=== PATIENT | female | born 1950 | race Caucasian/White ===

== ENCOUNTER 2021-12-17 12:51 | Emergency (ER) | payer MEDICARE, SELFPAY ==
[2021-12-17 12:54] VITALS: BP 147/75; PULSE 67; RESP 28; TEMP 36.2; O2SAT 100; BMI 20.7
[2021-12-17 13:23] VITALS: O2SAT 100
--- NOTE | 2021-12-17 13:23 | CRLHL7_ITS ---
For Patients: As a result of the Century Cures Act, medical imaging exams and procedure reports are released immediately into your electronic medical record. You may view this report before your referring provider. If you have questions, please contact your health care provider. INDICATION: Right upper quadrant abdomen pain and bloating. TECHNIQUE: CT abdomen and pelvis acquired with 69 cc Isovue 370 IV contrast. COMPARISON: 04/24/2012. FINDINGS: Lower chest: Unremarkable. Liver: Stable benign-appearing cystic lesions. Otherwise unremarkable liver. Gallbladder and bile ducts: Unremarkable. No stones or inflammation. No biliary dilatation. Pancreas: Unremarkable. No mass or inflammation. Spleen: Unremarkable. Normal in size. No masses. Adrenal glands: Unremarkable. No nodules. Kidneys: Unremarkable. No suspicious masses, stones, or hydronephrosis. GI tract: Mild fluid retention scattered throughout the small bowel. GI tract otherwise within normal limits in caliber in appearance normal appendix. Vasculature: Abdominal aorta is normal in caliber. Mesenteric arteries are patent. Lymph nodes: No lymphadenopathy. Peritoneum/Abdominal Wall: Unremarkable. No sign of mass or infiltration. No free air or significant free fluid. Pelvis: Unremarkable. Bones: Unremarkable for age. IMPRESSION: Mild nonspecific fluid retention in the small bowel is a finding that can be seen with a general enteritis. No signs of constipation. Exam is otherwise unremarkable. Please note that all CT scans at this facility use dose modulation, iterative reconstruction, and/or weight-based dosing when appropriate to reduce radiation dose to as low as reasonably achievable. Dictated by Mian Arredondo MD @ 12/17/2021 3:34:11 PM (Electronically Signed)
[2021-12-17] MEDS: ONDANSETRON 2 MG/ML inj 4 MG IVP (13:34)
[2021-12-17] MEDS: HYDROmorphone 0.5 mg/0.5 ml inj IVP ×2 (13:34→14:31)
[2021-12-17 13:37] LABS: HCO3 VBG 26 mmol/L (21-28); Lactate* 2.8 mmol/L (0.5-1.9); PCO2 VBG 34 mmHG (40-50); PO2 VBG 29.5 mmHG (25-47); pH VBG 7.496 (7.32-7.43)
[2021-12-17 13:42] LABS: Basophils Absolute Auto 0.02 K/uL (0.00-0.30); Basophils Percent Auto 0.3 % (0.0-3.0); Eosinophils Absolute Auto 0.11 K/uL (0.00-0.50); Eosinophils Percent Auto 1.4 % (0.0-7.0); Hematocrit 46.6 % (33.0-51.0); Hemoglobin* 16.1 gm/dL (12.0-16.0); Immature Granulocytes Abs Auto 0.01 K/uL (0.00-0.30); Lymphocytes Absolute Auto 1.55 K/uL (0.90-2.90); Lymphocytes Percent Auto 20.1 % (20-44); Mean Corpuscular HGB Conc 35 gm/dL (32-36); Mean Corpuscular Hemoglobin 30 pg (26-34); Mean Corpuscular Volume 86 fL (80-100); Monocytes Percent Auto 6.5 % (0.0-11.0); Neutrophils Absolute Auto 5.52 K/uL (1.7-7.0); Neutrophils Percent Auto 71.6 % (42.0-72.0); Platelet Count* 325 K/uL (140-440); RDW Coefficient of Variation % 13.4 % (11.5-15.5); White Blood Count* 7.71 K/uL (4.50-11.00)
[2021-12-17 13:49] LABS: Slide Review Reflex No
--- NOTE | 2021-12-17 13:50 | ED.GENADULT ---
HPI - General Adult General Date Seen: 12/17/21 Chief complaint: Abdominal Pain Stated complaint: Colon pain can't go to the bathroom Time Seen by Provider: 12/17/21 12:54 Source: patient History of Present Illness HPI narrative: Patient is a 71-year-old woman who presents with sudden onset of severe abdominal pain about an hour prior to arrival. She notes that for the past couple of days she has not had a bowel movement, so she thought she might be constipated. She says that she tried to go the bathroom, she had a small amount of stool out but nothing significant. Since then she has not been passing gas, although this has just been for the past hour. She has been nauseated but no vomiting. Pain is diffuse, crampy, and radiates to the low back. She notes for the past couple of weeks she has had a vague mild mid right-sided abdominal pain which has been constant. This has not affected her daily life or appetite. She has no prior abdominal surgeries. She denies any known fever. She has not had any urinary symptoms. She has not had any black or bloody stools. She has history of back pain and some musculoskeletal problems, but denies any significant other medical history. She does not smoke, no significant alcohol intake. Here today with her . Related Data Home Medications Medication Instructions Recorded Confirmed albuterol sulfate 90 mcg/actuation 1 puff inhalation 12/17/21 aerosol inhaler alendronate 70 mg tablet 70 mg PO 12/17/21 atorvastatin 40 mg tablet 40 mg 12/17/21 clonazepam 0.5 mg tablet 0.5 mg 12/17/21 cyclobenzaprine 5 mg tablet 5 mg 12/17/21 duloxetine 20 mg capsule,delayed 20 mg PO 12/17/21 release fluticasone furoate 200 1 inh inhalation 12/17/21 mcg-vilanterol 25 mcg/dose inhalation powder (Breo Ellipta) gabapentin 300 mg capsule 300 mg 12/17/21 Allergies Allergy/AdvReac Type Severity Reaction Status Date / Time amoxicillin [From Augmentin] Allergy Mild Rash Verified 12/17/21 14:44 citalopram [From Celexa] Allergy Mild Vomiting Verified 12/17/21 14:44 clavulanic acid Allergy Mild Rash Verified 12/17/21 14:44 [From Augmentin] ketorolac [From Toradol] Allergy Mild feet Verified 12/17/21 14:44 swelling levofloxacin [From Levaquin] Allergy Mild tendons Verified 12/17/21 14:44 tizanidine Allergy Mild Dizziness Verified 12/17/21 14:44 malaxican Allergy Mild stomach Uncoded 12/17/21 14:44 ache Review of Systems Status of ROS: Reports: 10 or more systems reviewed and unremarkable except as noted in History and below [facility] Social History Smoking Status: Never smoker Non-prescribed substance use: denies use Exam Narrative: Exam Narrative: Vital signs as noted above. In general, an alert woman, tachypneic, complaining of severe pain. Head: Normocephalic, atraumatic. Eyes: Pupils are equal reactive. Extraocular movements are full. Conjunctivae are normal, no scleral icterus. ENT: Mucous membranes are moist. Throat is normal. Neck: Supple without lymphadenopathy. Heart: Regular rate and rhythm. No murmur or rub. Lungs: Clear bilaterally. No increased work of breathing, crackles or wheezes. Abdomen: Abdomen is protuberant and soft, diffuse tenderness without any focality, no rebound guarding or rigidity. Extremities: Well perfused. No edema. No calf tenderness. Difficult to palpate dorsalis pedis pulses bilaterally. Radial pulses intact. Neurologic: Patient is alert and oriented to person and place. Speech is fluent. Face is symmetric. Moves all extremities equally. Affect: Anxious. Skin: Warm and dry. Well perfused. Const: Vital Signs, click to edit/add: Vital Signs - 24 hr 12/17/21 12:54 12/17/21 13:23 Temperature 97.2 F L Pulse Rate [Right Pulse Oximeter] 67 Respiratory Rate 28 H Blood Pressure [Ri ght Upper Arm] 147/75 H Pulse Oximetry 100 100 Oxygen Delivery Me thod Room Air Documenting provider has reviewed patient's vital signs: yes Course Course Hospital Course: Following initial evaluation, patient had 0.5 mg of Dilaudid, L saline and 4 mg of Zofran. I looked with the bedside ultrasound, she appeared to have normal caliber aorta and I did not see obvious gallstones, although images were significantly hampered by overlying bowel gas. Labs were ordered as well as an abdominal CT scan. As labs began to return, they were notable for a normal white blood cell count of 7.71 and hemoglobin of 16, no left shift. Her lactate was elevated at 2.8. Venous gas showed a pH of 7.49 and pCO2 34, consistent with her tachypnea. Bicarb was 26. Sick metabolic panel showed a normal creatinine, and she went over for her CT scan. Remainder of her metabolic panel was unremarkable aside from a sodium of 132. CRP was normal. I reviewed her CT scan, I did not see any evidence of bowel obstruction, inflammatory changes suggesting diverticulitis, aorta appeared normal, gallbladder looked normal to me as well. No kidney stones. Final radiology report is read as follows: IMPRESSION: Mild nonspecific fluid retention in the small bowel is a finding that can be seen with a general enteritis. No signs of constipation. Exam is otherwise unremarkable. I did specifically review with the radiologist her mesenteric arteries, which he commented were patent. He did say that this study was adequate to evaluate the mesenteric arteries for any signs of mesenteric ischemia. He says he is confident that her symptoms are not due to mesenteric ischemia. By the time her CT had been red, patient's pain was significantly improved, although not completely gone. Her abdominal exam remains fairly benign. Explanation for her pain is unclear at this time. I considered volvulus, but given that she was still having severe pain at the time of her CT scan, it seems a little less likely. Her pain at no time was localized, LFTs are unremarkable, gallbladder is normal in CT scan, and she did not have a sonographic [employer] on my exam. I do not think this represents gallbladder disease and I do not think further evaluation with a HIDA scan is indicated at this time. She was not able to provide a urine sample, she had gone to the bathroom and not provided woman says she no longer needs to go. She did not have any urinary symptoms when she did go earlier, kidneys are normal on CT scan, and we are going to forego a UA. My suspicion of pyelonephritis is essentially zero. For now, I think it is reasonable to let her go home. I recommended keeping her diet bland today, advance as able. If she has recurrence of this severe pain, I do think she should be seen again, as based on her CT findings I would not anticipate that the severe pain should recur. Likewise, fever, bloody stools, or other worsening symptoms should prompt re-evaluation. Vital Signs Vital signs: Initial Vital Signs Temperature 97.2 F L 12/17/21 12:54 Temperature Source Temporal Artery Scan 12/17/21 12:54 Pulse Rate 67 12/17/21 12:54 Respiratory Rate 28 H 12/17/21 12:54 Blood Pressure 147/75 H 12/17/21 12:54 Blood Pressure Mean 99 12/17/21 12:54 Blood Pressure Position Sitting 12/17/21 12:54 Pulse Oximetry 100 12/17/21 12:54 Oxygen Delivery Method 12/17/21 12:54 Vital Signs Temperature 97.2 F L 12/17/21 12:54 Pulse Rate 67 12/17/21 12:54 Respiratory Rate 28 H 12/17/21 12:54 Blood Pressure 147/75 H 12/17/21 12:54 Pulse Oximetry 100 12/17/21 12:54 Oxygen Delivery Method 12/17/21 12:54 Temperature 97.2 F L 12/17/21 12:54 Pulse Rate 67 12/17/21 12:54 Respiratory Rate 28 H 12/17/21 12:54 Blood Pressure 147/75 H 12/17/21 12:54 Pulse Oximetry 100 12/17/21 13:23 Oxygen Delivery Method 12/17/21 12:54 Medical Decision Making Lab Data Labs: Lab Results 12/17/21 12/17/21 12/17/21 Range/Units 13:15 13:15 13:15 WBC 7.71 (4.50-11.00) K/uL RBC 5.40 H (4.00-5.20) m/uL Hgb 16.1 H (12.0-16.0) gm/dL Hct 46.6 (33.0-51.0) % MCV 86 (80-100) fL MCH 30 (26-34) pg MCHC 35 (32-36) gm/dL RDW Coeff of Farhan 13.4 (11.5-15.5) % Plt Count 325 (140-440) K/uL Neut % (Auto) 71.6 (42.0-72.0) % Lymph % (Auto) 20.1 (20-44) % [place] % (Auto) 6.5 (0.0-11.0) % Eos % (Auto) 1.4 (0.0-7.0) % Baso % (Auto) 0.3 (0.0-3.0) % Neut # (Auto) 5.52 (1.7-7.0) K/uL Lymph # (Auto) 1.55 (0.90-2.90) K/uL [place] # (Auto) 0.50 (0.00-0.90) K/UL Eos # (Auto) 0.11 (0.00-0.50) K/uL Baso # (Auto) 0.02 (0.00-0.30) K/uL Abs Immat Gran (auto) 0.01 (0.00-0.30) K/uL VBG pH 7.496 H (7.32-7.43) VBG pCO2 34 L (40-50) mmHG VBG pO2 29.5 (25-47) mmHG VBG HCO3 26 (21-28) mmol/L Sodium 132 L (135-149) mmol/L Potassium 4.2 (3.6-5.1) mmol/L Chloride 99 (96-114) mmol/L Carbon Dioxide 22 (20-32) mmol/L BUN 17 (7-30) mg/dL Creatinine 0.7 (0.5-1.5) mg/dL Estimated Creat Clear 53.23 Estimated GFR 94 ml/min Glucose 134 H (60-115) mg/dL Lactate 2.8 H (0.5-1.9) mmol/L Calcium 9.7 (8.4-10.6) mg/dL Total Bilirubin 0.6 (0.1-1.5) mg/dL Direct Bilirubin 0.1 (0.0-0.5) mg/dL AST 51 H (12-35) U/L ALT 50 H (4-35) U/L Alkaline Phosphatase 91 (40-150) U/L C-Reactive Protein < 0.5 L (0.5-1.0) mg/dL Total Protein 7.6 (6.0-8.3) g/dL Albumin 4.7 (3.3-5.0) g/dL Lipase 89 (23-300) U/L 12/17/21 12/17/21 Range/Units 13:15 13:15 WBC (4.50-11.00) K/uL RBC (4.00-5.20) m/uL Hgb (12.0-16.0) gm/dL Hct (33.0-51.0) % MCV (80-100) fL MCH (26-34) pg MCHC (32-36) gm/dL RDW Coeff of Farhan (11.5-15.5) % Plt Count (140-440) K/uL Neut % (Auto) (42.0-72.0) % Lymph % (Auto) (20-44) % [place] % (Auto) (0.0-11.0) % Eos % (Auto) (0.0-7.0) % Baso % (Auto) (0.0-3.0) % Neut # (Auto) (1.7-7.0) K/uL Lymph # (Auto) (0.90-2.90) K/uL [place] # (Auto) (0.00-0.90) K/UL Eos # (Auto) (0.00-0.50) K/uL Baso # (Auto) (0.00-0.30) K/uL Abs Immat Gran (auto) (0.00-0.30) K/uL VBG pH Cancelled (7.32-7.43) VBG pCO2 Cancelled (40-50) mmHG VBG pO2 Cancelled (25-47) mmHG VBG HCO3 Cancelled (21-28) mmol/L Sodium (135-149) mmol/L Potassium (3.6-5.1) mmol/L Chloride (96-114) mmol/L Carbon Dioxide (20-32) mmol/L BUN (7-30) mg/dL Creatinine (0.5-1.5) mg/dL Estimated Creat Clear Estimated GFR ml/min Glucose (60-115) mg/dL Lactate (0.5-1.9) mmol/L Calcium (8.4-10.6) mg/dL Total Bilirubin Cancelled (0.1-1.5) mg/dL Direct Bilirubin Cancelled (0.0-0.5) mg/dL AST Cancelled (12-35) U/L ALT Cancelled (4-35) U/L Alkaline Phosphatase Cancelled (40-150) U/L C-Reactive Protein (0.5-1.0) mg/dL Total Protein Cancelled (6.0-8.3) g/dL Albumin Cancelled (3.3-5.0) g/dL Lipase (23-300) U/L Discharge Plan Discharge Clinical Impression: Abdominal pain Patient Disposition: Home, Self-Care Condition: Improved Instructions: Abdominal Pain (ED) Additional Instructions: [place] diet today, advance as able. Return for recurrent severe pain, fever, bloody stools, or other worsening. If you have any recurrent episodes of this type of pain, you should be re-evaluated in the ER. Prescriptions: No Action albuterol sulfate 90 mcg/actuation HFA aerosol inhaler 1 puff INHALATION Label Comments: INHALE 2 PUFFS BY MOUTH EVERY 4 TO 6 HOURS NEEDED alendronate 70 mg tablet 70 mg PO Label Comments: TAKE 1 TABLET BY MOUTH ONCE WEEKLY atorvastatin 40 mg tablet 40 mg Label Comments: TAKE 1 TABLET BY MOUTH DAILY clonazepam 0.5 mg tablet 0.5 mg Label Comments: TAKE ONE-HALF TO ONE TABLET BY MOUTH AT BEDTIME cyclobenzaprine 5 mg tablet 5 mg Label Comments: TAKE 1 TABLET BY MOUTH AT BEDTIME duloxetine 20 mg capsule,delayed release(DR/EC) 20 mg PO Label Comments: TAKE 1 CAPSULE BY MOUTH EVERY DAY fluticasone furoate-vilanterol [Breo Ellipta] 200-25 mcg/dose blister with device 1 inh INHALATION Label Comments: INHALE 1 PUFF BY MOUTH EVERY DAY AT THE SAME TIME EACH DAY gabapentin 300 mg capsule 300 mg Label Comments: TAKE 1 TO 2 CAPSULES BY MOUTH DAILY Stand Alone Forms: MyHealth Info Instructions
[2021-12-17 13:55] LABS: Albumin* 4.7 g/dL (3.3-5.0); Chloride* 99 mmol/L (96-114); Sodium* 132 mmol/L (135-149)
[2021-12-17 13:56] LABS: Potassium* 4.2 mmol/L (3.6-5.1)
[2021-12-17 13:57] LABS: Creatinine* 0.7 mg/dL (0.5-1.5); Est. Creatinine Clearance* 53.23; Estimated Glomerular Filt Rate 94 ml/min
[2021-12-17 13:58] LABS: Alkaline Phosphatase* 91 U/L (40-150); Aspartate Amino Transferase* 51 U/L (12-35); Bilirubin Direct* 0.1 mg/dL (0.0-0.5); Bilirubin Total* 0.6 mg/dL (0.1-1.5); Carbon Dioxide* 22 mmol/L (20-32); Total Protein* 7.6 g/dL (6.0-8.3)
[2021-12-17 13:59] LABS: Alanine Aminotransferase* 50 U/L (4-35); Blood Urea Nitrogen* 17 mg/dL (7-30); Calcium* 9.7 mg/dL (8.4-10.6); Glucose* 134 mg/dL (60-115); Lipase* 89 U/L (23-300)
--- OUTSIDE RECORDS SUMMARY | 2021-12-17 13:59 | XMS_ITS | Clinical Summary ---
:1950 Author Organization [facility] Address [address] [place] [address] Care Team Providers Name Role Phone Clair Simms APRN C.N.P., D.N.P. Primary Care Provider Source Comments Patient records contain information from all sites at [facility]. For routine questions regarding patient records, call [phone] during business hours, M-F 8:00 AM - 5:00 PM Central Time. Record requests for emergency care only can be directed to [phone] at any time.[facility] Allergies Active Allergy Reactions Severity Noted Date Comments Amoxicillin-Pot Clavulanate Rash High 11/25/2019 Celecoxib GI intolerance 08/15/2021 Ketorolac Edema 11/21/2020 Levofloxacin Other (see comments) 05/12/2015 Tendons hurt Meloxicam GI intolerance 08/15/2021 Tizanidine Other (see comments) High 11/21/2020 Dizzine ss Medications Medication Sig Dispensed Refills Start Date End Date Status albuterol Inhale 2.5 mg 0 09/21/2015 Activ e (for_ACCUNEB) 2.5 mg every 6 (six) /3 mL nebulizer hours. As needed solution cetirizine 10 mg Take by mouth 0 05/13/2015 Active capsule daily. clonazePAM Take 0.5 mg by 0 05/13/2015 Act marie (for_KlonoPIN) 0.5 mg mouth daily. tablet fluticasone-vilanterol Inhale daily. 0 06/20/2016 Active (for_BREO ELLIPTA DISKUS) 200-25 mcg/act inhaler gabapentin Take by mouth 0 05/13/2015 Acti ve (for_NEURONTIN) 300 mg daily. capsule montelukast Take 1 tablet by 0 05/13/2015 Active (for_SINGULAIR) 10 mg mouth every tablet evening. acetaminophen Take 1,500 mg by 0 09/06/2020 Active (TYLENOL) 500 mg mouth 2 (two) tablet times a day. traMADoL (ULTRAM) 50 Take 0.5-1 tablets 30 tablet 0 11/21/2020 Active mg tabletIndications: (25-50 mg total) Prolonged Acute by mouth every 6 Pain/Traumatic Injury (six) hours as needed for moderate pain or score 4-6 of 10 Indications: Prolonged Acute Pain/Traumatic Injury. Additional Information Patient taking differently: 25 mg oral Daily PRN, moderate pain or score 4-6 of 10, 08/15/21 states she is only using about 2X/week, Indications: Prolonged Acute Pain/Traumatic Injury, Reported on 08/15/2021 metroNIDAZOLE Apply 1 0 07/25/2021 Activ e (METROCREAM) 0.75 % application cream topically at bedtime. cyclobenzaprine Take 1 tablet (5 90 tablet 3 12/05/2021 Active (FLEXERIL) 5 mg mg total) by tabletIndications: mouth at Temporomandibular Joint bedtime. Disorder polyethylene Drink 1st 4000 mL 0 12/05/2021 Active glycol-electrolytes portion of prep (GoLYTELY) at 6 PM the 236-22.74-6.74 -5.86 evening before. gram solution 2nd portion must be started 3 hours before and finished 2 hours prior to report time DULoxetine (CYMBALTA) Take 1 capsule 90 capsule 3 12/05/2021 [address] capsule (20 mg total) mouth daily. atorvastatin (LIPITOR) Take 1 tablet 90 tablet 3 12/05/2021 Active 40 mg tablet (40 mg total) by mouth daily. cyclobenzaprine Take 1 tablet (5 90 tablet 3 11/24/202012/05 Discontinued (FLEXERIL) 5 mg mg total) ( Reorder) tabletIndications: mouth at Temporomandibular Joint bedtime. Disorder Active Problems Problem Noted Date Screening Colon Cancer Average Risk 12/05/2021 Overview: Added automatically from request for floridalma sheth [id number] Hyperlipidemia 12/26/2016 Overview: Hyperlipidemia NOS\.br\onset unknown copy center specialist ied from medical record Hemangioma Liver 06/17/2015 Overview: Noted in clinic notes from previous clin ic Restless Leg Syndrome 05/12/2015 Overview: onset unknown copied from [facility] record signed managed by [facility] [place] Varicose Vein Lower Extremity 05/12/2015 Overview: copied from [facility] medical record scanne d Osteoarthritis 08/23/2011 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 Hyperlipidemi a; Asthma (HCC); Irregular Heart beat; Temporomandibul ar Joint Disorder; Screening Colon Cancer Average Risk; Screening [facility] Diabetes Mellitus 12/05/2021 Orders Only Family Medicine Clair Simms MGEOVANNIN, C.N.P., D.N.P. 12/04/2021 Orders Only Family Medicine Clair Simms M PLUMBING ENGINEER, C.N.P., D.N.P. 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 09/19/2021 Orders Only Orthopedic Marge Ferrer Pain Sacroili ac Surgery Y, P.A.-CIshmael, (Primary Dx) M.S. 09/18/2021 Clinical Orthopedic Marge Ferrer Communication Surgery Y, P.A.-C., M.S. from Last 3 Months Immunizations Name Administration Dates Next Due DT, Pediatric 09/03/2002 HZV (ZOSTAVAX) 09/17/2011 Influenza (IM) Preservative Free 02/11/2014, 02/28/2012, Influenza, Injectable, Quadrivalent 12/02/2017 Influenza, Quadrivalent, Adjuvanted, 11/13/2019 Preservative Free Influenza, Unspecified 11/29/2016 PCV13 12/20/2017 PPSV23 12/24/2018 RZV (SHINGRIX) 10/22/2017, 07/22/2017 Td (Adult), adsorbed 07/05/2008 Td Preservative Free (TENIVAC, DECAVAC) 01/12/2019 Tdap 07/05/2008 influenza high dose (65 years or older) 12/24/2018, 11/13/19 18 (PF) influenza vaccine quad (FLUZONE/FLUARIX) 11/28/2016, 016, 11/11/2012 (6 months and older)(PF) Family History Medical History Relation Name Comments Diabetes mellitus type II Father Heart disease Father Depression Mother Drug abuse Mother Lung cancer Mother Osteoporosis Mother Relation Name Status Comments Father Mother Social History Tobacco Use Types Packs/Day Years Used Date Smoking Tobacco: Never Smokeless Tobacco: Never Alcohol Use Standard Drinks/Week Comments Yes 7 (1 standard drink = 0.6 oz pure alcoho l) Alcohol Habits Answer Date Recorded How often do you have a drink containing 4 or more times a w [place] 08/10/2021 alcohol? How many drinks containing alcohol do you have 1 or 2 08/10/2021 on a typical day when you are drinking? How often do you have six or more drinks on one Never 08/10/2021 occasion? Social Isolation Answer Date Recorded In a typical week, how many times do you More than three dewayne es a week 08/10/2021 talk on the phone with family, friends, or neighbors? How often do you get together with friends Once a week 08/10/2021 or relatives? How often do you attend restorationist or More than 4 times per year 08/10/2021 advent services? Do you belong to any clubs or Yes 08/10/2021 organizations such as restorationist groups, unions, fraternal or athletic groups, or school groups? How often do you attend meetings of the More than 4 times pe r year 08/10/2021 clubs or organizations you belong to? Are you now , , , 08/10/2021 , never or living with a partner? Physical Activity Answer Date Recorded On average, how many days per week do you engage in moderate to 0 days 08/10/2021 strenuous exercise (like walking fast, running, jogging, dancing, swimming, biking, or other activities that cause a light or heavy sweat)? On average, how many minutes do you engage in exercise at th is 0 min 08/10/2021 level? Stress Answer Date Recorded Do you feel stress - tense, restless, nervous, or Only a lit tle 08/10/2021 anxious, or unable to sleep at night because your mind is troubled all the time - these days? Financial Resource Strain Answer Date Recorded How hard is it for you to pay for the very basics like Not h arnaldo at all 08/10/2021 food, housing, medical care, and heating? Intimate Partner Violence Answer Date Recorded Within the last year, have you been afraid of your partner o r No 08/10/2021 ex-partner? Within the last year, have you been humiliated or emotionall y No 08/10/2021 abused in other ways by your partner or ex-partner? Within the last year, have you been kicked, hit, slapped, or No 08/10/2021 otherwise physically hurt by your partner or ex-partner? Within the last year, have you been raped or forced to have any No 08/10/2021 kind of sexual activity by your partner or ex-partner? Food Insecurity Answer Date Recorded Within the past 12 months, you worried that your food would Never true 08/10/2021 run out before you got money to buy more. Within the past 12 months, the food you bought just didn't N ever true 08/10/2021 last and you didn't have money to get more. Transportation Needs Answer Date Recorded In the past 12 months, has lack of transportation kept you f rom No 08/10/2021 medical appointments or from getting medications? In the past 12 months, has lack of transportation kept you f rom No 08/10/2021 meetings, work, or getting things needed for daily living? Housing Stability Answer Date Recorded In the last 12 months, was there a time when you were not ab le No 08/10/2021 to pay the mortgage or rent on time? In the last 12 months, how many places have you lived? 2 08/10/2021 In the last 12 months, was there a time when you did not hav e a No 08/10/[address] sleep or slept in a jail (including now)? Education Answer Date Recorded What is the highest level of school you have completed or 12 th grade 08/10/2021 the highest degree you have received? Sex Assigned at Date Recorded Female 11/19/2020 2:34 PM CDT Last Filed Vital Signs Vital Sign Reading Time Taken Comments Blood Pressure 141/76 12/12/2021 9:49 AM CDT Pulse 66 12/12/2021 9:49 AM CDT Temperature 36.6 ??C (97.9 ??F) 12/12/2021 9:23 AM CDT Respiratory Rate 18 08/15/2021 2:55 PM CDT Oxygen Saturation 95% 12/12/2021 9:49 AM CDT Inhaled Oxygen Concentration - - Weight 65 kg (143 lb 4.8 oz) 08/15/2021 11:39 AM CDT Height 175.7 cm (5' 9.17) 08/15/2021 11:39 AM CDT Body Mass Index 21.06 08/15/2021 11:39 AM CDT Plan of Treatment Upcoming Encounters Date Type Specialty Care Team Description 01/23/2022 Appointment Radiology Clair Simms APRN, C.N.P., D.N.P. [id number] [phone] (Wo rk) Scheduled Procedures Name Priority Associated Diagnoses Date/Time COLONOSCOPY Screening Colon Cancer Average R isk Health Maintenance Due Date Last Done Comments CT Colonography 1950 Cologuard 1950 FIT 1950 Hepatitis C Screening 1950 Hepatitis A Vaccines (1 of 2 - 1951 Risk 2-dose series) Hepatitis B Vaccines (1 of 3 - 2012 Risk 3-dose series) Mammogram 02/12/2019 02/12/2018 COVID-19 Vaccine (4 - Booster for 03/28/2021 01/31/2021, , Pfizer series) 05/06/2020 Influenza Vaccine (#1) 2021 03/06/2021, 11/13/2019, 12/24/2018, Additional history exists Visit: Annual, age 65+ 12/05/2022 12/05/2021 Fasting Glucose for Diabetes 12/05/2024 12/05/2021, 021, Screening 01/12/2019, Additional history exists Lipid (Cholesterol) Screening 12/05/2026 12/05/2021, 2018, 12/26/2016, Additional history exists Colonoscopy 01/10/2027 01/10/2017 Colorectal Cancer Screening 01/10/2027 DTaP,Tdap,and Td Vaccines (4 - 01/12/2029 01/12/2019, 07/05, Tdap) 07/05/2008, Additional history exists Zoster Vaccines Completed 10/22/2017, 07/22/2017, 09/17/2011 Pneumococcal vaccine (65+ years) Completed 03/06/2021, , 12/20/2017 Depression Screening (Annual Completed 12/05/2021 PHQ-2) Fall Risk Screen (Annual) Completed 12/12/2021 Procedures Procedure Name Priority Date/Time Associated Diagnosis Comme nts FL SACROILIAC RAD - Routine 12/12/2021 9:46 Pain Sacroiliac Results for JOINT INJECTION (most inpatients AM CDT this pro cedure RIGHT and all are in the outpatients) results section. GLUCOSE, FASTING, Routine 12/05/2021 11:53 Screening Result s for S/P AM CDT Examination Diabetes this pr ocedure Mellitus are in the results section. BASIC METABOLIC Routine 12/05/2021 11:52 Hyperlipidemia Results for PANEL, S/P AM CDT Screening this procedure Examination Diabetes are in the Mellitus results section. LIPID PANEL, S Routine 12/05/2021 11:52 Hyperlipidemia Results for AM CDT this procedure are in the results section. from Last 3 Months Results FL Sacroiliac Joint Injection Right (12/12/2021 9:46 AM CDT) Specimen (Source) Anatomical Collection Method Collection Time Re ceived Time Location / / Volume Laterality 12/12/2021 9:48 AM CDT Impressions [id number] - 12/12/2021 9:54 AM CDT Fluoroscopically-guided sacroiliac joint injection. NR Narrative [id number] - 12/12/2021 9:54 AM CDT EXAM: FL SACROILIAC JOINT INJECTION RIGHT PROCEDURE: ??Fluoroscopically-guided Rig ht Sacroiliac Joint Injection Pain Score: Pre-procedural pain was rated: ??5/10 ?? Post-procedural pain was rated: ??0/10 ? ? Medications: Steroid: ??4.5 mg betamethasone Local anesthetic: ??11.25 mg 0.5% ropiva cinthya INDICATION: ??The patient reports the cu rrent pain syndrome to be of >1 year duration and presents today for a maintenance injection. TECHNIQUE: Patient has a history of chronic right s acroiliac joint pain with good response to a prior injection on 08/15/2021. A repeat right sacroiliac joint injection was requested and performed. Using usual sterile technique, fluorosco pic guidance, and local anesthesia, a 3.5 inch 25-gauge spinal needle was advanced to the customer care team coach ior inferior aspect of the sacroiliac joint. With final needle tip position, a small amount of i odinated contrast confirmed intra-articular flow. Transient vascular uptake was not observed with fi nal needle position. ??3 cc of 3:1 mixture of anesthetic:steroid was administered at t he joint. The needle was withdrawn, restyletted, and removed. The patient experienced no comp lication. PREPROCEDURE: Patient seen and evaluated . Allergies, pertinent medications, and history reviewed. Discussed risks (including, but not limi fernando to, bleeding and infection); benefits; and alternatives for procedure and obtained informed cons ent. The side and site of the procedure were marked, when applicable, at the time of consent. The patient understood the information and questions answered. Immediately prior to starting the proced ure in the presence of the assisting personnel, a procedural pause was conducted to verify correct pa tient identity and verification of procedure to be performed and as applicable, correct side and site , correct patient position, availability of implants, special equipment, or special requiremen ts, and all image and specimen identification data. The roles and responsibilities of care team members, residents, and fellows were discussed. Marge Ferrer P.A.-C., M.S. IMG FLUOROSCOPY PROCEDUR ES Performing Organization Address City/State/ZIP Code Phon e Number [id number] NA (ABNORMAL) Glucose, Fasting (12/05/2021 11:53 AM CDT) P athologist Signature Glucose, P 105 (H) 70 - 100 12/05/2021 [facility] mg/dL 12:23 PM CDT Last Intake 17 hr 12/05/2021 [facility] 11:55 AM CDT Specimen Anatomical Collection Method Collection Time Receive d Time (Source) Location / / Volume Laterality Blood (Blood, 12/05/2021 11:53 12/05/2021 Venous) AM CDT 11:55 AM CDT Clair Simms APRN, C.N.P., D.N.P. LAB BLOOD NON ADD -ON Performing Organization Address City/State/ZIP Code Phon e Number [address] [address] [place] [address] [address] (ABNORMAL) Lipid Panel (12/05/2021 11:52 AM CDT) P athologist Signature Triglycerides 122 mg/dL 12/05/2021 [facility] 12:27 PM CDT Comment: ----REFERENCE VALUE---- Normal: <150 mg/dL Borderline High: 150-199 mg/dL High: 200-499 mg/dL Very High: > or =500 mg/dL Cholesterol, Total 261 (H) mg/dL 12/05/2021 12:27 PM C DT [facility] Comment: ----REFERENCE VALUE---- Desirable: < 200 mg/dL Borderline High: 200 - 239 mg/dL High: > or = 240 mg/dL Cholesterol, LDL, Calculated 172 (H) mg/dL 12/05/2021 12:27 PM CDT CN[facility] Comment: ----REFERENCE VALUE---- Desirable: <100 mg/dL Above Desirable: 100-129 mg/dL Borderline High: 130-159 mg/dL High: 160-189 mg/dL Very High: >=190 mg/dL ----ADDITIONAL INFORMATION---- LDL cholesterol calculated using the Goldstein/NIH equation. Cholesterol, HDL 67 >=50 mg/dL 12/05/2021 12:27 PM CD T [facility] Cholesterol, Non-HDL, Calculated 194 (H) mg/dL 022 12:27 PM CDT CN[facility] Comment: ----REFERENCE VALUE---- Desirable: <130 mg/dL Above Desirable: 130-159 mg/dL Borderline High: 160-189 mg/dL High: 190-219 mg/dL Very High: > or =220 mg/dL Fasting (8 HR or more) yes 12/05/2021 11:55 AM CDT CN[facility] Specimen Anatomical Collection Method Collection Time Receive d Time (Source) Location / / Volume Laterality Blood (Blood, 12/05/2021 11:52 12/05/2021 Venous) AM CDT 11:55 AM CDT Clair Simms APRN, C.N.P., D.N.P. LAB BLOOD ADD-ON Performing Organization Address City/State/ZIP Code Phon e Number [facility]- [address] [place] [address] [place] [address] [place] [address] [address] Basic Metabolic Panel (12/05/2021 11:52 AM CDT) P athologist Signature Potassium, P 4.1 3.6 - 5.2 12/05/2021 [facility] mmol/L 12:27 PM CDT Sodium, P 135 135 - 145 12/05/2021 [facility] mmol/L 12:27 PM CDT Chloride, P 101 98 - 107 12/05/2021 [facility] mmol/L 12:27 PM CDT Bicarbonate, P 27 22 - 29 12/05/2021 [facility] mmol/L 12:27 PM CDT Anion Gap, P 7 7 - 15 12/05/2021 [facility] 12:27 PM CDT BUN (Blood Urea 9 6 - 21 12/05/2021 [facility] Nitrogen), P mg/dL 12:27 PM CDT Creatinine 0.76 0.59 - 12/05/2021 [facility] 1.04 mg/dL 12:27 PM CDT Estimated GFR 85 >=60 12/05/2021 [facility] (eGFR) mL/min/BSA 12:27 PM CDT Comment: Estimated GFR calculated using the 2020 CKD_EPI creatinine equation. Calcium, Total, P 9.2 8.8 - 10.2 mg/dL 12/05/2021 12:2 7 PM CDT [facility] Glucose, P CANCELED mg/dL 12/05/2021 11:55 AM CDT CN[facility] Comment: Duplicate test request. Result canceled by the ancillary. Specimen Anatomical Collection Method Collection Time Receive d Time (Source) Location / / Volume Laterality Blood (Blood, 12/05/2021 11:52 12/05/2021 Venous) AM CDT 11:55 AM CDT Clair Simms APRN, C.N.P., D.N.P. LAB BLOOD ADD-ON Performing Organization Address City/State/ZIP Code Phon e Number [address] [address] [place] [address] [address] from Last 3 Months Insurance Payer Benefit Plan / Subscriber ID Effective Dates Phone Addre ss Type Group [employer]UE [employer] [id number] 2018-Kamran [phone] [address] [address] PPO BLUE [facility]IC[facility] t [address] [place] [address] Advance Directives For more information, please contact: [phone] Documents on File Type Date Recorded Patient Formulation Scientist Explanati on Advance Directives 11/21/2020 2:26 PM Liban Garcia urable POA for Jerome Mcdermott [employer] C are Latest Code Status on File Code Status Date Activated Date Inactivated Comments Full Code 01/10/2017 9:27 AM 01/10/2017 12:52 PM Question Answer Comments Full Code: Discussed Code Status History Code Status Date Activated Date Inactivated Comments Full Code 01/10/2017 8:48 AM 01/10/2017 9:27 AM Question Answer Comments Full Code: Discussed Healthcare Agents on File Name Relationship Healthcare Agent Communication Relationship Liban Quintana Spouse Health Care Agent [phone] ( Home) Kinjalaustin Troncoso Daughter [employer] [facility] [phone] Care Agent (Home) Filipe Quintana Son [employer] [facility] [facility] Care Agent Care Teams Senior Partner Relationship Specialty Start Date End Date Clair Simms, ALLEN, C.N.P., D.N.P. PCP - General 06/03/[address] [place] [phone] Juanito Damon DDS Dentist 12/05/[address] [facility] [place], [place] [facility] Leather Currier 12/05/21
--- OUTSIDE RECORDS SUMMARY | 2021-12-17 13:59 | XMS_ITS | Encounter Summary ---
:1950 Author [facility] Address [address] [place] [address] Care Team Providers Name Role Phone Unassigned, Provider Primary Care Provider Unavailable Reason for Visit Procedure/Equipment (Routine) - Incomplete Specialty Diagnoses / Procedures Referred By Contact Refer red To Contact Diagnoses Sprain of left ankle, unspecified ligament, initial encounter Gage Shrestha PA-C Procedures XR Foot 3+ Views/Ankle 2 Views Series Lt [address] [facility] [place], [place] [address] Referral ID Status Reason Start Date Expiration Date Visits V isits Requested Authorized [id number] Incomplete 12/18/2017 03/19/2019 1 1 Encounter Details Date Type Department Care Team Description 12/18/2017 Imaging [facility] Gage Shrestha PA-C Left ankle pain, [address] [facility] [address] [facility] unspecified chronicity [place], [place] [address] [place] [address] [phone] (Wo rk) Social History Tobacco Use Types Packs/Day Years Used Date Smoking Tobacco: Never Smokeless Tobacco: Never Alcohol Use Standard Drinks/Week Comments Yes 0 (1 standard drink = 0.6 oz pure alcoho l) Sex Assigned at Date Recorded Not on file documented as of this encounter Plan of Treatment Not on filedocumented as of this encounter Procedures Procedure Name Priority Date/Time Associated Diagnosis Comme nts XR FOOT 3+ Routine 12/18/2017 9:46 AM Left ankle pain, Resul ts for this VIEWS/ANKLE 2 VIEWS CDT unspecified procedur e are in SERIES LT chronicity the results section. documented in this encounter Results XR Foot 3+ Views/Ankle 2 Views Series Lt (12/18/2017 9:46 AM CDT) Anatomical Region Laterality Modality Lower Extremity, Foot, Ankle Digital Rad iography Specimen (Source) Anatomical Collection Method Collection Time Re ceived Time Location / / Volume Laterality 12/18/2017 9:31 AM CDT Narrative 12/18/2017 10:13 AM CDT COMPARISON: ??None. FINDINGS: No acute fracture or subluxati on. Minimal hyperdensity distal to the medial malleolus is favored to represent dystrophic calcification. Ankle mortise is intact. Mild spurring first MTP joint. Mild spurring Achilles insertion and kasey ntar fascial origin. Procedure Note Anam Calle MD - 12/18/2017 COMPARISON: None. FINDINGS: No acute fracture or subluxati on. Minimal hyperdensity distal to the medial malleolus is favored to represent dystrophic calcification. Ankle mortise is intact. Mild spurring first MTP joint. Mild spurring Achilles insertion and plantar fascial o rigin. Gage LEYVA GD documented in this encounter Visit Diagnoses Diagnosis Left ankle pain, unspecified chronicity documented in this encounter Care Teams Radius Corner Machine Operator Relationship Specialty Start Date End Date Unassigned, Provider PCP - General 05/31/[address] [place] [id number] documented as of this encounter
--- OUTSIDE RECORDS SUMMARY | 2021-12-17 13:59 | XMS_ITS | Encounter Summary ---
:1950 Author Organization [facility] Address [address] [place] [address] Care Team Providers Name Role Phone Unassigned, Provider Primary Care Provider Unavailable Reason for Visit Procedure/Equipment (Routine) - Incomplete Specialty Diagnoses / Procedures Referred By Contact Refer red To Contact Diagnoses Left ankle pain, unspecified chronicity Gage Shrestha, LINDY Procedures US Injection Lt Tendon or Ligament [address] [place] [address] Referral ID Status Reason Start Date Expiration Date Visits V isits Requested Authorized [id number] Incomplete 05/07/2018 08/06/2019 1 1 Encounter Details Date Type Department Care Team Description 05/09/2018 Ancillary [facility] Gage Shrestha, Left ankle pain, Procedure [address] [facility] [address] [place] [address] [phone] Social History Tobacco Use Types Packs/Day Years Used Date Smoking Tobacco: Never Smokeless Tobacco: Never Alcohol Use Standard Drinks/Week Comments Yes 0 (1 standard drink = 0.6 oz pure alcoho l) Sex Assigned at Date Recorded Not on file documented as of this encounter Plan of Treatment Not on filedocumented as of this encounter Procedures Procedure Name Priority Date/Time Associated Diagnosis Comme nts US INJECTION LT Routine 05/09/2018 11:34 AM Left ankle pain, R esults for this TENDON OR LIGAMENT FILM HISTORIAN unspecified procedure are in chronicity the results section. documented in this encounter Results US Injection Lt Tendon or Ligament (05/09/2018 11:34 AM FILM HISTORIAN) Anatomical Region Laterality Modality Ultrasound Specimen (Source) Anatomical Collection Method Collection Time Re ceived Time Location / / Volume Laterality 05/09/2018 10:42 AM FILM HISTORIAN Narrative 05/09/2018 11:35 AM FILM HISTORIAN PROCEDURE: Preprocedural scanning demons trates ??left peroneal tendon sheath. ??The risks, benefits, and alternatives were d iscussed and the patient granted informed written and verbal consent. ??A final pa use was performed to verify site of injection and patient identification. ??1% lidocai ne was utilized for local anesthesia. ??Using sterile technique and ultrasound guidanc e a 25 -gauge needle was advanced into the left peroneal tendon sheath. ??Approxima tely 2 mL 1% lidocaine administered into left peroneal peroneal tendon sheath. ??Next, 1 mL Kenalog (40 mg/mL ) administered into the tendon sheath without complication. ??Patient reported recent procedure pain of 6 out of 10 and post procedure pain of ??6 out of 10. Procedure Note Donald Bettencourt MD - 05/09/2018For matting of this note might be different from the original. PROCEDURE: Preprocedural scanning demons trates left peroneal tendon sheath. The risks, benefits, and alternatives were discussed and the patient granted informed written and verbal consent. A final pause was performed to verify site of injection an d patient identification. 1% lidocaine was utilized for local anesthesia. Using sterile technique and ultrasound guidance a 25 -gauge needle was advanced into the left peroneal tendon sheath. Approximately 2 mL 1% lid ocaine administered into left peroneal peroneal tendon sheath. Next, 1 mL Kenalog (40 mg/mL ) administered into the tendon sheath without complication. Patient reported recent procedure pain of 6 out of 10 and post procedure pain of 6 out of 10. Gage LEYVA US documented in this encounter Visit Diagnoses Diagnosis Left ankle pain, unspecified chronicity documented in this encounter Administered Medications Inactive Administered Medications - up to 3 most recent administrations Medication Order MAR Action Action Date Dose Rate Site triamcinolone acetonide Given 05/09/2018 11:45 AM FILM HISTORIAN 40 mg (KENALOG-40) 40 MG/ML injection 40 mg 40 mg, Intracapsular, ONCE, On Sat05/09/18 at 1145, For 1 dose documented in this encounter Care Teams Grip Wrapper Relationship Specialty Start Date End Date Unassigned, Provider PCP - General 05/31/00 [address] [place] [address] documented as of this encounter
--- OUTSIDE RECORDS SUMMARY | 2021-12-17 13:59 | XMS_ITS | Encounter Summary ---
:1950 [facility] Address [address] [place] [address] Care Team Providers Name Role Phone Unassigned, Provider Primary Care Provider Unavailable Reason for Referral Procedure/Equipment (Routine) - Incomplete Specialty Diagnoses / Procedures Referred By Contact Refer red To Contact Diagnoses Left ankle pain, unspecified chronicity Gage Shrestha PA-C Procedures US Injection Lt Tendon or Ligament [address] [address] [place] [address] Referral ID Status Reason Start Date Expiration Date Visits V isits Requested Authorized [id number] Incomplete 05/07/2018 08/06/2019 1 1 TRICAL AND INSTRUMENTATION MANAGER Encounter Details Date Type Department Care Team Description 05/07/2018 Notes/Orders [facility] Gage Shrestha, Left ank le pain, CENTER LINDY unspecified [address] [facility] chronicity (Primary [place], [place] [address] [facility] [place]) [phone] (Wo rk) Social History Tobacco Use Types Packs/Day Years Used Date Smoking Tobacco: Never Smokeless Tobacco: Never Alcohol Use Standard Drinks/Week Comments Yes 0 (1 standard drink = 0.6 oz pure alcoho l) Sex Assigned at Date Recorded Not on file documented as of this encounter Plan of Treatment Not on filedocumented as of this encounter Results US Injection Lt Tendon or Ligament (05/09/2018 11:34 AM ELECTRICAL AND INSTRUMENTATION MANAGER) Anatomical Region Laterality Modality Ultrasound Specimen (Source) Anatomical Collection Method Collection Time Re ceived Time Location / / Volume Laterality 05/09/2018 10:42 AM ELECTRICAL AND INSTRUMENTATION MANAGER Narrative 05/09/2018 11:35 AM ELECTRICAL AND INSTRUMENTATION MANAGER PROCEDURE: Preprocedural scanning demons trates ??left peroneal [...] Diagnoses Diagnosis Left ankle pain, unspecified chronicity - Primary Left ankle pain, unspecified chronicity documented in this encounter Care Teams Retirement Manager Relationship Specialty Start Date End Date Unassigned, Provider PCP - General 05/31/[address] [place] [id number] documented as of this encounter
--- OUTSIDE RECORDS SUMMARY | 2021-12-17 13:59 | XMS_ITS | Encounter Summary ---
:1950 Author [facility] Address [address] [place] [address] Care Team Providers Name Role Phone Unassigned, Provider Primary Care Provider Unavailable Reason for Referral Procedure/Equipment (Routine) - Closed Specialty Diagnoses / Procedures Referred By Contact Refer red To Contact Diagnoses Sprain of left ankle, unspecified ligament, subsequent encounter Gage Shrestha PA-C Procedures MR Ankle Lt WO IV Cont [address] [facility] [place], [place] [address] Referral ID Status Reason Start Date Expiration Date Visits Requ ested Visits Authorized [id number] Closed 05/05/2018 08/04/2019 1 1 OMER CONTACT SALES ASSOCIATE Reason for Visit Reason Comments ANKLE PAIN Encounter Details Date Type Department Care Team Description 05/05/2018 Office Visit [facility] Gage Shrestha, Sprain o f left ankle, CENTER PAJonnie unspecified ligament, [address] [place] [address] subsequent encounter [place], [place] [address] [place], [place] (Primary Dx) [phone] (Wo rk) Social History Tobacco Use Types Packs/Day Years Used Date Smoking Tobacco: Never Smokeless Tobacco: Never Alcohol Use Standard Drinks/Week Comments Yes 0 (1 standard drink = 0.6 oz pure alcoho l) Sex Assigned at Date Recorded Not on file documented as of this encounter Progress Notes Gage Shrestha PA-C - 05/05/2018 1:20 PM CST Fei Quintana [id number] 1950 [facility] Follow-Up 05/05/2018 Chief Complaint: Left Ankle Pain History of Present Illness: Fei Quintana is a 67 y.o. female who presents for follow-up regarding left ankle pain that began on 12/09/2017 after she rolled her ankle in an eversion type mechanism. She was last evaluated on 01/13/2018, at which time she reported her left ankle pain had improved, but was still present. She voiced that she may not be progressing the way she should be. She had been wearing her brace and attending physical therapy. She was advised to continue wearing her brace full- time until after val and to follow up at that time. Today, she reports that she initially felt as if she was improving around our last visit, though her left ankle pain has been worsening gradually. She states that her leftankle pain is almost as severe as it was when she first presented to [facility] on 01/13/2018. She localizes her pain over the lateral left ankle, inferior to the lateral malleolus. She has continued wearingher brace and has recently been using KT tape for symptom management. She voices no further concernsat this time. Please refer to my note dated 12/18/2017 for past medical history. Review of Systems: Positive for left ankle pain, glasses, ringing, hearing loss, menopause, arthritis, back pain, headaches, and easy bleeding. No history of other heart, lung, liver, GI, or renal diseases, cancers, or diabetes mellitus. Physical Exam: General: The patient is in no acute distress. Neuro: Answers questions appropriately. Alert and oriented x 3. Skin: Cool to touch. No erythema, ecchymosis, or lesions. Left Ankle/Foot: Tenderness over the peroneals, and posterior tib tendon, though they are intact. Noedema. 2+ pedal pulses and neurovascularly intact. Full active range of motion. Drawer testing negative. Full range of motion of the ankle, subtalar, and transverse tarsal joints. Full range of motion of MTPs non- tender. Ligaments are non-tender. All tendons are intact with 5/5 strength. Calves non-tender. This is compared bilaterally. Assessment: Diagnosis and Associated Orders ICD-10-CM 1. Sprain of left ankle, unspecified ligament, subsequent encounter S93.402D Plan: Given her lack of improvement after bracing, therapy, and time, we elected to complete an MRI of theleft ankle to evaluate the peroneal tendons and posterior tib tendons. Follow up after MRI for results. Further management based on MRI results. The patient voices understanding and agreement of this plan. Pending the results of her MRI, we did discuss the possibility of cortisone injection and continued therapy. I explained the risks and benefits of cortisone injection. All questions were answered. Scribe Disclosure: ISuresh, am serving as a scribe to document services personally performed by Gage Shrestha PA-C at this visit, based upon the provider's statements to me. All documentation has been reviewed by the aforementioned provider prior to being entered into the official medical record. Portions of this medical record were completed by a scribe. UPON MY REVIEW AND AUTHENTICATION BY ELECTRONIC SIGNATURE, this confirms (a) I performed the applicable clinical services, and (b) the recordis accurate. Gage Shrestha PA-C OMER CONTACT SALES ASSOCIATE documented in this encounter Plan of Treatment Not on filedocumented as of this encounter Results MR Ankle Lt WO IV Cont (05/06/2018 11:00 AM CUSTOMER CONTACT SALES ASSOCIATE) Anatomical Region Laterality Modality Lower Extremity, Ankle, Foot, Leg, Skeletal, Foot & Left Magnetic Resonance Ankle Specimen (Source) Anatomical Collection Method Collection Time Re ceived Time Location / / Volume Laterality 05/06/2018 10:59 AM CUSTOMER CONTACT SALES ASSOCIATE Impressions 05/06/2018 11:31 AM CUSTOMER CONTACT SALES ASSOCIATE IMPRESSION: ?? 1. Subcentimeter subacute/chronic-appear ing shallow impaction fracture deformity involving the superolateral aspect of the calcaneus posteriorly. 2. 2.1 x 2.4 x 0.5 cm focus of fluid wit hin the bursa of Gruberi, which can be seen with mild bursitis. 3. Intact tibialis posterior and peronea l tendons, as clinically queried. 4. Mild edema infiltrates the deltoid li gamentous complex, suspicious for sequelae of sprain injury. No high-grade or full-thickness deltoid ligamentous complex tearing identified. 5. Sequelae of mild chronic plantar fasc iitis. Narrative 05/06/2018 11:31 AM CUSTOMER CONTACT SALES ASSOCIATE TECHNIQUE: ?? Routine MRI of the left ankle was performed without contrast. COMPARISON: ??None. FINDINGS: TENDONS: The tibialis anterior and exten sor tendons are intact. A 2.1 x 2.4 x 0.5 cm focus of fluid is identified within the bursa of Gruberi, which can be seen with mild bursitis. The tibialis posterio r and flexor tendons are intact. Physiol ogic joint fluid decompresses distally from the posterior tibiotalar joint recess distally into the flexor hallucis longus tendon sheath. Trace physiologic fluid within the common peroneal tendon sheath . The peroneus brevis and peroneus longus tendons are intact. The superior peroneal retinaculum is intact. No peroneal tendon subluxation. LIGAMENTS: ??The syndesmotic ligaments a re intact. The anterior talofibular ligament, calcaneofibular ligament, and posterior talofibular ligament are intact. The deltoid ligamentous complex is mildly e dematous, with fibers remaining in jay jay nuity. The spring ligament and Lisfranc's ligament (proper) are intact. JOINTS: Trace physiologic fluid within t he tibiotalar and subtalar joints. No osteochondral lesions over the talar dome or tibial plafond. The cartilage over the subtalar, talonavicular, and calcaneocub oid joints remains well preserved. No hi ndfoot coalition. Visualized midfoot cartilage is intact. ACHILLES TENDON/PLANTAR FASCIA: ??The Ac hilles tendon and plantar fascia are Intact. The plantar fascia is intact. Nonedematous osseous spurring is identified at the plantar aspect of the calcaneus, and can be seen in patients with mild chron ic plantar fasciitis. MARROW AND SOFT TISSUES: ??0.5 x 0.6 cm shallow osseous impaction fracture identified over the superolateral aspect of the calcaneus posteriorly (series 4, image 21; series 3, images 21-22), with minima l surrounding edema, suggesting subacute chronicity. Elsewhere, no fractures are identified. No soft tissue mass lesion. Nonspecific edema infiltrates the plantar soft tissues of the midfoot. The tarsal tunnel contents demonstrate normal sign al intensity and morphology. The sinus tarsi and its contents are unremarkable. Suggestion of mild pes cavus. Procedure Note Jaard Covington MD - 05/06/2018Format ting of this note might be different from the original. TECHNIQUE: Routine MRI of the left ankle was performed without contrast. COMPARISON: None. FINDINGS: TENDONS: The tibialis anterior and exten sor tendons are intact. A 2.1 x 2.4 x 0.5 cm focus of fluid is identified within the bursa of Gruberi, which can be seen with mild bursitis. The tibialis posterior and flexor tendons are intact. Physiologic joint fl uid decompresses distally from the posterior tibiotalar joint recess distally into the flexor hallucis longus tendon sheath. Trace physiologic fluid within the common peroneal tendon sheath. The peroneus brevis and peroneus longus tendons are intact. The superior peroneal retinaculum is intact. No peroneal tendon subluxation. LIGAMENTS: The syndesmotic ligaments are intact. The anterior talofibular ligament, calcaneofibular ligament, and posterior talofibular ligament are intact. The deltoid ligamentous complex is mildly edematous, with fibers remaining in continuity. The spring liga ment and Lisfranc's ligament (proper) are intact. JOINTS: Trace physiologic fluid within t he tibiotalar and subtalar joints. No osteochondral lesions over the talar dome or tibial plafond. The cartilage over the subtalar, talonavicular, and calcaneocuboid joints remains well preserved. No hindfoot coal ition. Visualized midfoot cartilage is intact. ACHILLES TENDON/PLANTAR FASCIA: The Achi lles tendon and plantar fascia are Intact. The plantar fascia is intact. Nonedematous osseous spurring is identified at the plantar aspect of the calcaneus, and can be seen in patients with mild chronic plantar fasci itis. MARROW AND SOFT TISSUES: 0.5 x 0.6 cm sh allow osseous impaction fracture identified over the superolateral aspect of the calcaneus posteriorly (series 4, image 21; series 3, images 21-22), with minimal surrounding edema, suggesting subacute chronicity. E lsewhere, no fractures are identified. No soft tissue mass lesion. Nonspecific edema infiltrates the plantar soft tissues of the midfoot. The tarsal tunnel contents demonstrate normal signal intensity and morphology. The sinus tarsi and its contents are unremarkable. Suggestion of mild pes cavus. IMPRESSION IMPRESSION: 1. Subcentimeter subacute/chronic-appear ing shallow impaction fracture deformity involving the superolateral aspect of the calcaneus posteriorly. 2. 2.1 x 2.4 x 0.5 cm focus of fluid wit hin the bursa of Gruberi, which can be seen with mild bursitis. 3. Intact tibialis posterior and peronea l tendons, as clinically queried. 4. Mild edema infiltrates the deltoid li gamentous complex, suspicious for sequelae of sprain injury. No high-grade or full-thickness deltoid ligamentous complex tearing identified. 5. Sequelae of mild chronic plantar fasc iitis. Gage Shrestha PA-C RAD MRI documented in this encounter Visit Diagnoses Diagnosis Sprain of left ankle, unspecified ligame nt, subsequent encounter - Primary Sprain of left ankle, unspecified ligame nt, subsequent encounter documented in this encounter Care Teams Accounts Receivable Administrator Relationship Specialty Start Date End Date Unassigned, Provider PCP - General 05/31/[address] [place] [id number] documented as of this encounter
--- OUTSIDE RECORDS SUMMARY | 2021-12-17 13:59 | XMS_ITS | Encounter Summary ---
:1950 Author Organization [employer] [facility] Address [address] [place] [address] Care Team Providers Name Role Phone Unassigned, Provider Primary Care Provider Unavailable Reason for Referral Therapies (Routine) - Closed Specialty Diagnoses / Procedures Referred By Contact Refer red To Contact Diagnoses Trochanteric bursitis of left hip Sprain of left ankle, unspecified ligament, initial encounter Gage Shrestha PA-C [address] [address] Referral ID Status Reason Start Date Expiration Date Visits Requ ested Visits Authorized [id number] Closed 12/19/2017 02/16/2018 1 1 Scheduling Instructions Your provider has recommended an appoint ment with [facility]. You may call [phone] to schedule your appoi ntment. If you do not schedule an appointment within the next 1 to 3 business days, we will call you to help arrange your appointment. We suggest you call your [facility] insurance company about your coverage and benefits for this appointment. (Routine) - Closed Specialty Diagnoses / Procedures Referred By Contact Refer red To Contact Diagnoses Trochanteric bursitis of left hip Gage Shrestha PA-C Procedures Triamcinolone Acet Inj Nos: (per 10 mg) [address] [address] 1 Referral ID Status Reason Start Date Expiration Date Visits Requ ested Visits Authorized [id number] Closed 12/19/2017 03/20/2019 1 1 Procedure/Equipment (Routine) - Incomplete Specialty Diagnoses / Procedures Referred By Contact Refer red To Contact Diagnoses Sprain of left ankle, unspecified ligament, initial encounter Gage Shrestha PA-C Procedures XR Foot 3+ Views/Ankle 2 Views Series Lt [address] [facility] [address] [address] 1 Referral ID Status Reason Start Date Expiration Date Visits V isits Requested Authorized [id number] Incomplete 12/18/2017 03/19/2019 1 1 Procedure/Equipment (Routine) - Incomplete Specialty Diagnoses / Procedures Referred By Contact Refer red To Contact Diagnoses Trochanteric bursitis of left hip Gage Shrestha PA-C Procedures XR Pelvis W Lt Lateral Hip [address] [facility] [address] [address] 1 Referral ID Status Reason Start Date Expiration Date Visits V isits Requested Authorized [id number] Incomplete 12/18/2017 03/19/2019 1 1 Reason for Visit Reason Comments HIP PAIN Encounter Details Date Type Department Care Team Description 12/18/2017 Office Visit [facility] Gage Shrestha, Trochant sheldon bursitis of left hip (Primary Dx); [place] Sprain of left ankle, unspecified ligame nt, initial encounter [address] [facility] [address] [address] [address] [phone] (Wo rk) Social History Tobacco Use Types Packs/Day Years Used Date Smoking Tobacco: Never Smokeless Tobacco: Never Alcohol Use Standard Drinks/Week Comments Yes 0 (1 standard drink = 0.6 oz pure alcoho l) Sex Assigned at Date Recorded Not on file documented as of this encounter Last Filed Vital Signs Vital Sign Reading Time Taken Comments Blood Pressure - - Pulse - - Temperature - - Respiratory Rate - - Oxygen Saturation - - Inhaled Oxygen Concentration - - Weight 63.5 kg (140 lb) 12/18/2017 2:39 PM CDT Height 162.6 cm (5' 4) 12/18/2017 2:39 PM CDT Body Mass Index 24.03 12/18/2017 2:39 PM CDT documented in this encounter Patient Instructions Patient InstructionsGlo Roth MA - 12/18/2017 9:00 AM CDT Gage Shrestha PA-C Sports Medicine and General Orthopedics Ultrasound Specialist: Martha Gates Please contact [facility] for all administrative questions at [phone] Please call Nurse Triage at [phone] for all medical questions Fax number: [phone] Medication Requests: Prescriptions are not filled on Weekends or on Weekdays after 3:00PM For all medication refills: Request a refill using MyChart or contact your Pharmacy If you develop new or worsening symptoms call [facility] at [phone] You had a left greater trochanteric bursa cortisone injection. follow-up in in 7 to 10 days If you do not improve. ?? 1. Pt 2. Follow up in one month 3. Use ankle brace for the next month may remove for sleep and showers documented in this encounter Progress Notes Gage Shrestha PA-C - 12/18/2017 9:00 AM CDT [facility] Consultation 12/18/2017 Chief Complaint: Left hip pain History of Present Illness: Fei Quintana is a 67 y.o. female who presents for evaluation of left hip pain. The patient reports that she has been having pain since 11/18/2017 with no acute injury or trauma, but notes that it began after stepping sideways into a bathtub to clean it. She localizes her pain to the anterior aspect of her groin and lateral hip. Her pain gets worse with sitting, standing, going upstairs, and abduction of the hip, while it gets better with heat therapy and sitting in a recliner. She has used conservative management as treatment. She denies numbness and tingling. She has noticed some feelings of weakness. She has had previous SI joint injections and notes that this pain feels different. She also voices concern for her left ankle. The patient reports that her pain began on 12/09/2017 after she rolled her ankle in a eversion type mechanism. Since, she has been having on and off pain. Shelocalizes her pain to the dorsum of her midfoot. Her pain gets worse with weightbearing, while it gets better with rest. She has used conservative management as treatment. She denies numbness and tingling. She denies any mechanical issues with the foot. Allergies: Levoquin Current Medications: The patient has a current medication list which includes the following prescription(s): clonazepam, cyclobenzaprine, formoterol, gabapentin, levalbuterol, and mometasone furoate. Past Medical History: Asthma RLS Past Surgical History: Per intake sheet the patient has no pertinent surgical history Family History: Family history of cancer, diabetes, and arthritis. 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 The General Medical History Form dated 12/18/2017 was updated and reviewed with the patient; this islocated in [employer] in [employer]. Review of Systems: Positive for left hip pain, left ankle pain, glasses, ringing, hearing loss, menopause, arthritis, back pain, headaches, and easy bleeding. No history of other heart, lung, liver, GI, or renal diseases, cancers, or diabetes mellitus. Physical Exam: General: The patient is in no acute distress. Neuro: Answers questions appropriately. Alert and oriented x 3. Left Hip: Pain with active range of motion of the hip. Tenderness over the greater trochanter. Skin is cool to touch without erythema, ecchymosis, or lesions. Full range of motion of hip and ankle. Ligaments are stable. Calves are supple and non-tender. 2+ pedal pulses are noted bilaterally. All tendons are intact with 5/5 strength. This is compared bilaterally. Left Ankle/Foot: Tenderness over the lateral ankle and lateral ligament. No effusion. 2+ pedal pulses and neurovascularly intact. Full active range of motion. Drawer testing negative. Full range of motion of the ankle, subtalar, and transverse tarsal joints. Full range of motion of MTPs non-tender. All tendons are intact with 5/5 strength. Calves non-tender. This is compared bilaterally. Imaging: Radiographs of the pelvis with left lateral hip - 2 views (12/18/17): No evidence of obvious acute bony abnormalities. Radiographs of the left foot and ankle - 5+ views (12/18/17): No evidence of obvious acute bony abnormalities. I ordered and independently reviewed and interpreted the imaging studies above; the results were discussed with the patient. Assessment: Diagnosis and Associated Orders ICD-10-CM 1. Trochanteric bursitis of left hip M70.62 XR Pelvis W Lt Lateral Hip 2. Sprain of left ankle, unspecified ligament, initial encounter S93.402A XR Foot 3+ Views/Ankle 2 Views Series Lt Plan: I discussed with the patient, in detail, the different treatment options available to them includingconservative management (rest, ice, oral pain medication, and activity modification) and the risks and benefits of cortisone injection. At this time, the patient elects to with a left greater trochanteric bursa cortisone injection; she will follow-up in in 7 to 10 days if she does not improve. All questions were answered. In regards to her left ankle I recommended use of a lace up ankle brace. The patient verbalized understanding and elected to proceed. I instructed the patient to follow up as needed. Procedure: Left Trochanteric Bursa Injection Risks, alternatives, and potential benefits were discussed, and the patient consents to proceed. Using aseptic technique and betadine prep, the patient underwent a left trochanteric bursa injectionat the point of maximum tenderness with a combination of 6cc 1% plain Lidocaine and 40mg triamcinolone using a 22-gauge needle. The patient noted immediate relief and no complications were noted. Scribe Disclosure: Dustin Balderas, am serving as a scribe to document services personally performed by Gage Shrestha PA-C at this visit, based upon the provider's statements to me. All documentation has been reviewedby the aforementioned provider prior to being entered into the official medical record. Portions of this medical record were completed by a scribe. UPON MY REVIEW AND AUTHENTICATION BY ELECTRONIC SIGNATURE, this confirms (a) I performed the applicable clinical services, and (b) the recordis accurate. Gage Shrestha PA-C documented in this encounter Plan of Treatment Scheduled Referrals Name Type Priority Associated Diagnoses Order S [facility] Physical Therapy Referral Routine Trochanteric bursitis of left Ordered: 12/19/2017 hip Sprain of left ankle, unspecified ligament, initia l encounter documented as of this encounter Results XR Foot 3+ Views/Ankle [...] insertion and plantar fascial o rigin. Gage Shrestha PA-C RAD GD XR Pelvis W Lt Lateral Hip (12/18/2017 9:46 AM CDT) Anatomical Region Laterality Modality Pelvis, Hip Digital Radiography Specimen (Source) Anatomical Collection Method Collection Time Re ceived Time Location / / Volume Laterality 12/18/2017 9:31 AM CDT Narrative 12/18/2017 10:09 AM CDT COMPARISON: ??None. FINDINGS: ??Bony structures appear intac t. ??Joint spaces appear within normal limits. ??There is no dislocation or significant degenerative change in the hips or SI joints. Procedure Note Anam Calle MD - 12/18/2017 COMPARISON: None. FINDINGS: Bony structures appear intact. Joint spaces appear within normal limits. There is no dislocation or significant degenerative change in the hips or SI joints. Gage LEYVA GD documented in this encounter Visit Diagnoses Diagnosis Trochanteric bursitis of left hip - Prim sonu Enthesopathy of hip region Sprain of left ankle, unspecified ligame nt, initial encounter Hip pain, left Pain in joint, pelvic region and thigh Left ankle pain, unspecified chronicity documented in this encounter Care Teams Supervisor Printing And Stamping Relationship Specialty Start Date End Date Unassigned, Provider PCP - General 05/31/[address] [place] [id number] documented as of this encounter
--- OUTSIDE RECORDS SUMMARY | 2021-12-17 13:59 | XMS_ITS | Encounter Summary ---
:1950 Author Organization [facility] Address [address] [place] [address] Care Team Providers Name Role Phone Unassigned, Provider Primary Care Provider Unavailable Reason for Visit Procedure/Equipment (Routine) - Incomplete Specialty Diagnoses / Procedures Referred By Contact Refer red To Contact Diagnoses Trochanteric bursitis of left hip Gage Shrestha PA-C Procedures XR Pelvis W Lt Lateral Hip [address] [facility] [address] [address] Referral ID Status Reason Start Date Expiration Date Visits V isits Requested Authorized [id number] Incomplete 12/18/2017 03/19/2019 1 1 Encounter Details Date Type Department Care Team Description 12/18/2017 Imaging [facility] Gage Shrestha PA-C Hip pain, left [address] [facility] [address] [facility] [address] [address] 1 [place] [address] [phone] (Wo rk) Social History Tobacco Use Types [...] Priority Date/Time Associated Diagnosis Comme nts XR PELVIS W LT Routine 12/18/2017 9:46 AM Hip pain, left Resul ts for this LATERAL HIP CDT procedure are i n the results section. documented in this encounter Results XR Pelvis W Lt Lateral Hip (12/18/2017 [...] in the hips or SI joints. Gage PUGH documented in this encounter Visit Diagnoses Diagnosis Hip pain, left Pain in joint, pelvic region and thigh documented in this encounter Care Teams Fitness Sales Consultant Relationship Specialty Start Date End Date Unassigned, Provider PCP - General 05/31/[address] [place] [id number] documented as of this encounter
--- OUTSIDE RECORDS SUMMARY | 2021-12-17 13:59 | XMS_ITS | Encounter Summary ---
:1950 Author Organization [facility] Address [address] [place] [address] Care Team Providers Name Role Phone Clair Simms APRN, C.N.P., D.N.P. Primary Care Provider Reason for Referral Outpatient (Routine) - Authorized Specialty Diagnoses / Procedures Referred By Contact Refer red To Contact Jenifer Aviles M. D. [facility] [address] [phone] Referral ID Status Reason Start Date Expiration Date Visits V isits Requested Authorized [id number] Authorized 12/05/2021 12/04/2024 1 1 Reason for Visit Reason Comments Medicare Annual Wellness Visit Subsequent Outpatient (Routine) - Closed Specialty Diagnoses / Procedures Referred By Contact Refer red To Contact Clair Simms APRN, C.N.P., [facility] D.N.P. [address] [place] [phone] Referral ID Status Reason Start Date Expiration Date Visits Requ ested Visits Authorized [id number] Closed 12/04/2021 12/03/2024 1 1 Encounter Details Date Type Department Care Team Description 12/05/2021 Office Visit Department of Family Baldemar Simms APRN, C.N.P., D.N.P. [address] [place] [phone] Annual Medicare Examination Return (Prim sonu Dx); Medicine, [place] Lorena Sandoval RKevin [address] [place] [phone] Hyperlipidemia [facility], in [address] [phone] Social History Tobacco Use Types Packs/Day Years Used Date Smoking Tobacco: Never Smokeless Tobacco: Never Alcohol Use Standard Drinks/Week Comments Yes 7 (1 standard drink = 0.6 oz pure alcoho l) Alcohol Habits Answer Date Recorded How often do you have a drink containing 4 or more times a w [place] 08/10/2021 alcohol? How many drinks containing alcohol [...] or relatives? How often do you attend buddhism or More than 4 times per year 08/10/2021 jew services? Do you belong to any clubs or Yes 08/10/2021 organizations such as buddhism groups, unions, fraternal or athletic groups, or [...] place to sleep or slept in a half-way (including now)? Education Answer Date Recorded What is the highest level of school you have completed or 12 th grade 08/10/2021 the highest degree you have received? Sex Assigned at Date Recorded Female 11/19/2020 2:34 PM CDT documented as of this encounter Progress Notes Lorena Sandoval R.N. - 12/05/2021 10:45 AM CDT HEALTH ASSESSMENT Reason For Visit Patient presents with Medicare Annual Wellness Visit Subsequent VITALS: Blood Pressure: 147/88 (12/05/2021 11:14 AM) Pulse Rate: 76 (12/05/2021 10:31 AM) PHQ-2 PHQ-2 Score: 3 PHQ-9 PHQ-9 Total Score (max 27): 5 FUNCTIONAL/HOME ENVIRONMENT History of falls: Have you fallen within the last year or do you fear you might fall?: No (:09 PM) Do you use an assisted device to walk? (Walker, cane, wheelchair, crutch): No (08/15/2021 2:09 PM) Today, do you feel any of the following? Weak, dizzy, shaky, or unsteady?: No (08/15/2021 2:09 PM) Have you taken any medication within the last 6 hours which may make you feel drowsy? Such as sleep,pain, or anxiety medication: No (08/15/2021 2:09 PM) The following portions of the patients history were reviewed and updated as appropriate: allergies, medications, family history, medical history, problem list, social history, surgical history and careteams/suppliers. Home Environment: Fei's home has the following: functional smoke alarms, grab bars in bathroom and handrails on stairs/steps. Home Environment Note: Pt lives with spouse in one story house but does have stairs to basement (sewing room and TV room). Has handrails on both sides. States they will need to move if unable to maneuver stairs and longer. Contemplating getting an electric elevator platform for at cabin to get down to the [place]. 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 Handicap application filled out for renewal. Unable to walk long distances d/t osteoporosis (broken back-summer). Advanced Directive Status: Advance directive completed - On file After Visit Summary (AVS) reviewed and provided to patient via printed copy or portal Provider NOT notified. Lorena Sandoval R.N. documented in this encounter Plan of Treatment Upcoming Encounters Date Type Specialty Care Team Description 01/23/2022 Appointment Radiology Clair Simms APRN, C.N.PIshmael, D.N.P. [address] [phone] (Wo rk) Scheduled Procedures Name Priority Associated Diagnoses Date/Time COLONOSCOPY Screening Colon Cancer Average R isk Scheduled Referrals Name Type Priority Associated Diagnoses Order S chedule Primary Care nurse Outpatient Referral Routine Ex pected: visit (clinic) - 12/06/2022 [facility] Region; (Approxim ate), Medicare Annual Expires: Wellness 03/07/2023 documented as of this encounter Visit Diagnoses Diagnosis Annual Medicare Examination Return - Marlene elham Hyperlipidemia documented in this encounter Additional Health Concerns Assessment Noted Time PHQ-9 Depression Total Score: 5 12/05/2021 10:18 AM CD T documented as of this encounter Care Teams Nurse Unit Manager Relationship Specialty Start Date End Date Clair Simms APRN, C.N.P., D.N.P. PCP - General 06/03/[address] [phone] Juanito Damon DDS Dentist 12/05/21 [facility] [place] [place] [facility] [employer] 12/05/21 documented as of this encounter
--- OUTSIDE RECORDS SUMMARY | 2021-12-17 13:59 | XMS_ITS | Clinical Summary ---
:1950 Author Organization [email or web address] Address [address], [place] [address] Care Team Providers Name Role Phone Unassigned, Provider Primary Care Provider Unavailable Source Comments You are receiving this document as you are listed as the primary care provider,follow-up provider, or the patient has been referred to you for consultation.This is in compliance with the Medicare and Medicaid EHR Incentive Program,which states Providers who transition their patient to another setting of careor provider of care or refers their patient to another provider of care shouldprovide summarycare record for each transition of care or referral. [email or web address] Allergies Active Allergy Reactions Severity Noted Date Comments Levofloxacin 05/12/2015 Other reaction( s): Other (see comments) Medications Medication Sig Dispensed Refills Start Date End Date Status formoterol fumarate Inhale 12 mcg by 0 Active (FORADIL AEROLIZER) 12 mouth two times a MCG capsule for day. inhalerIndications: Chest heaviness Levalbuterol Tartrate Inhale 1-2 Puffs 0 Active (XOPENEX HFA) 45 by mouth every 4 MCG/ACT hours as needed. inhalerIndications: Chest heaviness clonAZEPAM (AKA Take 0.5 mg by 0 Active KLONOPIN) 0.5 MG mouth. tabletIndications: Chest heaviness gabapentin (NEURONTIN) Take 300 mg by 0 Active 300 MG mouth. capsuleIndications: Chest heaviness cyclobenzaprine (AKA Take 10 mg by 0 Active FLEXERIL) 10 MG mouth. 1/2 tab at tabletIndications: HS Chest heaviness mometasone furoate Inhale 2 Puffs by 0 Active (ASMANEX 120 METERED mouth daily. DOSES) 220 MCG/INH inhalerIndications: Chest heaviness BREO ELLIPTA 200-25 0 12/07/2017 Active MCG/INH inhaler montelukast (SINGULAIR) 0 11/27/2017 Active 10 MG tablet zoster vaccine See Admin 0 10/22/2017 Acti ve recombinant adjuvanted Instructions. (SHINGRIX) 50 MCG/0.5ML injection ALBUterol sulfate HFA INHALE 2 PUFFS BY 0 06/10/2017 Active (PROAIR HFA) 108 ([address] Base) MCG/ACT inhaler EVERY 4 - 6 HOURS NEEDED predniSONE (DELTASONE) daily as needed. 0 06/10/2017 Active 10 MG tablet Active Problems Patient Care Coordination Note Formatting of this note might be differe nt from the original. Interactive with Asthma Disease Manageme nt Program opt # 5 No known active problems Social History Tobacco Use Types Packs/Day Years Used Date Smoking Tobacco: Never Smokeless Tobacco: Never Alcohol Use Standard Drinks/Week Comments Yes 0 (1 standard drink = 0.6 oz pure alcoho l) Sex Assigned at Date Recorded Not on file Last Filed Vital Signs Vital Sign Reading Time Taken Comments Blood Pressure 124/78 06/08/2010 4:35 PM CDT Pulse 96 06/08/2010 4:35 PM CDT Temperature 36.9 ??C (98.5 ??F) 06/08/2010 4:35 PM CDT Respiratory Rate 18 06/08/2010 4:35 PM CDT Oxygen Saturation 99% 06/08/2010 4:35 PM CDT Inhaled Oxygen Concentration - - Weight 63.5 kg (140 lb) 12/18/2017 2:39 PM CDT Height 162.6 cm (5' 4) 12/18/2017 2:39 PM CDT Body Mass Index 24.03 12/18/2017 2:39 PM CDT Plan of Treatment Health Maintenance Due Date Last Done Comments Colon Cancer Screening Plan 1950 Due Hep C Screening (Preventive 1950 Services) Medicare Annual Wellness 1950 Visit Mammogram 1950 COVID-19 Vaccine (#1) 03/04/1951 Cholesterol 1997 Dexa 2017 Influenza (#1) 2021 11/13/2019, 12/24/2018, 11/12/2017, Additional history exists DTaP/Tdap/Td (4 - Tdap) 01/12/2029 01/12/2019, 07/05/2008, 07/05/2008, Additional history exists Zoster/Shingles Completed 10/22/2017, 07/22/2017, 09/17/2011 Pneumococcal 65+ Yrs Completed 12/24/2018, 12/20/2017 HepA Aged Out No longer eligib le based on patient 's age to complete this topic HepB Aged Out No longer eligib le based on patient 's age to complete this topic Hib Aged Out No longer eligib le based on patient 's age to complete this topic IPV (Polio) Aged Out No longer eligib le based on patient 's age to complete this topic MCV4 Aged Out No longer eligib le based on patient 's age to complete this topic Insurance Payer Benefit Plan / Subscriber ID Effective Dates Phone Addre ss Type Group BCBS BCBS MEDICARE [id number] 2018-Present [phone] Medicare ADVANTAGE Fei Quintana Personal/Family Self 1950 [place] (Home) [facility] [phone] [place], [place] (Work) [phone] Liban Quintana Personal/Family Spouse 1950 [address] (Home) [place] [phone] [place], [place] (Work) [phone] Fei Quintana Personal/Family Self 1950 [place] (Home) [facility] [phone] [place], [place] (Work) [phone] Care Teams International Freight Forwarder Relationship Specialty Start Date End Date Unassigned, Provider PCP - General 05/31/[address] [place] [id number]
--- OUTSIDE RECORDS SUMMARY | 2021-12-17 13:59 | XMS_ITS | Encounter Summary ---
:1950 Author [facility] Address [address] [address] Care Team Providers Name Role Phone Unassigned, Provider Primary Care Provider Unavailable Encounter Details Date Type Department Care Team Description 03/04/1989 PN Conversion Only SCIENCE ANALYST [address] [place] [address] Social History Tobacco Use Types Packs/Day Years Used Date Smoking Tobacco: Never Assessed Sex Assigned at Date Recorded Not on file documented as of this encounter Plan of Treatment Not on filedocumented as of this encounter Visit Diagnoses Not on filedocumented in this encounter Care Teams Destaticizer Feeder Relationship Specialty Start Date End Date Unassigned, Provider PCP - General 05/31/[address] [place] [address] documented as of this encounter
--- OUTSIDE RECORDS SUMMARY | 2021-12-17 13:59 | XMS_ITS | Encounter Summary ---
:1950 Author Organization [facility] Address [address] [address] Care Team Providers Name Role Phone Unassigned, Provider Primary Care Provider Unavailable Reason for Visit Reason Comments HIP PAIN ANKLE PAIN Encounter Details Date Type Department Care Team Description 01/13/2018 Office Visit TRIGage Andino, Sprain o f left ankle, unspecified ligament, initial encounter (Primary Dx); [facility] Trochanteric bursitis of left hip [address] [place] [address] [place], [place] [phone] (Wo rk) Social History Tobacco Use Types Packs/Day Years Used Date Smoking Tobacco: Never Smokeless Tobacco: Never Alcohol Use Standard Drinks/Week Comments Yes 0 (1 standard drink = 0.6 oz pure alcoho l) Sex Assigned at Date Recorded Not on file documented as of this encounter Patient Instructions Patient InstructionsGlo Roth MA - 01/13/2018 9:30 AM CST Gage Shrestha PA-C Sports Medicine and General Orthopedics Furniture Repair Technician: Martha Gates Please contact Mary Lou for all administrative questions at [phone] Please call Nurse Triage at [phone] for all medical questions Fax number: [phone] Medication Requests: Prescriptions are not filled on Weekends or on Weekdays after 3:00PM For all medication refills: Request a refill using MyChart or contact your Pharmacy If you develop new or worsening symptoms call [facility] at [phone] 1. Wear your aso all the time. Only take off for sleep and showers 2. Continue your ankle exercises. 3. Follow up with Gage the week of Luanne If your still having pain 4l. Mar/Apr wear ur aso for activity ISITION ANALYST documented in this encounter Progress Notes Gage Shrestha PA-C - 01/13/2018 9:30 AM CST [facility] Follow-Up 01/13/2018 Chief Complaint: Left hip Pain History of Present Illness: Fei Quintana is a 67 y.o. female who presents for follow-up regarding left hip pain and left foot pain. The patient was last seen on 12/18/17 for left hip pain that began without injury or trauma. Her pain was localized to the anterior groin and lateral hip. Patient was diagnosed with trochanteric bursitis of the left hip and given a trochanteric bursa injection and was to follow up as needed. Today the patient states that her hip pain has nearly resolved. She had good relief during the anesthetic phase of the injection and then good relief from her pain since. She notes that her foot is alsoimproved but she is still having pain. She is under the impression that she is not progressing the same way she should. She has been wearing her brace and going to physical therapy. Please refer to my note dated 12/18/17 for past medical history. Review of Systems: No history of other heart, lung, liver, GI, or renal diseases, cancers, diabetes mellitus, or arthritis. Physical Exam: General: The patient is in no acute distress. Neuro: Answers questions appropriately. Alert and oriented x 3. Skin: Cool to touch. No erythema, ecchymosis, or lesions. Left Ankle/Foot: 2+ pedal pulses and neurovascularly intact. Full active range of motion. Drawer testing negative. Full range of motion of the ankle, subtalar, and transverse tarsal joints. Full range of motion of MTPs non-tender. Ligaments are non-tender. All tendons are intact with 5/5 strength. Calves non-tender. This is compared bilaterally. Tenderness over ATFL Left Hip: Skin is cool to touch without erythema, ecchymosis, or lesions. Full range of motion of hip and ankle. Ligaments are stable. Calves are supple and non-tender. 2+ pedal pulses are noted bilaterally. All tendons are intact with 5/5 strength. This is compared bilaterally. Assessment: Diagnosis and Associated Orders ICD-10-CM 1. Sprain of left ankle, unspecified ligament, initial encounter S93.402A 2. Trochanteric bursitis of left hip M70.62 Plan: I discussed with the patient, in detail, the different treatment options available to them includingconservative management (rest, ice, oral pain medication, and activity modification), physical therapy. The patient was advised on continuing wearing her brace multimedia project manager until luanne, after that sheshould wear for uneven ground. She should continue with performing her exercises. At this time, the patient elects to proceed with the above; she will follow-up after . All questions were answered. Scribe Disclosure: Ambrose Balderas, am serving as a scribe to [...] (b) the recordis accurate. Gage Shrestha PA-C ISITION ANALYST documented in this encounter Plan of Treatment Not on filedocumented as of this encounter Visit Diagnoses Diagnosis Sprain of left ankle, unspecified ligame nt, initial encounter - Primary Trochanteric bursitis of left hip Enthesopathy of hip region documented in this encounter Care Teams Radio Producer Relationship Specialty Start Date End Date Unassigned, Provider PCP - General 05/31/[address] [place] [id number] documented as of this encounter
--- OUTSIDE RECORDS SUMMARY | 2021-12-17 13:59 | XMS_ITS | Encounter Summary ---
:1950 [address] [facility] Address [address] [place] [address] Care Team Providers Name Role Phone Unassigned, Provider Primary Care Provider Unavailable Encounter Details Date Type Department Care Team Description 06/08/2010 Imaging [place] [facility] Chest heaviness [address] [place] [address] Social History Tobacco Use Types Packs/Day Years Used Date Smoking Tobacco: Never Smokeless Tobacco: Never Alcohol Use Standard Drinks/Week Comments Not Asked 0 (1 standard drink = 0.6 oz pure alcoho l) Sex Assigned at Date Recorded Not on file documented as of this encounter Progress Notes Jessenia Newton RN - 06/08/2010 8:48 PM CDT Quick Note: Results noted. Urgent care provider aware of rad read. Jessenia Newton RN 06/08/2010, 8:48 PM documented in this encounter Plan of Treatment Not on filedocumented as of this encounter Procedures Procedure Name Priority Date/Time Associated Diagnosis Comme nts XR CHEST 2 VIEWS STAT 06/08/2010 5:21 PM Chest heaviness Re sults for this CDT procedure are i n the results section. documented in this encounter Results XR CHEST 2 VIEW ROUTINE (06/08/2010 5:21 PM CDT) Anatomical Region Laterality Modality Chest, Lung Computed Radiography Specimen (Source) Anatomical Collection Method Collection Time Re ceived Time Location / / Volume Laterality 06/08/2010 5:21 PM CDT Narrative 06/08/2010 5:37 PM CDT XR CHEST PA/AP AND LAT 2VWS 06/08/2010, 05:21 PM INDICATION: Cough. COMPARISON: None. FINDINGS: Heart is normal in size. Mild hyperinflation. Minimal biapical pleural thickening. Calcified granuloma left upper lobe. No infiltrates. No pleural fluid. Minimal dextroscoliosis. Procedure Note Bita, Brendan - 06/08/2010 XR CHEST PA/AP AND LAT 2VWS 06/08/2010, 05:21 PM INDICATION: Cough. COMPARISON: None. FINDINGS: Heart is normal in size. Mild hyperinflation. Minimal biapical pleural thickening. Calcified granuloma left upper lobe. No infiltrates. No pleural fluid. Minimal dextroscoliosis. Beka John MD RAD GD documented in this encounter Visit Diagnoses Diagnosis Chest heaviness Other chest pain documented in this encounter Care Teams Senior Production Planner Relationship Specialty Start Date End Date Unassigned, Provider PCP - General 05/31/[address] [place] [id number] documented as of this encounter
--- OUTSIDE RECORDS SUMMARY | 2021-12-17 13:59 | XMS_ITS | Encounter Summary ---
:1950 Author Organization [employer] Address [address] [place] [address] Care Team Providers Name Role Phone Unassigned, Provider Primary Care Provider Unavailable Reason for Visit Reason Comments CHEST SYMPTOMS feels heavy and occ. ena hernandez aichidi since May 21 approx.---Has Asthma and has seen a pulmonary DrIshmael . on 05-23. COUGH dry DIZZINESS x 2 weeks Encounter Details Date Type Department Care Team Description 06/08/2010 Office Visit [facility] Chest heaviness (Primary [address] Dx) [place] [address] Social History Tobacco Use Types Packs/Day Years [...] CDT Inhaled Oxygen Concentration - - Weight - - Height - - Body Mass Index - - documented in this encounter Progress Notes Beka John MD - 06/08/2010 5:43 PM CDT SUBJECTIVE: Fei Quintana is a 59 yr old female has a long history of asthma. She states that she has felt tightness in her chest for the last 2-1/2 weeks. She has been seen by her pulmonary medicine specialist and given a short course of steroids along with increased use of albuterol. She denies fever or chills. She denies productive cough. She presents to urgent care primarily concerned that she may have an underlying pneumonia. OBJECTIVE: BP 124/78 Pulse 96 Temp(Src) 98.5 ??F (36.9 ??C) (Oral) Resp 18 SpO2 99% PF 350 L/min Examination today demonstrates oropharynx is clear. Neck is supple without adenopathy. Lungs are clear to auscultation without wheezing or rhonchi. Heart regular rate and rhythm. Chest x-ray shows a granuloma in the left upper lung which the patient states has been there for several years. No signs ofinfection. White count within normal limits. Electrocardiogram shows no acute changes. ASSESSMENT: Asthma PLAN: The patient was reassured of no sign of infection. She will followup with primary physician in pulmonary medicine specialist in her own system. Beka John MD This note was created by computerized voice recognition software and may contain unintended word substitutions. documented in this encounter Nursing Notes 06/08/2010 4:30 PM CDT >> Karlie Blankenship LPN Esme Jun 08, 2010 4:44 PM Karlie Blankenship LPN 06/08/2010, 4:42 PM documented in this encounter Plan of Treatment Not on filedocumented as of this encounter Procedures Procedure Name Priority Date/Time Associated Diagnosis Comme nts ECG 12-LEAD ROUTINE Routine 06/08/2010 5:06 PM Chest heaviness Results for this CDT procedure are i n the results section. COMPLETE BLOOD Waiting 06/08/2010 4:54 PM Chest heaviness Resu lts for this COUNT-W/DIFF CDT procedure are i n the results [...] No pleural fluid. Minimal dextroscoliosis. Procedure Note Brendan Sunshine - 06/08/2010 XR CHEST PA/AP AND LAT 2VWS 06/08/2010, 05:21 PM INDICATION: Cough. COMPARISON: None. FINDINGS: Heart is normal in size. Mild hyperinflation. Minimal biapical pleural thickening. Calcified granuloma left upper lobe. No infiltrates. No pleural fluid. Minimal dextroscoliosis. Beka John MD RAD GD ECG 12-LEAD ROUTINE (06/08/2010 5:06 PM CDT) P athologist Signature Ventricular Rate 84 BPM MUSE Atrial Rate 84 BPM MUSE P-R Interval 166 ms MUSE QRS Duration 92 ms MUSE QT 384 ms MUSE QTc 453 ms MUSE P [place] 76 degrees MUSE R [place] -4 degrees MUSE T [place] 72 degrees MUSE Specimen (Source) Anatomical Collection Method Collection Time Re ceived Time Location / / Volume Laterality 06/08/2010 5:06 PM CDT Narrative MUSE - 06/14/2010 2:07 PM CDT Sinus rhythm Possible Left atrial enlargement Incomplete right bundle branch block Borderline ECG No previous ECGs available Procedure Note Beka John MD - 06/14/2010Formatti ng of this note might be different from the original. Sinus rhythm Possible Left atrial enlargement Incomplete right bundle branch block Borderline ECG No previous ECGs available Beka John MD EKG Performing Organization Address City/State/ZIP Code Phon e Number MUSE RHP MUSE HEMOGRAM/PLTS/DIFF (06/08/2010 4:54 PM CDT) Analysis Performed At Patho logist Time Signature WBC 7.0 4.0 - 11.0 [facility] k/ul RBC 4.63 4.0 - 5.2 [facility] M/ul Hemoglobin 14.5 12.0 - [facility] 16.0 g/dl HCT 42.2 36.0 - [facility] 46.0 % MCV 91.1 80 - 100 [facility] ny MCH 31.3 26 - 34 pg [facility] MCHC 34.4 32 - 36 [facility] g/dl RDW 12.4 11.5 - [facility] 14.5 % Platelets 297 150 - 450 [facility] k/ul PMN/Band 72 43 - 72 % [facility] Lymph 20 17 - 43 % [facility] Mathews 6 4 - 12 % [facility] Eos 2 0 - 8 % [facility] Baso 1 0 - 1 % [facility] Neutrophil 5.0 1.8 - 7.7 [facility] Absolute k/ul Lymph Absolute 1.4 1.0 - 4.8 [facility] k/ul Mathews Absolute 0.4 0.1 - 0.7 [facility] k/ul Eos Absolute 0.1 0.0 - 0.5 [facility] k/ul Baso Absolute 0.1 0.0 - 0.2 [facility] k/ul Specimen Anatomical Collection Method Collection Time Receive d Time (Source) Location / / Volume Laterality 06/08/2010 4:54 PM 1 5:04 CDT PM CDT Beka John MD LAB_1 Performing Organization Address City/State/[facility] Code Phon e Number [facility] [phone] [facility] [address] [phone] documented in this encounter Visit Diagnoses Diagnosis Chest heaviness - Primary Other chest pain Chest heaviness Other chest pain documented in this encounter Care Teams Hand Or Machine Paster Relationship Specialty Start Date End Date Unassigned, Provider PCP - General 05/31/00 [address] [place] [address] documented as of this encounter
--- OUTSIDE RECORDS SUMMARY | 2021-12-17 13:59 | XMS_ITS | Encounter Summary ---
:1950 Author Organization [facility] Address [address] [place] [address] Care Team Providers Name Role Phone Clair Simms APRN C.N.P., D.N.P. Primary Care Provider Encounter Details Date Type Department Care Team Description 12/05/2021 Orders Only Department of Family Clair Simms AP RN, Medicine, [place] C.N.P., D .N.P. [facility], [address] [place] [address] [phone] Social History Tobacco Use Types Packs/Day Years Used Date Smoking Tobacco: Never Smokeless Tobacco: Never Alcohol Use Standard Drinks/Week Comments Yes 7 (1 standard drink = 0.6 oz pure alcoho l) Alcohol Habits Answer Date Recorded How often do you have a drink containing 4 or more times a w kaibab 08/10/2021 alcohol? How many drinks containing alcohol [...] or relatives? How often do you attend restoration or More than 4 times per year 08/10/2021 muslim services? Do you belong to any clubs or Yes 08/10/2021 organizations such as restoration groups, unions, fraternal or athletic groups, or [...] place to sleep or slept in a halfway (including now)? Education Answer Date Recorded What is the highest level of school you have completed or 12 th grade 08/10/2021 the highest degree you have received? Sex Assigned at Date Recorded Female 11/19/2020 2:34 PM CDT documented as of this encounter Plan of Treatment Upcoming Encounters Date Type Specialty Care Team Description 01/23/2022 Appointment Radiology Clair Simms APRN, C.N.P., D.N.P. [address] [place] [phone] (Wo rk) Scheduled Procedures Name Priority Associated Diagnoses Date/Time COLONOSCOPY Screening Colon Cancer Average R isk documented as of this encounter Visit Diagnoses Not on filedocumented in this encounter Additional Health Concerns Assessment Noted Time PHQ-9 Depression Total Score: 5 12/05/2021 10:18 AM CD T documented as of this encounter Care Teams Roentgenology Teacher Relationship Specialty Start Date End Date Clair Simms APRN, C.N.P., D.N.P. PCP - General 06/03/[address] [place] [phone] Juanito Damon DDS Dentist 12/05/21 [facility] [place], [place] [facility] Senior Training Specialist 12/05/21 documented as of this encounter
--- OUTSIDE RECORDS SUMMARY | 2021-12-17 13:59 | XMS_ITS | Encounter Summary ---
:1950 Author Organization [facility] Address [address] [place] [address] Care Team Providers Name Role Phone Unassigned, Provider Primary Care Provider Unavailable Reason for Visit Reason Comments UPDATE Encounter Details Date Type Department Care Team Description 05/20/2018 Telephone [facility] Gage Wallace PA-C UPDATE [address] [facility] [place] [address] [place], [place] [address] (Wo rk) Social History Tobacco Use Types Packs/Day Years Used Date Smoking Tobacco: Never Smokeless Tobacco: Never Alcohol Use Standard Drinks/Week Comments Yes 0 (1 standard drink = 0.6 oz pure alcoho l) Sex Assigned at Date Recorded Not on file documented as of this encounter Nursing Notes Genoveva Stauffer RN - 05/20/2018 2:12 PM CDT Pt of Gage Silvaultz last seen 05/05 for Assessment: ?? 1. Sprain of left ankle, unspecified ligament, subsequent encounter Pt had a left Tendon injection 05/09 and reports that she had a small amount of relief for only a few days and now feels that she is not experiencing any relief. She states that Gage told her her ankle injury may just take more time. She is not interested in following up in the clinic at this time and would like to continue to monitor at this time. Advised to call back with any further concerns or questions. documented in this encounter Plan of Treatment Not on filedocumented as of this encounter Visit Diagnoses Not on filedocumented in this encounter Care Teams Vibratory Pile Driver Relationship Specialty Start Date End Date Unassigned, Provider PCP - General 05/31/00 [address] [place] [address] documented as of this encounter
--- OUTSIDE RECORDS SUMMARY | 2021-12-17 13:59 | XMS_ITS | Encounter Summary ---
:1950 Author Organization [facility] Address [address] [place] [address] Care Team Providers Name Role Phone Clair Simms APRN C.N.PIshmael, D.N.P. Primary Care Provider Reason for Referral Outpatient (Routine) - Closed Specialty Diagnoses / Procedures Referred By Contact Refer red To Contact Diagnoses Pain Sacroiliac Marge Ferrer P.A.-C., [facility] Procedures [place] Sacroiliac Joint Injection Right M.S. [address] [place] [address] Referral ID Status Reason Start Date Expiration Date Visits Requ ested Visits Authorized [id number] Closed 09/19/2021 09/19/2022 1 1 Reason for Visit Outpatient (Routine) - Closed Specialty Diagnoses / Procedures Referred By Contact Refer red To Contact Diagnoses Pain Sacroiliac Marge Ferrer P.A.-C., [facility] Procedures [place] Sacroiliac Joint Injection Right M.S. [address] [place] [address] Referral ID Status Reason Start Date Expiration Date Visits Requ ested Visits Authorized [id number] Closed 09/19/2021 09/19/2022 1 1 Encounter Details Date Type Department Care Team Description 12/12/2021 Hospital Encounter Department of Nabil, Shelley Carroll P.A.-C., [facility] [address] [place] [phone] Pain Sacroiliac Radiology, Leno Lin M.D., [facility] [address] [place] [phone] [facility], in [place], [place] [address] [place] [address] Social History Tobacco Use Types Packs/Day Years Used Date Smoking Tobacco: Never Smokeless Tobacco: Never Alcohol Use Standard Drinks/Week Comments Yes 7 (1 standard drink = 0.6 oz pure alcoho l) Alcohol Habits Answer Date Recorded How often do you have a drink containing 4 or more times a w seminole 08/10/2021 alcohol? How many drinks containing alcohol [...] or relatives? How often do you attend gnosticism or More than 4 times per year 08/10/2021 sikhism services? Do you belong to any clubs or Yes 08/10/2021 organizations such as gnosticism groups, unions, fraternal or athletic groups, or [...] PM CDT documented as of this encounter Last Filed Vital Signs Vital Sign Reading Time Taken Comments Blood Pressure 141/76 12/12/2021 9:49 AM CDT Pulse 66 12/12/2021 9:49 AM CDT Temperature 36.6 ??C (97.9 ??F) 12/12/2021 9:23 AM CDT Respiratory Rate - - Oxygen Saturation 95% 12/12/2021 9:49 AM CDT Inhaled Oxygen Concentration - - Weight - - Height - - Body Mass Index - - documented in this encounter Medications at Time of Discharge Medication Sig Dispensed Refills Start Date End Date fluticasone-vilanterol Inhale daily. 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 albuterol (for_ACCUNEB) Inhale 2.5 mg every 0 2.5 mg /3 mL nebulizer 6 (six) hours. As solution needed atorvastatin (LIPITOR) 40 Take 1 tablet (40 90 tablet 3 06/2021 mg tablet mg total) by mouth daily. cetirizine 10 mg capsule Take by mouth 0 05/13/19 16 daily. clonazePAM (for_KlonoPIN) Take 0.5 mg by 0 2015 0.5 mg tablet mouth daily. cyclobenzaprine Take 1 tablet (5 mg 90 tablet 3 12/05/2021 (FLEXERIL) 5 mg total) by mouth at tabletIndications: bedtime. Temporomandibular Joint Disorder DULoxetine (CYMBALTA) 20 Take 1 capsule (20 90 capsule 3 06/202112/05/[address] capsule mg total) by mouth daily. gabapentin Take by mouth 0 05/13/2015 (for_NEURONTIN) 300 mg daily. capsule metroNIDAZOLE Apply 1 application 0 07/25/2021 (METROCREAM) 0.75 % cream topically at bedtime. montelukast Take 1 tablet by 0 05/13/2015 (for_SINGULAIR) 10 mg mouth every tablet evening. polyethylene Drink 1st portion 4000 mL 0 12/05/2021 glycol-electrolytes of prep at 6 PM the (GoLYTELY) 236-22.74-6.74 evening before. 2nd -5.86 gram solution portion must be started 3 hours before and finished 2 hours prior to report time traMADoL (ULTRAM) 50 mg Take 0.5-1 tablets 30 tablet 0 11/03 tabletIndications: (25-50 mg total) by Prolonged Acute mouth every 6 (six) Pain/Traumatic Injury hours as needed for moderate pain or score 4-6 of 10 Indications: Prolonged Acute Pain/Traumatic Injury. documented as of this encounter Plan of Treatment Upcoming Encounters Date Type Specialty Care Team Description 01/23/2022 Appointment Radiology Clair Simms APRN, C.N.P., D.N.P. [address] [phone] (Wo rk) Scheduled Procedures Name Priority Associated Diagnoses Date/Time COLONOSCOPY Screening Colon Cancer Average R isk documented as of this encounter Procedures Procedure Name Priority Date/Time Associated Comments Diagnosis FL SACROILIAC RAD - Routine 12/12/2021 9:46 Pain Sacroiliac Results for this JOINT INJECTION (most inpatients AM CDT procedur e are in RIGHT and all the results outpatients) section. documented in this encounter Results [place] Sacroiliac Joint Injection Right (12/12/2021 9:46 AM CDT) Specimen (Source) Anatomical Collection Method Collection Time Re ceived Time Location / / Volume Laterality 12/12/2021 9:48 AM CDT Impressions [id number] - 12/12/2021 9:54 AM CDT Fluoroscopically-guided sacroiliac joint injection. NR Narrative [id number] - 12/12/2021 9:54 AM CDT EXAM: FL [...] 25-gauge spinal needle was advanced to the reversal print inspector ior inferior aspect of the sacroiliac joint. [...] Organization Address City/State/ZIP Code Phon e Number [id number] NA documented in this encounter Visit Diagnoses Diagnosis Pain Sacroiliac documented in this encounter Administered Medications Inactive Administered Medications - up to 3 most recent administrations Medication Order MAR Action Action Date Dose Rate Site betamethasone acetate & sodium Given 12/12/2021 9:45 AM CDT 3 mg Back phosphate injection (CELESTONE SOLUSPAN) Code/trauma/sedation medication, Starting on Sat12/12/21 at 0945 iohexoL 300 mg iodine/mL solution Given 12/12/2021 9:45 AM 0.5 m L Back (OMNIPAQUE) CDT Code/trauma/sedation medication, Starting on Sat12/12/21 at 0945 lidocaine 10 mg/mL (1 %) injection Given 12/12/2021 9:43 AM CDT 2 mL Back (XYLOCAINE) Code/trauma/sedation medication, Starting on Sat12/12/21 at 0943 ropivacaine (PF) 5 mg/mL (0.5 %) injection Given 12/12/2021 9:45 AM CDT 1.5 mL Back (NAROPIN) Code/trauma/sedation medication, Starting on Sat12/12/21 at 0945 documented in this encounter Additional Health Concerns Assessment Noted Time PHQ-9 Depression Total Score: 5 12/05/2021 10:18 AM CD T documented as of this encounter Care Teams Network Design Architect Relationship Specialty Start Date End Date Clair Simms APRN, C.N.P., D.N.P. PCP - General 06/03/[id number] [phone] Juanito Damon DDS Dentist 12/05/21 [facility] [place], [place] [facility] Darkroom Technician 12/05/21 documented as of this encounter
--- OUTSIDE RECORDS SUMMARY | 2021-12-17 13:59 | XMS_ITS | Encounter Summary ---
:1950 Author Organization [facility] Address [address] [place] [address] Care Team Providers Name Role Phone Unassigned, Provider Primary Care Provider Unavailable Reason for Visit Reason Comments QUESTIONS, GENERAL Encounter Details Date Type Department Care Team Description 05/02/2018 Telephone [facility] Gage Wallace PA-C QUESTIONS, GENERAL [address] [place] [address] [place] [address] [phone] (Wo rk) Social History Tobacco Use Types Packs/Day Years Used Date Smoking Tobacco: Never Smokeless Tobacco: Never Alcohol Use Standard Drinks/Week Comments Yes 0 (1 standard drink = 0.6 oz pure alcoho l) Sex Assigned at Date Recorded Not on file documented as of this encounter Nursing Notes Amy Haney RN - 05/02/2018 10:09 AM CST Received call from pt's physical therapist at [facility] He is concerned because pt does not seem to be getting better and he wonders if she has developed tendonitis Last OV with Gage Shrestha 01/13/18 for ankle sprain, pt was to follow up after Luanne but hasn't been back in Advised PT that pt should come in for an appointment, he said he would call pt and ask her to schedule appointment with Gage Pt has appointment on 05/05/18 [employer] documented in this encounter Plan of Treatment Not on filedocumented as of this encounter Visit Diagnoses Not on filedocumented in this encounter Care Teams Plaster Model And Mold Maker Relationship Specialty Start Date End Date Unassigned, Provider PCP - General 05/31/00 [address] [place] [address] documented as of this encounter
--- OUTSIDE RECORDS SUMMARY | 2021-12-17 13:59 | XMS_ITS | Encounter Summary ---
:1950 Author Organization [facility] Address [address] [place] [address] Care Team Providers Name Role Phone Cliar Simms APRN C.N.P., D.N.P. Primary Care Provider Reason for Referral Outpatient (Routine) - Authorized Specialty Diagnoses / Procedures Referred By Contact Refer red To Contact Diagnoses Fatigue Irregular Heartbeat Clair Simms APRN, [facility] Region Procedures ECG Heart rhythm monitor (Holter) C.N.P., D.N.P. [address] [address] Referral ID Status Reason Start Date Expiration Date Visits V isits Requested Authorized [id number] Authorized 12/05/2021 12/05/2022 1 1 Reason for Visit Reason Comments Annual Exam Patient has a list of questi ons. Appointment Request (Routine) - Closed Specialty Diagnoses / Procedures Referred By Contact Refer red To Contact Family Medicine Referral ID Status Reason Start Date Expiration Date Visits Requ ested Visits Authorized [id number] Closed 11/13/2021 11/13/2022 1 1 Encounter Details Date Type Department Care Team Description 12/05/2021 Office Visit [facility], Clair Abdias Maintenance Examination Adult (Primary Dx); Medicine, Niki Chapman APRN, Osteopenia; [facility], in C.N.P., D.N.P. Hyperlipidemia; Niki Stern, [address] [address] Asthma (HCC ); [address] Irregular Heartbeat; [address] [address] [address] Niki Stern, Temporomandibular Joint Diso rder; NIKI STERN, [facility] [phone] Screening Colon Cancer Average Risk; [id number] Screening Examination Diabet es Mellitus Social History Tobacco Use Types Packs/Day Years Used Date Smoking Tobacco: Never Smokeless Tobacco: Never Alcohol Use Standard Drinks/Week Comments Yes 7 (1 standard drink = 0.6 oz pure alcoho l) Alcohol Habits Answer Date Recorded How often do you have a drink containing 4 or more times a w [place] 08/10/2021 alcohol? How many drinks containing alcohol [...] or relatives? How often do you attend worship or More than 4 times per year 08/10/2021 restoration services? Do you belong to any clubs or Yes 08/10/2021 organizations such as worship groups, unions, fraternal or athletic groups, or [...] place to sleep or slept in a [place] [facility] [place] (including now)? Education Answer Date Recorded What is the highest level of school you have completed or 12 th grade 08/10/2021 the highest degree you have received? Sex Assigned at Date Recorded Female 11/19/2020 2:34 PM CDT documented as of this encounter Last Filed Vital Signs Vital Sign Reading Time Taken Comments Blood Pressure 147/88 12/05/2021 11:14 AM CDT Pulse 76 12/05/2021 10:31 AM CDT Temperature - - Respiratory Rate - - Oxygen Saturation - - Inhaled Oxygen Concentration - - Weight - - Height - - Body Mass Index - - documented in this encounter H&P Notes Clair Simms, ALLEN, C.N.P., D.N.P. - 12/05/2021 10:30 AM CDT SUBJECTIVE CHIEF COMPLAINT/REASON FOR VISIT Fei is a 71 y.o. female who presents to the clinic today for her well exam. HISTORY OF PRESENT ILLNESS Fei presents for annual exam. She has the following concerns to address at today's visit: 1. Chest heaviness and irregular heart rate since COVID She reports that ever since she had COVID-19 infection, which she reports she was very ill for over a week. She has had chest heaviness and intermittent episodes of feeling like her heart is fluttering. She does not have any diaphoresis or chest pain. She reports that the episodes last for less than afew minutes and occur approximately 5 times per week. She is concerned that she may be developing episodes of atrial fibrillation. 2. Osteopenia She was seen by an pathology assistant who switched her from Fosamax to Reclast infusion. She plans to get the next infusion in the next few weeks. She is wondering when her Reclast infusion should be heldprior to dental work, and when repeat DEXA should be completed. OBJECTIVE PHYSICAL EXAMINATION Vital Signs: BP 147/88 Pulse 76 There is no height or weight on file to calculate BMI. General: This patient is alert and in no acute distress. Neck: Supple without lymphadenopathy. Respiratory: Effort is easy, lung sounds are clear to auscultation. Cardiovascular: S1 and S2 are present, normal rate and rhythm. ASSESSMENT / PLAN #1 Health Maintenance Examination Adult Annual wellness exam today. Discussed routine health maintenance for age. Lipid screen: ASCVD risk elevated; statin prescribed Diabetes screen: ASCVD risk elevated; statin prescribed ASCVD score today: Colonoscopy (every 5 year schedule): Ordered; cleared for colonoscopy based on today's visit. Mammogram: Ordered Immunizations: Declines Covid-19 and flu at this time. Follow-up 1 year for annual exam or return to clinic sooner if any problems develop. #2 Osteopenia She will be beginning Reclast infusions as she has not tolerated Fosamax orally. These are being prescribed and administered by an outside pathology assistant. Advised discussing repeat DEXA screening timing with them. #3 Hyperlipidemia ASCVD risk is elevated, will consider starting a statin. #4 Asthma (HCC) Well controlled at this time. No current concerns. She uses albuterol as needed. #5 Irregular Heartbeat Will obtain Holter monitor for further evaluation of possible episodes of AFib as a cause to her symptoms. #6 Temporomandibular Joint Disorder Uses Flexeril as needed. #7 Screening Colon Cancer Average Risk colonoscopy ordered. #8 Screening Examination Diabetes Mellitus Lifestyle, diet, and exercise reviewed. Recommend modest calorie reduction, counting calories, increasing activity and consideration of use of apps to help with monitoring. Plan was discussed with patient and is in agreement with plan. All questions were answered, side effects of any/all new medications were discussed. Patient left in no acute distress. Ready to learn. No apparent learning barriers were identified. Learning preferences include listening. Explained diagnosis and treatment plan. Patient/Child/Caregiver expressed understanding of the content. Total time: 40 minutes Clair Simms APRN, C.N.P., D.N.P. documented in this encounter Plan of Treatment Upcoming Encounters Date Type Specialty Care Team Description 01/23/2022 Appointment Radiology Clair Simsm APRN, C.N.P., D.N.P. [address] [phone] (Wo rk) Scheduled Orders Name Type Priority Associated Diagnoses Order S chedule ECG Heart rhythm Cardiac Services Routine Irregular Heartbeat Expected: monitor (Holter) 12/05/2021 (Approximate), Expires: 2023 Scheduled Procedures Name Priority Associated Diagnoses Date/Time COLONOSCOPY Screening Colon Cancer Average R isk documented as of this encounter Procedures Procedure Name Priority Date/Time Associated Diagnosis Comme nts GLUCOSE, FASTING, Routine 12/05/2021 11:53 Screening Examinati on Results for this S/P AM CDT Diabetes Mellitus procedure are in the results section. LIPID PANEL, S Routine 12/05/2021 11:52 Hyperlipidemia Results for this AM CDT procedure are i n the results section. BASIC METABOLIC Routine 12/05/2021 11:52 Hyperlipidemia Results for this PANEL, S/P AM CDT Screening Examination proced ure are in Diabetes Mellitus the result s section. documented in this encounter Results (ABNORMAL) Glucose, Fasting (12/05/2021 11:53 AM CDT) athologist Signature Glucose, P 105 (H) 70 - 100 12/05/2021 [facility]FL mg/dL 12:23 PM CDT Last Intake 17 hr 12/05/2021 [facility] 11:55 AM CDT Specimen Anatomical Collection Method Collection Time Receive d Time (Source) Location / / Volume Laterality Blood (Blood, 12/05/2021 11:53 12/05/2021 Venous) AM CDT 11:55 AM CDT Clair Simms APRN, C.N.P., D.N.P. LAB BLOOD NON ADD -ON Performing Organization Address City/State/[facility] Code Phon e Number [address] [address] [place] [address] [address] Basic Metabolic Panel (12/05/2021 11:52 AM CDT) athologist Signature Potassium, P 4.1 3.6 - [...] AM CDT 11:55 AM CDT Clair Simms APRN C.N.P., D.N.P. LAB BLOOD ADD-ON Performing Organization Address City/State/ZIP Code Phon e Number [address] [address] [place] [address] [address] (ABNORMAL) Lipid Panel (12/05/2021 11:52 AM [...] Organization Address City/State/ZIP Code Phon e Number [facility]- [address] [place] [address] [place] [address] System [address] documented in this encounter Visit Diagnoses Diagnosis Health Maintenance Examination Adult - P rimary Osteopenia Hyperlipidemia Asthma (HCC) Irregular Heartbeat Temporomandibular Joint Disorder Screening Colon Cancer Average Risk Screening Examination Diabetes Mellitus documented in this encounter Additional Health Concerns Assessment Noted Time PHQ-9 Depression Total Score: 5 12/05/2021 10:18 AM CD T documented as of this encounter Care Teams Roll Grinder Relationship Specialty Start Date End Date Clair Simms APRN, C.N.P., D.N.P. PCP - General 06/03/[address] [place] [phone] Juanito Damon DDS Dentist 12/05/21 [facility] [place], [place] [facility] Fiberglass Insulation Installer 12/05/21 documented as of this encounter
--- OUTSIDE RECORDS SUMMARY | 2021-12-17 13:59 | XMS_ITS | Encounter Summary ---
:1950 Author Organization [facility] Address [address] [place] [address] Care Team Providers Name Role Phone Clair Simms APRN C.N.P., D.N.P. Primary Care Provider Reason for Referral Outpatient (Routine) - Closed Specialty Diagnoses / Procedures Referred By Contact Refer red To Contact Clair Simms APRN, C.N.P., [facility] D.N.P. [address] [place] [phone] Referral ID Status Reason Start Date Expiration Date Visits Requ ested Visits Authorized [id number] Closed 12/04/2021 12/03/2024 1 1 Scheduling Instructions AWV- tack on if willing. GIVE Tablet Encounter Details Date Type Department Care Team Description 12/04/2021 Orders Only [facility] Clair Simms AP RN, Medicine, [place] C.N.P., D .N.P. [facility], [address] [address] [place] [address] [phone] Social History Tobacco Use Types Packs/Day Years Used Date Smoking Tobacco: Never Smokeless Tobacco: Never Alcohol Use Standard Drinks/Week Comments Yes 7 (1 standard drink = 0.6 oz pure alcoho l) Alcohol Habits Answer Date Recorded How often do you have a drink containing 4 or more times a w [place] 08/10/2021 alcohol? How many drinks containing alcohol [...] or relatives? How often do you attend orthodoxy or More than 4 times per year 08/10/2021 caodaism services? Do you belong to any clubs or Yes 08/10/2021 organizations such as orthodoxy groups, unions, fraternal or athletic groups, or [...] place to sleep or slept in a intermediate (including now)? Education Answer Date Recorded What is the highest level of school you have completed or 12 th grade 08/10/2021 the highest degree you have received? Sex Assigned at Date Recorded Female 11/19/2020 2:34 PM CDT documented as of this encounter Plan of Treatment Upcoming Encounters Date Type Specialty Care Team Description 01/23/2022 Appointment Radiology Clair Simms APRN, C.N.P., D.N.P. [address] [phone] (Wo rk) Scheduled Procedures Name Priority Associated Diagnoses Date/Time COLONOSCOPY Screening Colon Cancer Average R isk Scheduled Referrals Name Type Priority Associated Diagnoses Order S dean Primary Care nurse Outpatient Referral Routine Ex pected: visit (clinic) - 12/05/[address] [facility] Region; (Approxim ate), Medicare Annual Expires: Wellness 03/06/2023 documented as of this encounter Visit Diagnoses Not on filedocumented in this encounter Care Teams Anthropology And Archeology Instructor Relationship Specialty Start Date End Date Clair Simms APRN, C.N.P., D.N.P. PCP - General 06/03/[address] [place] [phone] documented as of this encounter
--- OUTSIDE RECORDS SUMMARY | 2021-12-17 13:59 | XMS_ITS | Encounter Summary ---
:1950 Author Organization [facility] Address [address] [place] [address] Care Team Providers Name Role Phone Unassigned, Provider Primary Care Provider Unavailable Reason for Visit Procedure/Equipment (Routine) - Closed Specialty Diagnoses / Procedures Referred By Contact Refer red To Contact Diagnoses Sprain of left ankle, unspecified ligament, subsequent encounter Gage Shrestha PA-C Procedures MR Ankle Lt WO IV Cont [address] [facility] [place], [place] [address] Referral ID Status Reason Start Date Expiration Date Visits Requ ested Visits Authorized [id number] Closed 05/05/2018 08/04/2019 1 1 Encounter Details Date Type Department Care Team Description 05/06/2018 Ancillary [facility] MRI Gage Shrestha, Sprain of left Procedure [address] [facility] [address] ankle, unspecified Drive [address] [facility] [facility] [address] [place], [place], [place] [address] encounter [phone] Social History Tobacco Use Types Packs/Day Years Used Date Smoking Tobacco: Never Smokeless Tobacco: Never Alcohol Use Standard Drinks/Week Comments Yes 0 (1 standard drink = 0.6 oz pure alcoho l) Sex Assigned at Date Recorded Not on file documented as of this encounter Progress Notes Gage Shrestha PA-C - 05/06/2018 11:15 AM CST Study was reviewed with patient and I recommended conservative management. Patient will follow up inone month. I recommended a cortisone inj of the posterior tib. SION SUPPORT ANALYST documented in this encounter Plan of Treatment Not on filedocumented as of this encounter Procedures Procedure Name Priority Date/Time Associated Diagnosis Comme nts MR ANKLE LT WO IV Routine 05/06/2018 11:00 AM Sprain of left R esults for this CONT DECISION SUPPORT ANALYST ankle, unspecified procedure are in ligament, subsequent the res ults encounter section. documented in this encounter Results MR Ankle Lt WO IV Cont (05/06/2018 11:00 AM DECISION SUPPORT ANALYST) Anatomical Region Laterality Modality Lower Extremity, Ankle, Foot, Leg, Skeletal, Foot & Left Magnetic Resonance Ankle Specimen (Source) Anatomical Collection Method Collection Time Re ceived Time Location / / Volume Laterality 05/06/2018 10:59 AM DECISION SUPPORT ANALYST Impressions 05/06/2018 11:31 AM DECISION SUPPORT ANALYST IMPRESSION: ?? 1. Subcentimeter subacute/chronic-appear ing shallow [...] plantar fasc iitis. Narrative 05/06/2018 11:31 AM DECISION SUPPORT ANALYST TECHNIQUE: ?? Routine MRI of the left [...] Suggestion of mild pes cavus. Procedure Note Jarad Covington MD - 05/06/2018Format ting of this [...] encounter documented in this encounter Care Teams Liquor Store Manager Relationship Specialty Start Date End Date Unassigned, Provider PCP - General 05/31/00 [address] [place] [address] documented as of this encounter
--- OUTSIDE RECORDS SUMMARY | 2021-12-17 14:00 | XMS_ITS | Encounter Summary ---
:1950 Author Organization [facility] Address [address] [place] [address] Care Team Providers Name Role Phone Clair Simms APRN, C.N.P., D.N.P. Primary Care Provider Encounter Details Date Type Department Care Team Description 11/08/2020 Orders Only [facility], Screening Mammogram ALLEN, C.N.P., Breast Cancer D.N.P. [address] [place] [phone] Social History Tobacco Use Types Packs/Day Years Used Date Smoking Tobacco: Never Smokeless Tobacco: Never Alcohol Use Standard Drinks/Week Comments Yes 7 (1 standard drink = 0.6 oz pure alcoho l) Alcohol Habits Answer Date Recorded How often do you have a drink containing 4 or more times a w [place] 08/10/2021 alcohol? How many drinks containing alcohol [...] or relatives? How often do you attend zoroastrianism or More than 4 times per year 08/10/2021 yazidi services? Do you belong to any clubs or Yes 08/10/2021 organizations such as zoroastrianism groups, unions, fraternal or athletic groups, or [...] place to sleep or slept in a penitentiary (including now)? Sex Assigned at Date Recorded Female 11/19/2020 2:34 PM CDT documented as of this encounter Plan of Treatment Upcoming Encounters Date Type Specialty Care Team Description 01/23/2022 Appointment Radiology Clair Simms APRN, C.N.P., D.N.P. [address] [place] [phone] (Wo rk) Scheduled Procedures Name Priority Associated Diagnoses Date/Time COLONOSCOPY Screening Colon Cancer Average R isk documented as of this encounter Visit Diagnoses Diagnosis Screening Mammogram Breast Cancer documented in this encounter Care Teams Taxation Agent Relationship Specialty Start Date End Date Clair Simms APRN, C.N.P., D.N.P. PCP - General 06/03/[address] [place] [phone] documented as of this encounter
--- OUTSIDE RECORDS SUMMARY | 2021-12-17 14:00 | XMS_ITS | Encounter Summary ---
:1950 Author Organization [facility] Address [address] [place] [address] Care Team Providers Name Role Phone Clair Simms APRN, C.N.P., D.N.P. Primary Care Provider Encounter Details Date Type Department Care Team Description 11/22/2020 Orders Only [facility] Clair Sandoval, ALLEN, [address] C.N.P., D.N.P. RAJINDER BERNARDO [phone] [address] [address] [phone] [place] [phone] (Wo rk) Social History Tobacco Use Types Packs/Day Years Used Date Smoking Tobacco: Never Smokeless Tobacco: Never Alcohol Use Standard Drinks/Week Comments Yes 7 (1 standard drink = 0.6 oz pure alcoho l) Alcohol Habits Answer Date Recorded How often do you have a drink containing 4 or more times a w [place] 08/10/2021 alcohol? How many drinks containing alcohol [...] or relatives? How often do you attend rastafari or More than 4 times per year 08/10/2021 jew services? Do you belong to any clubs or Yes 08/10/2021 organizations such as rastafari groups, unions, fraternal or athletic groups, or [...] What is the highest level of school Associate degree: clau headley, 11/19/2020 you have completed or the highest technical, or vocational p piero degree you have received? Sex Assigned at Date Recorded Female 11/19/2020 2:34 PM CDT documented as of this encounter Plan of Treatment Upcoming Encounters Date Type Specialty Care Team Description 01/23/2022 Appointment Radiology Clair Simms APRN, C.N.P., D.N.P. [address] [place] [phone] (Wo rk) Scheduled Procedures Name Priority Associated Diagnoses Date/Time COLONOSCOPY Screening Colon Cancer Average R isk documented as of this encounter Visit Diagnoses Not on filedocumented in this encounter Care Teams Handy Man Relationship Specialty Start Date End Date Clair Simms APRN, C.N.P., D.N.P. PCP - General 06/03/[address] [place] [phone] documented as of this encounter
--- OUTSIDE RECORDS SUMMARY | 2021-12-17 14:00 | XMS_ITS | Encounter Summary ---
:1950 Author Organization [facility] Address [address] [place] [address] Care Team Providers Name Role Phone Clair Simms APRN, C.N.P., D.N.P. Primary Care Provider Encounter Details Date Type Department Care Team Description 02/07/2021 Orders Only [facility] Clair Simms APRN, Hyperlipidemia C.N.P., D.N.P. [address] [place] [phone] (Wo rk) Social History Tobacco Use Types Packs/Day Years Used Date Smoking Tobacco: Never Smokeless Tobacco: Never Alcohol Use Standard Drinks/Week Comments Yes 7 (1 standard drink = 0.6 oz pure alcoho l) Alcohol Habits Answer Date Recorded How often do you have a drink containing 4 or more times a w [place] 08/10/2021 alcohol? How many drinks containing alcohol [...] or relatives? How often do you attend evangelical or More than 4 times per year 08/10/2021 zoroastrian services? Do you belong to any clubs or Yes 08/10/2021 organizations such as evangelical groups, unions, fraternal or athletic groups, or [...] place to sleep or slept in a long term (including now)? Education Answer Date Recorded What is the highest level of school Associate degree: clau headley, 11/19/2020 you have completed or the highest technical, or vocational mary harry degree you have received? Sex Assigned at Date Recorded Female 11/19/2020 2:34 PM CDT documented as of this encounter Plan of Treatment Upcoming Encounters Date Type Specialty Care Team Description 01/23/2022 Appointment Radiology Clair Simms APRN, C.N.P., D.N.P. [address] [place] [phone] (Wo rk) Scheduled Procedures Name Priority Associated Diagnoses Date/Time COLONOSCOPY Screening Colon Cancer Average R isk documented as of this encounter Visit Diagnoses Diagnosis Hyperlipidemia documented in this encounter Care Teams Slasher Runner Relationship Specialty Start Date End Date Clair Simms APRN, C.N.P., D.N.P. PCP - General 06/03/[id number] [place] [phone] documented as of this encounter
--- OUTSIDE RECORDS SUMMARY | 2021-12-17 14:00 | XMS_ITS | Encounter Summary ---
:1950 Author Organization [facility] Address [address] [place] [address] Care Team Providers Name Role Phone Clair Simms APRN C.N.P., D.N.P. Primary Care Provider Encounter Details Date Type Department Care Team Description 11/24/2020 Hospital Encounter Department of Laboratory Clair Simms, Medicine in [place] ALLEN, C.N.PIshmael[place], [place] D.N.P. [address] [place], [place] [id number] [place], [place] [phone] (Wo rk) Social History Tobacco Use Types Packs/Day Years Used Date Smoking Tobacco: Never Smokeless Tobacco: Never Alcohol Use Standard Drinks/Week Comments Yes 7 (1 standard drink = 0.6 oz pure alcoho l) Alcohol Habits Answer Date Recorded How often do you have a drink containing 4 or more times a w [place] 08/10/2021 alcohol? How many drinks containing alcohol [...] or relatives? How often do you attend uatsdin or More than 4 times per year 08/10/2021 taoism services? Do you belong to any clubs or Yes 08/10/2021 organizations such as uatsdin groups, unions, fraternal or athletic groups, or [...] PM CDT documented as of this encounter Medications at Time of Discharge Medication Sig Dispensed Refills Start Date End Date acetaminophen (TYLENOL) Take 1,500 mg by 0 2020 500 mg tablet mouth 2 (two) times a day. albuterol (for_ACCUNEB) Inhale 2.5 mg every 0 2.5 mg /3 mL nebulizer 6 (six) hours. As solution needed cetirizine 10 mg capsule Take by mouth 0 05/13/19 16 daily. clonazePAM (for_KlonoPIN) Take 0.5 mg by 0 2015 0.5 mg tablet mouth daily. fluticasone-vilanterol Inhale daily. 0 06/20/2016 (for_BREO ELLIPTA DISKUS) 200-25 mcg/act inhaler gabapentin (for_NEURONTIN) Take by mouth 0 2015 300 mg capsule daily. montelukast Take 1 tablet by 0 05/13/2015 (for_SINGULAIR) 10 mg mouth every tablet evening. traMADoL (ULTRAM) 50 mg Take 0.5-1 tablets 30 tablet 0 11/03 tabletIndications: (25-50 mg total) by Prolonged Acute mouth every 6 (six) Pain/Traumatic Injury hours as needed for moderate pain or score 4-6 of 10 Indications: Prolonged Acute Pain/Traumatic Injury. cyclobenzaprine (FLEXERIL) Take 1 tablet (5 mg 90 tablet 3 11/24/2020 12/05/2021 5 mg tabletIndications: total) by mouth at Temporomandibular Joint bedtime. Disorder cyclobenzaprine Take by mouth 0 05/13/20152021 (for_FLEXERIL) 10 mg daily. tablet naproxen sodium Take 220 mg by 0 09/06/202008/15 (ALEVE/ANAPROX) 220 mg mouth. tablet predniSONE (DELTASONE) 10 daily as needed. 0 04/11/201708/15/2021 mg tablet PROAIR HFA 90 INHALE 2 PUFFS BY 11 06/10/201708/02 mcg/actuation inhaler INHALATION ROUTE EVERY 4 - 6 HOURS NEEDED traMADoL (ULTRAM) 50 mg TAKE 1 TABLET (50 0 10/1908/15/2021 tablet MG) BY MOUTH 3 TIMES DAILY IF NEEDED FOR PAIN. documented as of this encounter Plan of Treatment Upcoming Encounters Date Type Specialty Care Team Description 01/23/2022 Appointment Radiology Clair Simms APRN, C.N.P., D.N.P. [address] [place] [phone] (Wo rk) Scheduled Procedures Name Priority Associated Diagnoses Date/Time COLONOSCOPY Screening Colon Cancer Average R isk documented as of this encounter Visit Diagnoses Not on filedocumented in this encounter Care Teams Pig Sticker Relationship Specialty Start Date End Date Clair Simms APRN, C.N.P., D.N.P. PCP - General 06/03/[address] [place] [phone] documented as of this encounter
--- OUTSIDE RECORDS SUMMARY | 2021-12-17 14:00 | XMS_ITS | Encounter Summary ---
:1950 Author Organization [facility] Address [address] [place] [address] Care Team Providers Name Role Phone Clair Simms APRN, C.N.P., D.N.P. Primary Care Provider Encounter Details Date Type Department Care Team Description 11/10/2020 Orders Only [facility]ms, Screening Mammogram ALLEN, C.N.P., Breast Cancer D.N.P. [phone] [place] [phone] Social History Tobacco Use Types Packs/Day Years Used Date Smoking Tobacco: Never Smokeless Tobacco: Never Alcohol Use Standard Drinks/Week Comments Yes 7 (1 standard drink = 0.6 oz pure alcoho l) Alcohol Habits Answer Date Recorded How often do you have a drink containing 4 or more times a w [place] 08/10/2021 alcohol? How many drinks containing alcohol [...] or relatives? How often do you attend yazidism or More than 4 times per year 08/10/2021 denominational services? Do you belong to any clubs or Yes 08/10/2021 organizations such as yazidism groups, unions, fraternal or athletic groups, or [...] place to sleep or slept in a [facility] (including now)? Sex Assigned at Date Recorded Female 11/19/2020 2:34 PM CDT documented as of this encounter Plan of Treatment Upcoming Encounters Date Type Specialty Care Team Description 01/23/2022 Appointment Radiology Clair Simms APRN, C.N.P., D.N.P. [address] [place] [phone] (Wo rk) Scheduled Procedures Name Priority Associated Diagnoses Date/Time COLONOSCOPY Screening Colon Cancer Average R isk documented as of this encounter Visit Diagnoses Diagnosis Screening Mammogram Breast Cancer documented in this encounter Care Teams Homeland Security Program Specialist Relationship Specialty Start Date End Date Clair Simms APRN, C.N.P., D.N.P. PCP - General 06/03/[address] [place] [phone] documented as of this encounter
--- OUTSIDE RECORDS SUMMARY | 2021-12-17 14:00 | XMS_ITS | Encounter Summary ---
:1950 Author Organization [facility] Address [address] [place] [address] Care Team Providers Name Role Phone Clair Simms APRN, C.N.P., D.N.P. Primary Care Provider Reason for Visit Reason Comments Back Pain l4 fx 08/26/2020 had surgery 10/11 surgeon would like follow up on blood work and possibel dexascan Temporomandibular Joint Pain having issues for insuran ce to cover medication Appointment Request (Routine) - Closed Specialty Diagnoses / Procedures Referred By Contact Refer red To Contact Family Medicine Referral ID Status Reason Start Date Expiration Date Visits Requ ested Visits Authorized [id number] Closed 10/25/2020 10/25/2021 1 1 Encounter Details Date Type Department Care Team Description 11/21/2020 Office Visit Department of Clair Clemens Fract ure Lumbar Fourth Other Sequela (Primary Dx); Medicine, Wilberto Chapman APRN, Osteopenia; [facility], in C.N.P., D.N.P. Deficiency Estrogen Post Menopausal; [place] [address] Temporomand ibular Joint Disorder [address] [facility] [phone] Social History Tobacco Use Types Packs/Day Years Used Date Smoking Tobacco: Never Smokeless Tobacco: Never Alcohol Use Standard Drinks/Week Comments Yes 7 (1 standard drink = 0.6 oz pure alcoho l) Alcohol Habits Answer Date Recorded How often do you have a drink containing 4 or more times a w [place] 08/10/2021 alcohol? How many drinks containing alcohol [...] or relatives? How often do you attend protestant or More than 4 times per year 08/10/2021 lutheran services? Do you belong to any clubs or Yes 08/10/2021 organizations such as protestant groups, unions, fraternal or athletic groups, or [...] place to sleep or slept in a prison (including now)? Education Answer Date Recorded What is the highest level of school Associate degree: [employer], 11/19/2020 you have completed or the highest technical, or vocational p patriciaram degree you have received? Sex Assigned at Date Recorded Female 11/19/2020 2:34 PM CDT documented as of this encounter Last Filed Vital Signs Vital Sign Reading Time Taken Comments Blood Pressure 138/80 11/21/2020 10:59 AM CDT Pulse 86 11/21/2020 10:59 AM CDT Temperature 36.7 ??C (98.1 ??F) 11/21/2020 10:59 AM CDT Respiratory Rate - - Oxygen Saturation 98% 11/21/2020 10:59 AM CDT Inhaled Oxygen Concentration - - Weight 64.6 kg (142 lb 6.7 oz) 11/21/2020 10:59 AM CDT Height 173.5 cm (5' 8.31) 11/21/2020 10:59 AM CDT Body Mass Index 21.46 11/21/2020 10:59 AM CDT documented in this encounter Progress Notes Clair Simms APRN, C.N.P., D.N.P. - 11/21/2020 11:00 AM CDT SUBJECTIVE CHIEF COMPLAINT/REASON FOR VISIT Fei Quintana is a 70 y.o. female who presents for evaluation of Back Pain (l4 fx 08/26/2020had surgery 10/11 surgeon would like follow up on blood work and possibel dexascan) and Temporomandibular Joint Pain (having issues for insurance to cover medication). HISTORY OF PRESENT ILLNESS Fei Quintana presents for evaluation and follow up of L4 spinal fracture that required surgery at an outside clinic on 10/11. She reports that she was raking weeds [place] of the [place] when she hadsudden onset of a back pain and leg weakness. She did physical therapy for 6 weeks prior to imaging in which it was identified that she had a spinal fracture. Since surgery she has continued to struggle with pain in her back. She feels that this pain is hindering her ability to participate fully in physical therapy and that she is only able to do about 50% effort due to the pain. She has been off tramadol for a few weeks, but wonders if she should get back on it so that she can better participate inPT. She otherwise has been using tylenol and ibuprofen. She also reports that the surgeon recommended she have blood work and a repeat DEXA scan for furtherevaluation of possible low bone density. OBJECTIVE PHYSICAL EXAMINATION Vital Signs: BP 138/80 (BP Location: Right arm, Patient Position: Sitting, Cuff Size: Regular) Pulse 86 Temp 36.7 ??C Ht 173.5 cm Wt 64.6 kg SpO2 98% BMI 21.46 kg/m?? Body mass index is 21.46 kg/m??. General: No acute distress. Psych: Affect is appropriate. ASSESSMENT / PLAN 1. Fracture Lumbar Fourth Other Sequela 2. Osteopenia 3. Deficiency Estrogen Post Menopausal Will obtain labs for further evaluation of possible low bone density. Dexa scan was completed in 2019, therefore do not recommend repeating that at this time. Recommend using tramadol prior to physicaltherapy so that she is able to better participate. Discussed setting up a CSA if she is requiring tramadol past the next month. - Albumin; Future - Calcium, 24 HR, Urine; Future - Creatinine, 24 Hour, Urine; Future - 25-Hydroxyvitamin D2 and D3; Future - Parathyroid Hormone (PTH); Future - Calcium, Total; Future - Phosphorus Inorganic; Future - Creatinine with Estimated GFR; Future - Creatinine with Estimated GFR - Phosphorus Inorganic - Calcium, Total - Parathyroid Hormone (PTH) - 25-Hydroxyvitamin D2 and D3 - Albumin - Creatinine, 24 Hour, Urine - Calcium, 24 HR, Urine - traMADoL (ULTRAM) 50 mg tablet; Take 0.5-1 tablets (25-50 mg total) by mouth every 6 (six) hours as needed for moderate pain or score 4-6 of 10 Indications: Prolonged Acute Pain/Traumatic Injury. Dispense: 30 tablet; Refill: 0 4. Temporomandibular Joint Disorder She has been using Flexeril for treatment of muscle spasms associated with TMJ which was caused by ajaw fracture 20 years ago. This medication has been very effective at treating her pain. This had previously been prescribed by her sleep specialist, however this last time it was not covered by insurance. A refill was sent in along with a prior authorization. She was advised however that this medication may be affordable with a good rx coupon if insurance does not cover it. - cyclobenzaprine (FLEXERIL) 5 mg tablet; Take 1 tablet (5 mg total) by mouth at bedtime. Dispense: 30 tablet; Refill: 11 Patient was instructed to follow up in primary care if symptoms are worsening or there is no improvement over the next several days. Plan was discussed with patient and is in agreement with plan. All questions were answered, side effects of any/all new medications were discussed. Patient left in no acute distress. Ready to learn. No apparent learning barriers were identified. Learning preferences include listening. Explained diagnosis and treatment plan. Patient/Child/Caregiver expressed understanding of the content. Clair Simms APRN, C.N.P., D.N.P. Total time: 32 minutes documented in this encounter Plan of Treatment Upcoming Encounters Date Type Specialty Care Team Description 01/23/2022 Appointment Radiology Clair Simms APRN, C.N.P., D.N.P. [address] [phone] (Wo rk) Scheduled Procedures Name Priority Associated Diagnoses Date/Time COLONOSCOPY Screening Colon Cancer Average R isk documented as of this encounter Procedures Procedure Name Priority Date/Time Associated Comments Diagnosis CALCIUM, 24 HR, U Routine 11/24/2020 10:21 Fracture Lumbar Res ults for this AM CDT Fourth Other procedure are i n Sequela the results Osteopenia section. Deficiency Estrogen Post Menopausal CREATININE, U Routine 11/24/2020 10:21 Fracture Lumbar Results for this AM CDT Fourth Other procedure are i n Sequela the results Osteopenia section. Deficiency Estrogen Post Menopausal 25-HYDROXYVITAMIN D2 Routine 11/21/2020 12:03 Fracture Lumbar Results for this AND D3, S PM CDT Fourth Other procedure are i n Sequela the results Osteopenia section. Deficiency Estrogen Post Menopausal PHOSPHORUS Routine 11/21/2020 12:03 Fracture Lumbar Results for this (INORGANIC), S PM CDT Fourth Other procedure are in Sequela the results Osteopenia section. Deficiency Estrogen Post Menopausal PARATHYROID HORMONE Routine 11/21/2020 12:03 Fracture Lumbar R esults for this (PTH), S PM CDT Fourth Other procedure are i n Sequela the results Osteopenia section. Deficiency Estrogen Post Menopausal CREATININE WITH EGFR, Routine 11/21/2020 12:03 Fracture Lumbar Results for this S/P PM CDT Fourth Other procedure are i n Sequela the results Osteopenia section. Deficiency Estrogen Post Menopausal CALCIUM, TOT, S/P Routine 11/21/2020 12:03 Fracture Lumbar Res ults for this PM CDT Fourth Other procedure are i n Sequela the results Osteopenia section. Deficiency Estrogen Post Menopausal ALBUMIN, S/P Routine 11/21/2020 12:03 Fracture Lumbar Results for this PM CDT Fourth Other procedure are i n Sequela the results Osteopenia section. Deficiency Estrogen Post Menopausal documented in this encounter Results Creatinine, 24 Hour, Urine (11/24/2020 10:21 AM CDT) athologist Signature Creatinine, 24 [phone] [phone] 1783 11/24/2020 [facility] HR, U mg/24 h 10:40 AM CDT Collection 24 h 11/24/2020 [facility] Duration 10:22 AM CDT Urine Volume 2100 mL 11/24/2020 [facility] 10:22 AM CDT Creatinine Conc 40 mg/dL 11/24/2020 [facility] 10:40 AM CDT Specimen Anatomical Collection Method Collection Time Receive d Time (Source) Location / / Volume Laterality Urine (Urine, 24 11/24/2020 10:21 021 Hours) AM CDT 10:21 AM CDT Clair Simms APRN, Matthew.N.P., D.N.P. LAB URINE ORDERAB LES Performing Organization Address City/State/ZIP Code Phon e Number [address] [place] [address] [place] [address] [address] Calcium, 24 HR, Urine (11/24/2020 10:21 AM CDT) athologist Signature Calcium, 24 HR, 189 <200 mg/24 11/25/2020 DTL U h 10:29 AM CDT Collection 24 h 11/24/2020 DTL Duration 10:22 AM CDT Urine Volume 2100 mL 11/24/2020 DT 10:22 AM CDT Specimen Anatomical Collection Method Collection Time Receive d Time (Source) Location / / Volume Laterality Urine (Urine, 24 11/24/2020 10:21 021 8:02 Hours) AM CDT AM CDT Clair Simms APRN, C.N.P., D.N.P. LAB URINE ORDERAB LES Performing Organization Address City/State/ZIP Code Phon e Number [facility] - [address] [place], [place] [address] [facility] [place] [address] Laboratories-[facility] [address] Creatinine with Estimated GFR (11/21/2020 12:03 PM CDT) athologist Signature Creatinine 0.74 0.59 - 11/21/2020 [facility] 1.04 mg/dL 12:28 PM CDT eGFR-Black/Afric >90 >=60 11/21/2020 [facility] an Barb[place] mL/min/BSA 12:28 PM CDT Comment: ----ADDITIONAL INFORMATION---- Estimated GFR calculated using the 2009 CKD_EPI creatinine equation. eGFR Non-Black/ 84 >=60 mL/min/BSA 11/21/2020 12:28 PM CDT [facility] Comment: ----ADDITIONAL INFORMATION---- Estimated GFR calculated using the 2009 CKD_EPI creatinine equation. Specimen Anatomical Collection Method Collection Time Receive d Time (Source) Location / / Volume Laterality Blood (Blood, 11/21/2020 12:03 11/21/2020 Venous) PM CDT 12:08 PM CDT Matthew Perkins APRN.N.P., D.N.P. LAB BLOOD ADD-ON Performing Organization Address City/[facility] Phon e Number [address] [address] [place] [address] System [place] [address] [address] Phosphorus Inorganic (11/21/2020 12:03 PM CDT) athologist Signature Phosphorus 3.3 2.5 - 4.5 11/21/2020 [facility] (Inorganic), P mg/dL 12:28 PM CDT Specimen Anatomical Collection Method Collection Time Receive d Time (Source) Location / / Volume Laterality Blood (Blood, 11/21/2020 12:03 11/21/2020 Venous) PM CDT 12:08 PM CDT Matthew Perkins APRN.N.P., D.N.P. LAB BLOOD ADD-ON Performing Organization Address City/[facility] Phon e Number [address] [address] [place] [address] System in [place] [address] [address] Calcium, Total (11/21/2020 12:03 PM CDT) athologist Signature Calcium, Total, 9.4 8.8 - 10.2 11/21/2020 [facility] P mg/dL 12:28 PM CDT Specimen Anatomical Collection Method Collection Time Receive d Time (Source) Location / / Volume Laterality Blood (Blood, 11/21/2020 12:03 11/21/2020 Venous) PM CDT 12:08 PM CDT Matthew Perkins APRN.N.P., D.N.P. LAB BLOOD ADD-ON Performing Organization Address City/[facility] Code Phon e Number [facility]- [address] [place] [address] [place] [address] [address] (ABNORMAL) Parathyroid Hormone (PTH) (11/21/2020 12:03 PM CDT) athologist Signature Parathyroid 66 (H) 15 - 65 11/21/2020 [facility] Hormone (PTH), S pg/mL 8:25 PM CDT Comment: Biotin has been identified by the tanna do as a potential interfering substance. ??Higher concentr ations of biotin may be found in multivitamins, hair/nail supple ments, and workout supplements. ??If the result does not [facility] clinical observations, repeat testing after patient refrains fr om the use of supplements for at least 12 hours. Specimen Anatomical Collection Method Collection Time Receive d Time (Source) Location / / Volume Laterality Blood (Blood, 11/21/2020 12:03 11/21/2020 7:43 Venous) PM CDT PM CDT Clair Simms APRN, Matthew.N.P., D.N.P. LAB BLOOD ADD-ON Performing Organization Address City/State/ZIP Code Phon e Number [facility]- [address] [place], [place] [address] [facility] [place] [address] System in [place] [address] 25-Hydroxyvitamin D2 and D3 (11/21/2020 12:03 PM CDT) athologist Signature 25-Hydroxy D2 <4.0 ng/mL 11/23/2020 [facility] 4:34 PM CDT 25-Hydroxy D3 48 ng/mL 11/23/2020 [facility] 4:34 PM CDT 25-Hydroxy D 48 ng/mL 11/23/2020 [facility] Total 4:34 PM CDT Comment: ----REFERENCE VALUE---- 25-HYDROXY D TOTAL (D2+D3) Optimum level s in the healthy population are 20-50, patients with bone disease may benefit from higher levels within this r cassi. ----ADDITIONAL INFORMATION---- This test was developed and its performa nce characteristics determined by [facility] in a manner consistent with CLIA requirements. This test has not been cleared or approved by the [place] and Drug Administration. Specimen Anatomical Collection Method Collection Time Receive d Time (Source) Location / / Volume Laterality Blood (Blood, 11/21/2020 12:03 11/22/2020 8:12 Venous) PM CDT AM CDT Clair Simms APRN, Matthew.N.P., D.N.P. LAB BLOOD ADD-ON Performing Organization Address City/State/ZIP Code Phon e Number [facility] [address] [place], [place] [address] [place], [place] [address]t. [place] [address] Laboratory Medicine and Pathology [address] [place] Albumin (11/21/2020 12:03 PM CDT) athologist Signature Albumin, P 3.9 3.5 - 5.0 11/21/2020 [facility] g/dL 12:28 PM CDT Specimen Anatomical Collection Method Collection Time Receive d Time (Source) Location / / Volume Laterality Blood (Blood, 11/21/2020 12:03 11/21/2020 Venous) PM CDT 12:08 PM CDT Clair Simms APRN, Matthew.N.P., D.N.P. LAB BLOOD ADD-ON Performing Organization Address City/[facility]/ZIP Code Phon e Number [place] [address] [place] [address] [place] [address] [address] documented in this encounter Visit Diagnoses Diagnosis Fracture Lumbar Fourth Other Sequela - P rimary Osteopenia Deficiency Estrogen Post Menopausal Temporomandibular Joint Disorder documented in this encounter Care Teams Child Development Assistant Relationship Specialty Start Date End Date Clair Simms APRN, C.N.P., D.N.P. PCP - General 06/03/[address] [place] [address] [place] [phone] documented as of this encounter
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
--- OUTSIDE RECORDS SUMMARY | 2021-12-17 14:00 | XMS_ITS | Encounter Summary ---
:1950 Author Organization [facility] Address [address] [place] [address] Care Team Providers Name Role Phone Clair Simms APRN C.N.P., D.N.P. Primary Care Provider Reason for Referral Outpatient (Routine) - Closed Specialty Diagnoses / Procedures Referred By Contact Refer red To Contact Diagnoses Pain Right Upper Quadrant Maurisio Clemens M.D., Ph.D. [facility] Procedures US Abdomen Complete [address] [place] [phone] Referral ID Status Reason Start Date Expiration Date Visits Requ ested Visits Authorized [id number] Closed 05/24/2020 05/24/2021 1 1 Reason for Visit Reason Comments Abdominal Pain Pt is experiencing pain in w hat she thinks is the gallbladder. Went to bed at 1 am and woke up at 4 :30 am with intense abdominal pain. Has tried taking apple cider vesna egar which has helped relieve pain. Encounter Details Date Type Department Care Team Description 05/24/2020 Office Visit Department of Maurisio Granados, Pain Right Upper Medicine, Wilberto Stern M.D., Ph. D. Quadrant (Primary Dx) Clinic, in [address] [phone] Social History Tobacco Use Types Packs/Day Years Used Date Smoking Tobacco: Never Smokeless Tobacco: Never Alcohol Use Standard Drinks/Week Comments Yes 7 (1 standard drink = 0.6 oz pure alcoho l) Alcohol Habits Answer Date Recorded How often do you have a drink containing 4 or more times a w [place] 08/10/2021 alcohol? How many drinks containing alcohol [...] or relatives? How often do you attend mormon or More than 4 times per year 08/10/2021 jain services? Do you belong to any clubs or Yes 08/10/2021 organizations such as mormon groups, unions, fraternal or athletic groups, or [...] minutes do you engage in exercise at is 0 min 08/10/2021 level? Stress Answer [...] place to sleep or slept in a ch[facility] (including now)? Sex Assigned at Date Recorded Female 11/19/2020 2:34 PM CDT documented as of this encounter Last Filed Vital Signs Vital Sign Reading Time Taken Comments Blood Pressure 132/82 05/24/2020 9:17 AM CDT Pulse 84 05/24/2020 9:17 AM CDT Temperature 36.2 ??C (97.2 ??F) 05/24/2020 9:17 AM CDT Respiratory Rate 16 05/24/2020 9:17 AM CDT Oxygen Saturation 95% 05/24/2020 9:17 AM CDT Inhaled Oxygen Concentration - - Weight 63.6 kg (140 lb 3.4 oz) 05/24/2020 9:17 AM CDT Height - - Body Mass Index 20.71 07/07/2019 11:42 AM CDT documented in this encounter Progress Notes Maurisio Clemens M.D., Ph.D. - 05/24/2020 9:30 AM CDT SUBJECTIVE CHIEF COMPLAINT / REASON FOR VISIT Fei Quitnana is a 69 y.o. female who presents for evaluation of Abdominal Pain (Pt is experiencing pain in what she thinks is the gallbladder. Went to bed at 1 am and woke up at 4:30 am with intense abdominal pain. Has tried taking apple cider vinegar which has helped relieve pain. ). HISTORY OF PRESENT ILLNESS Patient complains of aching and boring pain located in in the RUQ for 3 weeks. There is no report ofacholic stools, blood in stool, constipation, dark urine, dysuria, fever, heartburn, hematemesis, hematuria and melena. Patient's oral intake has been normal. Patient's urine output has been adequate. Palliative factors include nothing while the pain is worsened with nothing and fatty foods. Associated symptoms include nausea. Patient denies recent ingestion of possible contaminated food, toxic plants, inappropriate medications/poisons. The following portions of the patient's history were reviewed and updated as appropriate: allergies,current medications, family history, medical history, social history, surgical history and problem list. REVIEW OF SYSTEMS All other systems reviewed and are negative. OBJECTIVE PHYSICAL EXAMINATION Vitals signs and nursing note reviewed. Constitutional General: She is not in acute distress. Appearance: Normal appearance. She is well-developed. HENT Head: Normocephalic and atraumatic. Right Ear: Tympanic membrane, ear canal and external ear normal. Left Ear: Tympanic membrane, ear canal and external ear normal. Nose: Nose normal. Mouth/Throat: Mouth: Mucous membranes are moist. Pharynx: Oropharynx is clear. Eyes Conjunctiva/sclera: Conjunctivae normal. Neck Musculoskeletal: Normal range of motion and neck supple. Thyroid: No thyromegaly. Cardiovascular Rate and Rhythm: Normal rate and regular rhythm. Heart sounds: Normal heart sounds. No murmur. Pulmonary Effort: Pulmonary effort is normal. Breath sounds: Normal breath sounds. No wheezing. Abdominal General: Abdomen is flat. Bowel sounds are normal. Palpations: There is no mass. Tenderness: There is abdominal tenderness. There is no guarding or rebound. Comments: Tender diffusely, but more at the right upper quadrant. Lymphadenopathy Cervical: No cervical adenopathy. Skin General: Skin is warm and dry. Findings: No rash. Neurological Mental Status: She is alert and oriented to person, place, and time. Psychiatric Mood and Affect: Mood normal. I personally reviewed all diagnostic tests relevant to this presentation. ASSESSMENT / PLAN #1 Pain Right Upper Quadrant Labs and AXR reviewed. If US liver normal, start Miralax prn. Will call if abnormal and refer to Surgery. Time=35 min documented in this encounter Plan of Treatment Upcoming Encounters Date Type Specialty Care Team Description 01/23/2022 Appointment Radiology Clair Simms , ALLEN, C.N.P., D.N.P. [id number] [place] [phone] (Wo rk) Scheduled Procedures Name Priority Associated Diagnoses Date/Time COLONOSCOPY Screening Colon Cancer Average R isk documented as of this encounter Procedures Procedure Name Priority Date/Time Associated Comments Diagnosis URINALYSIS WITH Routine 05/24/2020 10:12 Pain Right Upper Resu lts for this MICROSCOPIC IF AM CDT Quadrant procedure are in INDICATED, U the results section. HC URINALYSIS AUTO WO Routine 05/24/2020 10:12 Re sults for this MICRO AM CDT procedure are i n the results section. CBC WITH DIFFERENTIAL, Routine 05/24/2020 10:12 Pain Right Upp er Results for this B AM CDT Quadrant procedure are i n the results section. LIPASE, S/P Routine 05/24/2020 10:12 Pain Right Upper Results for this AM CDT Quadrant procedure are i n the results section. GAMMA-GLUTAMYLTRANSFER Routine 05/24/2020 10:12 Pain Right Upp er Results for this ASE (GGT), S/P AM CDT Quadrant procedure are in the results section. AMYLASE, TOT, S Routine 05/24/2020 10:12 Pain Right Upper Resu lts for this AM CDT Quadrant procedure are i n the results section. COMPREHENSIVE Routine 05/24/2020 10:12 Pain Right Upper Result s for this METABOLIC PANEL, S/P AM CDT Quadrant procedu re are in the results section. documented in this encounter Results US Abdomen Complete (05/24/2020 12:42 PM CDT) Anatomical Region Laterality Modality Abdomen, Ultrasound RST LOS, Ultrasound ARZ LOS, Ultrasound FLA N/A Ultrasound LOS Specimen (Source) Anatomical Collection Method Collection Time Re ceived Time Location / / Volume Laterality 05/24/2020 12:43 PM CDT Impressions 05/24/2020 12:49 PM CDT 1. Nothing specific to explain right upper quadrant abdominal pain. Gallbladder and biliary system within normal limits by ultrasound. 2. Echogenic structures in the liver may represent benign hemangiomas; no specific follow-up required in the absen ce of known malignancy or hepatic dysfunction. Narrative 05/24/2020 12:49 PM CDT EXAM: US ABDOMEN COMPLETE COMPARISON: No prior for comparison. FINDINGS: Liver: Round echogenic structure in the left liver measuring 1.6 cm. Small possible echogenic structure in the righ t liver measuring 0.7 cm. Gallbladder: Normal. Intrahepatic ducts: Not dilated. Common duct: Not dilated. Pancreas: Partially obscured by bowel ga s. Right kidney: ?? Length:10.3 cm. Normal echogenicity. No hydronephrosis. Left kidney: ?? Length:11.3 cm. Normal echogenicity. No hydronephrosis. Spleen: Normal. ??Spleen length:7.7 cm Aorta: Normal caliber. IVC: Normal where seen. Ascites: ??None. Procedure Note Kaveh Hodges M.D. - 05/24/2020Formatt ing of this note might be different from the original. EXAM: US ABDOMEN COMPLETE COMPARISON: No prior for comparison. FINDINGS: Liver: Round echogenic structure in the left liver measuring 1.6 cm. Small possible echogenic structure in the righ t liver measuring 0.7 cm. Gallbladder: Normal. Intrahepatic ducts: Not dilated. Common duct: Not dilated. Pancreas: Partially obscured by bowel ga s. Right kidney: Length:10.3 cm. Normal echogenicity. No hydronephrosis. Left kidney: Length:11.3 cm. Normal echogenicity. No hydronephrosis. Spleen: Normal. Spleen length:7.7 cm Aorta: Normal caliber. IVC: Normal where seen. Ascites: None. IMPRESSION: 1. Nothing specific to explain right upp er quadrant abdominal pain. Gallbladder and biliary system within normal limits by ultrasound. 2. Echogenic structures in the liver may represent benign hemangiomas; no specific follow-up required in the absen ce of known malignancy or hepatic dysfunction. Maurisio Clemens M.D., Ph.D. IMG US PROCEDURES (ABNORMAL) Microscopic Manual (05/24/2020 10:12 AM CDT) P athologist Signature White Blood Occ-3 /hpf 05/24/2020 CNFL Cells 10:41 AM CDT Comment: ----REFERENCE VALUE---- Males: 0-3 Females: 0-10 Unknown: 0-10 Red Blood Cells None Seen 0 - 2 /hpf 05/24/2020 10:41 AM CDT CNFL Mucus Present /hpf 05/24/2020 10:41 AM CDT CNFL Squamous Cells Occ-3 /hpf 05/24/2020 10:41 AM CDT C NFL Bacteria Present (A) None Seen 05/24/2020 10:41 AM CDT CNFL Specimen Anatomical Collection Method Collection Time Receive d Time (Source) Location / / Volume Laterality Urine 05/24/2020 10:12 05/24/2020 AM CDT 10:24 AM CDT Maurisio Clemens M.D., Ph.D. LAB URINE ORDERABLES Performing Organization Address City/State/ZIP Code Phon e Number [address] [phone] [place] [address] System [address] (ABNORMAL) Urinalysis with Microscopic if Indicated (05/24/2020 10:12 AM CDT) Analysis Performed At Patho logist Time Signature Source Midstream 05/24/2020 CN[facility] 10:29 AM CDT Clarity Slightly Clear 05/24/2020 [facility] Cloudy (A) 10:29 AM CDT Color Yellow 05/24/2020 CN[facility] 10:29 AM CDT Comment: ----REFERENCE VALUE---- Colorless Yellow [place] Blood Negative Negative 05/24/2020 10:29 AM CDT CNFL Nitrite Negative Negative 05/24/2020 10:29 AM CDT CNFL Leukocyte Esterase Negative Negative 05/24/2020 10:29 AM C DT CNFL Protein Negative mg/dL 05/24/2020 10:29 AM CDT CNFL Comment: ----REFERENCE VALUE---- Negative Trace Glucose Negative Negative mg/dL 05/24/2020 10:29 AM CDT C NFL Ketones, QI(U) Negative Negative mg/dL 05/24/2020 10:29 AM CDT CNFL Bilirubin Negative Negative 05/24/2020 10:29 AM CDT CNFL pH 7.0 5.0 - 8.0 05/24/2020 10:29 AM CDT CNFL Specific [place] 1.020 1.001 - 1.035 05/24/2020 10:29 AM CDT CNFL Urobilinogen 0.2 0.2 - 1.0 mg/dL 05/24/2020 10:29 AM C DT CNFL Specimen Anatomical Collection Method Collection Time Receive d Time (Source) Location / / Volume Laterality Urine (Urine, 05/24/2020 10:12 05/24/2020 Voided) AM CDT 10:24 AM CDT Maurisio Clemens M.D., Ph.D. LAB URINE ORDERABLES Performing Organization Address City/State/ZIP Code Phon e Number [facility]- [address] [place] [phone] [place] [address] System [address] GGT (Gamma-Glutamyltransferase) (05/24/2020 10:12 AM CDT) [facility] Method Time Signature Gamma 24 5 - 36 05/24/2020 ECL[facility] Glutamyltransferase U/L 3:05 PM CDT (GGT), S Specimen Anatomical Collection Method Collection Time Receive d Time (Source) Location / / Volume Laterality Blood (Blood, 05/24/2020 10:12 05/24/2020 2:37 Venous) AM CDT PM CDT Maurisio Clemens M.D., Ph.D. LAB BLOOD ADD-ON Performing Organization Address City/[facility] Phon e Number [facility]- [address] [place] [phone] [facility] [place] [address] System [address] Lipase (05/24/2020 10:12 AM CDT) athologist Signature Lipase, P 30 13 - 60 U/L 05/24/2020 CNFL 10:42 AM CDT Specimen Anatomical Collection Method Collection Time Receive d Time (Source) Location / / Volume Laterality Blood (Blood, 05/24/2020 10:12 05/24/2020 Venous) AM CDT 10:16 AM CDT Maurisio Clemens M.D., Ph.D. LAB BLOOD ADD-ON Performing Organization Address City/[facility] Phon e Number [facility]- [address] [place] [phone] [place] [address] [place] [address] System [address] (ABNORMAL) Comprehensive Metabolic Panel (05/24/2020 10:12 AM CDT) athologist Signature Potassium, P 3.9 3.6 - 5.2 05/24/2020 CNFL mmol/L 10:42 AM CDT Sodium, P 139 135 - 145 05/24/2020 CN[facility] mmol/L 10:42 AM CDT Chloride, P 102 98 - 107 05/24/2020 CN[facility] mmol/L 10:42 AM CDT Bicarbonate, P 30 (H) 22 - 29 05/24/2020 CN[facility] mmol/L 10:42 AM CDT Anion Gap, P 7 7 - 15 05/24/2020 CN[facility] 10:42 AM CDT BUN (Blood Urea 12 6 - 21 05/24/2020 CNFL Nitrogen), P mg/dL 10:42 AM CDT Creatinine 0.76 0.59 - 05/24/2020 CN[facility] 1.04 mg/dL 10:42 AM CDT eGFR-Black/Afri >90 >=60 05/24/2020 CN[facility] can Latvian mL/min/BSA 10:42 AM CDT Comment: ----ADDITIONAL INFORMATION---- Estimated GFR calculated using the 2009 CKD_EPI creatinine equation. eGFR Non-Black/ 81 >=60 mL/min/BSA 05/24/2020 10:42 AM CDT CNFL Comment: ----ADDITIONAL INFORMATION---- Estimated GFR calculated using the 2009 CKD_EPI creatinine equation. Calcium, Total, P 10.3 (H) 8.8 - 10.2 mg/dL 05/24/2020 10:4 2 AM CNFL CDT Glucose, P 100 70 - 140 mg/dL 05/24/2020 10:42 AM CNFL CDT Protein, Total, P 6.7 6.3 - 7.9 g/dL 05/24/2020 10:42 AM CNFL CDT Albumin, P 4.0 3.5 - 5.0 g/dL 05/24/2020 10:42 AM CNFL CDT Aspartate Aminotransferase 30 8 - 43 U/L 05/24/2020 1 0:42 AM CNFL (AST), P CDT Alkaline Phosphatase, P 72 35 - 104 U/L 05/24/2020 10 :42 AM CNFL CDT Alanine Aminotransferase 85 (H) 7 - 45 U/L 05/24/2020 10: 42 AM CNFL (ALT), P CDT Bilirubin, Total, P 0.3 <=1.2 mg/dL 05/24/2020 10:42 A M CNFL CDT Specimen Anatomical Collection Method Collection Time Receive d Time (Source) Location / / Volume Laterality Blood (Blood, 05/24/2020 10:12 05/24/2020 Venous) AM CDT 10:16 AM CDT Maurisio Clemens M.D., Ph.D. LAB BLOOD ADD-ON Performing Organization Address City/State/ZIP Code Phon e Number [facility]- [address] [place] [phone] [place] [address] System [address] CBC with Differential, Blood (05/24/2020 10:12 AM CDT) P athologist Signature Hemoglobin 14.5 11.6 - 05/24/2020 CNFL 15.0 g/dL 10:33 AM CDT Hematocrit 42.1 35.5 - 05/24/2020 CNFL 44.9 % 10:33 AM CDT Erythrocytes 4.71 3.92 - 05/24/2020 CNFL 5.13 10:33 AM CDT x10(12)/L MCV 89.4 78.2 - 05/24/2020 CNFL 97.9 fL 10:33 AM CDT RBC Distrib Width 12.8 12.2 - 05/24/2020 CN[facility] 16.1 % 10:33 AM CDT Platelet Count 275 157 - 371 05/24/2020 CNFL x10(9)/L 10:33 AM CDT Leukocytes 7.3 3.4 - 9.6 05/24/2020 CN[facility] x10(9)/L 10:33 AM CDT Neutrophils 5.71 1.56 - 05/24/2020 CNFL 6.45 10:33 AM CDT x10(9)/L Lymphocytes 0.97 0.95 - 05/24/2020 CNFL 3.07 10:33 AM CDT x10(9)/L Monocytes 0.48 0.26 - 05/24/2020 CNFL 0.81 10:33 AM CDT x10(9)/L Eosinophils 0.12 0.03 - 05/24/2020 CNFL 0.48 10:33 AM CDT x10(9)/L Basophils 0.01 0.01 - 05/24/2020 CNFL 0.08 10:33 AM CDT x10(9)/L Specimen Anatomical Collection Method Collection Time Receive d Time (Source) Location / / Volume Laterality Blood (Blood, 05/24/2020 10:12 05/24/2020 Venous) AM CDT 10:16 AM CDT Maurisio Clemens M.D., Ph.D. LAB BLOOD ADD-ON Performing Organization Address City/State/ZIP Code Phon e Number [facility]- [address] [place] [phone] [place] [address] [address] Amylase, Total (05/24/2020 10:12 AM CDT) P athologist Signature Amylase, Total, 55 28 - 100 05/24/2020 [facility] P U/L 10:42 AM CDT Specimen Anatomical Collection Method Collection Time Receive d Time (Source) Location / / Volume Laterality Blood (Blood, 05/24/2020 10:12 05/24/2020 Venous) AM CDT 10:16 AM CDT Maurisio Clemens M.D., Ph.D. LAB BLOOD ADD-ON Performing Organization Address City/State/ZIP Code Phon e Number [facility]- [address] [place] [phone] [place] [address] DX Abdomen 1 View (05/24/2020 10:06 AM CDT) Anatomical Region Laterality Modality Abdomen, Abdominal RST LOS, Abdominal ARZ LOS, N/A Digital Radiography Abdominal FLA LOS Specimen (Source) Anatomical Collection Method Collection Time Re ceived Time Location / / Volume Laterality 05/24/2020 10:10 AM CDT Impressions 05/24/2020 10:11 AM CDT Nonobstructive bowel gas pattern with a moderate volume of scattered colonic gas and stool. Negative for larg e pneumatosis or pneumoperitoneum. Spondylosis. Moderate bilateral sacroili ac and mild bilateral hip degeneration. Narrative 05/24/2020 10:11 AM CDT EXAM: DX ABDOMEN 1 VIEW Procedure Note Meng Estrada M.D. - 05/24/2020Formattin g of this note might be different from the original. EXAM: DX ABDOMEN 1 VIEW IMPRESSION: Nonobstructive bowel gas pattern with a moderate volume of scattered colonic gas and stool. Negative for larg e pneumatosis or pneumoperitoneum. Spondylosis. Moderate bilateral sacroili ac and mild bilateral hip degeneration. Maurisio Clemens M.D., Ph.D. IMG DIAGNOSTIC IMAGING PROCE HELEN documented in this encounter Visit Diagnoses Diagnosis Pain Right Upper Quadrant - Primary Pain Right Upper Quadrant Pain Right Upper Quadrant documented in this encounter Care Teams Selling Specialist Relationship Specialty Start Date End Date Clair Simms APRN, C.N.P., D.N.P. PCP - General 06/03/[id number] [phone] documented as of this encounter
--- OUTSIDE RECORDS SUMMARY | 2021-12-17 14:00 | XMS_ITS | Encounter Summary ---
:1950 Author Organization [facility] Address [address] [place] [address] Care Team Providers Name Role Phone Clair Simms APRN, C.N.P., D.N.P. Primary Care Provider Encounter Details Date Type Department Care Team Description 11/28/2020 Orders Only [facility] PCP [facility] Sa foster Matamoros M.D. [address] [place] [address] [phone] (Wo rk) Social History Tobacco Use Types Packs/Day Years Used Date Smoking Tobacco: Never Smokeless Tobacco: Never Alcohol Use Standard Drinks/Week Comments Yes 7 (1 standard drink = 0.6 oz pure alcoho l) Alcohol Habits Answer Date Recorded How often do you have a drink containing 4 or more times a w [place] 08/10/2021 alcohol? How many drinks containing alcohol [...] or relatives? How often do you attend roman catholic or More than 4 times per year 08/10/2021 samaritan services? Do you belong to any clubs or Yes 08/10/2021 organizations such as roman catholic groups, unions, fraternal or athletic groups, or [...] place to sleep or slept in a group home (including now)? Education Answer Date Recorded What [...] Appointment Radiology Clair Simms APRN, C.N.P., D.N.P. [address] [place] [phone] (Wo rk) Scheduled Procedures Name Priority Associated Diagnoses Date/Time COLONOSCOPY Screening Colon Cancer Average R isk documented as of this encounter Visit Diagnoses Not on filedocumented in this encounter Care Teams Lan Manager Relationship Specialty Start Date End Date Clair Simms APRN, C.N.P., D.N.P. PCP - General 06/03/[address] [place] [phone] documented as of this encounter
--- OUTSIDE RECORDS SUMMARY | 2021-12-17 14:00 | XMS_ITS | Encounter Summary ---
:1950 Author Organization [facility] Address [address] [place] [address] Care Team Providers Name Role Phone Clair Simms APRN C.N.PIshmael, D.N.P. Primary Care Provider Reason for Referral Outpatient (Routine) - Closed Specialty Diagnoses / Procedures Referred By Contact Refer red To Contact Diagnoses Pain Sacroiliac Marge Ferrer P.A.-C., [facility] Procedures DX Hips and Pelvis Bilateral 5+ Views M.S. [address] [place] [address] Referral ID Status Reason Start Date Expiration Date Visits Requ ested Visits Authorized [id number] Closed 06/16/2021 06/16/2022 1 1 MRI/CAT/PET Scan (Routine) - Closed Specialty Diagnoses / Procedures Referred By Contact Refer red To Contact Radiology Diagnoses Pain Sacroiliac Marge Ferrer, [facility] Procedures CT Pelvis Musculoskeletal without IV Contrast PLuis., M.S. [address] [place] [address] Referral ID Status Reason Start Date Expiration Date Visits Requ ested Visits Authorized [id number] Closed 06/16/2021 06/16/2022 1 1 Encounter Details Date Type Department Care Team Description 06/16/2021 Orders Only Department of Marge Ferrer, Pain [facility] Orthopedic Surgery in [place] (Primary Dx) [place], [place] [address] [place] [phone] Social History Tobacco Use Types Packs/Day Years Used Date Smoking Tobacco: Never Smokeless Tobacco: Never Alcohol Use Standard Drinks/Week Comments Yes 7 (1 standard drink = 0.6 oz pure alcoho l) Alcohol Habits Answer Date Recorded How often do you have a drink containing 4 or more times a w [place] 08/10/2021 alcohol? How many drinks containing alcohol [...] or relatives? How often do you attend spiritism or More than 4 times per year 08/10/2021 oriental orthodox services? Do you belong to any clubs or Yes 08/10/2021 organizations such as spiritism groups, unions, fraternal or athletic groups, or [...] place to sleep or slept in a senior care (including now)? Education Answer Date Recorded What [...] Radiology Clair Simms , ALLEN, C.N.P., D.N.P. [address] [phone] (Wo rk) Scheduled Procedures Name Priority Associated Diagnoses Date/Time COLONOSCOPY Screening Colon Cancer Average R isk documented as of this encounter Results 25-Hydroxyvitamin D2 and D3 (08/15/2021 9:27 AM CDT) athologist Signature 25-Hydroxy D2 <4.0 ng/mL 08/17/2021 SDSC 3:29 PM CDT 25-Hydroxy D3 51 ng/mL 08/17/2021 SDSC 3:29 PM CDT 25-Hydroxy D 51 ng/mL 08/17/2021 SDSC Total 3:29 PM CDT Comment: Interpretation: 51-80 ng/mL (increased r isk of hypercalciuria) ----REFERENCE VALUE---- 25-HYDROXY D TOTAL (D2+D3) Optimum level s in the healthy population are 20-50, patients with bone disease may benefit from higher levels within this r cassi. ----ADDITIONAL INFORMATION---- This test was developed and its performa nce characteristics determined by [facility] in a manner consistent with CLIA requirements. This test has not been cleared or approved by the [place] and Drug Administration. Specimen Anatomical Collection Method Collection Time Receive d Time (Source) Location / / Volume Laterality Blood (Blood, 08/15/2021 9:27 AM 08/16/19 1:59 Venous) CDT PM CDT Marge Ferrer P.A.-C., M.S. LAB BLOOD ADD-ON Performing Organization Address City/State/ZIP Code Phon e Number [facility] [address] [place], [place] [address] [place] [address] CENTER [facility] [place] [address] Laboratory Medicine and Pathology [address] [place] DX Hips and Pelvis Bilateral 5+ Views (08/15/2021 9:15 AM CDT) Anatomical Region Laterality Modality Lower Extremity, Pelvis, Hip, Musculoskeletal RST LOS, Bilat eral Digital Radiography Musculoskeletal ARZ LOS, Muskuloskeletal FLA LOS Specimen (Source) Anatomical Collection Method Collection Time Re ceived Time Location / / Volume Laterality 08/15/2021 9:18 AM CDT Impressions 08/15/2021 9:19 AM CDT Demineralization. 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 Degenerative arthritis of both hips. Adv anced arthritic changes about the pubic symphysis. Incompletely imaged compression deformit y and vertebroplasty at L4. Degenerative changes of the lower lumbar spine. Scattered enthesophy jada. Narrative 08/15/2021 9:19 AM CDT EXAM: ??DX HIPS AND PELVIS BILATERAL 5+ VIEWS Procedure Note Spencer Mccall M.D. - 08/15/2021Forma tting of this note might be different from the original. EXAM: DX HIPS AND PELVIS BILATERAL 5+ EWS IMPRESSION: Demineralization. Mild to moderate degen erative arthritis of both SI joints. Degenerative arthritis of both hips. Adv anced arthritic changes about the pubic symphysis. Incompletely imaged compression deformit y and vertebroplasty at L4. Degenerative changes of the lower lumbar spine. Scattered enthesophy jada. Marge Ferrer P.A.-C., M.S. IMG DIAGNOSTIC IMAGING P ROCEDURES CT Pelvis Musculoskeletal without IV Contrast (08/15/2021 8:40 AM CDT) Anatomical Region Laterality Modality Musculoskeletal, Musculoskeletal RST N/A Com puted Tomography, Computed LOS, Musculoskeletal ARZ LOS, Tomography Muskuloskeletal FLA LOS Specimen (Source) Anatomical Collection Method Collection Time Re ceived Time Location / / Volume Laterality 08/15/2021 8:53 AM CDT Impressions 08/15/2021 8:59 AM CDT Degenerative arthritis bilateral sacroil iac joints. Narrative 08/15/2021 8:59 AM CDT EXAM: ??CT PELVIS MUSCULOSKELETAL WITHOUT IV CONTRAST 3D images were created on an independent workstation as ordered by the treating provider and reviewed by the radiologist to assist in treatment planning. COMPARISON: ??Radiographs of the lumbar spine dated 02/09/2021 and 05/30/2021 FINDINGS: ??Hypertrophic degenerative ar thritis of the bilateral sacroiliac joints. Prominent area of hypertrophic change along the posterior aspect of the right sacroiliac joint at site of an accessory articulation (series 3, image 93.) Small amount of periarticular sclerosis about the bilateral sacroiliac joints compatible with degene rative change. No significant periarticular subchondral cysts or findings to suggest erosions. Prominent enthesophytes arising from the bilateral anterior iliac crests. Degenerative arthritis of the lower lumbar spine with chronic comp ression fracture and vertebroplasty of L4 as demonstrated on the comparison radiographs. Extension of vertebroplasty cement into the L3 interspace. Mild degenerative arthritis of both hips. Hyp ertrophic changes of the bilateral greater trochanters. Scattered arterial calcifications. Remai nder normal. Procedure Note Lyndon Pastor M.D. - 08/15/2021Forma tting of this note might be different from the original. EXAM: CT PELVIS MUSCULOSKELETAL WITHOUT IV CONTRAST 3D images were created on an independent workstation as ordered by the treating provider and reviewed by the radiologist to assist in treatment planning. COMPARISON: Radiographs of the lumbar sp ine dated 02/09/2021 and 05/30/2021 FINDINGS: Hypertrophic degenerative arth ritis of the bilateral sacroiliac joints. Prominent area of hypertrophic change along the posterior aspect of the right sacroiliac joint at site of an accessory articulation (series 3, image 93.) Small amount of periarticular sclerosis about the bilateral sacroiliac joints compatible with degene rative change. No significant periarticular subchondral cysts or findings to suggest erosions. Prominent enthesophytes arising from the bilateral anterior iliac crests. Degenerative arthritis of the lower lumbar spine with chronic comp ression fracture and vertebroplasty of L4 as demonstrated on the comparison radiographs. Extension of vertebroplasty cement into the L3 interspace. Mild degenerative arthritis of both hips. Hyp ertrophic changes of the bilateral greater trochanters. Scattered arterial calcifications. Remai nder normal. IMPRESSION: Degenerative arthritis bilateral sacroil iac joints. Marge Ferrer P.A.-C., M.S. IMG CT PROCEDURES documented in this encounter Visit Diagnoses Diagnosis Pain Sacroiliac - Primary Pain Sacroiliac Pain Sacroiliac documented in this encounter Care Teams Satellite Specialist Relationship Specialty Start Date End Date Clair Simms APRN, C.N.P., D.N.P. PCP - General 06/03/[id number] [place] [phone] documented as of this encounter
--- OUTSIDE RECORDS SUMMARY | 2021-12-17 14:00 | XMS_ITS | Encounter Summary ---
:1950 Author Organization [facility] Address [address] [place] [address] Care Team Providers Name Role Phone Clair Simms APRN C.N.PIshmael, D.N.P. Primary Care Provider Reason for Referral MRI/CAT/PET Scan (Routine) - Closed Specialty Diagnoses / Procedures Referred By Contact Refer red To Contact Radiology Diagnoses [facility] Pelvis Musculoskeletal without IV Contrast P.Tone., M.S. [address] [place] [address] Referral ID Status Reason Start Date Expiration Date Visits Requ ested Visits Authorized [id number] Closed 06/16/2021 06/16/2022 1 1 Reason for Visit MRI/CAT/PET Scan (Routine) - Closed Specialty Diagnoses / Procedures Referred By Contact Refer red To Contact Radiology Diagnoses Pain Sacroiliac Marge Ferrer, [facility] Procedures CT Pelvis Musculoskeletal without IV Contrast P.Tone., M.S. [address] [place] [address] Referral ID Status Reason Start Date Expiration Date Visits Requ ested Visits Authorized [id number] Closed 06/16/2021 06/16/2022 1 1 Encounter Details Date Type Department Care Team Description 08/15/2021 Hospital Encounter Department of Nabil, Kit Granados Sacroiliac Radiology, Mehnaz Bee P.A.-C.S . Building, in [address] [place] [address] [place] [phone] [place], [place] [phone] (Work) [phone] Social History Tobacco Use Types Packs/Day Years Used Date Smoking Tobacco: Never Smokeless Tobacco: Never Alcohol Use Standard Drinks/Week Comments Yes 7 (1 standard drink = 0.6 oz pure alcoho l) Alcohol Habits Answer Date Recorded How often do you have a drink containing 4 or more times a w [place] 08/10/2021 alcohol? How many drinks containing [...] or relatives? How often do you attend sikhism or More than 4 times per year 08/10/2021 zoroastrianism services? Do you belong to any clubs or Yes 08/10/2021 organizations such as sikhism groups, unions, fraternal or athletic groups, or [...] place to sleep or slept in a fpc (including now)? Education Answer Date Recorded What [...] mouth 0 2015 300 mg capsule daily. metroNIDAZOLE (METROCREAM) Apply 1 application 0 07/25/2021 0.75 % cream topically at bedtime. montelukast [...] by mouth at Temporomandibular Joint bedtime. Disorder documented as of this encounter Plan of Treatment Upcoming Encounters Date Type Specialty Care Team Description 01/23/2022 Appointment Radiology Clair Simms APRN, C.N.P., D.N.P. [address] [phone] (Wo rk) Scheduled Procedures Name Priority Associated Diagnoses Date/Time COLONOSCOPY Screening Colon Cancer Average R isk documented as of this encounter Procedures Procedure Name Priority Date/Time Associated Comments Diagnosis CT PELVIS RAD - Routine 08/15/2021 8:40 Pain Sacroiliac Results for MUSCULOSKELETAL (most inpatients AM CDT this pro cedure WITHOUT IV CONTRAST and all are in t he outpatients) results section. documented in this encounter Results CT Pelvis Musculoskeletal without IV Contrast (08/15/2021 [...] Diagnosis Pain Sacroiliac documented in this encounter Care Teams Skip Miner Blasting Relationship Specialty Start Date End Date Clair Simms APRN, C.N.P., D.N.P. PCP - General 06/03/[address] [place] [phone] documented as of this encounter
--- OUTSIDE RECORDS SUMMARY | 2021-12-17 14:00 | XMS_ITS | Encounter Summary ---
:1950 Author Organization [facility] Address [address] [place] [address] Care Team Providers Name Role Phone Clair Simms APRN, C.N.P., D.N.P. Primary Care Provider Encounter Details Date Type Department Care Team Description 11/22/2020 Abstract [facility] Provider, Historical [address] [place] [address] Social History Tobacco Use Types Packs/Day Years Used Date Smoking Tobacco: Never Smokeless Tobacco: Never Alcohol Use Standard Drinks/Week Comments Yes 7 (1 standard drink = 0.6 oz pure alcoho l) Alcohol Habits Answer Date Recorded How often do you have a drink containing 4 or more times a w [place] 08/10/2021 alcohol? How many drinks containing alcohol [...] or relatives? How often do you attend mandaen or More than 4 times per year 08/10/2021 yazdanism services? Do you belong to any clubs or Yes 08/10/2021 organizations such as mandaen groups, unions, fraternal or athletic groups, or [...] place to sleep or slept in a fdc (including now)? Education Answer Date Recorded What [...] Appointment Radiology Clair Simms APRN, C.N.P., D.N.P. [address] [place] [phone] (Wo rk) Scheduled Procedures Name Priority Associated Diagnoses Date/Time COLONOSCOPY Screening Colon Cancer Average R isk documented as of this encounter Visit Diagnoses Not on filedocumented in this encounter Care Teams Nutrition Associate Relationship Specialty Start Date End Date Clair Simms APRN, C.N.P., D.N.P. PCP - General 06/03/[address] [place] [phone] documented as of this encounter
--- OUTSIDE RECORDS SUMMARY | 2021-12-17 14:00 | XMS_ITS | Encounter Summary ---
:1950 Author Organization [facility] Address [address] [place] [address] Care Team Providers Name Role Phone Clair Simms APRN C.N.P., D.N.P. Primary Care Provider Encounter Details Date Type Department Care Team Description 05/24/2020 Clinical Communication Department of [facility] Clair Simms, Medicine, [place] ALLEN, C.N.P., Clinic, in [place] [address] [phone] Social History Tobacco Use Types Packs/Day Years Used Date Smoking Tobacco: Never Smokeless Tobacco: Never Alcohol Use Standard Drinks/Week Comments Yes 7 (1 standard drink = 0.6 oz pure alcoho l) Alcohol Habits Answer Date Recorded How often do you have a drink containing 4 or more times a w [place] 08/10/2021 alcohol? How many drinks containing alcohol [...] or relatives? How often do you attend buddhist or More than 4 times per year 08/10/2021 yarsanism services? Do you belong to any clubs or Yes 08/10/2021 organizations such as buddhist groups, unions, fraternal or athletic groups, or [...] or slept in a halfway (including now)? Sex Assigned at Date Recorded Female 11/19/2020 2:34 PM CDT documented as of this encounter Miscellaneous Notes Telephone Encounter - Ruby Jacobs - 05/24/2020 8:00 AM CDT What is the purpose of the call?: Standard Appointment Process Standard Appointment Process Have you tested positive for COVID-19 in the last 20 days OR do you have a pending COVID-19 test because you had symptoms?: No, neither apply What region is the appointment being requested?: Less than 20 days RST, SWWI or SEMN In the past 14 days are any of the following symptoms new to you and not related to an existing health condition?: No symptoms noted In the past 14 days have you had close contact* with a person who has a LABORATORY CONFIRMED case ofCOVID-19?: No exposure noted, follow appt process (End Screening) Testing Recommendation Endpoint Is testing recommended? : Not recommended to test Plan: Endpoint recommendation: Followed regional OTG *Reminder if sending patient for testing in [facility] or [facility], route encounter to the correct testing pool. documented in this encounter Plan of Treatment Upcoming Encounters Date Type Specialty Care Team Description 01/23/2022 Appointment Radiology Clair Simms APRN, C.N.P., D.N.P. [address] [phone] (Wo rk) Scheduled Procedures Name Priority Associated Diagnoses Date/Time COLONOSCOPY Screening Colon Cancer Average R isk documented as of this encounter Visit Diagnoses Not on filedocumented in this encounter Care Teams Endoscope Technician Relationship Specialty Start Date End Date Clair Simms APRN, C.N.P., D.N.P. PCP - General 06/03/[address] [phone] documented as of this encounter
--- OUTSIDE RECORDS SUMMARY | 2021-12-17 14:00 | XMS_ITS | Encounter Summary ---
:1950 Author Organization [facility] Address [address] [place] [address] Care Team Providers Name Role Phone Clair Simms APRN C.N.P., D.N.P. Primary Care Provider Reason for Referral Outpatient (Routine) - Closed Specialty Diagnoses / Procedures Referred By Contact Refer red To Contact Diagnoses Pain Low Back Chronic Kareem Oscar M.D. [facility] Procedures FL Sacroiliac Joint Injection Right [address] [place], [place] [address] Referral ID Status Reason Start Date Expiration Date Visits Requ ested Visits Authorized [id number] Closed 08/15/2021 08/15/2022 1 1 Reason for Visit Outpatient (Routine) - Closed Specialty Diagnoses / Procedures Referred By Contact Refer red To Contact Diagnoses Pain Low Back Chronic Kareem Oscar M.D. [facility] Procedures FL Sacroiliac Joint Injection Right [address] [place], [place] [address] Referral ID Status Reason Start Date Expiration Date Visits Requ ested Visits Authorized [id number] Closed 08/15/2021 08/15/2022 1 1 Encounter Details Date Type Department Care Team Description 08/15/2021 Hospital Encounter Department of Liam Oscar M.D. [address] [place] [phone] Pain Low Back Radiology, Ming Espinosa M.D. [address] [place] [phone] Chronic Building, in [place], [place] [address] [place] [phone] Social History Tobacco Use Types Packs/Day Years Used Date Smoking Tobacco: Never Smokeless Tobacco: Never Alcohol Use Standard Drinks/Week Comments Yes 7 (1 standard drink = 0.6 oz pure alcoho l) Alcohol Habits Answer Date Recorded How often do you have a drink containing 4 or more times a w [place] 08/10/2021 alcohol? How many drinks containing alcohol [...] or relatives? How often do you attend druze or More than 4 times per year 08/10/2021 buddhism services? Do you belong to any clubs or Yes 08/10/2021 organizations such as druze groups, unions, fraternal or athletic groups, or [...] Sign Reading Time Taken Comments Blood Pressure 133/68 08/15/2021 2:55 PM CDT Pulse 85 08/15/2021 2:55 PM CDT Temperature 37.1 ??C (98.8 ??F) 08/15/2021 2:08 PM CDT Respiratory Rate 18 08/15/2021 2:55 PM CDT Oxygen Saturation 98% 08/15/2021 2:55 PM CDT Inhaled Oxygen Concentration - - [...] Appointment Radiology Clair Simms APRN, C.N.P., D.N.P. [address] [phone] (Wo rk) Scheduled Procedures Name Priority Associated Diagnoses Date/Time COLONOSCOPY Screening Colon Cancer Average R isk documented as of this encounter Procedures Procedure Name Priority Date/Time Associated Comments Diagnosis FL SACROILIAC RAD - Routine 08/15/2021 2:56 Pain Low Back Results f or this JOINT INJECTION (most inpatients PM CDT Chronic procedur e are in RIGHT and all the results outpatients) section. documented in this encounter Results FL Sacroiliac Joint Injection Right (08/15/2021 2:56 PM CDT) Specimen (Source) Anatomical Collection Method Collection Time Re ceived Time Location / / Volume Laterality 08/15/2021 2:37 PM CDT Impressions [id number] - 08/15/2021 2:57 PM CDT Fluoroscopically-guided sacroiliac joint injection. EP Narrative [id number] - 08/15/2021 2:57 PM CDT EXAM: FL [...] 25-gauge spinal needle was advanced to the catering assistant ior inferior aspect of the sacroiliac joint. [...] Organization Address City/State/ZIP Code Phon e Number [id number] documented in this encounter Visit Diagnoses Diagnosis Pain Low Back Chronic documented in this encounter Administered Medications Inactive Administered Medications - up to 3 most recent administrations Medication Order MAR Action Action Date Dose Rate Site betamethasone acetate & sodium Given 08/15/2021 2:49 PM CDT 3 mg Back phosphate injection (CELESTONE SOLUSPAN) Code/trauma/sedation medication, Starting on Sat08/15/21 at 1449 iohexoL 300 mg iodine/mL solution Given 08/15/2021 2:46 PM 0.5 m L Back (OMNIPAQUE) CDT Code/trauma/sedation medication, Starting on Sat08/15/21 at 1446 lidocaine 10 mg/mL (1 %) injection Given 08/15/2021 2:41 PM CDT 2 mL Back (XYLOCAINE) Code/trauma/sedation medication, Starting on Sat08/15/21 at 1441 ropivacaine (PF) 5 mg/mL (0.5 %) injection Given 08/15/2021 2:51 PM CDT 1.5 mL Back (NAROPIN) Code/trauma/sedation medication, Starting on Sat08/15/21 at 1451 documented in this encounter Care Teams Plant Wire Chief Relationship Specialty Start Date End Date Clair Simms APRN, C.N.P., D.N.P. PCP - General 06/03/[address] [place] [phone] documented as of this encounter
--- OUTSIDE RECORDS SUMMARY | 2021-12-17 14:00 | XMS_ITS | Encounter Summary ---
:1950 Author Organization [facility] Address [address] [place] [address] Care Team Providers Name Role Phone Clair Simms APRN C.N.P., D.N.P. Primary Care Provider Encounter Details Date Type Department Care Team Description 09/18/2021 Clinical Communication Department of Marge Ferrer, Orthopedic Surgery in [place], M .[address] [place] [phone] Social History Tobacco Use Types Packs/Day Years Used Date Smoking Tobacco: Never Smokeless Tobacco: Never Alcohol Use Standard Drinks/Week Comments Yes 7 (1 standard drink = 0.6 oz pure alcoho l) Alcohol Habits Answer Date Recorded How often do you have a drink containing 4 or more times a w [place] 08/10/2021 alcohol? How many drinks containing alcohol [...] or relatives? How often do you attend confucianist or More than 4 times per year 08/10/2021 holiness services? Do you belong to any clubs or Yes 08/10/2021 organizations such as confucianist groups, unions, fraternal or athletic groups, or [...] this encounter Miscellaneous Notes Telephone Encounter - Marge Ferrer P.A.-C., M.S. - 09/18/2021 6:18 AM CDT Noted created for documentation purposes only. Patient underwent a fluoro-guided right SI injection with steroid on August 15, 2021. The patient noted 50% relief immediately after the injection. documented in this encounter Plan of Treatment Upcoming Encounters Date Type Specialty Care Team Description 01/23/2022 Appointment Radiology Clair Simms APRN, C.N.P., D.N.P. [address] [phone] (Wo rk) Scheduled Procedures Name Priority Associated Diagnoses Date/Time COLONOSCOPY Screening Colon Cancer Average R isk documented as of this encounter Visit Diagnoses Not on filedocumented in this encounter Care Teams [employer] Product Leadership Relationship Specialty Start Date End Date Clair Simms APRN, C.N.P., D.N.P. PCP - General 06/03/[address] [phone] documented as of this encounter
--- OUTSIDE RECORDS SUMMARY | 2021-12-17 14:00 | XMS_ITS | Encounter Summary ---
:1950 Author Organization [facility] Address [address] [place] [address] Care Team Providers Name Role Phone Clair Simms APRN C.N.PIshmael, D.N.P. Primary Care Provider Reason for Referral Outpatient (Routine) - Closed Specialty Diagnoses / Procedures Referred By Contact Refer red To Contact Diagnoses Pain Sacroiliac Marge Ferrer P.A.-C., [facility] Procedures DX Hips and Pelvis Bilateral 5+ Views M.S. [address] [place] [address] Referral ID Status Reason Start Date Expiration Date Visits Requ ested Visits Authorized [id number] Closed 06/16/2021 06/16/2022 1 1 Reason for Visit Outpatient (Routine) - Closed Specialty Diagnoses / Procedures Referred By Contact Refer red To Contact Diagnoses Pain Sacroiliac Marge Ferrer P.A.-C., [facility] Procedures DX Hips and Pelvis Bilateral 5+ Views M.S. [address] [place] [address] Referral ID Status Reason Start Date Expiration Date Visits Requ ested Visits Authorized [id number] Closed 06/16/2021 06/16/2022 1 1 Encounter Details Date Type Department Care Team Description 08/15/2021 Hospital Encounter Department of Nabil, Kit Granados Sacroiliac Radiology, Alan Bee P.A.-C. [facility], in [address] [place] [address] [place] [address] [place], [place] [phone] (Work) [phone] Social History Tobacco Use Types Packs/Day Years Used Date Smoking Tobacco: Never Smokeless Tobacco: Never Alcohol Use Standard Drinks/Week Comments Yes 7 (1 standard drink = 0.6 oz pure alcoho l) Alcohol Habits Answer Date Recorded How often do you have a drink containing 4 or more times a w lumbee 08/10/2021 alcohol? How many drinks containing alcohol [...] or relatives? How often do you attend moravian or More than 4 times per year 08/10/2021 moravian services? Do you belong to any clubs or Yes 08/10/2021 organizations such as moravian groups, unions, fraternal or athletic groups, or [...] place to sleep or slept in a long-term (including now)? Education Answer Date Recorded What [...] Appointment Radiology Clair Simms APRN, C.N.P., D.N.P. [address] [phone] (Wo rk) Scheduled Procedures Name Priority Associated Diagnoses Date/Time COLONOSCOPY Screening Colon Cancer Average R isk documented as of this encounter Procedures Procedure Name Priority Date/Time Associated Comments Diagnosis DX HIPS AND RAD - Routine 08/15/2021 9:15 Pain Sacroiliac Results for this PELVIS BILATERAL (most inpatients AM CDT procedu re are in MINIMUM 5 VIEWS and all the results outpatients) section. documented in this encounter Results DX Hips and Pelvis Bilateral 5+ Views [...] P.A.-C., M.S. IMG DIAGNOSTIC IMAGING P ROCEDURES documented in this encounter Visit Diagnoses Diagnosis Pain Sacroiliac documented in this encounter Care Teams Rest Room Attendant Relationship Specialty Start Date End Date Clair Simms APRN, C.N.P., D.N.P. PCP - General 06/03/[address] [phone] documented as of this encounter
--- OUTSIDE RECORDS SUMMARY | 2021-12-17 14:00 | XMS_ITS | Encounter Summary ---
:1950 Author Organization [facility] Address [address] [place] [address] Care Team Providers Name Role Phone Clair Simms APRN C.N.P., D.N.P. Primary Care Provider Encounter Details Date Type Department Care Team Description 05/24/2020 Hospital Encounter Department of Maurisio Clemens Pain R ight Upper Radiology in Wilberto Kauffman, Ph.D. [address], [address] [place] [phone] Social History Tobacco Use Types Packs/Day Years Used Date Smoking Tobacco: Never Smokeless Tobacco: Never Alcohol Use Standard Drinks/Week Comments Yes 7 (1 standard drink = 0.6 oz pure alcoho l) Alcohol Habits Answer Date Recorded How often do you have a drink containing 4 or more times a w [place] 08/10/2021 alcohol? How many drinks containing alcohol [...] or relatives? How often do you attend congregation or More than 4 times per year 08/10/2021 caodaism services? Do you belong to any clubs or Yes 08/10/2021 organizations such as congregation groups, unions, fraternal or athletic groups, or [...] slept in a group home (including now)? Sex Assigned at Date Recorded Female 11/19/2020 2:34 PM CDT documented as of this encounter Medications at Time of Discharge Medication Sig Dispensed Refills Start Date End Date albuterol (for_ACCUNEB) Inhale 2.5 mg every 0 2.5 mg /3 mL nebulizer 6 (six) hours. As solution needed cetirizine 10 mg capsule Take by mouth daily. 0 0 05/13/2015 clonazePAM (for_KlonoPIN) Take 0.5 mg by mouth 0 05/13/2015 0.5 mg tablet daily. fluticasone-vilanterol Inhale daily. 0 06/20/2016 (for_BREO ELLIPTA DISKUS) 200-25 mcg/act inhaler gabapentin Take by mouth daily. 0 05/13/2015 (for_NEURONTIN) 300 mg capsule montelukast Take 1 tablet by 0 05/13/2015 (for_SINGULAIR) 10 mg mouth every evening. tablet atorvastatin (LIPITOR) 10 Take 1 tablet (10 mg 90 tablet 3 01/13/2019 11/21/2020 mg tablet total) by mouth daily. cyclobenzaprine Take by mouth daily. 0 05/13/2015 08/15/2021 (for_FLEXERIL) 10 mg tablet levalbuterol (XOPENEX Inhale 1-2 puffs as 0 11/21/2020 HFA) 45 mcg/actuation needed. inhaler predniSONE (DELTASONE) 10 daily as needed. 0 11/201708/15/2021 mg tablet PROAIR HFA 90 INHALE 2 PUFFS BY 11 06/10/201708/02 mcg/actuation inhaler INHALATION ROUTE EVERY 4 - 6 HOURS NEEDED documented as of this encounter Plan of Treatment Upcoming Encounters Date Type Specialty Care Team Description 01/23/2022 Appointment Radiology Clair Simms , ALLEN, C.N.P., D.N.P. [address] [phone] (Wo rk) Scheduled Procedures Name Priority Associated Diagnoses Date/Time COLONOSCOPY Screening Colon Cancer Average R isk documented as of this encounter Procedures Procedure Name Priority Date/Time Associated Comments Diagnosis DX ABDOMEN 1 VIEW RAD - Routine 05/24/2020 10:06 Pain Right Upper R esults for this (most inpatients AM CDT Quadrant procedure a re in and all the results outpatients) section. documented in this encounter Results DX Abdomen 1 View (05/24/2020 10:06 AM [...] EXAM: DX ABDOMEN 1 VIEW Procedure Note Mneg Estrada M.D. - 05/24/2020Formattin g of this [...] Visit Diagnoses Diagnosis Pain Right Upper Quadrant documented in this encounter Care Teams Carpenters Helper Relationship Specialty Start Date End Date Clair Simms APRN, C.N.P., D.N.P. PCP - General 06/03/[address] [place] [phone] documented as of this encounter
--- OUTSIDE RECORDS SUMMARY | 2021-12-17 14:00 | XMS_ITS | Encounter Summary ---
:1950 Author Organization [facility] Address [address] [place] [address] Care Team Providers Name Role Phone Clair Simms APRN C.N.PIshmael, D.N.P. Primary Care Provider Reason for Referral Outpatient (Routine) - Closed Specialty Diagnoses / Procedures Referred By Contact Refer red To Contact Diagnoses Pain Sacroiliac Marge Ferrer P.A.-C., [facility] Procedures [place] Sacroiliac Joint Injection Right M.S. [address] [place] [address] Referral ID Status Reason Start Date Expiration Date Visits Requ ested Visits Authorized [id number] Closed 09/19/2021 09/19/2022 1 1 Encounter Details Date Type Department Care Team Description 09/19/2021 Orders Only Department of Marge Ferrer, Pain Sacr oiliac Orthopedic Surgery in [place], M .S. (Primary Dx) [place], [place] [address] [facility] [address] [place] [phone] [phone] Social History Tobacco Use Types Packs/Day Years Used Date Smoking Tobacco: Never Smokeless Tobacco: Never Alcohol Use Standard Drinks/Week Comments Yes 7 (1 standard drink = 0.6 oz pure alcoho l) Alcohol Habits Answer Date Recorded How often do you have a drink containing 4 or more times a w ambler 08/10/2021 alcohol? How many drinks containing alcohol [...] or relatives? How often do you attend christian or More than 4 times per year 08/10/2021 temple services? Do you belong to any clubs or Yes 08/10/2021 organizations such as christian groups, unions, fraternal or athletic groups, or [...] place to sleep or slept in a [facility] (including now)? Education Answer Date Recorded What is the highest level of school you have completed or 12 th grade 08/10/2021 the highest degree you have received? Sex Assigned at Date Recorded Female 11/19/2020 2:34 PM CDT documented as of this encounter Plan of Treatment Upcoming Encounters Date Type Specialty Care Team Description 01/23/2022 Appointment Radiology Clair Simms APRN, C.N.P., D.N.P. [address] [phone] (Wo rk) Scheduled Procedures Name Priority Associated Diagnoses Date/Time COLONOSCOPY Screening Colon Cancer Average R isk documented as of this encounter Results [place] Sacroiliac Joint Injection Right (12/12/2021 9:46 AM CDT) Specimen (Source) Anatomical Collection Method Collection Time Re ceived Time Location / / Volume Laterality 12/12/2021 9:48 AM CDT Impressions [id number] - 12/12/2021 9:54 AM CDT Fluoroscopically-guided sacroiliac joint injection. NR Narrative [id number] - 12/12/2021 9:54 AM CDT EXAM: FL [...] 25-gauge spinal needle was advanced to the ballet soloist ior inferior aspect of the sacroiliac joint. [...] residents, and fellows were discussed. Marge Ferrer P.A.-C. M.S. IMG FLUOROSCOPY PROCEDUR ES Performing Organization Address City/State/ZIP Code Phon e Number [id number] NA documented in this encounter Visit Diagnoses Diagnosis Pain Sacroiliac - Primary Pain Sacroiliac documented in this encounter Care Teams Vocational Ed Instructor Relationship Specialty Start Date End Date Clair Simms APRN, C.N.P., D.N.P. PCP - General 06/03/[address] [place] [phone] documented as of this encounter
--- OUTSIDE RECORDS SUMMARY | 2021-12-17 14:00 | XMS_ITS | Encounter Summary ---
:1950 Author Organization [facility] Address [address] [place] [address] Care Team Providers Name Role Phone Clair Simms APRN C.N.P., D.N.P. Primary Care Provider Reason for Referral Outpatient (Routine) - Closed Specialty Diagnoses / Procedures Referred By Contact Refer red To Contact Diagnoses Pain Right Upper Quadrant Maurisio Clmeens M.D., Ph.D. [facility] Region Procedures US Abdomen Complete [address] [address] Referral ID Status Reason Start Date Expiration Date Visits Requ ested Visits Authorized [id number] Closed 05/24/2020 05/24/2021 1 1 Reason for Visit Outpatient (Routine) - Closed Specialty Diagnoses / Procedures Referred By Contact Refer red To Contact Diagnoses Pain Right Upper Quadrant Maurisio Clemens M.D., Ph.D. [facility] Region Procedures US Abdomen Complete [address] [address] Referral ID Status Reason Start Date Expiration Date Visits Requ ested Visits Authorized [id number] Closed 05/24/2020 05/24/2021 1 1 Encounter Details Date Type Department Care Team Description 05/24/2020 Hospital Encounter Department of Maurisio Clemens Pain R ight Upper Radiology in Wilberto Kauffman, Ph.D. [address] [place], [address] [place] [phone] Social History Tobacco Use Types Packs/Day Years Used Date Smoking Tobacco: Never Smokeless Tobacco: Never Alcohol Use Standard Drinks/Week Comments Yes 7 (1 standard drink = 0.6 oz pure alcoho l) Alcohol Habits Answer Date Recorded How often do you have a drink containing 4 or more times a w [place] 08/10/2021 alcohol? How many drinks containing alcohol [...] or relatives? How often do you attend faith or More than 4 times per year 08/10/2021 mandaen services? Do you belong to any clubs or Yes 08/10/2021 organizations such as faith groups, unions, fraternal or athletic groups, or [...] place to sleep or slept in a fci (including now)? Sex Assigned at Date Recorded [...] Appointment Radiology Clair Simms APRN, C.N.P., D.N.P. [address] [phone] (Wo rk) Scheduled Procedures Name Priority Associated Diagnoses Date/Time COLONOSCOPY Screening Colon Cancer Average R isk documented as of this encounter Procedures Procedure Name Priority Date/Time Associated Comments Diagnosis US ABDOMEN RAD - Routine 05/24/2020 12:42 Pain Right Upper Result s for this COMPLETE (most inpatients PM CDT Quadrant procedure a re in and all the results outpatients) section. documented in this encounter Results US [...] Maurisio Clemens M.D., Ph.D. IMG US PROCEDURES documented in this encounter Visit Diagnoses Diagnosis Pain Right Upper Quadrant documented in this encounter Care Teams Stave Log Ripsaw Operator Relationship Specialty Start Date End Date Clair Simsm APRN, C.N.P., D.N.P. PCP - General 06/03/[address] [place] [phone] documented as of this encounter
--- OUTSIDE RECORDS SUMMARY | 2021-12-17 14:00 | XMS_ITS | Encounter Summary ---
:1950 Author Organization [facility] Address [address] [place] [address] Care Team Providers Name Role Phone Clair Simms APRN, C.N.P., D.N.P. Primary Care Provider Reason for Visit Reason Comments Form Review Margot PT Initial Eval & POC Encounter Details Date Type Department Care Team Description 11/10/2020 Clinical Communication Department of Clair Simms Fo rm Review ([facility] APRN, PT Initial Eval & [place] C.N.P., D.N.P. POC ) Clinic, in [address] [address] [place], [place] [phone] (Work) [phone] Social History Tobacco Use Types Packs/Day Years Used Date Smoking Tobacco: Never Smokeless Tobacco: Never Alcohol Use Standard Drinks/Week Comments Yes 7 (1 standard drink = 0.6 oz pure alcoho l) Alcohol Habits Answer Date Recorded How often do you have a drink containing 4 or more times a w [place] 08/10/2021 alcohol? How many drinks containing alcohol [...] or relatives? How often do you attend jewish or More than 4 times per year 08/10/2021 christianity services? Do you belong to any clubs or Yes 08/10/2021 organizations such as jewish groups, unions, fraEvera Medical or athletic groups, or school groups? How [...] place to sleep or slept in a care home (including now)? Sex Assigned at Date Recorded Female 11/19/2020 2:34 PM CDT documented as of this encounter Miscellaneous Notes Telephone Encounter - Gloria Mckinney - 11/15/2020 11:24 AM CDT Form faxed back to facility and sent for scanning. Telephone Encounter - Gloria Mckinney - 11/10/2020 5:56 PM CDT Form was emailed to Clair Simms for electronic review/signature. WANT AD CLERK: [employer] PHONE NUMBER: [phone] INFO REQUESTED: PT Initial Eval & POC INSTRUCTIONS: Fax information to [phone] documented in this encounter Plan of Treatment Upcoming Encounters Date Type Specialty Care Team Description 01/23/2022 Appointment Radiology Clair Simms , ALLEN, C.N.P., D.N.P. [address] [phone] (Wo rk) Scheduled Procedures Name Priority Associated Diagnoses Date/Time COLONOSCOPY Screening Colon Cancer Average R isk documented as of this encounter Visit Diagnoses Not on filedocumented in this encounter Care Teams Industrial Gas Production Operator Relationship Specialty Start Date End Date Clair Simms APRN, C.N.P., D.N.P. PCP - General 06/03/[address] [phone] documented as of this encounter
--- OUTSIDE RECORDS SUMMARY | 2021-12-17 14:00 | XMS_ITS | Encounter Summary ---
:1950 Author Organization [facility] Address [address] [place] [address] Care Team Providers Name Role Phone Clair Simms APRN, C.N.P., D.N.P. Primary Care Provider Reason for Referral Outpatient (Routine) - Authorized Specialty Diagnoses / Procedures Referred By Contact Refer red To Contact Diagnoses Screening Mammogram Breast Cancer Clair Simms APRN, [facility] Procedures BI Breast Screening Bilateral with Tomosynthesis C.N.P., D.N.P. [address] [address] Referral ID Status Reason Start Date Expiration Date Visits V isits Requested Authorized [id number] Authorized 11/07/2021 11/07/2022 1 1 Encounter Details Date Type Department Care Team Description 11/07/2021 Orders Only [facility] PCP Clair Goldberg, Rosa ening Mammogram Breast Cancer; MNT ALLEN, C.N.P., Hyperlipidemia D.N.P. [address] [phone] Social History Tobacco Use Types Packs/Day Years Used Date Smoking Tobacco: Never Smokeless Tobacco: Never Alcohol Use Standard Drinks/Week Comments Yes 7 (1 standard drink = 0.6 oz pure alcoho l) Alcohol Habits Answer Date Recorded How often do you have a drink containing 4 or more times a w [place] 08/10/2021 alcohol? How many drinks containing alcohol [...] or relatives? How often do you attend baptism or More than 4 times per year 08/10/2021 anabaptist services? Do you belong to any clubs or Yes 08/10/2021 organizations such as baptism groups, unions, fraternal or athletic groups, or [...] Appointment Radiology Clair Simms APRN, C.N.P., D.N.P. [address] [phone] (Wo rk) Scheduled Orders Name Type Priority Associated Order Schedule Diagnoses BI Breast Screening Imaging RAD - Routine (most Screening Mamm ogram Expected: Bilateral with inpatients and all Breast Cancer 2021, Tomosynthesis outpatients) Expires: 05/06/2022 Scheduled Procedures Name Priority Associated Diagnoses Date/Time COLONOSCOPY Screening Colon Cancer Average R isk documented as of this encounter Visit Diagnoses Diagnosis Screening Mammogram Breast Cancer Hyperlipidemia documented in this encounter Care Teams Oracle Database Manager Relationship Specialty Start Date End Date Clair Simms APRN, C.N.P., D.N.P. PCP - General 06/03/[id number] [place] [phone] documented as of this encounter
--- OUTSIDE RECORDS SUMMARY | 2021-12-17 14:00 | XMS_ITS | Encounter Summary ---
:1950 Author Organization [facility] Address [address] [place] [address] Care Team Providers Name Role Phone Clair Simms APRN C.N.P., D.N.P. Primary Care Provider Reason for Referral Specialty Diagnoses / Procedures Referred By Contact Refer red To Contact Clair Simms APRN, C.N.P., [facility] D.N.P. [address] [place] [phone] Referral ID Status Reason Start Date Expiration Date Visits Requ ested Visits Authorized Encounter Details Date Type Department Care Team Description 07/19/2021 Orders Only [facility] Clair Simms APRN C.N.P., D.N.P. [address] [place] [phone] (Wo rk) Social History Tobacco Use Types Packs/Day Years Used Date Smoking Tobacco: Never Smokeless Tobacco: Never Alcohol Use Standard Drinks/Week Comments Yes 7 (1 standard drink = 0.6 oz pure alcoho l) Alcohol Habits Answer Date Recorded How often do you have a drink containing 4 or more times a w [place] 08/10/2021 alcohol? How many drinks containing alcohol [...] or relatives? How often do you attend anabaptist or More than 4 times per year 08/10/2021 moravian services? Do you belong to any clubs or Yes 08/10/2021 organizations such as anabaptist groups, unions, fraternal or athletic groups, or [...] Radiology Clair Simms , ALLEN, C.N.P., D.N.P. [address] [phone] (Wo rk) Scheduled Procedures Name Priority Associated Diagnoses Date/Time COLONOSCOPY Screening Colon Cancer Average R isk Scheduled Referrals Name Type Priority Associated Order Schedule Diagnoses Covid immunization Outpatient Referral Routine Ex pected: office visit Booster 022 (Approximate), Expires: 07/19/2022 documented as of this encounter Visit Diagnoses Not on filedocumented in this encounter Care Teams Respiratory Therapy Instructor Relationship Specialty Start Date End Date Clair Simms APRN, C.N.P., D.N.P. PCP - General 06/03/[address] [phone] documented as of this encounter
--- OUTSIDE RECORDS SUMMARY | 2021-12-17 14:00 | XMS_ITS | Encounter Summary ---
:1950 Author Organization [facility] Address [address] [place] [address] Care Team Providers Name Role Phone Clair Simms APRN, C.N.P., D.N.P. Primary Care Provider Reason for Visit Reason Comments order request Encounter Details Date Type Department Care Team Description 10/24/2020 Clinical Communication Department of Clair Clemens order request Medicine, Wilberto Chapman APRN, C.N.P., [facility], in D.N.P. [address] [phone] Social History Tobacco Use Types Packs/Day Years Used Date Smoking Tobacco: Never Smokeless Tobacco: Never Alcohol Use Standard Drinks/Week Comments Yes 7 (1 standard drink = 0.6 oz pure alcoho l) Alcohol Habits Answer Date Recorded How often do you have a drink containing 4 or more times a w [place] 08/10/2021 alcohol? How many drinks containing [...] or relatives? How often do you attend latter day or More than 4 times per year 08/10/2021 scientologist services? Do you belong to any clubs or Yes 08/10/2021 organizations such as latter day groups, unions, fraternal or athletic groups, or [...] this encounter Miscellaneous Notes Telephone Encounter - Maurisio Clemens M.D., Ph.D. - 10/24/2020 8:20 PM CDT Last bone density evaluation was done on 01/22/19. There is not likely to be a lot of value in performing another bone density test if her other xrays show osteoporosis. Treatment options should be discussed instead at a visit. Telephone Encounter - Ellie Chin - 10/24/2020 12:18 PM CDT ORDER/LAB/REFERRAL REQUEST: Name of test/referral/order requested: Bone density scan Reason for request: Pt saw Dr. Cao at a non [facility] facility and was told that she should have another bone density scan. Pt stated that Dr. Cao was going to follow up with Dr. Clemens this week regarding this. Pt would like an order placed for a bone density scan if appropriate. Thank you! Date needed: Pended orders (please list): Routing: Route to provider/PCP documented in this encounter Plan of Treatment Upcoming Encounters Date Type Specialty Care Team Description 01/23/2022 Appointment Radiology Clair Simms APRN, C.N.P., D.N.P. [address] [place] [phone] (Wo rk) Scheduled Procedures Name Priority Associated Diagnoses Date/Time COLONOSCOPY Screening Colon Cancer Average R isk documented as of this encounter Visit Diagnoses Not on filedocumented in this encounter Care Teams Brace Maker Relationship Specialty Start Date End Date Clair Simms APRN, C.N.P., D.N.P. PCP - General 06/03/[address] [place] [phone] documented as of this encounter
--- OUTSIDE RECORDS SUMMARY | 2021-12-17 14:01 | XMS_ITS | Encounter Summary ---
:1950 Author Organization [facility] Address [address] [place] [address] Care Team Providers Name Role Phone Cierra Chandler P.A.-C. Primary Care Provider [phone] Encounter Details Date Type Department Care Team Description 01/10/2017 Telemedicine Department of Gastroenterology Social History Tobacco Use Types Packs/Day Years Used Date Smoking Tobacco: Never Smokeless Tobacco: Never Alcohol Use Standard Drinks/Week Comments Yes 7 (1 standard drink = 0.6 oz pure alcoho l) Alcohol Habits Answer Date Recorded How often do you have a drink containing 4 or more times a w [place] 08/10/2021 alcohol? How many drinks containing alcohol [...] or relatives? How often do you attend episcopalian or More than 4 times per year 08/10/2021 synagogue services? Do you belong to any clubs or Yes 08/10/2021 organizations such as episcopalian groups, unions, fraternal or athletic groups, or [...] place to sleep or slept in a alf (including now)? Sex Assigned at Date Recorded Female 11/19/2020 2:34 PM CDT documented as of this encounter Plan of Treatment Upcoming Encounters Date Type Specialty Care Team Description 01/23/2022 Appointment Radiology Clair Simms , ALLEN, C.N.P., D.N.P. [address] [phone] (Wo rk) Scheduled Procedures Name Priority Associated Diagnoses Date/Time COLONOSCOPY Screening Colon Cancer Average R isk documented as of this encounter Procedures Procedure Name Priority Date/Time Associated Comments Diagnosis GASTROENTEROLOGY IMAGE Routine 01/10/2017 7:50 Re sults for this EXAM AM DIVISION MANAGER procedure are i n the results section. documented in this encounter Results GASTROENTEROLOGY IMAGE EXAM (01/10/2017 7:50 AM DIVISION MANAGER) Specimen (Source) Anatomical Collection Method Collection Time Re ceived Time Location / / Volume Laterality 01/10/2017 7:47 AM DIVISION MANAGER Narrative [facility] - 01/10/2017 9:37 AM DIVISION MANAGER This order has been created and auto-finalized to support the import of images acquired without order. The clini connor documentation to support these images can be found on the encounter nick t produced images. Provider Not In System IMG NON RAD IMAGING PROCEDUR ES Performing Organization Address City/State/ZIP Code Phon e Number [facility] NA documented in this encounter Visit Diagnoses Not on filedocumented in this encounter Care Teams Customer Service Trainer Relationship Specialty Start Date End Date Cierra Chandler, PLuis. PCP - General 12/14/16 06/02/19 documented as of this encounter
--- OUTSIDE RECORDS SUMMARY | 2021-12-17 14:01 | XMS_ITS | Encounter Summary ---
:1950 Author Organization [facility] Address [address] [place] [address] Care Team Providers Name Role Phone Cierra Chandler P.A.-C. Primary Care Provider [phone] Encounter Details Date Type Department Care Team Description 01/10/2017 Clinical Communication [facility] MAIN OR Burton Obrien, [address] M.[place]shmael [place], [place] [address] [address] [place], [place] [phone] [id number] Social History Tobacco Use Types Packs/Day Years Used Date Smoking Tobacco: Never Smokeless Tobacco: Never Alcohol Use Standard Drinks/Week Comments Yes 7 (1 standard drink = 0.6 oz pure alcoho l) Alcohol Habits Answer Date Recorded How often do you have a drink containing 4 or more times a w [place] 08/10/2021 alcohol? How many drinks containing alcohol [...] or relatives? How often do you attend yazdanism or More than 4 times per year 08/10/2021 methodist services? Do you belong to any clubs or Yes 08/10/2021 organizations such as yazdanism groups, unions, fraternal or athletic groups, or [...] this encounter Miscellaneous Notes Telephone Encounter - Burton Obrien M.D. 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 [address] [phone] (Wo rk) Scheduled Procedures Name Priority Associated Diagnoses Date/Time COLONOSCOPY Screening Colon Cancer Average R isk documented as of this encounter Visit Diagnoses Not on filedocumented in this encounter Care Teams Orthodontic Laboratory Technician Relationship Specialty Start Date End Date Cierra Chandler P.A.-C. PCP - General 12/14/16 06/02/19 documented as of this encounter
--- OUTSIDE RECORDS SUMMARY | 2021-12-17 14:01 | XMS_ITS | Encounter Summary ---
:1950 Author Organization [facility] Address [address] [place] [address] Care Team Providers Name Role Phone Clair Simms APRN, C.N.P., D.N.P. Primary Care Provider Reason for Visit Reason Comments COVID Nurse Line Encounter Details Date Type Department Care Team Description 07/07/2019 Nurse Triage Department of Raghu Blackburn R.N. COVID Nurse Line Medicine in [place], ([place] [address] [place] [address] Social History Tobacco Use Types Packs/Day Years Used Date Smoking Tobacco: Never Smokeless Tobacco: Never Alcohol Use Standard Drinks/Week Comments Yes 7 (1 standard drink = 0.6 oz pure alcoho l) Alcohol Habits Answer Date Recorded How often do you have a drink containing 4 or more times a w [place] 08/10/2021 alcohol? How many drinks containing alcohol [...] More than 4 times per year 08/10/2021 rastafarian services? Do you belong to any clubs [...] place to sleep or slept in a retirement (including now)? Sex Assigned at Date Recorded Female 11/19/2020 2:34 PM CDT documented as of this encounter Miscellaneous Notes Telephone Encounter - Brenda Nicole R.N. - 07/07/2019 10:53 AM CDT COVID-19 Nurse Line Screening ASSESSMENT COVID 19 Screening Have you had close contact with a person who has a LABORATORY CONFIRMED case of COVID-19?: No - Continue screening. In the last 48 hours have you had any of the following symptoms?: New chills, New shortness of breath Do you have any urgent symptoms?: None- Patient meets criteria for testing. PLAN Endpoint recommendation: Screening positive, testing indicated, advised to be swabbed for COVID-19, sent to will come to ER Care Points provided: STANDARD PRECAUTIONS FOR ALL PATIENTS: Wash hands often with soap and water for at least 20 seconds, especially after blowing your nose, coughing, sneezing, or having been in a public place. If soap and water aren't available, use a hand pulpwood dealer that contains at least 60% alcohol. Avoid close contact with anyone who may be exhibiting respiratory symptoms such as coughing and sneezing. Avoid touching your eyes, nose and mouth. Clean and disinfect frequently touched surfaces daily. Cover your mouth and nose with a cloth face cover when around others or in public. The cloth face cover is not a substitute for social distancing. Continue to keep about 6 feet between yourself andothers. Stay home as much as possible (only going out for essential items or medical care). Educational Resource: https://www.cdc.gov/coronavirus/2019-ncov/smnqubg-qzkvwec-lfki/index.html RECOMMENDATIONS TESTING CRITERIA IS MET: Stay home except to get medical care. Avoid public areas(do not go to work, school, etc). Avoid public transportation, riding sharing (if possible) or taxis. Stay in a specific sick room if possible and away from other people and pets in your home. Use a s eparate bathroom if possible. Wear a cloth face covering, over your nose and mouth if you must be around other people even at home). Contact employer/occupational health department to notify them that they are being tested. If patient is living with a high risk family member, seek medical advice from their primary care provider. *High risk includes family member with heart of lung disease (e.g. asthma, COPD), immunosuppression (e.g. cancer, HIV/AIDS), women, or 65 years and older. Go to [facility] emergency department if any of the following occur: 1) New shortness of breath at rest, 2) Pain, pressure or tightness unrelated to coughing in the chest, jaw or arm, 3) Newly confused or unable to stay alert and awake. Notify primary care provider if any new or worsening symptoms. Education Resources: https://www.cdc.gov/coronavirus/2019-ncov/hb-ono-vee-sick/xngxb-dosk-xhru.html SELF CARE FOR ALL PATIENTS: In these stressful times, it is important to take care of your mental health as well as your physical health. Take breaks from watching, reading, or listening to news stories. It can be upsetting to hear about the crisis and see images repeatedly. Make time to unwind. Try to do some other activities you enjoy. Connect with others. Talk with people you trust about your concerns and how you are feeling. Be creative in keeping connected with loved ones. Develop a plan for your day. Shower, get dressed, have a routine. Structure in productive tasks as well as leisure time. Try healthy coping strategies such as meditation, relaxation, exercise, healthy eating habits, and avoid alcohol and drugs. Maintain a consistent sleep schedule. Keep sleep area and work areas separate. Education: patient/caregiver Patient/caregiver able to teach back Patient agreeable to plan of care: Yes The following references were used: COVID-19 provider advice documented in this encounter Plan of Treatment Upcoming Encounters Date Type Specialty Care Team Description 01/23/2022 Appointment Radiology Clair Simms APRN, C.N.P., D.N.P. [address] [place] [phone] (Wo rk) Scheduled Procedures Name Priority Associated Diagnoses Date/Time COLONOSCOPY Screening Colon Cancer Average R isk documented as of this encounter Visit Diagnoses Not on filedocumented in this encounter Care Teams Graduating Machine Operator Relationship Specialty Start Date End Date Clair Simms APRN, C.N.P., D.N.P. PCP - General 06/03/[address] [place] [phone] documented as of this encounter
--- OUTSIDE RECORDS SUMMARY | 2021-12-17 14:01 | XMS_ITS | Encounter Summary ---
:1950 Author Organization [facility] Address [address] [place] [address] Care Team Providers Name Role Phone Cierra Chandler P.A.-C. Primary Care Provider [phone] Reason for Referral Outpatient (Routine) - Closed Specialty Diagnoses / Procedures Referred By Contact Refer red To Contact Diagnoses Screening Examination Diabetes Mellitus Clair Simms APRN, [facility] [place] [facility] Procedures BMD Bone Density Spine Hips C.N.P., D.N.P. [address] [place] [phone] Referral ID Status Reason Start Date Expiration Date Visits Requ ested Visits Authorized [id number] Closed 01/12/2019 01/12/2020 1 1 ESTATE SALESPERSON Reason for Visit Outpatient (Routine) - Closed Specialty Diagnoses / Procedures Referred By Contact Refer red To Contact Diagnoses Screening Examination Diabetes Mellitus Clair Simms APRN, [facility] [place] [facility] Procedures BMD Bone Density Spine Hips C.N.P., D.N.P. [address] [place] [phone] Referral ID Status Reason Start Date Expiration Date Visits Requ ested Visits Authorized [id number] Closed 01/12/2019 01/12/2020 1 1 Encounter Details Date Type Department Care Team Description 01/22/2019 Hospital Encounter Department of Clair Simms Screen ing Radiology in Wilberto Chapman DIRECTOR HARDWARE, Examinat ion [place], [place] C.N.P., D.N.P. [place] [address] [phone] [place] [address] Social History Tobacco Use Types Packs/Day Years Used Date Smoking Tobacco: Never Smokeless Tobacco: Never Alcohol Use Standard Drinks/Week Comments No 0 (1 standard drink = 0.6 oz pure alcoho l) Alcohol Habits Answer Date Recorded How often do you have a drink containing 4 or more times a w [place] 08/10/2021 alcohol? How many drinks containing alcohol [...] or relatives? How often do you attend restorationism or More than 4 times per year 08/10/2021 worship services? Do you belong to any clubs or Yes 08/10/2021 organizations such as restorationism groups, unions, fraternal or athletic groups, or [...] place to sleep or slept in a correction (including now)? Sex Assigned at Date Recorded [...] 0 05/13/2015 08/15/2021 (for_FLEXERIL) 10 mg tablet diclofenac sodium Apply topically. 0 04/14/2018 0 07/07/2019 (VOLTAREN) 1 % gel predniSONE (DELTASONE) 10 daily as needed. 0 04/0 11/201708/15/2021 mg tablet PROAIR HFA 90 INHALE 2 PUFFS BY 11 06/10/201708/02 mcg/actuation inhaler INHALATION ROUTE EVERY 4 - 6 HOURS NEEDED documented as of this encounter Plan of Treatment Upcoming Encounters Date Type Specialty Care Team Description 01/23/2022 Appointment Radiology Clair Simms APRN, C.N.P., D.N.P. [address] [phone] (Wo rk) Scheduled Procedures Name Priority Associated Diagnoses Date/Time COLONOSCOPY Screening Colon Cancer Average R isk documented as of this encounter Procedures Procedure Name Priority Date/Time Associated Comments Diagnosis BMD BONE DENSITY RAD - Routine 01/22/2019 10:58 Screening Result s for this SPINE HIPS (most inpatients AM REAL ESTATE SALESPERSON Examination procedure a re in and all Diabetes Mellitus the result s outpatients) section. documented in this encounter Results BMD Bone Density Spine Hips (01/22/2019 10:58 AM REAL ESTATE SALESPERSON) Anatomical Region Laterality Modality Hip, Lumbar Spine, Nuclear Medicine RST LOS, N/A Radiographic Imaging Musculoskeletal ARZ LOS, Muskuloskeletal FLA LOS Specimen (Source) Anatomical Collection Method Collection Time Re ceived Time Location / / Volume Laterality 01/22/2019 11:32 AM REAL ESTATE SALESPERSON Impressions 01/22/2019 11:33 AM REAL ESTATE SALESPERSON Low bone density (osteopenia). Narrative 01/22/2019 11:33 AM REAL ESTATE SALESPERSON EXAM: BMD BONE DENSITY SPINE HIPS COMPARISON: None. Cemetery Manager/Model: [email or web address] FINDINGS: ?? LUMBAR SPINE L1-L4 included unless otherwise indicate d. Lumbar BMD: 1.030 gm/cm2 T-score: -1.3 BMD % change: N/A% Significance: N/A. HIP(S) Lowest femoral BMD: 0.863 gm/cm 2 Lowest T-score: -1.3 BMD % change: N/A% Significance: N/A. FRAX 10 year probability of major osteop orotic fracture 7.8 % FRAX 10 year probability of hip fracture ??0.8 % FRAX scores: Not clinically validated fo r patients with history of therapy with bisphosphonates in the past two years, c alcitonin in the last year, PTH in the last year, Denosumab in the last year. ? ?Calcium and vitamin D do NOT constitute treatment' in this context. ??All treat ment decisions require clinical judgement and consideration of individual patient factors which may not be captured in the FRAX model and the risk of fracture may be over- or under-estimated by FRAX. Treatment recommended for: Patients with hip or vertebral fracture (clinical or morphometric). Patients with osteoporosis at the spine and/or hip as defined by T-score <= -2.5. Postmenopausal women or men age 50 and o lder with low bone mass (T-score -1 to -2.5, osteopenia) at the femoral neck, t otal hip, or spine and 10 year hip fracture probability >3% or a 10 year al l major osteoporosis related fracture probability of >20% based on the [place] apted WHO absolute risk model. Exclude secondary causes of low bone den sity in the appropriate clinical setting. Follow-up exams should be performed at n o sooner than two-year intervals. Direct comparison can only be performed on exams performed at the same facility. World Health Organization T-score criter ia: 0 to -1.0 ?? Normal range < -1.0 to > -2.5 ?? Low bone density (os teopenia) -2.5 or less ?? Osteoporosis Procedure Note Meng Estrada M.D. - 01/22/2019Formattin g of this note might be different from the original. EXAM: BMD BONE DENSITY SPINE HIPS COMPARISON: None. Cemetery Manager/Model: [email or web address] FINDINGS: LUMBAR SPINE L1-L4 included unless otherwise indicate d. Lumbar BMD: 1.030 gm/cm2 T-score: -1.3 BMD % change: N/A% Significance: N/A. HIP(S) Lowest femoral BMD: 0.863 gm/cm 2 Lowest T-score: -1.3 BMD % change: N/A% Significance: N/A. FRAX 10 year probability of major osteop orotic fracture 7.8 % FRAX 10 year probability of hip fracture 0.8 % FRAX scores: Not clinically validated fo r patients with history of therapy with bisphosphonates in the past two years, c alcitonin in the last year, PTH in the last year, Denosumab in the last year. C alcium and vitamin D do NOT constitute treatment' in this context. All treatme nt decisions require clinical judgement and consideration of individual patient factors which may not be captured in the FRAX model and the risk of fracture may be over- or under-estimated by FRAX. Treatment recommended for: Patients with hip or vertebral fracture (clinical or morphometric). Patients with osteoporosis at the spine and/or hip as defined by T-score <= -2.5. Postmenopausal women or men age 50 and o lder with low bone mass (T-score -1 to -2.5, osteopenia) at the femoral neck, t otal hip, or spine and 10 year hip fracture probability >3% or a 10 year al l major osteoporosis related fracture probability of >20% based on the [place] ad apted WHO absolute risk model. Exclude secondary causes of low bone den sity in the appropriate clinical setting. Follow-up exams should be performed at n o sooner than two-year intervals. Direct comparison can only be performed on exams performed at the same facility. World Health Organization T-score criter ia: 0 to -1.0 Normal range < -1.0 to > -2.5 Low bone density (osteo penia) -2.5 or less Osteoporosis IMPRESSION: Low bone density (osteopenia). Clair Simms APRN, C.N.P., D.N.P. IMG DXA PROCEDURE S documented in this encounter Visit Diagnoses Diagnosis Screening Examination Diabetes Mellitus documented in this encounter Care Teams Design Engineering Intern Relationship Specialty Start Date End Date Cierra Chandler P.A.-C. PCP - General 12/14/16 06/02/19 documented as of this encounter
--- OUTSIDE RECORDS SUMMARY | 2021-12-17 14:01 | XMS_ITS | Encounter Summary ---
:1950 Author Organization [facility] Address [address] [place] [address] Care Team Providers Name Role Phone Cierra Chandler P.A.-C. Primary Care Provider [phone] Reason for Visit Reason Comments Foot Pain Questions a stress fracture in right foot. Pain started 10/20/17. Appointment Request (Routine) - Closed Specialty Diagnoses / Procedures Referred By Contact Refer red To Contact Family Medicine Referral ID Status Reason Start Date Expiration Date Visits Requ ested Visits Authorized [id number] Closed 11/07/2017 11/07/2018 1 Encounter Details Date Type Department Care Team Description 11/13/2017 Office Visit Department of Family Barbara Mo Pa in Foot Right Medicine, [place] ALLEN, C.N.P., ([facility], in [place] [phone] Social History Tobacco Use Types Packs/Day Years Used Date Smoking Tobacco: Never Smokeless Tobacco: Never Alcohol Use Standard Drinks/Week Comments No 0 (1 standard drink = 0.6 oz pure alcoho l) Alcohol Habits Answer Date Recorded How often do you have a drink containing 4 or more times a w [place] 08/10/2021 alcohol? How many drinks containing alcohol [...] or relatives? How often do you attend temple or More than 4 times per year 08/10/2021 oriental orthodox services? Do you belong to any clubs or Yes 08/10/2021 organizations such as temple groups, unions, [employer] or athletic groups, or school groups? How [...] or slept in a intermediate (including now)? 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 - 11/13/2017 1:00 PM CDT CHIEF COMPLAINT / REASON FOR VISIT Fei Quintana is a 67 y.o. female who presents for evaluation of Foot Pain (Questions a stress fracture in right foot. Pain started 10/20/17.). HISTORY OF PRESENT ILLNESS Fei is a pleasant 67 y.o. female that presents to the clinic today for evaluation of RIGHT foot pain for the past 3 weeks. She denies any specific trauma or injury to her foot but is questioning a possible stress related fracture from prolonged standing and walking on uneven ground as she is remode ling her cabin. She reports her pain is greatest around the base of her 4th toe. Some mild bruising,no swelling. She has tried Tylenol, ice, elevation and rest with some improvement in symptoms. The following portions of the patient's history were reviewed and updated as appropriate: allergies,current medications, family history, medical history, social history, surgical history and problem list. Brief Review of Systems: A brief review of systems was negative except for that mentioned in the history of present of illness. Current Outpatient Medications Medication Sig ??? albuterol (for_ACCUNEB) 2.5 mg /3 mL nebulizer solution Inhale 2.5 mg every 6 (six) hours. ??? cetirizine (ZyrTEC) 10 mg capsule Take by mouth daily. ??? clonazePAM (for_KlonoPIN) 0.5 mg tablet Take by mouth daily. ??? cyclobenzaprine (for_FLEXERIL) 10 mg tablet Take by mouth daily. ??? fluticasone-vilanterol (for_BREO ELLIPTA DISKUS) 200-25 mcg/act inhaler Inhale daily. ??? gabapentin (for_NEURONTIN) 300 mg capsule Take by mouth daily. ??? montelukast (for_SINGULAIR) 10 mg tablet Take 1 tablet by mouth every evening. ??? predniSONE (DELTASONE) 10 mg tablet daily as needed. ??? PROAIR HFA 90 mcg/actuation inhaler INHALE 2 PUFFS BY INHALATION ROUTE EVERY 4 - 6 HOURS NEEDED Allergies Allergen Reactions ??? Levofloxacin Other (see comments) PHYSICAL EXAM BP 131/76 (BP Location: Left arm, Patient Position: Sitting, Cuff Size: Regular) Pulse 92 Temp 36.8 ??C (Temporal) Resp 16 Wt 63.2 kg SpO2 98% ? No BMI 20.87 kg/m?? Body massindex is 20.87 kg/m??. GENERAL: Patient is in no distress. Capable of full communication without difficulty. Patient is polite and cooperative. RIGHT FOOT: Moderate tenderness noted around the 4th MTP/mid metatarsal. No swelling or discoloration noted. No neurovascular compromise. NEURO: Alert and oriented x3, nonfocal, moving all 4 extremities. CN II-XII grossly intact. PSYCH: Affect is appropriate DIAGNOSTICS: RIGHT FOOT X-RAY FINDINGS: No appreciable acute osseous injury of the right foot. Mild/moderately prominent scattered degenerative changes of the right foot more pronounced at the level the right firstMTP, first IP joint spaces. No radiopaque foreign bodies. Tiny right calcaneal and Achilles heel spurs. IMPRESSION: No acute findings. ASSESSMENT/PLAN: #1 Pain Foot Right X-ray taken today to rule out fracture. She was also placed in a walking boot until fracture is ruled out. I will get back to her on the results accordingly. She was advised to continue nnvb-njo-zxhougn analgesics, ice, elevation, and rest. If no fracture is seen but symptoms continue, may conside Podiatry referral for further evaluation/recommendations - I appreciate their expertise. She will monitor symptoms and follow up with concerns. Patient was instructed to present urgently to the clinic/ER if symptoms worsen or fail to improve over the next several days. Follow-up otherwise as mentioned above. Plan was discussed with patient and is in agreement with plan. All questions were answered, side effects of any/all new medications were discussed. Patient left in no acute distress. Ready to learn. No apparent learning barriers were identified. Learning preferences include listening. Explained diagnosis and treatment plan. Patient/Child/Caregiver expressed understanding of the content. Barbara Mo APRN, C.N.P., D.N.P. documented in this encounter Plan of Treatment Upcoming Encounters Date Type Specialty Care Team Description 01/23/2022 Appointment Radiology Clair Simms APRN, C.N.P., D.N.P. [address] [place] [phone] (Wo rk) Scheduled Procedures Name Priority Associated Diagnoses Date/Time COLONOSCOPY Screening Colon Cancer Average R isk documented as of this encounter Results DX Foot Right 3+ Views (11/13/2017 1:23 PM CDT) Anatomical Region Laterality Modality Lower Extremity, Foot, Musculoskeletal RST LOS Right Digital Radiography Specimen (Source) Anatomical Collection Method Collection Time Re ceived Time Location / / Volume Laterality 11/13/2017 1:37 PM CDT Impressions 11/13/2017 1:38 PM CDT IMPRESSION: No acute findings. Narrative 11/13/2017 1:38 PM CDT EXAM: DX FOOT RIGHT 3+ VIEWS COMPARISON: None FINDINGS: No appreciable acute osseous i njury of the right foot. Mild/moderately prominent scattered dege nerative changes of the right foot more pronounced at the level the right first MTP, first IP joint spaces. No radiopaque foreign bodies. Tiny right calcaneal and Achilles heel s purs. Procedure Note Chad Loyd M.D. - 11/13/2017Forma tting of this note might be different from the original. EXAM: DX FOOT RIGHT 3+ VIEWS COMPARISON: None FINDINGS: No appreciable acute osseous i njury of the right foot. Mild/moderately prominent scattered dege nerative changes of the right foot more pronounced at the level the right first MTP, first IP joint spaces. No radiopaque foreign bodies. Tiny right calcaneal and Achilles heel s purs. IMPRESSION: No acute findings. Barbara Mo APRN C.N.P., D.N.P. IMG DIAGNOSTIC IM AGING PROCEDURES documented in this encounter Visit Diagnoses Diagnosis Pain Foot Right - Primary Pain Foot Right documented in this encounter Care Teams Leveling Machine Operator Relationship Specialty Start Date End Date Cierra Chandler P.A.-C. PCP - General 12/14/16 06/02/19 documented as of this encounter
--- OUTSIDE RECORDS SUMMARY | 2021-12-17 14:01 | XMS_ITS | Encounter Summary ---
:1950 Author Organization [facility] Address [address] [place] [address] Care Team Providers Name Role Phone Cierra Chandler P.A.-C. Primary Care Provider [phone] Encounter Details Date Type Department Care Team Description 06/20/2017 Abstract Department of Family Medicine, Provider, [facility], in [place] [address] [place] [phone] Social History Tobacco Use Types Packs/Day Years Used Date Smoking Tobacco: Never Smokeless Tobacco: Never Alcohol Use Standard Drinks/Week Comments No 0 (1 standard drink = 0.6 oz pure alcoho l) Alcohol Habits Answer Date Recorded How often do you have a drink containing 4 or more times a w [place] 08/10/2021 alcohol? How many drinks containing alcohol [...] or relatives? How often do you attend zoroastrian or More than 4 times per year 08/10/2021 faith services? Do you belong to any clubs or Yes 08/10/2021 organizations such as zoroastrian groups, unions, fraternal or athletic groups, or [...] Radiology Clair Simms , ALLEN, C.N.P., D.N.P. [address] [phone] (Wo rk) Scheduled Procedures Name Priority Associated Diagnoses Date/Time COLONOSCOPY Screening Colon Cancer Average R isk documented as of this encounter Visit Diagnoses Not on filedocumented in this encounter Care Teams Inside Wirer Relationship Specialty Start Date End Date Cierra Chandler, PIshmaelANoah. PCP - General 12/14/16 06/02/19 documented as of this encounter
--- OUTSIDE RECORDS SUMMARY | 2021-12-17 14:01 | XMS_ITS | Encounter Summary ---
:1950 Author Organization [facility] Address [address] [place] [address] Care Team Providers Name Role Phone Clair Simms APRN C.N.P., D.N.P. Primary Care Provider Reason for Visit Reason Comments Rash Encounter Details Date Type Department Care Team Description 07/07/2019 Emergency [place] [facility] Sean Bui, sh (Primary Dx); Department P.A.-C. Vaginitis [address] [place] [address] [address] [place], [place] [phone] (Wo rk) Social History Tobacco Use Types Packs/Day Years Used Date Smoking Tobacco: Never Smokeless Tobacco: Never Alcohol Use Standard Drinks/Week Comments Yes 7 (1 standard drink = 0.6 oz pure alcoho l) Alcohol Habits Answer Date Recorded How often do you have a drink containing 4 or more times a w [place] 08/10/2021 alcohol? How many drinks containing alcohol [...] Sign Reading Time Taken Comments Blood Pressure 156/83 07/07/2019 11:46 AM CDT Pulse 78 07/07/2019 12:15 PM CDT Temperature 36.9 ??C (98.4 ??F) 07/07/2019 11:46 AM CDT Respiratory Rate 16 07/07/2019 11:46 AM CDT Oxygen Saturation 98% 07/07/2019 12:15 PM CDT Inhaled Oxygen Concentration - - Weight 63.4 kg (139 lb 12.4 oz) 07/07/2019 11:42 AM CDT Height 175.3 cm (5' 9) 07/07/2019 11:42 AM CDT Body Mass Index 20.64 07/07/2019 11:42 AM CDT documented in this encounter Discharge Instructions Discharge InstructionsKrSean bellamy, P.A.-C. - 07/07/2019 12:12 PM CDT Take the steroid as prescribed and please take with food. Avoid taking this steroid with NSAIDs (Ibuprofen, Advil). Benadryl 25-50 mg every 8 hours x3 days Take 2nd Diflucan at the 72 hour willima from your 1st dose if you have continued vaginitis symptoms asdiscussed I will call you with vaginitis panel results Return to Emergency Department for any new or worsening symptoms as discussed in addition to following up with primary care as directed. AttachmentsThe following attachments cannot be sent through Care Everywhere. Vaginitis Sole-im-Mphx (Yi)Rash Adult Pvsa-kf-Abqo (Yi)documented in this encounter Medications at Time of Discharge Medication Sig Dispensed Refills Start Date End Date cetirizine 10 mg capsule Take by mouth daily. 0 0 05/13/2015 clonazePAM (for_KlonoPIN) Take 0.5 mg by mouth 0 05/13/2015 0.5 mg tablet daily. fluticasone-vilanterol Inhale daily. 0 06/20/2016 (for_BREO ELLIPTA DISKUS) 200-25 mcg/act inhaler gabapentin Take by mouth daily. 0 05/13/2015 (for_NEURONTIN) 300 mg capsule montelukast Take 1 tablet by 0 05/13/2015 (for_SINGULAIR) 10 mg mouth every evening. tablet albuterol (for_ACCUNEB) Inhale 2.5 mg every 0 2.5 mg /3 mL nebulizer 6 (six) hours. As solution needed cyclobenzaprine Take by mouth daily. 0 05/13/2015 08/15/2021 (for_FLEXERIL) 10 mg tablet PROAIR HFA 90 INHALE 2 PUFFS BY 06/10/201708/02 mcg/actuation inhaler INHALATION ROUTE EVERY 4 - 6 HOURS NEEDED fluconazole (DIFLUCAN) Take 1 tablet (150 1 tablet 0 07/0607/07/2019 150 mg tablet mg total) by mouth once for 1 dose. predniSONE (DELTASONE) 20 Take 2 tablets (40 6 tablet 0 07/10/2019 mg tablet mg total) by mouth daily for 3 days. Take with food atorvastatin (LIPITOR) 10 Take 1 tablet (10 mg 90 tablet 3 01/13/2019 11/21/2020 mg tablet total) by mouth daily. predniSONE (DELTASONE) 10 daily as needed. 0 04/11/201708/15/2021 mg tablet documented as of this encounter ED Notes Ashlie Paulino R.N. - 07/07/2019 11:42 AM CDT Patient was being treated for sinus infection and was put on augmentin last week and finished the dosage last Saturday morning. States she got a yeast infection on Saturday and now has rash on arms andtruck of body. Aslhie Paulino R.N. 07/07/19 1143 ET Adam Ball APRN, C.N.P. - 07/07/2019 11:39 AM CDT Saw and examined patient with sean bui. Agree with his plan, documentation, assessment, etc. Briefly 68 year old independent female in no acute distress presents after contacting nursing line with concern of allergic and/or medication reaction. She was recently treated with amoxicillin and diflucan. She did reportedly screen positively per nursing note in EMR due to shortness of breath and chills.Upon assessment and plan, the patient Will be discharged with steroid, vaginitis swab and discussed follow up emergent return. Final Diagnoses: as of Jul 06 1304 Rash Vaginitis Adam Ball APRN, C.N.P. 07/07/19 1305 Sean Bui, P.A.-C. - 07/07/2019 11:37 AM CDT SUBJECTIVE CHIEF COMPLAINT/REASON FOR VISIT Rash HISTORY OF PRESENT ILLNESS Fei Quintana is a 68 y.o. female presents to [place] ED via private vehicle requestingevaluation for allergic reaction to medication. Past medical history notable for but not limited to TMJ, asthma, hyperlipidemia, hemangioma liver, RLS, varicose veins. Patient explains that she was prescribed Augmentin for sinus infection for which she finished on 07/04/2019 and then subsequently was given Diflucan due to vaginal itchiness that started on 07/03/2019 in addition to having some pruritus along wrists, hands, hips and arm pits. She notes that she hasn't noted any improvement in symptomsdespite her nightly Zyrtec. Patient presents to ED today secondary to worsening rash and specifically the pruritus involved with concern for developing allergic reaction from the Augmentin. Notes that the rash is only located over areas were she has been itching herself and her most significant and bothersome symptom is the vaginal itchiness. She notes she has had no vaginal discharge or odor or urinary symptoms. No concern for sexually transmitted infection. No contacts around her with similar rash. No new detergents or exposures. No difficulty breathing or tolerating secretions. No throat closingsensation. No chest pain, abdominal pain, nausea, vomiting or diarrhea or fevers. Does note that shebelieves her asthma is well controlled at this time however has felt some nonspecific chills and shortness of breath but notes that his rash has caused her some anxiety. No contact with positive COVID-19 or any high risk behavior. 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 Negative for fever. HENT: Negative for ear pain and sore throat. Eyes: Negative for visual disturbance. Respiratory: Positive for shortness of breath. Negative for cough and wheezing. Cardiovascular: Negative for chest pain and leg swelling. Gastrointestinal: Negative for abdominal pain, blood in stool, diarrhea, nausea and vomiting. Genitourinary: Positive for vaginal pain (Itchiness). Negative for dysuria and hematuria. Musculoskeletal: Patient denies any new or worsening joint/muscle pain Skin: Positive for itching and rash. Allergic/Immunologic: Negative for immunocompromised state. Neurological: Negative for dizziness, syncope and headaches. Psychiatric/Behavioral: The patient is nervous/anxious. OBJECTIVE Initial Vitals [07/07/19 1146] Temperature Pulse Rate Heart Rate Resp Rate Blood Pressure SpO2 36.9 ??C 82 -- 16 156/83 97 % Pain Score -- PHYSICAL EXAMINATION Constitutional: Nursing note and vitals reviewed. She appears not lethargic. No distress. HENT: Head: Normocephalic and atraumatic. Nose: Nose normal. Mouth/Throat: Oropharynx is clear and moist. Mucous membranes are moist. Eyes: Conjunctivae and EOM are normal. Pupils are equal, round, and reactive to light. Extraocular Movements: EOM normal. Cardiovascular: Normal rate. Capillary refill: takes less than 3 seconds, Edema: no edema noted Pulmonary/Chest: Effort normal. No tachypnea. No respiratory distress. Abdominal: Soft. She exhibits no distension. There is no abdominal tenderness. There is no rebound and no guarding. Musculoskeletal: Normal range of motion. No deformity. Neurological: She is alert and oriented to person, place, and time. She is not disoriented. She exhibits normal muscle tone. Coordination normal. Skin: Skin is warm, dry and normal color. She is not diaphoretic. Psychiatric: She has a normal mood and affect. Her behavior is normal. Thought content normal. ASSESSMENT/PLAN Impression and Plan The patient presents to the ED for evaluation of allergic reaction. ?? DISPOSITION: After considering the HPI, physical exam, diagnostic evaluation my clinical impression is rash, vaginitis. Patient is awake, alert, oriented and appropriate to questions who is nontoxic or ill-appearing. Initial presentation to ED notable for an afebrile 68-year-old female with vital signs within normal limits. See HPI for more details. All life threatening and critical diagnoses considered. Secondary to this patient needing no criteria for anaphylaxis and having an isolated grouped and plaque-like raisedred pruritic rash along bilateral wrists, bilateral armpits and along inguinal groin folds were patient notes this is were she has been primarily itching and having rash located no other areas with primary complaint being vaginal itchiness and discomfort a shared decision making discussion was had moving forward with vaginitis panel self collect and treating rash with 3 day course of prednisone and Benadryl. Additionally patient will be given an additional Diflucan dose to be taken 72 hours from a initial dose if she has continued symptoms. Vaginitis panel pending upon discharge. I encourage follow up with their primary care provider as indicated. I also encourage to return emergency department for worsening symptoms or any other concerns that they feels requires further evaluation. This plan of discharge and follow-up including all test results was discussed in detail with opportunity to ask questions during discharge process. At this time there no further questions regarding this plan and discussion. I will discharge them home in stable condition. I reviewed previous medical records including documentation from previous visits. Final Diagnoses: as of Jul 06 1222 Rash Vaginitis Sean Bui, PElio 07/07/19 1223 documented in this encounter Plan of Treatment Upcoming Encounters Date Type Specialty Care Team Description 01/23/2022 Appointment Radiology Clair Simms APRN, C.N.P., D.N.P. [address] [place] [phone] (Wo rk) Scheduled Procedures Name Priority Associated Diagnoses Date/Time COLONOSCOPY Screening Colon Cancer Average R isk documented as of this encounter Procedures Procedure Name Priority Date/Time Associated Diagnosis Comme nts VAGINITIS PANEL STAT 07/07/2019 12:17 PM Resul ts for this CDT procedure are i n the results section. documented in this encounter Results Vaginitis Panel (07/07/2019 12:17 PM CDT) [facility] gist Method Time Signature Nasrin species, Negative Negative 07/07/2019 CNFL DNA 1:26 PM CDT Gardnerella Negative Negative 07/07/2019 CNFL vaginalis, DNA 1:26 PM CDT Trichomonas Negative Negative 07/07/2019 CNFL vaginalis, DNA 1:26 PM CDT Specimen Anatomical Collection Method Collection Time Receive d Time (Source) Location / / Volume Laterality Swab (Vagina) 07/07/2019 12:17 07/07/2019 PM CDT 12:31 PM CDT Sean Bui P.A.-C. LAB MICROBIOLOGY - GENERAL O [place] Performing Organization Address City/State/ZIP Code Phon e Number [facility]- [address] [place] [id number] [place] [address] System in [address] documented in this encounter Visit Diagnoses Diagnosis Rash - Primary Vaginitis documented in this encounter Care Teams Lab Aid Relationship Specialty Start Date End Date Clair Simms APRN, C.N.P., D.N.P. PCP - General 06/03/[address] [place] [phone] documented as of this encounter
--- OUTSIDE RECORDS SUMMARY | 2021-12-17 14:01 | XMS_ITS | Encounter Summary ---
:1950 Author Organization [facility] Address [address] [place] [address] Care Team Providers Name Role Phone Cierra Chandler P.A.-C. Primary Care Provider [phone] Encounter Details Date Type Department Care Team Description 11/13/2017 Hospital Encounter Department of Barbara Mo Pai n Foot Right Radiology in [facility] [place] D.N.P. [id number] [place] [phone] Social History Tobacco Use Types Packs/Day Years Used Date Smoking Tobacco: Never Smokeless Tobacco: Never Alcohol Use Standard Drinks/Week Comments No 0 (1 standard drink = 0.6 oz pure alcoho l) Alcohol Habits Answer Date Recorded How often do you have a drink containing 4 or more times a w [place] 08/10/2021 alcohol? How many drinks containing alcohol [...] or relatives? How often do you attend amish or More than 4 times per year 08/10/2021 faith services? Do you belong to any clubs or Yes 08/10/2021 organizations such as amish groups, unions, fraternal or athletic groups, or [...] place to sleep or slept in a nursing home (including now)? Sex Assigned at Date [...] (for_SINGULAIR) 10 mg mouth every evening. tablet cyclobenzaprine Take by mouth daily. 0 05/13/2015 08/15/2021 (for_FLEXERIL) 10 mg tablet predniSONE (DELTASONE) 10 daily as needed. 0 04/11/201708/15/2021 mg tablet PROAIR HFA 90 INHALE 2 PUFFS BY 06/10/201708/02 mcg/actuation inhaler INHALATION ROUTE EVERY 4 - 6 HOURS NEEDED documented as of this encounter Plan of Treatment Upcoming Encounters Date Type Specialty Care Team Description 01/23/2022 Appointment Radiology Clair Simms APRN, C.N.P., D.N.P. [address] [phone] (Wo rk) Scheduled Procedures Name Priority Associated Diagnoses Date/Time COLONOSCOPY Screening Colon Cancer Average R isk documented as of this encounter Procedures Procedure Name Priority Date/Time Associated Comments Diagnosis DX FOOT RIGHT 3+ RAD - Routine 11/13/2017 1:23 Pain Foot Right Resu lts for this VIEWS (most inpatients PM CDT procedure a re in and all the results outpatients) section. documented in this encounter Results DX Foot Right 3+ [...] and Achilles heel s purs. Procedure Note hCad Loyd M.D. - 11/13/2017Forma tting of this [...] encounter Visit Diagnoses Diagnosis Pain Foot Right documented in this encounter Care Teams Outside Plant Supervisor Relationship Specialty Start Date End Date Cierra Chandler P.A.-C. PCP - General 12/14/16 06/02/19 documented as of this encounter
--- OUTSIDE RECORDS SUMMARY | 2021-12-17 14:01 | XMS_ITS | Encounter Summary ---
:1950 Author Organization [facility] Address [address] [place] [address] Care Team Providers Name Role Phone Clair Simms APRN C.N.P., D.N.P. Primary Care Provider Reason for Referral MRI/CAT/PET Scan (Routine) - Closed Specialty Diagnoses / Procedures Referred By Contact Refer red To Contact Radiology Diagnoses Pain Knee Left Umberto Veliz M.D. [facility] [place] [facility] Procedures MR Knee Left without IV Contrast [place] MRI LWR EXT JOINT WO CNTRST [address] [place] [address] Referral ID Status Reason Start Date Expiration Date Visits Requ ested Visits Authorized [id number] Closed 01/18/2020 01/17/2021 1 1 ING AGENCY MANAGER Reason for Visit MRI/CAT/PET Scan (Routine) - Closed Specialty Diagnoses / Procedures Referred By Contact Refer red To Contact Radiology Diagnoses Pain Knee Left Umberto Veliz M.D. [facility] [place] [facility] Procedures MR Knee Left without IV Contrast [place] MRI LWR EXT JOINT WO CNTRST [address] [place] [address] Referral ID Status Reason Start Date Expiration Date Visits Requ ested Visits Authorized [id number] Closed 01/18/2020 01/17/2021 1 1 Encounter Details Date Type Department Care Team Description 01/21/2020 Hospital Encounter Department of Umberto Veliz Knee Left Radiology in Wilberto López M.D. [address] [phone] Social History Tobacco Use Types Packs/Day Years Used Date Smoking Tobacco: Never Smokeless Tobacco: Never Alcohol Use Standard Drinks/Week Comments Yes 7 (1 standard drink = 0.6 oz pure alcoho l) Alcohol Habits Answer Date Recorded How often do you have a drink containing 4 or more times a w [place] 08/10/2021 alcohol? How many drinks containing alcohol [...] or relatives? How often do you attend taoism or More than 4 times per year 08/10/2021 jew services? Do you belong to any clubs or Yes 08/10/2021 organizations such as taoism groups, unions, fraternal or athletic groups, or [...] predniSONE (DELTASONE) 10 daily as needed. 0 0411/201708/15/2021 mg tablet PROAIR HFA 90 INHALE 2 PUFFS BY 11 06/10/201708/02 mcg/actuation inhaler INHALATION ROUTE EVERY 4 - 6 HOURS NEEDED documented as of this encounter Plan of Treatment Upcoming Encounters Date Type Specialty Care Team Description 01/23/2022 Appointment Radiology Clair Simms APRN, C.N.P., D.N.P. [address] [phone] (Wo rk) Scheduled Procedures Name Priority Associated Diagnoses Date/Time COLONOSCOPY Screening Colon Cancer Average R isk documented as of this encounter Procedures Procedure Name Priority Date/Time Associated Comments Diagnosis MR KNEE LEFT RAD - Routine 01/21/2020 10:58 Pain Knee Left Results for this WITHOUT IV (most inpatients AM BETTING AGENCY MANAGER procedure a re in CONTRAST and all the results outpatients) section. documented in this encounter Results MR Knee Left without IV Contrast (01/21/2020 10:58 AM BETTING AGENCY MANAGER) Anatomical Region Laterality Modality Lower Extremity, Knee, Musculoskeletal RST LOS, Left Magnetic Resonance Musculoskeletal ARZ LOS, Muskuloskeletal FLA LOS Specimen (Source) Anatomical Collection Method Collection Time Re ceived Time Location / / Volume Laterality 01/21/2020 11:52 AM BETTING AGENCY MANAGER Impressions 01/21/2020 12:00 PM BETTING AGENCY MANAGER 1. ??Horizontal tear medial meniscal posterior body and posterior horn communicating with the tibial articular surface. 2. ??Mild medial/lateral compartment deg eneration. Narrative 01/21/2020 12:00 PM BETTING AGENCY MANAGER EXAM: MR KNEE LEFT WITHOUT IV CONTRAST COMPARISON: X-ray November 25, 2019 FINDINGS: Normal anterior cruciate ligam ent. Normal posterior cruciate ligament. Normal medial collateral ligament. Radha l lateral collateral ligament. Normal patellar and distal quadriceps tendons. Normal lateral meniscus. Horizontal medi al meniscal posterior body and posterior horn tear communicating with the tibial articular surface (series 5 image #9). Medial Compartment: Low-grade chondromal acia weightbearing articular cartilage and tiny marginal osteophytes consistent with mild degeneration. Lateral Compartment: Low-grade chondroma lacia weightbearing articular cartilage and tiny marginal osteophytes consistent with mild degeneration. Patellofemoral Compartment: No prominent degeneration or cartilage defect. Greater than typical quantity of knee judy int fluid, consistent with a small effusion. No popliteal cyst. No signific ant muscle atrophy or intramuscular edema. No evidence of acute or healing fracture . No aggressive appearing skeletal lesion. Procedure Note Meng Estrada M.D. - 01/21/2020Formattin g of this note might be different from the original. EXAM: MR KNEE LEFT WITHOUT IV CONTRAST COMPARISON: X-ray November 25, 2019 FINDINGS: Normal anterior cruciate ligam ent. Normal posterior cruciate ligament. Normal medial collateral ligament. Radha l lateral collateral ligament. Normal patellar and distal quadriceps tendons. Normal lateral meniscus. Horizontal medi al meniscal posterior body and posterior horn tear communicating with the tibial articular surface (series 5 image #9). Medial Compartment: Low-grade chondromal acia weightbearing articular cartilage and tiny marginal osteophytes consistent with mild degeneration. Lateral Compartment: Low-grade chondroma lacia weightbearing articular cartilage and tiny marginal osteophytes consistent with mild degeneration. Patellofemoral Compartment: No prominent degeneration or cartilage defect. Greater than typical quantity of knee judy int fluid, consistent with a small effusion. No popliteal cyst. No signific ant muscle atrophy or intramuscular edema. No evidence of acute or healing fracture . No aggressive appearing skeletal lesion. IMPRESSION: 1. Horizontal tear medial meniscal poste rior body and posterior horn communicating with the tibial articular surface. 2. Mild medial/lateral compartment degen eration. Umberto Veliz M.D. IMG MRI PROCEDURES documented in this encounter Visit Diagnoses Diagnosis Pain Knee Left documented in this encounter Care Teams Bilingual Instructor Relationship Specialty Start Date End Date Clair Simms APRN, C.N.P., D.N.P. PCP - General 06/03/[address] [place] [phone] documented as of this encounter
--- OUTSIDE RECORDS SUMMARY | 2021-12-17 14:01 | XMS_ITS | Encounter Summary ---
:1950 Author Organization [facility] Address [address] [place] [address] Care Team Providers Name Role Phone Clair Simms APRN C.N.P., D.N.P. Primary Care Provider Encounter Details Date Type Department Care Team Description 08/19/2019 Orders Only RST PCP HLTH MNT Clair Simms, Screen ing Mammogram ALLEN, C.N.P., D. N.P. Breast Cancer [address] [place] [phone] (Wo rk) Social History Tobacco Use Types Packs/Day Years Used Date Smoking Tobacco: Never Smokeless Tobacco: Never Alcohol Use Standard Drinks/Week Comments Yes 7 (1 standard drink = 0.6 oz pure alcoho l) Alcohol Habits Answer Date Recorded How often do you have a drink containing 4 or more times a w [place] 08/10/2021 alcohol? How many drinks containing alcohol [...] or relatives? How often do you attend rastafarian or More than 4 times per year 08/10/2021 yazidi services? Do you belong to any clubs or Yes 08/10/2021 organizations such as rastafarian groups, unions, fraternal or athletic groups, or [...] place to sleep or slept in a assisted (including now)? Sex Assigned at Date Recorded Female 11/19/2020 2:34 PM CDT documented as of this encounter Plan of Treatment Upcoming Encounters Date Type Specialty Care Team Description 01/23/2022 Appointment Radiology Clair Simms APRN, C.N.P., D.N.P. [address] [place] [phone] (Wo rk) Scheduled Procedures Name Priority Associated Diagnoses Date/Time COLONOSCOPY Screening Colon Cancer Average R isk documented as of this encounter Visit Diagnoses Diagnosis Screening Mammogram Breast Cancer documented in this encounter Care Teams Freelance Photographer Relationship Specialty Start Date End Date Clair Simms APRN, C.N.P., D.N.P. PCP - General 06/03/[address] [place] [phone] documented as of this encounter
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
--- OUTSIDE RECORDS SUMMARY | 2021-12-17 14:01 | XMS_ITS | Encounter Summary ---
:1950 Author Organization [facility] Address [address] [place] [address] Care Team Providers Name Role Phone Cierra Chandler P.A.-C. Primary Care Provider [phone] Encounter Details Date Type Department Care Team Description 08/20/2017 Clinical Communication Department of [facility] Baldemar Chandler [facility] [place] [facility], [id number] [place] [address] [phone] (Work) [phone] Social History Tobacco Use Types Packs/Day Years Used Date Smoking Tobacco: Never Smokeless Tobacco: Never Alcohol Use Standard Drinks/Week Comments No 0 (1 standard drink = 0.6 oz pure alcoho l) Alcohol Habits Answer Date Recorded How often do you have a drink containing 4 or more times a w [place] 08/10/2021 alcohol? How many drinks containing alcohol [...] Radiology Clair Simms , ALLEN, C.N.P., D.N.P. [address] [phone] (Wo rk) Scheduled Procedures Name Priority Associated Diagnoses Date/Time COLONOSCOPY Screening Colon Cancer Average R isk documented as of this encounter Visit Diagnoses Not on filedocumented in this encounter Care Teams Manager Field Relationship Specialty Start Date End Date Cierra Chandler PIshmaelAMoodyC. PCP - General 12/14/16 06/02/19 documented as of this encounter
--- OUTSIDE RECORDS SUMMARY | 2021-12-17 14:01 | XMS_ITS | Encounter Summary ---
:1950 Author Organization [facility] Address [address] [place] [address] Care Team Providers Name Role Phone Cierra Chandler P.A.-C. Primary Care Provider [phone] Reason for Visit Reason Comments Earache Right ear pain and fullness x 3 months Skin lesions Patient is concerned about s pots on scalp, forehead/ left confucianism, shoulder, neck and back Appointment Request (Routine) - Closed Specialty Diagnoses / Procedures Referred By Contact Refer red To Contact Family Medicine Referral ID Status Reason Start Date Expiration Date Visits Requ ested Visits Authorized [id number] Closed 06/06/2017 12/03/2017 1 1 Encounter Details Date Type Department Care Team Description 06/17/2017 Office Visit Department of Family Maurisio Clemens, Cold Intolerance (Primary Dx); MedicineWilberto M.D., Ph.D. Epicondylitis Lateral Right; [facility], in [address] [place] [address] Temporom andibular Joint Disorder; [facility] Dysfunction Eustachian Tube Right; [facility], Keratosis Seborrheic [address] [place] [phone] [place], [place] [phone] (Work) [phone] Social History Tobacco Use Types Packs/Day Years Used Date Smoking Tobacco: Never Smokeless Tobacco: Never Alcohol Use Standard Drinks/Week Comments No 0 (1 standard drink = 0.6 oz pure alcoho l) Alcohol Habits Answer Date Recorded How often do you have a drink containing 4 or more times a w [place] 08/10/2021 alcohol? How many drinks containing alcohol [...] More than 4 times per year 08/10/2021 sikh services? Do you belong to any clubs [...] Sign Reading Time Taken Comments Blood Pressure 125/80 06/17/2017 12:01 PM CDT Pulse 91 06/17/2017 12:01 PM CDT Temperature 36.9 ??C (98.4 ??F) 06/17/2017 11:59 AM CDT Respiratory Rate 16 06/17/2017 11:59 AM CDT Oxygen Saturation 98% 06/17/2017 11:59 AM CDT Inhaled Oxygen Concentration - - Weight 64 kg (141 lb 1.5 oz) 06/17/2017 11:59 AM CDT Height - - Body Mass Index 21.14 01/10/2017 7:39 AM MARKETING TEACHER documented in this encounter H&P Notes Maurisio Clemens M.D. - 06/17/2017 11:30 AM CDT SUBJECTIVE CHIEF COMPLAINT / REASON FOR VISIT Fei Quintana is a 66 y.o. female who presents for evaluation of Earache (Right ear pain andfullness x 3 months) and Skin lesions (Patient is concerned about spots on scalp, forehead/ left confucianism, shoulder, neck and back). HISTORY OF PRESENT ILLNESS She has chronic right lateral epicondylitis. This may going on for several months. She has gone through substantial conservative therapies without significant relief. She continues to have severe pain at the right lateral epicondyle radiating into the forearm. Pain is worse and aching more severely with use of the wrist. She has noted mild cold intolerance. She has found that other people are warm when she has been morecold. She has no chills. She has no fevers or other associated symptoms. Here for right ear pain that started a week ago. The pain is feeling fullness and associated with congestion. It is localized to the ear. It is associated with symptoms of reduced hearing. Medical history is significant for temporomandibular joint disorder. Palliative factors include Sudafed and sympto ms are worse with nothing. The following portions of the patient's history were reviewed and updated as appropriate: allergies,current medications, family history, medical history, social history, surgical history and problem list. REVIEW OF SYSTEMS Constitutional: Positive for fatigue. Negative for fever, loss of appetite, night sweats, weight loss of more than 10 pounds and generalized weakness. Skin: Positive for change in mole or skin spot. Negative for skin rash. Eyes: Positive for visual problems. Negative for double vision. ENT: Negative for sinus congestion. Respiratory: Negative for coughing up mucus (phlegm) and dyspnea. Cardiovascular: Negative for chest pain, pressure or tightness and swelling in the legs or feet. Gastrointestinal: Negative for constipation, diarrhea and nausea. Genitourinary: Positive for incontinence. Negative for difficulty urinating. Hematologic: Positive for bruises or bleeds easily. Negative for abnormal lumps or bumps. Musculoskeletal: Positive for arthralgias, pain or stiffness in the joints and muscle pain/stiffness. Negative for back pain. Neurological: Positive for light-headedness. Negative for seizures, loss of consciousness, loss of balance or tendency to fall easily and weakness in arms or legs. Psychiatric/Behavioral: Negative for sleep disturbance, little interest or pleasure in doing things over past two weeks, feeling down, depressed, or hopeless over past two weeks and feeling nervous, anxious, or on edge in past two weeks. OBJECTIVE PHYSICAL EXAM Constitutional: She is oriented to person, place, and time. She appears well- developed and well-nourished. No distress. HENT: Head: Normocephalic and atraumatic. Right Ear: External ear normal. Left Ear: External ear normal. Nose: Nose normal. Mouth/Throat: Oropharynx is clear and moist. Eyes: Conjunctivae and EOM are normal. Neck: Normal range of motion. Neck supple. No thyromegaly present. Cardiovascular: Normal rate, regular rhythm, normal heart sounds and intact distal pulses. No murmur heard. Pulmonary/Chest: Effort normal and breath sounds normal. She has no wheezes. Musculoskeletal: Right lateral epicondyle is tender to palpate with increased pain with resisted wrist range of motion Lymphadenopathy: She has no cervical adenopathy. Neurological: She is alert and oriented to person, place, and time. Skin: Skin is warm and dry. No rash noted. Multiple seborrheic keratosis Psychiatric: She has a normal mood and affect. Nursing note and vitals reviewed. ASSESSMENT / PLAN #1 Epicondylitis Lateral Right Referral for Tenex therapy. Recommend application of ice QID x 15 minutes, over the counter symptomatic treatment, topical salicylic acid preparation (such as Franklin Malhotra or Icy Hot) to be applied QID. #2 Cold Intolerance Check labs. #3 Temporomandibular Joint Disorder Continue current medications and treatments. Pros/cons/side effects/alternatives and complications reviewed in detail. #4 Dysfunction Eustachian Tube Right Prednisone x 7 days. If not feeling better in 3 days or if worsening, recommend reevaluation. Side effects of treatments discussed. #5 Seborrheic Keratosis Informed verbal consent obtained after pros/cons/side effects/complications discussed. The lesions (14) were destroyed with liquid nitrogen cryotherapy. documented in this encounter Plan of Treatment Upcoming Encounters Date Type Specialty Care Team Description 01/23/2022 Appointment Radiology Clair Simms APRN, C.N.P., D.N.P. [id number] [phone] (Wo rk) Scheduled Procedures Name Priority Associated Diagnoses Date/Time COLONOSCOPY Screening Colon Cancer Average R isk documented as of this encounter Procedures Procedure Name Priority Date/Time Associated Diagnosis Comme nts CBC WITH Routine 06/17/2017 1:00 PM Cold Intolerance Resul ts for this DIFFERENTIAL, B CDT procedure ar e in the results section. THYROID-STIMULATING Routine 06/17/2017 1:00 PM Cold Intoleranc e Results for this HORMONE-SENSITIVE CDT procedure are in (S-TSH) the results section. documented in this encounter Results CBC with Differential (06/17/2017 1:00 PM CDT) P athologist Signature Hemoglobin 14.5 11.6 - 06/17/2017 [facility] 15.0 g/dL 1:33 PM CDT [facility] Hematocrit 41.8 35.5 - 06/17/2017 [facility] 44.9 % 1:33 PM CDT [facility] Erythrocytes 4.82 3.92 - 06/17/2017 [facility] 5.13 1:33 PM CDT HEALTH x10(12)/L [facility] MCV 86.7 78.2 - 06/17/2017 [facility] 97.9 fL 1:33 PM CDT [facility] RBC Distrib Width 12.9 12.2 - 06/17/2017 [facility] 16.1 % 1:33 PM CDT [facility] Platelet Count 264 157 - 371 06/17/2017 [facility] x10(9)/L 1:33 PM CDT [facility] Leukocytes 5.8 3.4 - 9.6 06/17/2017 [facility] x10(9)/L 1:33 PM CDT [facility] Neutrophils 4.06 1.56 - 06/17/2017 [facility] 6.45 1:33 PM CDT HEALTH x10(9)/L [facility] Lymphocytes 1.12 0.95 - 06/17/2017 [facility] 3.07 1:33 PM CDT HEALTH x10(9)/L [facility] Monocytes 0.47 0.26 - 06/17/2017 [facility] 0.81 1:33 PM CDT HEALTH x10(9)/L [facility] Eosinophils 0.11 0.03 - 06/17/2017 [facility] 0.48 1:33 PM CDT HEALTH x10(9)/L [facility] Basophils 0.01 0.01 - 06/17/2017 [facility] 0.08 1:33 PM CDT HEALTH x10(9)/L [facility] Specimen Anatomical Collection Method Collection Time Receive d Time (Source) Location / / Volume Laterality Blood 06/17/2017 1:00 PM 8 1:15 CDT PM CDT Maurisio Clemens M.D., Ph.D. LAB BLOOD ADD-ON Performing Organization Address [facility] Phon e Number [address] [phone] [facility] S-TSH (Thyroid-Stimulating Hormone - Sensitive) (06/17/2017 1:00 PM CDT) athologist Signature TSH, Sensitive 1.3 0.3 - 4.2 06/17/2017 [facility] mIU/L 2:18 PM CDT [facility] Comment: Biotin has been identified by the tanna do as a potential interfering substance. ??Higher concentr ations of biotin may be found in multivitamins, hair/nail supple ments, and workout supplements. ??If the result does not [facility] clinical observations, repeat testing after patient refrains fr om the use of supplements for at least 12 hours. Specimen Anatomical Collection Method Collection Time Receive d Time (Source) Location / / Volume Laterality Blood 06/17/2017 1:00 PM 8 1:15 CDT PM CDT Maurisio Clemens M.D., Ph.D. LAB BLOOD ADD-ON Performing Organization Address [facility] Phon e Number [address] [address] [facility] documented in this encounter Visit Diagnoses Diagnosis Cold Intolerance - Primary Epicondylitis Lateral Right Temporomandibular Joint Disorder Dysfunction Eustachian Tube Right Keratosis Seborrheic documented in this encounter Care Teams Hand Woodworking Sander Relationship Specialty Start Date End Date Cierra Chandler P.A.-C. PCP - General 12/14/16 06/02/19 documented as of this encounter
--- OUTSIDE RECORDS SUMMARY | 2021-12-17 14:01 | XMS_ITS | Encounter Summary ---
:1950 Author Organization [facility] Address [address] [place] [address] Care Team Providers Name Role Phone Clair Simms APRN, C.N.P., D.N.P. Primary Care Provider Encounter Details Date Type Department Care Team Description 05/04/2020 Orders Only [facility] PCP [facility] Sa foster Matamoros M.D. [address] [place] [address] [phone] (Wo rk) Social History Tobacco Use Types Packs/Day Years Used Date Smoking Tobacco: Never Smokeless Tobacco: Never Alcohol Use Standard Drinks/Week Comments Yes 7 (1 standard drink = 0.6 oz pure alcoho l) Alcohol Habits Answer Date Recorded How often do you have a drink containing 4 or more times a w [place] 08/10/2021 alcohol? How many drinks containing alcohol [...] or relatives? How often do you attend scientologist or More than 4 times per year 08/10/2021 denominational services? Do you belong to any clubs or Yes 08/10/2021 organizations such as scientologist groups, unions, fraternal or athletic groups, or [...] Appointment Radiology Clair Simms APRN, C.N.P., D.N.P. [address] [place] [phone] (Wo rk) Scheduled Procedures Name Priority Associated Diagnoses Date/Time COLONOSCOPY Screening Colon Cancer Average R isk documented as of this encounter Visit Diagnoses Not on filedocumented in this encounter Care Teams Air Box Tester Relationship Specialty Start Date End Date Clair Simms APRN, C.N.P., D.N.P. PCP - General 06/03/[address] [place] [phone] documented as of this encounter
--- OUTSIDE RECORDS SUMMARY | 2021-12-17 14:01 | XMS_ITS | Encounter Summary ---
:1950 Author Organization [facility] Address [address] [place] [address] Care Team Providers Name Role Phone Cierra Chandler P.A.-C. Primary Care Provider [phone] Reason for Referral Outpatient (Routine) - Closed Specialty Diagnoses / Procedures Referred By Contact Refer red To Contact Diagnoses Screening Examination Diabetes Mellitus Clair Simms APRN, [facility] Region Procedures BMD Bone Density Spine Hips C.N.P., D.N.P. [address] [address] Referral ID Status Reason Start Date Expiration Date Visits Requ ested Visits Authorized [id number] Closed 01/12/2019 01/12/2020 1 1 TIME OPERATOR Reason for Visit Reason Comments Annual Exam Appointment Request (Routine) - Closed Specialty Diagnoses / Procedures Referred By Contact Refer red To Contact Family Medicine Referral ID Status Reason Start Date Expiration Date Visits Requ ested Visits Authorized [id number] Closed 12/25/2018 12/25/2019 1 1 Encounter Details Date Type Department Care Team Description 01/12/2019 Comprehensive Visit Department of Clair Simms Maintenance Examination Adult (Primary Dx); Family MedicineAri APRN, Hyperlipide chaparro; Niki Stern C.NIshmaelPIshmael, D.N.P. Asthma ([facility]); Clinic, in [place] [address] Screeni ng Examination Diabetes Mellitus; [place], [address] Deficiency Estrogen Post Menopausal; [address] [place] [address] Niki Stern, Myalgia; [place] [address] Fatigue; NIKI STERN, [place] [phone] Alopecia; [phone] (Work) Dry Eye Syndrome Right; [phone] Restless Leg Sy ndrome (Fax) Social History Tobacco Use Types Packs/Day Years Used Date Smoking Tobacco: Never Smokeless Tobacco: Never Alcohol Use Standard Drinks/Week Comments No 0 (1 standard drink = 0.6 oz pure alcoho l) Alcohol Habits Answer Date Recorded How often do you have a drink containing 4 or more times a w [place] 08/10/2021 alcohol? How many drinks containing alcohol [...] or relatives? How often do you attend catholic or More than 4 times per year 08/10/2021 mosque services? Do you belong to any clubs or Yes 08/10/2021 organizations such as catholic groups, unions, fraternal or athletic groups, [...] slept in a long term (including now)? Sex Assigned at Date Recorded Female 11/19/2020 2:34 PM CDT documented as of this encounter Last Filed Vital Signs Vital Sign Reading Time Taken Comments Blood Pressure 130/73 01/12/2019 10:26 AM REAL TIME OPERATOR Pulse 78 01/12/2019 10:26 AM REAL TIME OPERATOR Temperature 36.5 ??C (97.7 ??F) 01/12/2019 10:26 AM REAL TIME OPERATOR Respiratory Rate 14 01/12/2019 10:26 AM REAL TIME OPERATOR Oxygen Saturation 98% 01/12/2019 10:26 AM REAL TIME OPERATOR Inhaled Oxygen Concentration - - Weight 63 kg (138 lb 14.2 oz) 01/12/2019 10:26 AM REAL TIME OPERATOR Height 174 cm (5' 8.5) 01/12/2019 10:26 AM REAL TIME OPERATOR Body Mass Index 20.81 01/12/2019 10:26 AM REAL TIME OPERATOR documented in this encounter H&P Notes Clair Simms APRN C.N.P., D.N.P. - 01/12/2019 10:30 AM CST SUBJECTIVE CHIEF COMPLAINT/REASON FOR VISIT Fei is a 68 y.o. female who presents to the clinic today for her annual wellness exam and follow-up of her chronic medical problems, blood work, and medication refills. HISTORY OF PRESENT ILLNESS Fei presents to [facility] with several concerns. 1. Myalgias Fei has had myalgias and fatigue for the past 20 years. It has been suggested in the past that she may have fibromyalgia. She states she has not previously had a diagnosis of fibromyalgia, or a workup for this muscle pain. She states the pain is all over her body and has not changed recently. 2. Hair loss She has subjectively lost approximately 50% of her hair. She states most of her family has a historyof hair loss. 3. Continued elbow pain She had Tenex surgery to her right elbow, which did not resolve any of her symptoms. She will be following up with Orthopedics for further management. 5. Dry eyes She Is managed by an sommelier in the [facility] for her dry eyes. She states she is on a regimen of drops for treatment of this. Both eyes are dry, however her right is greater than her left. 6. Restless Leg Syndrome She is currently managed by a sleep medicine physician in the [facility]. She takes a nightly regimen ofgabapentin, cyclobenzaprine and clonazepam. She states this is the only medication regimen that has improved her symptoms. MEDICAL HISTORY Patient Active Problem List Diagnosis ??? Asthma NOS ??? Hyperlipidemia ??? Temporomandibular Joint Disorder ??? Hemangioma Liver ??? Restless Leg Syndrome ??? Varicose Vein Lower Extremity SURGICAL HISTORY Past Surgical History: Procedure Laterality Date ??? BIOPSY THYROID N/A Excision of lesion of thyroid ??? COLONOSCOPY N/A 01/10/2017 Procedure: COLONOSCOPY; Surgeon: Burton Obrien M.D.; Location: [facility] OR ALLERGIES/CONTRAINDICATIONS Levofloxacin CURRENT MEDICATIONS Current Outpatient Medications Medication Sig ??? albuterol (for_ACCUNEB) 2.5 mg /3 mL nebulizer solution Inhale 2.5 mg every 6 (six) hours. ??? cetirizine (ZyrTEC) 10 mg capsule Take by mouth daily. ??? clonazePAM (for_KlonoPIN) 0.5 mg tablet Take by mouth daily. ??? cyclobenzaprine (for_FLEXERIL) 10 mg tablet Take by mouth daily. ??? diclofenac sodium (VOLTAREN) 1 % gel Apply topically. ??? fluticasone-vilanterol (for_BREO ELLIPTA DISKUS) 200-25 mcg/act inhaler Inhale daily. ??? gabapentin (for_NEURONTIN) 300 mg capsule Take by mouth daily. ??? montelukast (for_SINGULAIR) 10 mg tablet Take 1 tablet by mouth every evening. ??? predniSONE (DELTASONE) 10 mg tablet daily as needed. ??? PROAIR HFA 90 mcg/actuation inhaler INHALE 2 PUFFS BY INHALATION ROUTE EVERY 4 - 6 HOURS NEEDED FAMILY HISTORY Family Status Relation Name Status ??? Father (Not Specified) ??? Mother (Not Specified) SOCIAL HISTORY Social History Tobacco Use ??? Smoking status: Never Smoker ??? Smokeless tobacco: Never Used Substance Use Topics ??? Alcohol use: No ??? Drug use: No REVIEW OF SYSTEMS General: No acute distress. No fever, chills. HEENT: Denies headaches, no eye pain, no ear pain. No runny nose. No sore throat. No cervical LAD. Neck: Denies neck pain, no thyromegaly. Lungs: Denies cough, SOB. CV: Denies chest pain. Abdomen: Denies abdominal pain, no change in bowel habits. : Denies dysuria. Ext: Denies edema. Psych: Denies change in mood. OBJECTIVE PHYSICAL EXAMINATION Vital Signs: BP 130/73 (BP Location: Left arm, Patient Position: Sitting, Cuff Size: Regular) Pulse 78 Temp 36.5 ??C (Temporal) Resp 14 Ht 174 cm Wt 63 kg SpO2 98% BMI 20.81 kg/m?? Body mass index is 20.81 kg/m??. General: The patient appears comfortable and in no acute distress. HEENT: Conjunctivae and lids are without erythema or discharge. Pupils are equal, round and reactiveto light. Extraocular muscles are intact. The ear canals are patent and tympanic membranes are clearbilaterally. Turbinates are negative for erythema and swelling bilaterally. The oropharynx is clear and without lesions. Neck: Thyroid is normal size, non-tender, without nodularity. Lymphatic: There is no cervical or supraclavicular adenopathy. Lungs: The lungs are clear to auscultation bilaterally. No wheezes, rales or rhonchi. Heart: Heart is regular rate and rhythm. Normal S1 and S2 are present. There are no murmurs, rubs, or gallops present. There are no carotid bruits present. Radial pulses are 2+ bilaterally. There is nolower extremity edema present bilaterally. Breasts: Declined Abdomen: Soft, no hepatosplenomegaly, no masses, no tenderness to palpation. Active bowel sounds. Skin: There are no abnormal skin rashes, lesions or masses. Skin is dry and warm. Extremities: Gait is normal. Neuro: Cranial nerves II through XII are grossly intact and symmetric. Pelvic Exam: Declined Psychiatric: The patient is alert and oriented x 3. The patient's affect is not blunted and mood is appropriate. DIAGNOSTICS RECENT LABS: Results for orders placed or performed in visit on 06/17/17 S-TSH (Thyroid-Stimulating Hormone - Sensitive) Result Value Ref Range TSH, Sensitive, S 1.3 0.3 - 4.2 mIU/L CBC with Differential Result Value Ref Range Hemoglobin 14.5 11.6 - 15.0 g/dL Hematocrit 41.8 35.5 - 44.9 % Erythrocytes 4.82 3.92 - 5.13 x10(12)/L MCV 86.7 78.2 - 97.9 fL RBC Distrib Width 12.9 12.2 - 16.1 % Platelet Count 264 157 - 371 x10(9)/L Leukocytes 5.8 3.4 - 9.6 x10(9)/L Neutrophils 4.06 1.56 - 6.45 x10(9)/L Lymphocytes 1.12 0.95 - 3.07 x10(9)/L Monocytes 0.47 0.26 - 0.81 x10(9)/L Eosinophils 0.11 0.03 - 0.48 x10(9)/L Basophils 0.01 0.01 - 0.08 x10(9)/L ASSESSMENT / PLAN ASSESSMENT AND PLAN 1. Health Maintenance Examination Adult Annual wellness exam today. Discussed routine health maintenance for age. Lipid screen: Labs pending Diabetes screen: Labs pending ASCVD score today: Colonoscopy (every 3 year schedule): Due in 2019 Mammogram: Due in February 2019. Bone density: ordered Screen for Hepatitis C (born [birth year]): Not high risk. Immunizations: PD given today. Follow-up 1 year for annual exam or return to clinic sooner if any problems develop. 2. Hyperlipidemia - Lipid Panel 3. Asthma (HCC) Stable on current medication regimen. 4. Screening Examination Diabetes Mellitus - Comprehensive Metabolic Panel 5. Deficiency Estrogen Post Menopausal -Dexa scan 6. Myalgia Discussed with patient that her symptoms are mostly consistent with fibromyalgia, however this is a diagnosis of exclusion. We will assess the following labs to determine any other possible causes for her symptoms. She declines fibromyalgia Clinic consult at this time. - CRP (C-Reactive Protein) - S-TSH (Thyroid-Stimulating Hormone - Sensitive) - Celiac Disease Comprehensive [place] - Rheumatoid Factor - Connective Tissue Diseases [place] - CK (Creatine Kinase) - CBC with Differential, Blood 7. Fatigue - CRP (C-Reactive Protein) - S-TSH (Thyroid-Stimulating Hormone - Sensitive) - Celiac Disease Comprehensive [place] - CBC with Differential, Blood 8. Alopecia - Celiac Disease Comprehensive [place] 9. Dry Eye Syndrome Right Discussed with patient the possibility of Sjogren syndrome. Will perform lab evaluation at this timeto help determine possibility of Sjogren's disease. 10. Restless Leg Syndrome Continue with current regimen as outlined by Sleep Medicine. Refill of medication should be handled by sleep medicine physician. Plan was discussed with patient and is in agreement with plan. All questions were answered, side effects of any/all new medications were discussed. Patient left in no acute distress. Ready to learn. No apparent learning barriers were identified. Learning preferences include listening. Explained diagnosis and treatment plan. Patient/Child/Caregiver expressed understanding of the content. Clair Simms APRN, C.N.Alexis, D.N.P. TIME OPERATOR documented in this encounter Plan of Treatment Upcoming Encounters Date Type Specialty Care Team Description 01/23/2022 Appointment Radiology Clair Simms APRN, C.N.Alexis, D.N.P. [address] [phone] (Wo rk) Scheduled Procedures Name Priority Associated Diagnoses Date/Time COLONOSCOPY Screening Colon Cancer Average R isk documented as of this encounter Procedures Procedure Name Priority Date/Time Associated Comments Diagnosis LIPID PANEL, S Routine 01/12/2019 11:19 Health Maintenance Res ults for this AM REAL TIME OPERATOR Examination Adul t procedure are in Hyperlipidemia the results section. CELIAC DISEASE Routine 01/12/2019 11:19 Myalgia Results for this COMPREHENSIVE CASCADE AM REAL TIME OPERATOR Fatigue procedure are in Alopecia the results section. TISSUE TRANSGLUTAMINASE Routine 01/12/2019 11:19 Results for this (TTG) AB, IGA, S AM REAL TIME OPERATOR procedure a re in the results section. CONNECTIVE TISSUE Routine 01/12/2019 11:19 Myalgia Result s for this DISEASE CASCADE, [place], AM REAL TIME OPERATOR proc edure are in S the results section. CBC WITH DIFFERENTIAL, B Routine 01/12/2019 11:19 Myalgi a Results for this AM REAL TIME OPERATOR Fatigue procedure are i n the results section. RHEUMATOID FACTOR, S/P Routine 01/12/2019 11:19 Myalgia R esults for this AM REAL TIME OPERATOR procedure are i n the results section. C-REACTIVE PROTEIN Routine 01/12/2019 11:19 Myalgia Results for this (CRP), S/P AM REAL TIME OPERATOR Fatigue procedure are i n the results section. THYROID-STIMULATING Routine 01/12/2019 11:19 Myalgia Results for this HORMONE-SENSITIVE AM REAL TIME OPERATOR [place]igue procedure are in (S-TSH) the results section. CREATINE KINASE (CK), S Routine 01/12/2019 11:19 Myalgia Results for this AM REAL TIME OPERATOR procedure are i n the results section. COMPREHENSIVE METABOLIC Routine 01/12/2019 11:19 Health Mainte nance Results for this PANEL, S/P AM REAL TIME OPERATOR Examination Adul t procedure are in Screening the results Examination section. Diabetes Mellitus documented in this encounter Results BMD Bone Density Spine Hips (01/22/2019 10:58 AM REAL TIME OPERATOR) Anatomical Region Laterality Modality Hip, Lumbar Spine, Nuclear Medicine RST LOS, N/A Radiographic Imaging Musculoskeletal ARZ LOS, Muskuloskeletal FLA LOS Specimen (Source) Anatomical Collection Method Collection Time Re ceived Time Location / / Volume Laterality 01/22/2019 11:32 AM REAL TIME OPERATOR Impressions 01/22/2019 11:33 AM REAL TIME OPERATOR Low bone density (osteopenia). Narrative 01/22/2019 11:33 AM REAL TIME OPERATOR EXAM: BMD BONE DENSITY SPINE HIPS COMPARISON: None. Photoengraving Apprentice/Model: Zzish FINDINGS: ?? LUMBAR SPINE L1-L4 included unless [...] BMD BONE DENSITY SPINE HIPS COMPARISON: None. Photoengraving Apprentice/Model: Zzish FINDINGS: LUMBAR SPINE L1-L4 included unless otherwise [...] setting. Follow-up exams should be performed at [facility] sooner than two-year intervals. Direct comparison can only be performed on exams performed at the same facility. World Health Organization T-score criter ia: 0 to -1.0 Normal range < -1.0 to > -2.5 Low bone density (osteo penia) -2.5 or less Osteoporosis IMPRESSION: Low bone density (osteopenia). Matthew Perkins APRN.N.P., D.N.P. IMG DXA PROCEDURE S tTG (Tissue Transglutaminase), Antibody, IgA (01/12/2019 11:19 AM REAL TIME OPERATOR) [facility] [employer] Method Time Signature Tissue <1.2 <4.0 01/13/2019 [facility] Transglutaminase Ab, (Negative 3:41 PM REAL TIME OPERATOR IgA, S ) U/mL Specimen Anatomical Collection Method Collection Time Receive d Time (Source) Location / / Volume Laterality Blood 01/12/2019 11:19 01/13/2019 8:05 AM REAL TIME OPERATOR AM REAL TIME OPERATOR Matthew Perkins APRN.N.P., D.N.P. LAB BLOOD ADD-ON Performing Organization Address City/State/ZIP Code Phon e Number [facility] [address] [place] [address] [place] [address] Laboratory Medicine and Pathology [address] [place] [address] Dr. OSBORN (ABNORMAL) CBC with Differential, Blood (01/12/2019 11:19 AM REAL TIME OPERATOR) [facility] [employer] Method Time Signature Hemoglobin 14.5 11.6 - 01/12/2019 [facility] 15.0 g/dL 12:26 PM REAL TIME OPERATOR Hematocrit 42.8 35.5 - 01/12/2019 [facility] 44.9 % 12:26 PM REAL TIME OPERATOR Erythrocytes 4.87 3.92 - 01/12/2019 [facility] 5.13 12:26 PM REAL TIME OPERATOR x10(12)/L MCV 87.9 78.2 - 01/12/2019 [facility] 97.9 fL 12:26 PM REAL TIME OPERATOR RBC Distrib Width 13.2 12.2 - 01/12/2019 [facility] 16.1 % 12:26 PM REAL TIME OPERATOR Platelet Count 323 157 - 371 01/12/2019 [facility] x10(9)/L 12:26 PM REAL TIME OPERATOR Leukocytes 4.8 3.4 - 9.6 01/12/2019 [facility] x10(9)/L 12:26 PM REAL TIME OPERATOR Neutrophils 3.36 1.56 - 01/12/2019 [facility] 6.45 12:26 PM REAL TIME OPERATOR x10(9)/L Lymphocytes 0.92 (L) 0.95 - 01/12/2019 [facility] 3.07 12:26 PM REAL TIME OPERATOR x10(9)/L Monocytes 0.39 0.26 - 01/12/2019 [facility] 0.81 12:26 PM REAL TIME OPERATOR x10(9)/L Eosinophils 0.11 0.03 - 01/12/2019 [facility] 0.48 12:26 PM REAL TIME OPERATOR x10(9)/L Basophils 0.01 0.01 - 01/12/2019 [facility] 0.08 12:26 PM REAL TIME OPERATOR x10(9)/L Specimen Anatomical Collection Method Collection Time Receive d Time (Source) Location / / Volume Laterality Blood (Blood, 01/12/2019 11:19 01/12/2019 Venous) AM REAL TIME OPERATOR 11:28 AM REAL TIME OPERATOR Clair Simms APRN, C.N.P., D.N.P. LAB BLOOD ADD-ON Performing Organization Address City/State/ZIP Code Phon e Number [phone] [place] [address] [place] [address] System [address] Comprehensive Metabolic Panel (01/12/2019 11:19 AM REAL TIME OPERATOR) P athologist Signature Potassium, S 4.4 3.6 - 5.2 01/12/2019 [facility] mmol/L 12:14 PM REAL TIME OPERATOR Sodium, S 142 135 - 145 01/12/2019 [facility] mmol/L 12:14 PM REAL TIME OPERATOR Chloride, S 104 98 - 107 01/12/2019 [facility] mmol/L 12:14 PM REAL TIME OPERATOR Bicarbonate, S 28 22 - 29 01/12/2019 [facility] mmol/L 12:14 PM REAL TIME OPERATOR Anion Gap 10 7 - 15 01/12/2019 [facility] 12:14 PM REAL TIME OPERATOR BUN (Blood Urea 12 6 - 21 01/12/2019 [facility] Nitrogen), S mg/dL 12:14 PM REAL TIME OPERATOR Creatinine 0.78 0.59 - 01/12/2019 [facility] 1.04 mg/dL 12:14 PM REAL TIME OPERATOR eGFR-Non 79 >=60 01/12/2019 [facility] Black/ mL/min/BSA 12:14 PM REAL TIME OPERATOR Palestinian Comment: ----ADDITIONAL INFORMATION---- Estimated GFR calculated using the 2009 CKD_EPI creatinine equation. eGFR-Black/ >90 >=60 mL/min/BSA 2018 12:14 PM REAL TIME OPERATOR CNFL Comment: ----ADDITIONAL INFORMATION---- Estimated GFR calculated using the 2009 CKD_EPI creatinine equation. Calcium, Total, S 9.8 8.8 - 10.2 mg/dL 01/12/2019 12:1 4 PM REAL TIME OPERATOR CNFL Glucose, S 96 70 - 140 mg/dL 01/12/2019 12:14 PM REAL TIME OPERATOR CNFL Protein, Total, S 6.6 6.3 - 7.9 g/dL 01/12/2019 12:14 PM REAL TIME OPERATOR CNFL Albumin, S 4.2 3.5 - 5.0 g/dL 01/12/2019 12:14 PM REAL TIME OPERATOR CNFL Aspartate Aminotransferase 22 8 - 43 U/L 01/12/2019 1 2:14 PM REAL TIME OPERATOR CNFL (AST), S Alkaline Phosphatase, S 77 35 - 104 U/L 01/12/2019 12 :14 PM REAL TIME OPERATOR CNFL Alanine Aminotransferase (ALT), 29 7 - 45 U/L 019 12:14 PM REAL TIME OPERATOR CNFL S Bilirubin, Total, S 0.5 <=1.2 mg/dL 01/12/2019 12:14 P M REAL TIME OPERATOR CNFL Specimen Anatomical Collection Method Collection Time Receive d Time (Source) Location / / Volume Laterality Blood (Blood, 01/12/2019 11:19 01/12/2019 Venous) AM REAL TIME OPERATOR 11:28 AM REAL TIME OPERATOR Clair Simms APRN, C.N.P., D.N.P. LAB BLOOD ADD-ON Performing Organization Address City/State/ZIP Code Phon e Number [address] [address] [facility] [place] [address] [address] CK (Creatine Kinase) (01/12/2019 11:19 AM REAL TIME OPERATOR) P athologist Signature Creatine Kinase 73 26 - 192 01/12/2019 CNFL (CK), S U/L 12:14 PM REAL TIME OPERATOR Specimen Anatomical Collection Method Collection Time Receive d Time (Source) Location / / Volume Laterality Blood (Blood, 01/12/2019 11:19 01/12/2019 Venous) AM REAL TIME OPERATOR 11:28 AM REAL TIME OPERATOR Jose Perkins APRNN.Alexis, D.N.P. LAB BLOOD ADD-ON Performing Organization Address City/[facility] Phon e Number [place] [address] [place] [address] [place] [address] (ABNORMAL) Connective Tissue Diseases [place] (01/12/2019 11:19 AM REAL TIME OPERATOR) Analysis Performed At Patho logist Time Signature Antinuclear Ab, 1.1 (H) <=1.0 01/13/2019 [facility] S (Negative) 11:01 AM REAL TIME OPERATOR U Comment: Interpretation: Weak Positive ( 1.1-2.9) Cyclic Citrullinated <15.6 <20.0 (Negative) U 01/13/2019 1:02 PM [facility] Peptide Ab, S REAL TIME OPERATOR Interpretation SEE COMMENT 01/13/2019 1:02 PM [facility] REAL TIME OPERATOR Comment: Tests for antibodies to dsDNA and EMILY an tigens are not performed automatically unless the KERI r esult is > or = 3.0 U. ??Studies performed at [facility] indicate that positive KERI results <3.0 U are rarely a ccompanied by positive second order tests. Specimen Anatomical Collection Method Collection Time Receive d Time (Source) Location / / Volume Laterality Blood (Blood, 01/12/2019 11:19 01/13/2019 7:10 Venous) AM REAL TIME OPERATOR AM REAL TIME OPERATOR Matthew Perkins APRN.N.PIshmael, D.N.P. LAB BLOOD ADD-ON Performing Organization Address City/[facility]/ZIP Code Phon e Number [facility] [address] [place], [place] [address] [place] [address] CENTER [facility] [place] [address] Laboratory Medicine and Pathology [address] [place] Rheumatoid Factor (01/12/2019 11:19 AM REAL TIME OPERATOR) P athologist Signature Rheumatoid <15 <15 IU/mL 01/13/2019 [facility] Factor, S 3:07 PM REAL TIME OPERATOR Specimen Anatomical Collection Method Collection Time Receive d Time (Source) Location / / Volume Laterality Blood (Blood, 01/12/2019 11:19 01/13/2019 2:35 Venous) AM REAL TIME OPERATOR PM REAL TIME OPERATOR Clair Simms APRN, C.NIshmaelPIshmael, D.N.P. LAB BLOOD ADD-ON Performing Organization Address City/State/ZIP Code Phon e Number [facility] [address] [place] [address] SUPPORT CENTER [facility] [place] [address] Laboratory Medicine and Pathology [address] [place] Celiac Disease Comprehensive [place] (01/12/2019 11:19 AM REAL TIME OPERATOR) Patholo gist Method Time Signature HLA-DQA1 04:01,05: Not Applicable 01/15/2019 [facility] Locus 01 1:01 PM REAL TIME OPERATOR Molecular HLA-DQB1 02:01,04: Not Applicable 01/15/2019 [facility] Locus 02 1:01 PM REAL TIME OPERATOR Molecular Comment: DQ Serologic Equivalent: 2,4 Celiac Gene Pairs Present? Yes 01/15/2019 1: 01 PM REAL TIME OPERATOR [facility] Comment: Method: Molecular typing of HLA antigens performed using reverse SSOP and/or SSP methods, reporte d as serological equivalents and low to medium resolution molecular values. Immunoglobulin A (IgA), 171 61 - 356 01/13/2019 7:15 AM [facility] S mg/dL REAL TIME OPERATOR Celiac Disease Permissive genes present, al though serology is negative. Celiac disease 01/15/2019 2:54 PM [facility] Interpretation unlikely. However, approxima tely 10% of patients with celiac disease are REAL TIME OPERATOR seronegative. Also, patients who are adhering to a gluten-fr ee diet may be seronegative. Specimen Anatomical Collection Method Collection Time Receive d Time (Source) Location / / Volume Laterality Blood (Blood, 01/12/2019 11:19 01/13/2019 7:27 Venous) AM REAL TIME OPERATOR AM REAL TIME OPERATOR Narrative [facility] SUPPORT CENTE R - 01/15/2019 2:54 PM REAL TIME OPERATOR Specimen Information: Specimen ID: [id number] Specimen Type: Blood Specimen Collection Start Date: 019 11:19 AM Specimen Received Date: 01/13/2019 ??7: 27 AM Specimen ID: [id number] Specimen Type: Blood Specimen Collection Start Date: 019 11:19 AM Specimen Received Date: 01/13/2019 ??6: 06 AM Matthew Perkins APRN.N.P., D.N.P. LAB BLOOD NON ADD -ON Performing Organization Address City/State/[facility] Code Phon e Number [facility] [address] [place] [address] [place] [address] [place] [place] [address] Laboratories-[facility] [address] [facility] [place] [address] Laboratory Medicine and Pathology [address] [place] S-TSH (Thyroid-Stimulating Hormone - Sensitive) (01/12/2019 11:19 AM REAL TIME OPERATOR) athologist Signature TSH, Sensitive 1.4 0.3 - 4.2 01/12/2019 CN[facility] mIU/L 12:20 PM REAL TIME OPERATOR Comment: Biotin has been identified by the tanna do as a potential interfering substance. ??Higher concentr ations of biotin may be found in multivitamins, hair/nail supple ments, and workout supplements. ??If the result does not [facility] clinical observations, repeat testing after patient refrains fr om the use of supplements for at least 12 hours. Specimen Anatomical Collection Method Collection Time Receive d Time (Source) Location / / Volume Laterality Blood (Blood, 01/12/2019 11:19 01/12/2019 Venous) AM REAL TIME OPERATOR 11:28 AM REAL TIME OPERATOR Matthew Perkins APRN.N.P., D.N.P. LAB BLOOD ADD-ON Performing Organization Address City/[facility] Phon e Number [place] [address] [place] [address] [facility] [place] [address] CRP (C-Reactive Protein) (01/12/2019 11:19 AM REAL TIME OPERATOR) P athologist Signature C-Reactive 2.4 <=8.0 mg/L 01/12/2019 CNFL Protein (CRP), 12:14 PM REAL TIME OPERATOR S Specimen Anatomical Collection Method Collection Time Receive d Time (Source) Location / / Volume Laterality Blood (Blood, 01/12/2019 11:19 01/12/2019 Venous) AM REAL TIME OPERATOR 11:28 AM REAL TIME OPERATOR Matthew Perkins APRN.N.P., D.N.P. LAB BLOOD ADD-ON Performing Organization Address City/State/ZIP Code Phon e Number [address] [place] [address] [place] [address] [place] [place] [address] System in [place] [address] (ABNORMAL) Lipid Panel (01/12/2019 11:19 AM REAL TIME OPERATOR) P athologist Signature Cholesterol, 255 (H) mg/dL 01/12/2019 CNFL Total 12:14 PM REAL TIME OPERATOR Comment: ----REFERENCE VALUE---- Desirable: < 200 Borderline high: 200 - 239 High: > or = 240 Triglycerides 94 mg/dL 01/12/2019 12:14 PM REAL TIME OPERATOR CN FL Comment: ----REFERENCE VALUE---- Normal: <150 Borderline high: 150-199 High: 200-499 Very high: > or =500 Cholesterol, HDL, S 69 >=50 mg/dL 01/12/2019 12:14 PM REAL TIME OPERATOR CNFL Calculated LDL 167 (H) mg/dL 01/12/2019 12:14 PM REAL TIME OPERATOR C NFL Comment: ----REFERENCE VALUE---- Desirable: <100 Above Desirable: 100-129 Borderline high: 130-159 High: 160-189 Very high: > or =190 Cholesterol, Non-HDL, Calculated 186 (H) mg/dL 019 12:14 PM REAL TIME OPERATOR CNFL Comment: ----REFERENCE VALUE---- Desirable: <130 Above Desirable: 130-159 Borderline high: 160-189 High: 190-219 Very high: > or =220 Specimen Anatomical Collection Method Collection Time Receive d Time (Source) Location / / Volume Laterality Blood (Blood, 01/12/2019 11:19 01/12/2019 Venous) AM REAL TIME OPERATOR 11:28 AM REAL TIME OPERATOR Clair Simms APRN, C.N.P., D.N.P. LAB BLOOD ADD-ON Performing Organization Address City/State/ZIP Code Phon e Number [facility]- [address] [place] [address] [place] [address] [place] [place] [address] System in [place] [address] [address] documented in this encounter Visit Diagnoses Diagnosis Health Maintenance Examination Adult - P rimary Hyperlipidemia Asthma (HCC) Screening Examination Diabetes Mellitus Deficiency Estrogen Post Menopausal Myalgia Fatigue Alopecia Dry Eye Syndrome Right Restless Leg Syndrome Screening Examination Diabetes Mellitus documented in this encounter Care Teams Internet Marketing Intern Relationship Specialty Start Date End Date Cierra Chandler P.A.-C. PCP - General 12/14/16 06/02/19 documented as of this encounter
--- OUTSIDE RECORDS SUMMARY | 2021-12-17 14:01 | XMS_ITS | Encounter Summary ---
:1950 Author Organization [facility] Address [address] [place] [address] Care Team Providers Name Role Phone Clair Simms APRN C.N.P., D.N.P. Primary Care Provider Reason for Referral Outpatient (Routine) - Closed Specialty Diagnoses / Procedures Referred By Contact Refer red To Contact Diagnoses Primary Osteoarthritis Knee Right Umberto Veliz [facility] [place] [facility] Procedures ecs-jnpu-faivxnso-elbow arthrocentesis: R knee joint M.D. [address] [place] [address] Referral ID Status Reason Start Date Expiration Date Visits Requ ested Visits Authorized [id number] Closed 01/26/2020 01/25/2021 1 1 GY MEMBER Outpatient (Routine) - Closed Specialty Diagnoses / Procedures Referred By Contact Refer red To Contact Diagnoses Primary Osteoarthritis Knee Left Umberto Veliz [facility] [place] [facility] Procedures sjz-ymgc-butaemec-elbow arthrocentesis: L knee joint M.D. [address] [email or web address] [address] Referral ID Status Reason Start Date Expiration Date Visits Requ ested Visits Authorized [id number] Closed 01/26/2020 01/25/2021 1 1 GY MEMBER Physical Therapy (Routine) - Closed Specialty Diagnoses / Procedures Referred By Contact Refer red To Contact Physical Therapy Diagnoses Primary Osteoarthritis Knee Left Derangement Posterior Horn Medial Meniscus Due To Old Tear Or Injury Left Knee Primary Osteoarthritis Knee Right Umberto Veliz M.D. [address] [place] [address] Referral ID Status Reason Start Date Expiration Visits Visits Date Requested Authorized [id number] Closed Patient 01/26/2020 01/25/2021 1 1 Preference GY MEMBER Reason for Visit Outpatient (Routine) - Closed Specialty Diagnoses / Procedures Referred By Contact Refer red To Contact Orthopedic Surgery Umberto Veliz [facility] [place] [address] [place] [address] Referral ID Status Reason Start Date Expiration Date Visits Requ ested Visits Authorized [id number] Closed 01/18/2020 01/17/2021 1 1 Encounter Details Date Type Department Care Team Description 01/26/2020 Office Visit Department of Umberto Veliz Primary O steoarthritis Knee Left (Primary Dx); Orthopedic Surgery [place]aly López Derangement Posterior Horn Medial Menisc us Due To Old Tear Or Injury Left Knee; in [place] [address] [address] [facility] Primary Osteoarthritis Knee Right [place], [place] [address] [facility] [address] [place], [place] [phone] [address] (Work) [phone] Social History Tobacco Use Types Packs/Day Years [...] or slept in a half-way (including now)? Sex Assigned at Date Recorded Female 11/19/2020 2:34 PM CDT documented as of this encounter Progress Notes Umberto Veliz M.D. - 01/26/2020 10:30 AM CST SUBJECTIVE CHIEF COMPLAINT / REASON FOR VISIT Bilateral knee pain HISTORY OF PRESENT ILLNESS Fei is a 69 y.o. female who presents for follow-up evaluation of bilateral, left worse than right knee pain. Symptoms 1st developed on September 05 after she tripped on the steps of her cabin and fell directly onto her knees. Since then, she has experienced constant bilateral knee pain. On the left side, she localizes pain to the anterior, medial, and lateral aspects of her knee. She has a constant dull pain with occasional sharp lateral-sided pain that is associated with twisting activities. Right knee pain is more dull, localized the anterior anterior medial aspects of the knee. Denies any episodes of knee instability or prior history of knee pain. Treatment has consisted of taking meloxicam, ibu profen, or acetaminophen. She has also used ice as well as Aspercreme and diclofenac lotion. Pain reported: 310 OBJECTIVE There were no vitals taken for this visit. PHYSICAL EXAMINATION General: She is alert and [...] Allison's and posterior drawer tests were negativebilaterally. ?? Sensation was intact to light touch all dermatomes distal bilateral lower extremities. 5/5 strength bilateral EHL, tibialis anterior, gastrocnemius/soleus, hamstrings, and quadriceps. Feet were warm and well perfused with intact distal pulses. ?? DIAGNOSTICS IMAGING: Bilateral standing AP, bilateral sunrise, and left lateral knee x-rays performed November 25, 2019 at an outside facility were reviewed. These demonstrated mild medial joint space narrowing and mild patellofemoral degenerative changes bilaterally. No acute osseous abnormalities. MRI of the left knee performed January 21, 2020 was reviewed. This was significant for small effusion with chondromalacia of the medial and lateral compartments. There is also a horizontal tear involving the posterior horn and body of the medial meniscus. Lateral meniscus, ACL, PCL, and collateral lig aments were intact. ASSESSMENT / PLAN #1 Primary Osteoarthritis Knee Left #2 Derangement Posterior Horn Medial Meniscus Due To Old Tear Or Injury Left Knee #3 Primary Osteoarthritis Knee Right Bilateral knee pain secondary to mild osteoarthritis with degenerative tear of the posterior horn ofthe medial meniscus on the left. Discussed diagnosis and natural history of osteoarthritis. Both surgical and conservative treatment options were discussed today, and recommendation was made for conservative treatment consisting of activity modifications, weight loss, pain management with NSAIDs and/or Tylenol, and intermittent intra-articular corticosteroid or viscosupplementation injections. After discussion, patient was in agreement with plan.She is going to take vktb-hwp-fzunrum pain medications on an as-needed basis for pain control. She was provided with bilateral knee intra- articular corticosteroid injection(s) in clinic today. She was referred to physical therapy for evaluation, treatment, and home exercise program. She will return for follow-up on an as-needed basis. GY MEMBER documented in this encounter Procedure Notes Umberto Veliz M.D. - 01/26/2020 10:30 AM CSTAssociated Order(s): vwl-xbyh-vqxhnuik-elbow arthrocentesis: L knee joint Post-Procedure Diagnose(s): Primary Osteoarthritis Knee Left Knee site- L knee joint : injection only Date/Time: 01/26/2020 11:02 AM Performed by: Umberto Veliz M.D. Authorized by: Umberto Veliz M.D. PROCEDURE DETAILS Procedure Location knee Knee site: L knee joint Patient position: seated Procedural approach: anterolateral Procedure performed: injection only Needle gauge: 22 G Procedural Medication The following medications were administered at the target site(s) Local anesthetic: 6 mL lidocaine 10 mg/mL (1 %) Corticosteroid: 80 mg triamcinolone acetonide 40 mg/mL CONSENT Consent obtained: written PRE-PROCEDURE DETAILS Procedure purpose: therapeutic Skin preparation: alcohol and chlorhexidine POST-PROCEDURE DETAILS Procedure completed successfully: yes Complications: no apparent complications Post-procedure instructions: avoid strenuous activity for 2 days Discharge instructions: ice area as needed for comfort GY MEMBER Umberto Veliz M.D. - 01/26/2020 10:30 AM CSTAssociated Order(s): gdp-zwfk-mklrnhkw-elbow arthrocentesis: R knee joint Post-Procedure Diagnose(s): Primary Osteoarthritis Knee Right Knee site- R knee joint : injection only Date/Time: 01/26/2020 11:03 AM Performed by: Umberto Veliz M.D. Authorized by: Umberto Veliz M.D. PROCEDURE DETAILS Procedure Location knee Knee site: R knee joint Procedural approach: anterolateral Procedure performed: injection only Needle gauge: 22 G Procedural Medication The following medications were administered at the target site(s) Local anesthetic: 6 mL lidocaine 10 mg/mL (1 %) Corticosteroid: 80 mg triamcinolone acetonide 40 mg/mL CONSENT Consent obtained: written PRE-PROCEDURE DETAILS Procedure purpose: therapeutic Skin preparation: alcohol and chlorhexidine POST-PROCEDURE DETAILS Procedure completed successfully: yes Complications: no apparent complications Post-procedure instructions: avoid strenuous activity for 2 days Discharge instructions: ice area as needed for comfort GY MEMBER documented in this encounter Plan of Treatment Upcoming Encounters Date Type Specialty Care Team Description 01/23/2022 Appointment Radiology Clair Simms APRN, C.N.P., D.N.P. [address] [address] (Wo rk) Scheduled Procedures Name Priority Associated Diagnoses Date/Time COLONOSCOPY Screening Colon Cancer Average R isk documented as of this encounter Procedures Procedure Name Priority Date/Time Associated Diagnosis Comme nts NC ARTHCS ASP/INJ Routine 01/26/2020 10:30 Primary Osteoarthri tis Results for this MJR JT WO US AM CLERGY MEMBER Knee Right procedure are i n the results section. NC ARTHCS ASP/INJ Routine 01/26/2020 10:30 Primary Osteoarthri tis Results for this MJR JT WO US AM CLERGY MEMBER Knee Left procedure are i n the results section. documented in this encounter Results NC ARTHCS ASP/INJ MJR JT WO US (01/26/2020 10:30 AM CLERGY MEMBER) Narrative MMODAL - 01/26/2020 10:30 AM CLERGY MEMBER Umberto Veliz M.D. ? 01/26/2020 11:03 AM Knee site- R knee joint : injection only Date/Time: 01/26/2020 11:03 AM Performed by: Umberto Veliz M.D. Authorized by: Umberto Veliz M.D. PROCEDURE DETAILS Procedure Location knee Knee site: R knee joint Procedural approach: anterolateral Procedure performed: injection only Needle gauge: 22 G Procedural Medication The following medications were administe red at the target site(s) Local anesthetic: 6 mL lidocaine 10 mg/m L (1 %) Corticosteroid: 80 mg triamcinolone acet onide 40 mg/mL CONSENT Consent obtained: written PRE-PROCEDURE DETAILS Procedure purpose: therapeutic Skin preparation: alcohol and chlorhexid ine POST-PROCEDURE DETAILS Procedure completed successfully: yes Complications: no apparent complications ?? Post-procedure instructions: avoid stren uous activity for 2 days Discharge instructions: ice area as need ed for comfort Umberto Veliz M.D. PROCEDURE/MINOR SURGICAL ORD ERABLES Performing Organization Address [facility]/ZIP Code Phon e Number MMODAL MMODAL NA NC ARTHCS ASP/INJ MJR JT WO US (01/26/2020 10:30 AM CLERGY MEMBER) Narrative MMODAL - 01/26/2020 10:30 AM CLERGY MEMBER Umberto Veliz M.D. ? 01/26/2020 11:03 AM Knee site- L knee joint : injection only Date/Time: 01/26/2020 11:02 AM Performed by: Umberto Veliz M.D. Authorized by: Umberto Veliz M.D. PROCEDURE DETAILS Procedure Location knee Knee site: L knee joint Patient position: seated Procedural approach: anterolateral Procedure performed: injection only Needle gauge: 22 G Procedural Medication The following medications were administe red at the target site(s) Local anesthetic: 6 mL lidocaine 10 mg/m L (1 %) Corticosteroid: 80 mg triamcinolone acet onide 40 mg/mL CONSENT Consent obtained: written PRE-PROCEDURE DETAILS Procedure purpose: therapeutic Skin preparation: alcohol and chlorhexid ine POST-PROCEDURE DETAILS Procedure completed successfully: yes Complications: no apparent complications ?? Post-procedure instructions: avoid stren uous activity for 2 days Discharge instructions: ice area as need ed for comfort Umberto Veliz M.D. PROCEDURE/MINOR SURGICAL ORD ERABLES Performing Organization Address [facility]/ZIP Code Phon e Number MMODAL MMODAL NA documented in this encounter Visit Diagnoses Diagnosis Primary Osteoarthritis Knee Left - Prima ry Derangement Posterior Horn Medial Menisc us Due To Old Tear Or Injury Left Knee Primary Osteoarthritis Knee Right documented in this encounter Administered Medications Inactive Administered Medications - up to 3 most recent administrations Medication Order MAR Action Action Date Dose Rate Site lidocaine 10 mg/mL (1 %) injection Given 01/26/2020 11:02 AM CLERGY MEMBER 6 mL 6 mL (XYLOCAINE) 6 mL, infiltration, One-Time Injection, Starting on Sat01/26/20 at 1102, For 1 dose lidocaine 10 mg/mL (1 %) injection 6 mL Given 01/26/2020 11:03 A M CLERGY MEMBER 6 mL (XYLOCAINE) 6 mL, infiltration, One-Time Injection, Starting on Sat01/26/20 at 1103, For 1 dose triamcinolone acetonide injection 80 mg Given 01/26/2020 11:02 A M CLERGY MEMBER 80 mg (KENALOG-40) 80 mg, intra-articular, One-Time Injection, Starting on Sat01/26/20 at 1102, For 1 dose triamcinolone acetonide injection 80 mg Given 01/26/2020 11:03 A M CLERGY MEMBER 80 mg (KENALOG-40) 80 mg, intra-articular, One-Time Injection, Starting on Sat01/26/20 at 1103, For 1 dose documented in this encounter Care Teams Dolphin Researcher Relationship Specialty Start Date End Date lCair Simms APRN, C.N.P., D.N.P. PCP - General 06/03/[id number] [place] [phone] documented as of this encounter
--- OUTSIDE RECORDS SUMMARY | 2021-12-17 14:01 | XMS_ITS | Encounter Summary ---
:1950 Author Organization [facility] Address [address] [place] [address] Care Team Providers Name Role Phone Cierra Chandler P.A.-C. Primary Care Provider [phone] Encounter Details Date Type Department Care Team Description 02/12/2018 Hospital Encounter Department of Cierra Chandler Mammogram Radiology in Wilberto Owusu P.A.-C. Average Risk Patient [address] [address] [phone] Social History Tobacco Use Types Packs/Day Years Used Date Smoking Tobacco: Never Smokeless Tobacco: Never Alcohol Use Standard Drinks/Week Comments No 0 (1 standard drink = 0.6 oz pure alcoho l) Alcohol Habits Answer Date Recorded How often do you have a drink containing 4 or more times a w squaxin 08/10/2021 alcohol? How many drinks containing alcohol [...] More than 4 times per year 08/10/2021 gnosticist services? Do you belong to any clubs [...] Radiology Clair Simms , ALLEN, C.N.P., D.N.P. [address] [address] (Wo rk) Scheduled Procedures Name Priority Associated Diagnoses Date/Time COLONOSCOPY Screening Colon Cancer Average R isk documented as of this encounter Procedures Procedure Name Priority Date/Time Associated Comments Diagnosis BI BREAST RAD - Routine 02/12/2018 1:51 Screening Results for this SCREENING (most inpatients PM COMMUNITY SUPPORT SPECIALIST Mammogram Average proced ure are in BILATERAL and all Risk Patient the results outpatients) section. documented in this encounter Results BI Breast Screening Bilateral (02/12/2018 1:51 PM COMMUNITY SUPPORT SPECIALIST) Anatomical Region Laterality Modality Breast, Breast Imaging RST LOS, Breast Imaging ARZ LOS, [place] [address] Bilateral Mammography Imaging FLA LOS Specimen (Source) Anatomical Collection Method Collection Time Re ceived Time Location / / Volume Laterality 02/14/2018 8:58 AM COMMUNITY SUPPORT SPECIALIST Impressions 02/14/2018 9:19 AM COMMUNITY SUPPORT SPECIALIST IMPRESSION: ??Benign. RECOMMENDATION: ??Annual Screening Mammo gram ASSESSMENT: ??BI-RADS: 2: Benign. Narrative 02/14/2018 9:19 AM COMMUNITY SUPPORT SPECIALIST EXAM: ??BI BREAST SCREENING BILATERAL Current study was evaluated with a Compu ter Aided Detection (CAD) system. INDICATION: ??Screening mammogram. COMPARISON: ??Prior exam(s) were availab le and reviewed for comparison. DENSITY: ??b. There are scattered areas of fibroglandular density. FINDINGS: ??Benign coarse calcification middle depth right breast. ??Benign secretory calcifications also noted bila teral breasts. ??No mammographic evidence of malignancy in either breast. Procedure Note Adarsh Crowley M.D. - 02/14/2018Formatti ng of this note might be different from the original. EXAM: BI BREAST SCREENING BILATERAL Current study was evaluated with a Compu ter Aided Detection (CAD) system. INDICATION: Screening mammogram. COMPARISON: Prior exam(s) were available and reviewed for comparison. DENSITY: b. There are scattered areas of fibroglandular density. FINDINGS: Benign coarse calcification mi ddle depth right breast. Benign secretory calcifications also noted bila teral breasts. No mammographic evidence of malignancy in either breast. IMPRESSION: Benign. RECOMMENDATION: Annual Screening Mammogr am ASSESSMENT: BI-RADS: 2: Benign. Cierra Chandler P.A.-C. IMG BI PROCEDURES documented in this encounter Visit Diagnoses Diagnosis Screening Mammogram Average Risk Patient documented in this encounter Care Teams Manager Hi Relationship Specialty Start Date End Date Cierra Chandler P.A.-C. PCP - General 12/14/16 06/02/19 documented as of this encounter
--- OUTSIDE RECORDS SUMMARY | 2021-12-17 14:01 | XMS_ITS | Encounter Summary ---
:1950 Author Organization [facility] Address [address] [place] [address] Care Team Providers Name Role Phone Cierra Chandler P.A.-C. Primary Care Provider [phone] Encounter Details Date Type Department Care Team Description 02/13/2018 Clinical Communication Department of [facility] Baldemar Chandler [facility], [place] Jose Owusu [facility], [id number] [place] [address] [phone] (Work) [phone] Social History Tobacco Use Types Packs/Day Years Used Date Smoking Tobacco: Never Smokeless Tobacco: Never Alcohol Use Standard Drinks/Week Comments No 0 (1 standard drink = 0.6 oz pure alcoho l) Alcohol Habits Answer Date Recorded How often do you have a drink containing 4 or more times a w tangirnaq 08/10/2021 alcohol? How many drinks containing alcohol [...] Radiology Clair Simms , ALLEN, C.N.P., D.N.P. [address] [phone] (Wo rk) Scheduled Procedures Name Priority Associated Diagnoses Date/Time COLONOSCOPY Screening Colon Cancer Average R isk documented as of this encounter Visit Diagnoses Not on filedocumented in this encounter Care Teams School Cafeteria Cook Head Relationship Specialty Start Date End Date Cierra Chandler PIshmaelAMoodyC. PCP - General 12/14/16 06/02/19 documented as of this encounter
--- OUTSIDE RECORDS SUMMARY | 2021-12-17 14:01 | XMS_ITS | Encounter Summary ---
:1950 Author Organization [facility] Address [address] [place] [address] Care Team Providers Name Role Phone Cierra Chandler P.A.-C. Primary Care Provider Encounter Details Date Type Department Care Team Description 01/13/2019 Orders Only Department of Family [place], Clair M, Hy perlipidemia (Primary Medicine, Wilberto VILLA, C.N.P., Dx) [facility], in D.N.P. [address] [phone] Social History Tobacco Use Types Packs/Day Years Used Date Smoking Tobacco: Never Smokeless Tobacco: Never Alcohol Use Standard Drinks/Week Comments No 0 (1 standard drink = 0.6 oz pure alcoho l) Alcohol Habits Answer Date Recorded How often do you have a drink containing 4 or more times a w [place] 08/10/2021 alcohol? How many drinks containing alcohol [...] or relatives? How often do you attend yarsani or More than 4 times per year 08/10/2021 orthodox services? Do you belong to any clubs or Yes 08/10/2021 organizations such as yarsani groups, unions, fraternal or athletic groups, or [...] Radiology Clair Simms , ALLEN, C.N.P., D.N.P. [address] [phone] (Wo rk) Scheduled Procedures Name Priority Associated Diagnoses Date/Time COLONOSCOPY Screening Colon Cancer Average R isk documented as of this encounter Visit Diagnoses Diagnosis Hyperlipidemia - Primary documented in this encounter Care Teams Concierge Manager Relationship Specialty Start Date End Date Cierra Chandler, PIshmaelA.-C. PCP - General 12/14/16 06/02/19 documented as of this encounter
--- OUTSIDE RECORDS SUMMARY | 2021-12-17 14:01 | XMS_ITS | Encounter Summary ---
:1950 Author Organization [facility] Address [address] [place] [address] Care Team Providers Name Role Phone Cierra Chandler P.A.-C. Primary Care Provider Reason for Visit Reason Onset Date Comments FYI 02/20/2019 Encounter Details Date Type Department Care Team Description 02/20/2019 Clinical Communication Department of [facility] Medicine, [place] Jose Owusu [facility], in [address] [address] [place], [place] [phone] (Work) [phone] Social History Tobacco Use Types Packs/Day Years Used Date Smoking Tobacco: Never Smokeless Tobacco: Never Alcohol Use Standard Drinks/Week Comments No 0 (1 standard drink = 0.6 oz pure alcoho l) Alcohol Habits Answer Date Recorded How often do you have a drink containing 4 or more times a w [place] 08/10/2021 alcohol? How many drinks containing alcohol [...] or relatives? How often do you attend denominational or More than 4 times per year 08/10/2021 christian services? Do you belong to any clubs or Yes 08/10/2021 organizations such as denominational groups, unions, fraternal or athletic groups, or [...] or slept in a fpc (including now)? Sex Assigned at Date Recorded Female 11/19/2020 2:34 PM CDT documented as of this encounter Miscellaneous Notes Telephone Encounter - Muriel Seay - 02/20/2019 3:19 PM CST Reason for Communication: Fei called in to schedule her Lipid test but she is not doing it untilMay . She would like to try diet and exercise to get her cholesterol down before she starts to take medication. Current Can Nursing/Provider leave a detailed message: No Did the patient refuse triage through Nurse line? (for symptom based concerns): NA Action Needed: She just wanted to let Clair Simms know that she is holding off on getting her Lipid checked. Name of Medication (if relevant): CTOR OF INFECTION CONTROL documented in this encounter Plan of Treatment Upcoming Encounters Date Type Specialty Care Team Description 01/23/2022 Appointment Radiology Clair Simms APRN, C.N.P., D.N.P. [address] [phone] (Wo rk) Scheduled Procedures Name Priority Associated Diagnoses Date/Time COLONOSCOPY Screening Colon Cancer Average R isk documented as of this encounter Visit Diagnoses Not on filedocumented in this encounter Care Teams School Crossing Guard Supervisor Relationship Specialty Start Date End Date Cierra Chandler P.A.-C. PCP - General 12/14/16 06/02/19 documented as of this encounter
--- OUTSIDE RECORDS SUMMARY | 2021-12-17 14:01 | XMS_ITS | Encounter Summary ---
:1950 Author Organization [facility] Address [address] [place] [address] Care Team Providers Name Role Phone Cierra Chandler P.A.-C. Primary Care Provider [phone] Reason for Visit Reason Onset Date Comments Appointment 12/24/2018 Encounter Details Date Type Department Care Team Description 12/24/2018 Clinical Communication Department of [facility] Baldemar Chandler Appointment Medicine, [place] Jose Owusu [facility], in [id number] [place] [address] [phone] (Work) [phone] Social History Tobacco Use Types Packs/Day Years Used Date Smoking Tobacco: Never Smokeless Tobacco: Never Alcohol Use Standard Drinks/Week Comments No 0 (1 standard drink = 0.6 oz pure alcoho l) Alcohol Habits Answer Date Recorded How often do you have a drink containing 4 or more times a w [place] 08/10/2021 alcohol? How many drinks containing alcohol [...] More than 4 times per year 08/10/2021 jehovah's witness services? Do you belong to any clubs [...] this encounter Miscellaneous Notes Telephone Encounter - Jacy Lay R.N. - 12/25/2018 11:07 AM CDT Patient was informed she needs to establish care with a new provider to discuss the list of requests. Patient still requesting a provider to order the testing. RN informed her that she needs to be seen. Telephone Encounter - Maurisio Clemens M.D., Ph.D. - 12/24/2018 4:12 PM CDT Please have her make an appt Telephone Encounter - Amara Rojas C.MGriselda - 12/24/2018 4:01 PM CDT No appointment scheduled will route to doc of the day. Telephone Encounter - Shala Aguilar - 12/24/2018 1:09 PM CDT Patient is requesting the following: Bone Density Scan (Osteoporosis Screen) Fasting Lipid Panel Dtap,Tdap,And Td Vaccines Fasting Glucose For Diabetes Screening C-reactive protein Please send to scheduling when ordered. Thanks. documented in this encounter Plan of Treatment Upcoming Encounters Date Type Specialty Care Team Description 01/23/2022 Appointment Radiology Clair Simms , ALLEN, C.N.P., D.N.P. [address] [phone] (Wo rk) Scheduled Procedures Name Priority Associated Diagnoses Date/Time COLONOSCOPY Screening Colon Cancer Average R isk documented as of this encounter Visit Diagnoses Not on filedocumented in this encounter Care Teams Director Clinical Applications Relationship Specialty Start Date End Date Cierra Chandler P.A.-C. PCP - General 12/14/16 06/02/19 documented as of this encounter
--- OUTSIDE RECORDS SUMMARY | 2021-12-17 14:02 | XMS_ITS | Encounter Summary ---
:1950 Author Organization [facility] Address [address] [place] [address] Care Team Providers Name Role Phone Cierra Chandler P.A.-C. Primary Care Provider [phone] Reason for Visit Auth/Cert Specialty Diagnoses / Procedures Referred By Contact Refer red To Contact Diagnoses Screening Cancer Colon screening colonoscopy Procedures COLONOSCOPY Referral ID Status Reason Start Date Expiration Date Visits Requ ested Visits Authorized [id number] 1 1 Encounter Details Date Type Department Care Team Description 01/10/2017 Surgery [facility] Nieves Obrien M.D. COLONOSCOPY [address] [place], [place] [phone] [place], [place] [phone] (Wo rk) Social History Tobacco Use Types Packs/Day Years Used Date Smoking Tobacco: Never Smokeless Tobacco: Never Alcohol Use Standard Drinks/Week Comments Yes 7 (1 standard drink = 0.6 oz pure alcoho l) Alcohol Habits Answer Date Recorded How often do you have a drink containing 4 or more times a w [place] 08/10/2021 alcohol? How many drinks containing alcohol [...] More than 4 times per year 08/10/2021 yazidism services? Do you belong to any clubs [...] place to sleep or slept in a usp (including now)? Sex Assigned at Date Recorded Female 11/19/2020 2:34 PM CDT documented as of this encounter Last Filed Vital Signs Vital Sign Reading Time Taken Comments Blood Pressure - - Pulse 78 01/10/2017 7:39 AM CHARGING CAR OPERATOR Temperature 36.8 ??C (98.2 ??F) 01/10/2017 7:39 AM CHARGING CAR OPERATOR Respiratory Rate 18 01/10/2017 7:39 AM CHARGING CAR OPERATOR Oxygen Saturation 98% 01/10/2017 7:39 AM CHARGING CAR OPERATOR Inhaled Oxygen Concentration - - Weight 65 kg (143 lb 4.8 oz) 01/10/2017 7:39 AM CHARGING CAR OPERATOR Height 174 cm (5' 8.5) 01/10/2017 7:39 AM CHARGING CAR OPERATOR Body Mass Index 21.47 01/10/2017 7:39 AM CHARGING CAR OPERATOR documented in this encounter Discharge Instructions AttachmentsThe following attachments cannot be sent through Care Everywhere. Polyps of the Colon and Rectum ([place]ymraes)Care Following Colonoscopy ([place]es) documented in this encounter Medications at Time of Discharge Medication Sig Dispensed Refills Start Date End Date albuterol (for_ACCUNEB) 2.5 Inhale 2.5 mg 0 09/20 mg /3 mL nebulizer solution every 6 (six) hours. As needed cetirizine 10 mg capsule Take by mouth 0 05/13/19 16 daily. clonazePAM (for_KlonoPIN) Take 0.5 mg by 0 2015 0.5 mg tablet mouth daily. fluticasone-vilanterol Inhale daily. 0 06/20/2016 (for_BREO ELLIPTA DISKUS) 200-25 mcg/act inhaler gabapentin (for_NEURONTIN) Take by mouth 0 2015 300 mg capsule daily. montelukast (for_SINGULAIR) Take 1 tablet by 0 10 mg tablet mouth every evening. cyclobenzaprine Take by mouth 0 05/13/20152021 (for_FLEXERIL) 10 mg tablet daily. documented as of this encounter Procedure Notes Nieves Obrien M.D. - 01/10/2017 7:47 AM CSTAssociated Order(s): COLONOSCOPY [facility] Patient Name: Fei Quintana Procedure Date: 01/10/2017 7:47 AM Date of : 1950 Age: 66 Gender: Female Procedure: Colonoscopy Providers: Nieves Obrien MD Pre-op Diagnoses: Screening for colorectal malignant neoplasm Post-op Diagnoses: - Five 3 to 4 mm polyps in the ascending colon, removed with a cold biopsy forceps. Resected and retrieved. - The distal rectum and anal verge are normal on retroflexion view. - The examination was otherwise normal. Recommendation: - Patient has a contact number available for emergencies. The signs and symptoms of potential delayed complications were discussed with the patient. Return to normal activities tomorrow. Written discharge instructions were provided to the patient. - Resume previous diet. - Continue present medications. - Await pathology results. - Thank you, LIMA Esquivel, for your referral. - Repeat colonoscopy in 3 - 5 years for surveillance. Findings: The perianal and digital rectal examinations were normal. Five sessile polyps were found in the ascending colon. The polyps were 3 to 4 mm in size. These polyps were removed with a cold biopsy forceps. Resection and retrieval were complete. The retroflexed view of the distal rectum and anal verge was normal and showed no anal or rectal abnormalities. The exam was otherwise without abnormality. Medicines: Propofol per Anesthesia Complications: No immediate complications. Procedure Details: The patient was seen, evaluated, and history reviewed. Airway and heart and lung exams were performed and were satisfactory for planned sedation care. The risks, benefits and alternatives for the procedure and sedation were discussed and informed consent was obtained. A procedural pause was conducted in the presence of assisting personnel to verify the correct patient identity and procedure to be performed. Throughout the procedure, the patient's blood pressure, pulse, and oxygen saturations were monitored continuously. The Colonoscope was introduced under direct vision through the anus and advanced to the cecum, identified by appendiceal orifice and ileocecal valve. The colonoscopy was performed without difficulty. The patient tolerated the procedure well. Scope advanced to cecum using water exchange. The quality of the bowel preparation was evaluated using the BBPS (Lawndale Bowel Preparation Scale) with scores of: Right Colon = 3, Transverse Colon = 3 and Left Colon = 3 (entire mucosa seen well with no residual staining, small fragments of stool or opaque liquid). The total BBPS score equals 9. The ileocecal valve, appendiceal orifice, and rectum were photographed. Sedation: Anesthesia was administered by an anesthesia professional. The following parameters were monitored: oxygen saturation, heart rate, blood pressure, respiratory rate, EKG, adequacy of pulmonary ventilation, and response to care. Nieves Obrien MD 01/10/2017 9:28:59 AM This report has been signed electronically. Number of Addenda: 0 Note Initiated On: 01/10/2017 7:47 AM GING CAR OPERATOR documented in this encounter Plan of Treatment Upcoming Encounters Date Type Specialty Care Team Description 01/23/2022 Appointment Radiology Clair Simms APRN, C.N.P., D.N.P. [address] [phone] (Wo rk) Scheduled Procedures Name Priority Associated Diagnoses Date/Time COLONOSCOPY Screening Colon Cancer Average R isk documented as of this encounter Procedures Procedure Name Priority Date/Time Associated Comments Diagnosis ADULT OXYGEN THERAPY Routine 01/10/2017 9:27 AM CHARGING CAR OPERATOR PATHOLOGY SERVICES Routine 01/10/2017 8:58 AM Res ults for this CHARGING CAR OPERATOR procedure are i n the results section. COLONOSCOPY 01/10/2017 8:26 AM Screening Cancer CHARGING CAR OPERATOR Colon COLONOSCOPY 01/10/2017 7:47 AM Results f or this CHARGING CAR OPERATOR procedure are i n the results section. documented in this encounter Results Pathology Services (01/10/2017 8:58 AM CHARGING CAR OPERATOR) Component Value Ref Test Analysis Performed At [facility] Range Method Time Signature PATHOLOGY Patient Name: FEI QUINTANA [facility] MR#: [id number] [facility] Submitting Physician: NIEVES ??ANGELINE LUNA [id number] Specimen #[id number] Performing Lab: ??[facility] ? [address] [place] [id number] Source: Colon polyp Gross Description Received in a container labeled hepatic flexure and ascendin g colon are multiple, 0.2-0.4 cm in greatest dimensions portions o f tissue. ??The entire specimen is submitted in one cassette. KG/ed ?? Diagnosis Colon, hepatic flexure and ascending, biopsy: TUBULAR ADENOMA. Electronically Signed By TERENCE FARRELL MD - 01/11/2017 ed/01/11/2017 Specimen (Source) Anatomical Collection Method Collection Time Re ceived Time Location / / Volume Laterality Polyp (Colon) 01/10/2017 8:58 AM CHARGING CAR OPERATOR Nieves Obrien M.D. LAB SURG PATH ORDERABLES Performing Organization Address City/State/ZIP Code Phon e Number [address] [address] COLONOSCOPY (01/10/2017 7:47 AM CHARGING CAR OPERATOR) Specimen (Source) Anatomical Location Collection Method / Collectio n Time Received Time / Laterality Volume Narrative This result has an attachment that is no t available. Procedure Note Nieves Obrien M.D. - 01/10/2017 7:47 AM CST [facility] Patient Name: Fei Quintana Procedure Date: 01/10/2017 7:47 AM Date of : 1950 Age: 66 Gender: Female Procedure: Colonoscopy Providers: Nieves Obrien MD Pre-op Diagnoses: Screening for colorect al malignant neoplasm Post-op Diagnoses: - Five 3 to 4 mm polyps in the ascendin g colon, removed with a cold biopsy forceps. Resected and retrieved. - The distal rectum and anal verge are normal on retroflexion view. - The examination was otherwise normal. Recommendation: - Patient has a contact number availabl e for emergencies. The signs and symptoms of potential delayed complicat ions were discussed with the patient. Return to normal activities to [place]. Written discharge instructions were provided to the patie nt. - Resume previous diet. - Continue present medications. - Await pathology results. - Thank you, LIMA Esquivel, fo r your referral. - Repeat colonoscopy in 3 - 5 years for surveillance. Findings: The perianal and digital rectal examina tions were normal. Five sessile polyps were found in the a scending colon. The polyps were 3 to 4 mm in size. These polyps were salbador nate with a cold biopsy forceps. Resection and retrieval were complete. The retroflexed view of the distal rect um and anal verge was normal and showed no anal or rectal abnormalities. The exam was otherwise without abnormal ity. Medicines: Propofol per Anesthesia Complications: No immediate complication s. Procedure Details: The patient was seen, evaluated, and history reviewed. Airway and heart and lung exa ms were performed and were satisfactory for kasey nned sedation care. The risks, benefits and alternatives fo r the procedure and sedation were discussed a nd informed consent was obtained. A procedural paus e was conducted in the presence of assisting personnel to verify the correct patient identity and procedure to be performed. Throughout the procedure, the patient's blood pressure, pulse, and ox ygen saturations were monitored continuously . The Colonoscope was introduced under di rect vision through the anus and advanced to the ce cum, identified by appendiceal orifice and i leocecal valve. The colonoscopy was performed wi thout difficulty. The patient tolerated the p rocedure well. Scope advanced to cecum using roseline er exchange. The quality of the bowel preparation wa s evaluated using the BBPS (Lawndale Bowel Preparatio n Scale) with scores of: Right Colon = 3, Transverse Colon = 3 and Left Colon = 3 (entire mucosa seen well with no residual staining, small fragments of s tool or opaque liquid). The total BBPS score eq uals 9. The ileocecal valve, appendiceal orifice, a nd rectum were photographed. Sedation: Anesthesia was administered by an anest hesia professional. The following parameters were monitored: oxygen satur ation, heart rate, blood pressure, respiratory rate, EKG, adequa cy of pulmonary ventilation, and response to care. Nieves Obrien MD 01/10/2017 9:28:59 AM This report has been signed electronical ly. Number of Addenda: 0 Note Initiated On: 01/10/2017 7:47 AM Nieves Obrien M.D. GI PROCEDURE ORDERABLES documented in this encounter Visit Diagnoses Diagnosis Screening Cancer Colon documented in this encounter Administered Medications Inactive Administered Medications - up to 3 most recent administrations Medication Order MAR Action Action Date Dose Rate Site lactated ringers New Bag 01/10/2017 7:52 AM CHARGING CAR OPERATOR 20 mL/hr 20 mL/hr 20 mL/hr, intravenous, Continuous, Starting on Esme 01/10/17 at 0715, Pre-Op New Bag 01/10/2017 7:34 AM CHARGING CAR OPERATOR lactated ringers 100 mL/hr, intravenous, Continuous, Starting on Esme at 0930 documented in this encounter Active and Recently Administered Medications Times are shown in CHARGING CAR OPERATOR. Continuous Medication Order 01/08/2017 01/09/2017 01/10/2017 lactated ringers 0734 (New Bag - Provider: Swapnil Duran APRN, SALAS)0752 (New Bag - Provider: Magdalena Vazquez R.N.)0920 (Stopped - Provider: Swapnil Duran APRN, SALAS) 20 mL/hr, intravenous, Continuous, Starting on Esme 01/10/17 at 07 15, Pre-Op lactated ringers 0930 (Due) 100 mL/hr, intravenous, Continuous, Starting on Esme 01/10/17 at 0 930 documented in this encounter Care Teams Connie Cleaner Relationship Specialty Start Date End Date Cierra Chandler P.A.-C. PCP - General 12/14/16 06/02/19 documented as of this encounter
--- OUTSIDE RECORDS SUMMARY | 2021-12-17 14:02 | XMS_ITS | Encounter Summary ---
:1950 Author Organization [facility] Address [address] [place] [address] Care Team Providers Name Role Phone Unavailable Primary Care Provider Unavailable Encounter Details Date Type Department Care Team Description 06/29/2016 Hospital Encounter [facility]X [facility] Taylor Conner M.D. [address] [place], [place] [address] (Wo rk) Social History Tobacco Use Types Packs/Day Years Used Date Smoking Tobacco: Never Alcohol Habits Answer Date Recorded How often do you have a drink containing 4 or more times a w [place] 08/10/2021 alcohol? How many drinks containing alcohol [...] More than 4 times per year 08/10/2021 latter day services? Do you belong to any clubs [...] place to sleep or slept in a custodial (including now)? Sex Assigned at Date Recorded Female 11/19/2020 2:34 PM CDT documented as of this encounter Last Filed Vital Signs Vital Sign Reading Time Taken Comments Blood Pressure - - Pulse - - Temperature - - Respiratory Rate - - Oxygen Saturation - - Inhaled Oxygen Concentration - - Weight - - Height 174 cm (5' 8.5) 06/29/2016 9:40 AM CDT Body Mass Index - - documented in [...] tablet daily. documented as of this encounter Nursing Notes Kelli Banerjee L.PIshmaelN. - 06/29/2016 10:18 AM CDT Suture removal Three sutures removed from left neck incision. Incision is dry and approximated, slight redness around incision from irritation of sutures. Incsion was covered with steri strips. Patient tolerated suture removal well. Electronically Signed By: KELLI BANERJEE LPN On: 06/29/2016 10:20 AM Source: [facility] POWERCHART Document Id: [id number] documented in this encounter Miscellaneous Notes Miscellaneous - Papo Collins - 08/03/2016 10:51 AM CDT Health Maintenance Reminder August 03, 2016 BRIGID QUINTANA [address] [place] [phone] Dear BRIGID QUINTANA, We have developed a six-month overview of preventive and recommended services that apply to your unique health care needs. Some may be past due or may be coming due in the next three months. If youhave already scheduled any or all of these services, thank you. We recognize that this may or may not include all of your individualized health care needs; however, we are happy to help you with any and all primary care concerns you may have. Past Due Colon Cancer Screening Fasting Lipid Panel Mammogram for Breast Cancer Screening It may be possible to bundle some of the above services together to make your visit with us more convenient. Please call [phone] to schedule services that are past due or that may shortly become due (thank you if you have already done so). We will follow up in three to six months should you have more services to schedule at that time. If you have already received any of the listed past due or upcoming services outside of [facility], please call [phone] to add them to your medical record. You may want to consider contacting your health insurance company to make sure these services are covered and find out if there will be any [id number]-[id number] expense. If you have any questions about the services listed above, or if you are no longer receiving care from [facility], please contact us at [phone]. Thank you for partnering to provide you with the best care possible. Thank you for choosing us, Elisa Conner M.D. and the [place] [facility] Team, for your health care needs! Sincerely, PAPO COLLINS Electronic Signature Electronically Signed By: PAPO COLLINS On: August 03, 2016 This document has images extracted. Source: [facility] POWERCHART Document Id: [id number] Electronically signed by Cristina, [facility] Service Order Clerk [id number] at 09/04/2016 4:11 PM CDT documented in this encounter Plan of Treatment Upcoming Encounters Date Type Specialty Care Team Description 01/23/2022 Appointment Radiology Clair Simms APRN, C.N.P., D.N.P. [address] [phone] (Wo rk) Scheduled Procedures Name Priority Associated Diagnoses Date/Time COLONOSCOPY Screening Colon Cancer Average R isk documented as of this encounter Visit Diagnoses Not on filedocumented in this encounter
--- OUTSIDE RECORDS SUMMARY | 2021-12-17 14:02 | XMS_ITS | Encounter Summary ---
:1950 Author Organization [facility] Address [address] [place] [address] Care Team Providers Name Role Phone Cierra Chandler P.A.-C. Primary Care Provider [phone] Encounter Details Date Type Department Care Team Description 12/20/2016 Hospital Encounter [facility] Brendan Gresham, DIshmaelO. Social History Tobacco Use Types Packs/Day Years Used Date Smoking Tobacco: Never Alcohol Habits Answer Date Recorded How often do you have a drink containing 4 or more times a w [place] 08/10/2021 alcohol? How many drinks containing alcohol [...] or relatives? How often do you attend lutheran or More than 4 times per year 08/10/2021 hinduism services? Do you belong to any clubs or Yes 08/10/2021 organizations such as lutheran groups, unions, fraternal or athletic groups, or [...] Sign Reading Time Taken Comments Blood Pressure 110/78 12/20/2016 11:30 AM CDT Pulse - - Temperature - - Respiratory Rate - - Oxygen Saturation - - Inhaled Oxygen Concentration - - Weight 65 kg (143 lb 4.8 oz) 12/20/2016 11:30 AM CDT Height 174 cm (5' 8.5) 12/20/2016 11:30 AM CDT Body Mass Index 21.47 12/20/2016 11:30 AM CDT documented in this encounter Medications at Time [...] tablet daily. documented as of this encounter H&P Notes Brendan Lopez D.O. - 12/20/2016 11:22 AM CDT [id number] CHIEF COMPLAINT/REASON FOR VISIT History of a bulge at the opening of her vagina. HISTORY OF PRESENT ILLNESS This is a well-developed, well-nourished, very pleasant 66-year-old, white female who is a 2, para 2-0-0-2, with a menstrual index of until age 55 when her periods ceased. She stated she was actually doing well until the first part of the spring. Earlier this spring, she began noticing a bulge at the vagina. She stated that it was somewhat tender when she would try to wipe after urination. She stated after a few weeks, however, everything seemed to retract and she has not seen any bulge since. She denies any difficulty with urination with either leakage of urine or inabilityto empty her bladder. She denies any dysuria, hematuria, pyuria, history of recurrent cystitis, renal lithiasis or nephritis. She is not sexually active at the present time. This is due to her who did have bladder cancer but also had some cardiac problems and has not pursued sexual activity after that. She denies any unusual vaginal discharges. She also denies any fevers chills, nausea, vomiting, constipation, diarrhea. She states that actually she is doing well at this point. She denies any history of pelvic inflammatory disease, gonorrhea, syphilis, chlamydia, herpes, recurrent vaginal infections, trichomonas or abnormal Pap smears. She has had 2 full-term vaginal deliveries. She does state, however, she had very fast deliveries and delivered both of her children within half an hour. The patient does suffer from irritable bowel syndrome with alternating constipation and diarrhea. She denies doing her monthly self-breast examinations. She was told the need for this as well as technique. She denies any self or family history of breast disease. She denies any present apparent nipple retraction, nipple discharge, mass effects, dimpling, tenderness, or axillary adenopathy. ALLERGIES The patient is allergic to Levaquin which gives her tendon pain. MEDICATIONS 1. Albuterol inhaler every 6 hours as needed. 2. Breo Ellipta 200 inhalation daily. 3. Clonazepam 0.5 mg 1 to 2 by mouth daily. 4. Cyclobenzaprine 10 mg 1/2 tablet daily. 5. Gabapentin 300 mg 1 to 2 capsules daily. 6. Montelukast 10 mg 1 by mouth daily. 7. Zyrtec by mouth daily as needed. PAST MEDICAL/SURGICAL HISTORY PAST MEDICAL HISTORY: Remarkable for: 1. Asthma. 2. GERD. 3. Irritable bowel syndrome. 4. TMJ. 5. Thyroglossal duct cyst. 6. Liver hemangioma. 7. Hyperlipidemia. 8. Lipoma. 9. Restless legs syndrome. 10. Vertigo. 11. Varicose veins. PAST SURGICAL HISTORY: Remarkable for: 1. Excision of thyroglossal cyst. 2. Excision of lipoma from her back. SOCIAL HISTORY The patient is . She denies any use of tobacco products or street drugs. She does have a glass a wine at night with her at dinner. FAMILY HISTORY Remarkable for her mother who had lung cancer, depression, osteoporosis and suffered from drug abuse. Her father has type 2 diabetes and heart disease. SYSTEMS REVIEW GENERAL: Patient denies any history of night sweats, fevers, chills, anorexia, weakness, fatigue, orrecent weight changes. INTEGUMENT: Patient denies any history of rashes, lesions, ecchymoses, petechiae, eczema or psoriasis. BREASTS: See history of complaint. PULMONARY: Patient does have asthma and is on numerous medications for this. She denies, however, any history of chronic cough, hemoptysis, tuberculosis, emphysema, pneumonia. CARDIOVASCULAR: Patient denies any history of myocardial infarction, hypertension, angina pectoris, paroxysmal nocturnal dyspnea, dyspnea on exertion, syncope or peripheral edema. GASTROINTESTINAL: The patient does suffer from IBS and GERD. She however denies any history of nausea, vomiting, peptic ulcer disease, cholecystitis, jaundice, hepatitis, colitis, hematemesis, hematochezia or melena. URINARY: See history of chief complaint. GENITAL/REPRODUCTIVE: See history of chief complaint. NEUROLOGIC: Patient denies any history of migraine headaches, paralysis, paresth esias, seizures, tremors, or convulsions. ENDOCRINE: Patient denies any history of polyuria, polydipsia, temperature intolerances, change with regard to the pigmentation, distribution or texture of thehair, skin, or nails; diabetes or thyroid disease. She does have some problems with hyperlipidemia which is controlled with diet. PSYCHIATRIC: The patient denies any history of anxiety, depression, bipolar disorder, panic attacks, psychoses or other psychiatric illnesses. PHYSICAL EXAMINATION VITAL SIGNS: Blood pressure is 110/78. Height 174 cm, weight 65 kg yielding a BMI of 21.47. GENERAL: This is a well-developed, well-nourished 66-year-old white female in no acute distress. HEAD: Normocephalic with hair of normal distribution, color and texture. NECK: Supple without thyromegaly, cervical lymphadenopathy or supraclavicular lymphadenopathy. LUNGS: Clear to auscultation bilaterally without wheezes, rales, wheezes rales or rhonchi. HEART: Regular rate and rhythm without murmur, S3, S4, gallop rhythms, clicks, rubs, thrills or heaves. ABDOMEN: Soft, pliable, nontender. Normoactive bowel sounds were noted in all 4 quadrants. No rigidity, rebound or guarding was appreciated. PELVIC: The uterus is anteflexed, midline and mobile. There is a grade 2 prolapse noted but nothing more than that. The adnexa are without any mass effects or tenderness. The cervix was parous without lesion. No lesions were noted in the vaginal vault. The vaginal mucosa was pale and thin. No unusual d ischarges, however, were noted and no lesions were appreciated. The vaginal introitus is somewhat stenotic but will allow a medium-sized speculum still. External genitalia revealed normal developmentalpatterns. There is normal female escutcheon. Bartholin and Posey glands are unremarkable. There is agrade 2 midline cystocele. The bladder is nontender, however. RECTAL: Digital exam of the rectum revealed good sphincter tone without mass effects or feces in therectal vault. There was a very slight rectocele noted, nothing more than a grade 1. IMPRESSION/REPORT/PLAN 1. Grade 2 uterine prolapse. 2. Grade 2 cystocele. PLAN: The patient is going to follow this conservatively at the present time. Since she is not having any difficulties, as long as things stay the way they are, she will again follow this conservatively. If, on the other hand, she begins having problems with urination or pelvic pressure or pain, or ifshe began noticing truly a bulge coming out of the vagina she will contact us so that we can reassess. If possible in the future if she needed it, she would like to try a pessary before any surgery. Wedid talk about the fact that pessaries are usually the 1st choice in correcting these. We also talked about the use of estrogen with pessary use. We will therefore see her back here on an as-needed basis. Brendan Lopez D.O./kelvin Electronically Signed By: BRENDAN LOPEZ DO On: 12/20/2016 02:25 PM Source: [facility] MHSDOLBEYNONRADSYS Document Id: [id number] documented in this encounter Miscellaneous Notes Miscellaneous - Anneliese Crawford L.P.NIshmael - 12/20/2016 11:59 AM CDT Business Office Technician Documentation Business Office Technician Documentation Entered On: 12/20/2016 11:59 CDT Performed On: 12/20/2016 11:59 CDT by ANNELIESE CRAWFORD LPN Business Office Technician Documentation Exam/Procedure Performed : Pelvic exam CD Business Office Technician Present : Yes CD Business Office Technician Name : ANNELIESE James LPN - 12/20/2016 11:59 CDT Source: [facility] POWERCHART Document Id: [id number] CDT!5 Miscellaneous - Kristyn Brower L.P.NIshmael - 12/20/2016 11:30 AM CDT Adult Bus Steward Intake/History Adult Bus Steward Intake/History Entered On: 12/20/2016 11:32 CDT Performed On: 12/20/2016 11:30 CDT by KRISTYN BROWER LPN Intake Chief Complaint : uterine vaginal prolapse LMP Date : Postmenopausal Systolic Blood Pressure : 110 mmHg Diastolic Blood Pressure : 78 mmHg NIBP Mean : 89 mmHg BP Location : Right upper extremity Blood Pressure Cuff Size : Regular Height : 174 cm(Converted to: 5 ft 9 inch(es), 69 inch(es)) Actual Weight : 65 kg(Converted to: 143 lb 5 oz) Dosing Weight Clinic : 65 kg Clinic BSA : 1.77 Body Mass Index : 21.47 kg/m2 KRISTYN BROWER LPN - 12/20/2016 11:30 CDT General Info Information Given By : Patient Languages : Greenlandic Is Patient Female and 13-50 no hysterectomy : No KRISTYN BROWER LPN - 12/20/2016 11:30 CDT Subjective Pain Symptoms : No KRISTYN BROWER LPN - 12/20/2016 11:30 CDT Dependent Habits Exposure to Tobacco Smoke : Other: Never Smoking Status : Never smoker Tobacco 2A : No Tobacco Use/Currently Using : No Tobacco Use/Last 30 Days : No Tobacco Use/Last 12 months : No Alcohol Use : Yes KRISTYN BROWER LPN - 12/20/2016 11:30 CDT Caffeine Use Grid Caffeine Use : Current Type : Coffee Frequency : Daily KRISTYN BROWER LPN - 12/20/2016 11:30 CDT Recreational Drug Use Grid Drug Use : None KRISTYN BROWER LPN - 12/20/2016 11:30 CDT Source: [employer] Document Id: [id number] CDT!36 Miscellaneous - Kristyn Brower LIshmaelPIshmaelNIshmael - 12/20/2016 11:28 AM CDT Health Assessment Health Assessment Entered On: 12/20/2016 11:30 CDT Performed On: 12/20/2016 11:28 CDT by KRISTYN BROWER LPN Health Assessment Complete Health Assessment Complete or Modified : Annual Health Assessment Annual Health Assessment Completed : Yes KRISTYN BROWER LPN - 12/20/2016 11:28 CDT Nutrition Nutrition Risk Factors by History Adult : None KRISTYN BROWER LPN - 12/20/2016 11:28 CDT Functional Current Daily Living Assistance : None KRISTYN BROWER LPN - 12/20/2016 11:28 CDT Dependent Habits Exposure to Tobacco Smoke : Other: Never Smoking Status : Never smoker Tobacco 2A : No Tobacco Use/Currently Using : No Tobacco Use/Last 30 Days : No Tobacco Use/Last 12 months : No Alcohol Use : Yes KRISTYN BROWER [facility] - 12/20/2016 11:28 CDT Caffeine Use Grid Caffeine Use : Current Type : Coffee Frequency : Daily KRISTYN BROWER [facility] 12/20/2016 11:28 CDT Recreational Drug Use Grid Drug Use : None KRISTYN BROWER [facility] 12/20/2016 11:28 CDT AUDIT Tool How Often Do You Have A Drink : 4 or more times a week How Many Drinks in a Day When Drinking : 1 or 2 Six or More Drinks On One Occassion : Never Audit Phase 1 Score : [address] [facility] - 12/20/2016 11:28 CDT Psychosocial Domestic Abuse Concerns : None Behavioral Health Screen/Safety Assmt : No Samaritan Preference : No qualifying data available. KRISTYN BROWER [facility] 12/20/2016 11:28 CDT Advance Directive Advanced Directives : Yes Advance Directive Type : Living will Advance Directive Location : Scanned into EMR KRISTYN BROWER [facility] 12/20/2016 11:28 CDT Educ Needs Learning Style Preference Adult Grid Patient : None Family : None KRISTYN BROWER [facility] 12/20/2016 11:28 CDT Source: [employer] Document Id: [id number] CDT!41 documented in this encounter Plan of Treatment Upcoming Encounters Date Type Specialty Care Team Description 01/23/2022 Appointment Radiology Clair Simms APRN, C.N.P., D.N.P. [id number] [phone] (Wo rk) Scheduled Procedures Name Priority Associated Diagnoses Date/Time COLONOSCOPY Screening Colon Cancer Average R isk documented as of this encounter Visit Diagnoses Not on filedocumented in this encounter Care Teams Rod Mill Tender Relationship Specialty Start Date End Date Cierra Chandler P.A.-C. PCP - General 12/14/16 06/02/19 documented as of this encounter
--- OUTSIDE RECORDS SUMMARY | 2021-12-17 14:02 | XMS_ITS | Encounter Summary ---
:1950 Author Organization [facility] Address [address] [place] [address] Care Team Providers Name Role Phone Cierra Chandler P.A.-C. Primary Care Provider [phone] Reason for Visit Auth/Cert Specialty Diagnoses / Procedures Referred By Contact Refer red To Contact Diagnoses Screening Cancer Colon screening colonoscopy Procedures COLONOSCOPY Referral ID Status Reason Start Date Expiration Date Visits Requ ested Visits Authorized [id number] 1 1 Encounter Details Date Type Department Care Team Description 01/10/2017 Anesthesia Event [facility] OR Swapnil Duran, [address] [place] [address] [place], [place] [address] Anesthesia Record Procedure Summary Procedure Name Responsible Anesthesiologist Anesthesia Start Ti me Anesthesia Stop Time COLONOSCOPY Swapnil Duran, [place], 01/10/17 0840 110 11/18 0924 R.N. Events Date Time Event Comment 01/10/2017 0741 0840 An Start Machine/Equipmen t Checked Infection Precautions Foll owed Procedure/Site Verified NPO Sta tus Verified Supine Standard ASA Mon itors Applied 0841 In Room 0844 Turnover to Proceduralist 0848 Proc Start 0922 Turnover to ANE Staff 0922 Proc Fin 0923 an stop data 0924 An End I completed my h andoff to the receiving staff during [facility] 1. Identified the patient 2. Ident ified the responsible provider 3. Revi ewed the pertinent medical history 4. Discu ssed the surgical course 5. Reviewed intra-o p anesthesia management and issues during an esthesia 6. Set expectations for post-procedure period 7. Allowed opportun ity for questions and acknowledgement of understanding. 924 Out of Room Name Total midazolam PF injection 1 mg/mL 2 mg propofol 10 mg/mL injection 350 mg lidocaine PF 2% injection 2 mL ondansetron PF 4 mg/2 mL injection 4 mg lactated ringers 900 mL Agents No agents on file. Blood No blood administrations on file. Lines, Drains, and Airways Type Details Placement Removal Peripheral IV Placement Date: 01/10/17; 01/10/17729 by 01/10 1004 by Placement Time: 729; Magdalena Vazquez A, Magdalena Vazquez A, Catheter Size: 20 G; R.N. R.N. Orientation: Right; Location: Hand; Site Prep: Chlorhexidine (Preferred); Technique: Anatomical landmarks; Inserted by: Bernie Wright; Insertion Attempts: 1; Removal Date: 01/10/17; Removal Time: 100; Removal Reason: Per protocol documented in this encounter Social History Tobacco Use Types Packs/Day Years Used Date Smoking Tobacco: Never Smokeless Tobacco: Never Alcohol Use Standard Drinks/Week Comments Yes 7 (1 standard drink = 0.6 oz pure alcoho l) Alcohol Habits Answer Date Recorded How often do you have a drink containing 4 or more times a w teller 08/10/2021 alcohol? How many drinks containing alcohol [...] More than 4 times per year 08/10/2021 restorationism services? Do you belong to any clubs [...] PM CDT documented as of this encounter OR Notes Anesthesia Postprocedure Evaluation - Swapnil Duran APRN, CRNA - 01/10/2017 10:08 AM CST Patient: Fei Quintana Procedure Summary Date: 01/10/17 Room / Location: [place] [address] CACF 02 2-216 / [facility]F OR Anesthesia Start: 839 Anesthesia Stop: 923 Procedure: COLONOSCOPY (N/A ) Diagnosis: Screening Cancer Colon (screening colonoscopy) Surgeon: Burton Obrien M.D. Responsible Provider: Swapnil Duran APRN, CRNA Anesthesia Type: MAC ASA Status: 2 Anesthesia Type: MAC Last vitals BP 132/65 (01/10/17 0930) Temp 36.4 ??C (01/10/17 0931) Pulse 60 (01/10/17 0935) Resp 18 (01/10/17 0739) SpO2 100 % (01/10/17934) Anesthesia Post Evaluation 01/10/2017 10:08 AM Patient Disposition: dismissal Cardiovascular status: hemodynamics (HR & BP) acceptable Respiratory status: patent airway with spontaneous effort Temperature: normothermic Oxygen requirements: room air Level of consciousness: awake Pain score: pain adequately controlled and/or at baseline Hydration status: euvolemic ILE FINISHER Anesthesia Preprocedure Evaluation - Swapnil Duran APRN, CRNA - 01/07/2017 9:40 AM CST Anesthesia Pre-Evaluation Review of Systems and Problem List PROBLEM LIST Relevant Problems (+) Asthma NOS OBJECTIVE PHYSICAL EXAMINATION Airway (HEENT) Mallampati: II TM Distance: >3 FB Neck ROM: Full] Cardiovascular Rhythm: Regular Rate: Normal Cardiovascular Assessment: Normal Pulmonary Pulmonary Assessment: Clear Neurological Normal Dental Normal General / Constitutional Normal ASSESSMENT / PLAN ANESTHESIA PLAN ASA: 2 Anesthesia Plan: MAC Patient seen and allergies reviewed; anesthesia plan and risks discussed directly with patient / legal guardian, or through an water service supervisor; patient evaluated and approved for anesthesia / sedation. Use of blood products discussed with patient who consented to blood products. MAC Patient identified, chart reviewed, anesthetic plan discussed with patient, patient agrees with plan. EC12/26/16: NSR, LA enlarge, normal Ht 174 Wt 65 BMI 21 Neck Diameter 33 H&P BP 132/67 HR 77 RR 18 Sat 99% Labs None Hbg Hct Wb Plt Na K Glu CTN PT INR A1c ILE FINISHER documented in this encounter Plan of Treatment Upcoming Encounters Date Type Specialty Care Team Description 01/23/2022 Appointment Radiology Clair Simms APRN, C.N.P., D.N.P. [address] [phone] (Wo rk) Scheduled Procedures Name Priority Associated Diagnoses Date/Time COLONOSCOPY Screening Colon Cancer Average R isk documented as of this encounter Visit Diagnoses Not on filedocumented in this encounter Administered Medications Inactive Administered Medications - up to 3 most recent administrations Medication Order MAR Action Action Date Dose Rate Site lactated ringers New Bag 01/10/2017 7:52 AM TEXTILE FINISHER 20 mL/hr 20 mL/hr 20 mL/hr, intravenous, Continuous, Starting on Esme 01/10/17 at 0715, Pre-Op New Bag 01/10/2017 7:34 AM TEXTILE FINISHER lidocaine (PF) 20 mg/mL (2 %) injection Given 01/10/2017 8:45 AM TEXTILE FINISHER 2 mL (for_XYLOCAINE) As needed, Starting on Esme 01/10/17 at 0845, Anesthesia Intra-op midazolam (PF) injection (for_VERSED) Given 01/10/2017 8:39 AM TEXTILE FINISHER 2 mg As needed, Starting on Esme 01/10/17 at 0839, Anesthesia Intra-op ondansetron (PF) injection (for_ZOFRAN) Given 01/10/2017 9:32 AM TEXTILE FINISHER 4 mg As needed, nausea, vomiting, Starting on Esme 01/10/17 at 0932, Anesthesia Intra-op propofol injection (for_DIPRIVAN) Given 01/10/2017 9:20 AM TEXTILE FINISHER 30 mg intravenous, As needed, Starting on Esme 01/10/17 at 0845, Anesthesia Intra-op Given 01/10/2017 9:15 AM TEXTILE FINISHER 20 mg Given 01/10/2017 9:13 AM TEXTILE FINISHER 20 mg documented in this encounter Care Teams Quality Assurance Qa Lab Technician Relationship Specialty Start Date End Date Cierra Chandler P.A.-C. PCP - General 12/14/16 06/02/19 documented as of this encounter
--- OUTSIDE RECORDS SUMMARY | 2021-12-17 14:02 | XMS_ITS | Encounter Summary ---
:1950 Author Organization [facility] Address [address] [place] [address] Care Team Providers Name Role Phone Unavailable Primary Care Provider Unavailable Encounter Details Date Type Department Care Team Description 05/13/2015 Hospital Encounter HX [facility] Taylor Mann M.D. [address] [place], [place] [address] (Wo rk) Social History Tobacco Use Types Packs/Day Years Used Date Smoking Tobacco: Never Assessed Alcohol Habits Answer Date Recorded How often do you have a drink containing 4 or more times a w [place] 08/10/2021 alcohol? How many drinks containing alcohol [...] or relatives? How often do you attend religious or More than 4 times per year 08/10/2021 anglican services? Do you belong to any clubs or Yes 08/10/2021 organizations such as religious groups, unions, fraternal or athletic groups, or [...] Sign Reading Time Taken Comments Blood Pressure 127/83 05/13/2015 7:14 AM FORCE ADJUSTMENT SUPERVISOR Pulse 76 05/13/2015 7:14 AM FORCE ADJUSTMENT SUPERVISOR Temperature - - Respiratory Rate 16 05/13/2015 7:14 AM FORCE ADJUSTMENT SUPERVISOR Oxygen Saturation - - Inhaled Oxygen Concentration - - Weight 62.6 kg (138 lb 0.1 oz) 05/13/2015 7:14 AM FORCE ADJUSTMENT SUPERVISOR Height 174 cm (5' 8.5) 05/13/2015 7:14 AM FORCE ADJUSTMENT SUPERVISOR Body Mass Index 20.68 05/13/2015 7:14 AM FORCE ADJUSTMENT SUPERVISOR documented in this encounter Medications at Time of Discharge Medication Sig Dispensed Refills Start Date End Date cetirizine 10 mg capsule Take by mouth 0 05/13/19 16 daily. clonazePAM (for_KlonoPIN) Take 0.5 mg by 0 2015 0.5 mg tablet mouth daily. gabapentin (for_NEURONTIN) Take by mouth 0 2015 300 mg capsule daily. montelukast (for_SINGULAIR) Take 1 tablet by 0 10 mg tablet mouth every evening. cyclobenzaprine Take by mouth 0 05/13/20152021 (for_FLEXERIL) 10 mg tablet daily. documented as of this encounter Progress Notes Faizan Carbone M.D. - 05/13/2015 8:40 PM CST Clinic Full Note CHIEF COMPLAINT/REASON FOR VISIT Establish care ongoing gallbladder issues and sleep disturbance HISTORY OF PRESENT ILLNESS Patient is a 64 year old female who presents to establish care. Patient is currently undergoing further sleep evaluation and has concerns regarding her gallbladder. 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 5 grandkids. 2 adult kids. to [place]. Nonsmoker Health Maintenance Colonoscopy age 62. PAP at age 62. Mammogram overdue. MEDICATIONS clonazePAM 0.5 mg oral tablet, 0.5 mg, 1 tab(s), PO, 3xDay cyclobenzaprine 10 mg oral tablet, 10 mg, 1 tab(s), PO, 3xDay Dulera 200 mcg-5 mcg/inh inhalation aerosol, 2 puff(s), Inhalation, 2xDay gabapentin 300 mg oral capsule, 1-2 cap(s), PO, Daily montelukast 10 mg oral tablet, 10 mg, 1 tab(s), PO, Daily PM ZyrTEC, PO, Daily ALLERGIES formoterol Levaquin mometasone PAST MEDICAL HISTORY Chronic No chronic problems Historical No historical problems SOCIAL HISTORY Date Time: 05/13/2015 07:27 Tobacco: Smoking Status: Never smoker Exposure: Other: Never Alcohol: Use: Yes Recreational Drugs: Use: None Type: No Results Found FAMILY HISTORY No qualifying data available. SYSTEMS REVIEW General: No acute distress. No fever, chills. HEENT: Denies headaches, no eye pain, no ear pain. No runny nose. No sore throat. No cervical LAD. Neck: Denies neck pain, no thyromegaly Lungs: Denies cough, SOB CV: Denies chest pain Abdomen: Denies abdominal pain, no change in bowel habits : Denies dysuria Ext: Denies edema VITAL SIGNS T: 36.7 ??C (Core) HR: 76 RR: 16 BP: 127 / 83 SpO2: 99% HT: 174 cm WT: 62.6 kg BMI: 20.68 PHYSICAL EXAMINATION General: Patient is alert, in no acute distress. Well-groomed. HEENT: NC/AT, PERRL, EOMI NECK: supple, no LAD, no thyromegaly. ABDOMEN: NT/ND, +BS, no masses. EXTREMITIES: No clubbing, no cyanosis, no edema. PSYCH: Normal mood and affect. IMPRESSION/REPORT/PLAN 1. Restless Leg Syndrome (RLS) Patient to return back to her sleep doctor in [place] for further discussion of plan. Ordered: OV New Pt Level 3 - 40964 - 30 min 2. Insomnia NOS Discussed long-term use of clonazepam and the risk for abuse. Patient to discuss further plan with sleep doctor. Ordered: OV New Pt Level 3 - 84933 - 30 min 3. Allergy Seasonal Stable on current regimen. Ordered: OV New Pt Level 3 - 18195 - 30 min 4. Hemangioma Liver Will obtain radiology reports from [facility] to review and make further recommendations. Ordered: OV New Pt Level 3 - 17219 - 30 min 5. Disorder Gallbladder Will obtain old records to determine next steps needed. Patient to follow up in 2-3 weeks after allold records have arrived for review. Ordered: OV New Pt Level 3 - [id number] - 30 min Electronically Signed By: FAIZAN CARBONE MD On: 05/13/2015 08:46 PM Source: [facility] POWERCHART Document Id: [id number] E ADJUSTMENT SUPERVISOR documented in this encounter Miscellaneous Notes Miscellaneous - Karlee Sanches L.PIshmaelNIshmael - 05/13/2015 7:27 AM CST Health Assessment Document Has Been Updated Health Assessment Entered On: 05/13/2015 7:28 FORCE ADJUSTMENT SUPERVISOR Performed On: 05/13/2015 7:27 FORCE ADJUSTMENT SUPERVISOR by KARLEE SANCHES LPN Health Assessment Complete Health Assessment Complete or Modified : Annual Health Assessment Annual Health Assessment Completed : Yes KARLEE SANCHES LPN - 05/13/2015 7:27 FORCE ADJUSTMENT SUPERVISOR Nutrition Nutrition Risk Factors by History Adult : None KARLEE SANCHES LPN - 05/13/2015 7:27 FORCE ADJUSTMENT SUPERVISOR Functional Current Daily Living Assistance : None KARLEE SANCHES LPN - 05/13/2015 7:27 FORCE ADJUSTMENT SUPERVISOR Dependent Habits Exposure to Tobacco Smoke : Other: Never Smoking Status : Never smoker Tobacco 2A : No Tobacco Use/Currently Using : No Tobacco Use/Last 30 Days : No Tobacco Use/Last 12 months : No KARLEE SANCHES LPN - 05/13/2015 7:27 FORCE ADJUSTMENT SUPERVISOR Caffeine Use Grid Caffeine Use : Current Type : Coffee Frequency : Daily KARLEE SANCHES LPN - 05/13/2015 7:27 FORCE ADJUSTMENT SUPERVISOR Alcohol Use : Yes KARLEE SANCHES LPN - 05/13/2015 7:27 FORCE ADJUSTMENT SUPERVISOR Recreational Drug Use Grid Drug Use : None KARLEE SANCHES LPN - 05/13/2015 7:27 FORCE ADJUSTMENT SUPERVISOR AUDIT Tool How Often Do You Have A Drink : 4 or more times a week How Many Drinks in a Day When Drinking : 1 or 2 Six or More Drinks On One Occassion : Never Audit Phase 1 Score : 4 KARLEE SANCHES LPN - 05/13/2015 7:27 FORCE ADJUSTMENT SUPERVISOR Psychosocial Domestic Abuse Concerns : None Behavioral Health Screen/Safety Assmt : No Mosque Preference : No qualifying data available. KARLEE SANCHES LPN - 05/13/2015 7:27 FORCE ADJUSTMENT SUPERVISOR Advance Directive Advanced Directives : Yes Advance Directive Type : Living will Advance Directive Location : Other: Home KARLEE SANCHES LPN - 05/13/2015 7:27 FORCE ADJUSTMENT SUPERVISOR Educ Needs Learning Style Preference Adult Grid Patient : Printed materials KARLEE SANCHES LPN - 05/13/2015 7:28 FORCE ADJUSTMENT SUPERVISOR Family : None Source: [facility] POWERCHART Document Id: [id number] FORCE ADJUSTMENT SUPERVISOR!4 E ADJUSTMENT SUPERVISOR Miscellaneous - Karlee Sanches LIshmaelPIshmaelNIshmael - 05/13/2015 7:14 AM CST Adult Fashion Marketer Intake/History Adult Fashion Marketer Intake/History Entered On: 05/13/2015 7:20 FORCE ADJUSTMENT SUPERVISOR Performed On: 05/13/2015 7:14 FORCE ADJUSTMENT SUPERVISOR by KARLEE SANCHES LPN Intake Chief Complaint : Establish care ongoing gallbladder issues and sleep disturbance Temperature Core : 36.7 DegC(Converted to: 98.1 DegF) Peripheral Pulse Rate : 76 /min Respiratory Rate : 16 /min Heart Rhythm : Regular Systolic Blood Pressure : 127 mmHg Diastolic Blood Pressure : 83 mmHg NIBP Mean : 98 mmHg BP Location : Left upper extremity Blood Pressure Cuff Size : Regular SpO2 : 99 % Oxygen Therapy : Room air Height : 174 cm(Converted to: 5 ft 9 inch(es), 69 inch(es)) Actual Weight : 62.6 kg(Converted to: 138 lb 0 oz) Weight Source : Standing scale Dosing Weight Clinic : 62.6 kg Clinic BSA : 1.74 Body Mass Index : 20.68 kg/m2 KARLEE SANCHES LPN - 05/13/2015 7:14 FORCE ADJUSTMENT SUPERVISOR General Info Languages : Ukrainian Is Patient Female and 13-50 no hysterectomy : No KARLEE SANCHES LPN - 05/13/2015 7:14 FORCE ADJUSTMENT SUPERVISOR Subjective Pain Symptoms : Yes KARLEE SANCHES LPN - 05/13/2015 7:14 FORCE ADJUSTMENT SUPERVISOR Pain Scale Pain Scale Verbal 0-10 : Open KARLEE SANCHES LPN - 05/13/2015 7:14 FORCE ADJUSTMENT SUPERVISOR Pain Pain Assessment Grid Pain 1 Location : Generalized Laterality : Bilateral Intensity : 2 KARLEE SANCHES LPN 05/13/2015 7:14 FORCE ADJUSTMENT SUPERVISOR Dependent Habits Exposure to Tobacco Smoke : Other: Never Smoking Status : Never smoker Tobacco 2A : No Tobacco Use/Currently Using : No Tobacco Use/Last 30 Days : No Tobacco Use/Last 12 months : No Alcohol Use : Yes KARLEE SANCHES LPN - 05/13/2015 7:14 FORCE ADJUSTMENT SUPERVISOR Caffeine Use Grid Caffeine Use : Current Type : Coffee Frequency : Daily KARLEE SANCHES LPN - 05/13/2015 7:14 FORCE ADJUSTMENT SUPERVISOR Recreational Drug Use Grid Drug Use : None KARLEE SANCHES LPN 05/13/2015 7:14 FORCE ADJUSTMENT SUPERVISOR Source: [facility] POWERCHART Document Id: [id number] FORCE ADJUSTMENT SUPERVISOR!49 E ADJUSTMENT SUPERVISOR documented in this encounter Plan of Treatment Upcoming Encounters Date Type Specialty Care Team Description 01/23/2022 Appointment Radiology Clair Simms APRN, C.N.P., D.N.P. [address] [phone] (Wo rk) Scheduled Procedures Name Priority Associated Diagnoses Date/Time COLONOSCOPY Screening Colon Cancer Average R isk documented as of this encounter Visit Diagnoses Not on filedocumented in this encounter
--- OUTSIDE RECORDS SUMMARY | 2021-12-17 14:02 | XMS_ITS | Encounter Summary ---
:1950 Author Organization [facility] Address [address] [place] [address] Care Team Providers Name Role Phone Unavailable Primary Care Provider Unavailable Encounter Details Date Type Department Care Team Description 07/12/2016 Hospital Encounter HX [facility] MRI Yash Terrazas AP RN, C.N.P., D.N.P. [address] [place], [place] [phone] (Wo rk) Social History Tobacco Use Types Packs/Day Years Used Date Smoking Tobacco: Never Alcohol Habits Answer Date Recorded How often do you have a drink containing 4 or more times a w [place] 08/10/2021 alcohol? How many drinks containing alcohol [...] More than 4 times per year 08/10/2021 islam services? Do you belong to any clubs [...] place to sleep or slept in a residential (including now)? Sex Assigned at Date Recorded Female 11/19/2020 2:34 PM CDT documented as of this encounter Last Filed Vital Signs Vital Sign Reading Time Taken Comments Blood Pressure - - Pulse - - Temperature - - Respiratory Rate - - Oxygen Saturation - - Inhaled Oxygen Concentration - - Weight - - Height 174 cm (5' 8.5) 07/12/2016 7:05 AM CDT Body Mass Index - - [...] tablet daily. documented as of this encounter Miscellaneous Notes Miscellaneous - Yash Terrazas APRN, C.N.P. - 07/16/2016 1:09 PM CDT Results Notification Document Contains Addenda Addendum by CONRAD ARNDT LPN on July 16, 2016 13:16:05 CDT From: CONRAD ARNDT LPN ( Orthopedic Nurse) To: [facility] Cell Preparer; Sent: 07/16/2016 13:16:05 CDT Show up: 07/16/2016 13:15:00 CDT Subject: RE: Results Notification Please call patient to schedule this. From: YASH TERRAZAS APRN, DNP, AUTOMOTIVE SERVICE CONSULTANT To: Orthopedic Nurse; Sent: 07/16/2016 13:09:08 CDT Show up: 07/16/2016 13:10:00 CDT Subject: Results Notification should have a follow up visit to discuss results Results: Date Result Type Result Name 07/12/2016 9:51 Radiology MR Joint Upper Ext w/o contrast Right Source: [facility] Document Id: [id number] Miscellaneous - Conversion, Historical Provider Ser - 07/12/2016 11:59 PM CDT Coding Summary-Paper Based CODING DATE: 07/17/2016 FINAL [facility] STATUS: * Discharged to Home or Self Care PAYOR: Commercial Insurance ADMIT DX: REASON FOR VISIT DX: FINAL DX: PRINCIPAL: M25.511 Pain in right shoulder SECONDARY: S56.211A Strain of other flexor muscle, fascia and tendon at forearm level, right arm, initial encounter M67.921 Unspecified disorder of synovium and tendon, right upper arm PROCEDURES DOCTOR NAME DATE NOTE: The code number assigned matches the documented diagnosis and / or procedure in the patient's chart. However, the narrative phrase printed from the coding software may appear abbreviated, or result in slightly different terminology. Coded By: CLEO WHARTON Date Saved: 07/17/2016 02:22 pm Source: [facility] Document Id: [id number] documented in this encounter Plan of Treatment Upcoming Encounters Date Type Specialty Care Team Description 01/23/2022 Appointment Radiology Clair Simms APRN, C.N.P., D.N.P. [id number] [phone] (Wo rk) Scheduled Procedures Name Priority Associated Diagnoses Date/Time COLONOSCOPY Screening Colon Cancer Average R isk documented as of this encounter Visit Diagnoses Not on filedocumented in this encounter
--- OUTSIDE RECORDS SUMMARY | 2021-12-17 14:02 | XMS_ITS | Encounter Summary ---
:1950 Author Organization [facility] Address [address] [place] [address] Care Team Providers Name Role Phone Unavailable Primary Care Provider Unavailable Encounter Details Date Type Department Care Team Description 09/21/2015 Hospital Encounter HX [facility] ED Channing Pizano , P.A.-C. [address] [place], [place] [phone] (Wo rk) Social History Tobacco Use Types Packs/Day Years Used Date Smoking Tobacco: Never Assessed Alcohol Habits Answer Date Recorded How often do you have a drink containing 4 or more times a w [place] 08/10/2021 alcohol? How many drinks containing alcohol [...] More than 4 times per year 08/10/2021 druze services? Do you belong to any clubs [...] Sign Reading Time Taken Comments Blood Pressure 134/76 09/21/2015 4:09 PM CDT Pulse 84 09/21/2015 4:09 PM CDT Temperature - - Respiratory Rate 16 09/21/2015 4:09 PM CDT Oxygen Saturation - - Inhaled Oxygen Concentration - - Weight - - Height - - Body Mass Index - - documented in this encounter Discharge Summaries Barbara Johnson, R.N. - 09/21/2015 4:33 PM CDT ED Depart Summary [facility] Clinical Discharge Summary PERSON INFORMATION Name FEI QUINTANA Age 65 Years 1950 12:00 AM Sex Female Language Ukrainian PCP FAIZAN CARBONE MD Marital Status N [id number] Visit Id Visit Reason Cough; pneumonia Specialty Enc Type Emergency Med Service Emergency Medicine Referred by Track Group [facility] ED Discharge 09/21/2015 4:33 PM Tracking Id [id number] Checkout 09/21/2015 4:33 PM Checkin 09/21/2015 1:29 PM Acuity 4 -Less Urgent Dispo Type * Discharged to Home or Self Care Arrival 09/21/2015 1:29 PM Reg Status LOS 000 03:04 Address: [address] [place] [phone] Comment: PROVIDER INFORMATION Provider Role Provider Contact Time CHANNING ADAME ED Provider 09/21/15 13:35 BARBARA JOHNSON PROGRAM SERVICES PLANNER Nurse 09/21/15 13:48 DIAGNOSIS Asthma NOS; Bronchitis NOS Comment: PATIENT EDUCATION INFORMATION Instructions: BRONCHITIS w/ Wheezing (Adult) Follow up: With: Address: When: FAIZAN CARBONE [address] [place] [id number] iBuildApp (4) Within As Needed Comments: For recheck. If symptoms worsen. Source: [facility] POWERCHART Document Id: [id number] Barbara Johnson R.N. - 09/21/2015 4:33 PM CDT ED Discharge Instructions [address] [address] Name: FEI QUINTANA Date of : 1950 12:00 AM Visit Date: 09/21/2015 1:29 PM [facility] Number: [id number] Address: [address] [place] [phone] Primary Care Provider: FAIZAN CARBONE MD IMPORTANT: [facility] in [place] would like to thank you for allowing us to assist you with your healthcare needs. The following includes patient education materials and informationregarding your injury/illness. Diagnosis: Asthma NOS; Bronchitis NOS Follow-Up Instructions: With: Address: When: FAIZAN CARBONE [address] [place] [id number] iBuildApp (4) Within As Needed Comments: For recheck. If symptoms worsen. Your Upcoming Appointments: Date Time Location Provider No Appointments found Patient Education Materials: Bronchitis With Wheezing (Viral Or Bacterial: Adult) Bronchitis is an infection of the air passages. It often occurs during the common cold and is usually caused by a virus. Symptoms include cough with mucus (phlegm) and low-grade fever. If there is a lot of inflammation, air flow is restricted. The air passages may also go into spasm, especially if you are an asthmatic. This causes wheezing and difficulty breathing even in persons whodo not have asthma. Bronchitis usually lasts 7-14 days. The wheezing should improve with treatment during the first week. An inhaler is often prescribed to relax the air passages and stop wheezing. Antibiotics will be prescribed if your doctor thinks there is also a secondary bacterial infection. Home Care: ?? If symptoms are severe, rest at home for the first 2-3 days. When resuming activity, don't let yourself become overly tired. ?? Do not smoke and avoid exposure to the smoke of others. ?? You may use acetaminophen (Tylenol) or ibuprofen (Motrin, Advil) to control fever, unless anothermedicine was prescribed. [NOTE: If you have chronic liver or kidney disease or ever had a stomach ulcer or GI bleeding, talk with your doctor before using these medicines.] (Aspirin should never be used in anyone under 18 years of age who is ill with a fever. It may cause severe liver damage.) ?? Your appetite may be poor so a light diet is fine. Avoid dehydration by drinking 6-8 glasses of fluids per day (water, soft, drinks, juices, tea, soup, etc.). Extra fluids will help loosen secretions in the lungs. ?? Hemf-rqi-kpmscdu cough medicines that contain dextromethorphan (such as Robitussin DM) and decongestants (Actifed or Sudafed) may help relieve cough and congestion. [NOTE: Do not use decongestants if you have high blood pressure.] ?? If you were given an inhaler, use it exactly as directed. If you need to use it more often than prescribed, your condition may be worsening. Contact your doctor or this facility. ?? If prescribed, finish all antibiotic medicine, even if you are feeling better after only a few days. Follow Up With Your Doctor Or As Directed If You Are Not Starting To Feel Better After Three Days. [NOTE: If you are age 65 or older, or if you have chronic asthma or COPD, we recommend a pneumococcal vaccination every five years and a yearly influenza vaccination (flu shot) every . Ask your doctor about this. If you had an x-ray or EKG (electrocardiogram), it will be reviewed by a specialist. You will be notified of any new findings that may affect your care.] Get Prompt Medical Attention If Any Of The Following Occur: ?? Increased wheezing, shortness of breath or pain with breathing ?? Fever of 100.4?F (38?C) oral or higher, not better with fever medication ?? Coughing up blood or increasing amounts of colored sputum ?? Weakness, drowsiness, headache, facial pain, ear pain or a stiff neck ?? Lower leg swelling, tenderness, redness or pain ?? [id number] [employer], [address] [place] [address]. All rights reserved. This information is not intended as a substitute for professional medical care. Always follow your healthcare professional's instructions. Consider Using Patient Online Services Patient Online Services is a secure online and Mobile application that lets you: ?? View lab and test results ?? View portions of your medical record including clinical notes, immunizations and discharge summaries ?? Request an appointment or medication refill ?? Review your appointment schedule ?? Send secure messages to your care team Its easy to create an account if you dont have one. Go to [email or web address] and click on Create Your Account. Then, follow the directions to complete the online form. Youll be asked for your [facility] number which you can find at the top of this document. ED Tests and Procedures: Order Status CBC (includes Auto Differential) Completed Comprehensive Metabolic Panel Completed XR Chest 2 Views Completed Pro B Natriuretic Peptide Completed Automated Diff-5 Part Completed Discharge Prescriptions & Home Medications: Medication/Strength Dose Route Frequency Indications/Special Instructions/Comments/Notes azithromycin (azithromycin 250 mg oral tablet) albuterol (albuterol 2.5 mg/3 mL neb) 2.5 mg Inhalation every 6 hours cetirizine (ZyrTEC) Oral once a day 15montelukast (montelukast 10 mg oral tablet) 10 mg Oral every evening mometasone-formoterol (Dulera 200 mcg-5 mcg/inh inhalation aerosol) 2 puff(s) Inhalation two times aday clonazePAM (clonazePAM 0.5 mg oral tablet) 1-2 tab(s) Oral once a day gabapentin (gabapentin 300 mg oral capsule) 1-2 cap(s) Oral once a day cyclobenzaprine (cyclobenzaprine 10 mg oral tablet) 1/2 tab(s) Oral once a day Comment: Attention: If you have any medications at home not on this list, DO NOT take them until you contact your provider for clarification. Give a copy of your medication list to your primary care provider. Update your medication list any time medications or doses are changed and carry your medication list at all times in case of emergency. IMPORTANT: We examined and treated you today on an emergency basis only. This was not a substitute for, or an effort to provide, complete medical care. In most cases, you must let your doctor check youagain. Tell your doctor about any new or lasting problems. We cannot recognize and treat all injuries or illnesses in one Emergency Department visit. If you had special tests, such as EKG's or X- rays, we will review them again within 24 hours. We will call you if there are any new suggestions. Please follow the instructions above carefully. If you are being transferred to another facility your followup plan of care will be determined by the receiving facility. If you are a patient that is being discharged from the Emergency Department after receiving narcotics or other medications that may impair your judgment you may be a risk to yourself or others if you operate a motor vehicle. We recommend that you arrange a ride home with a responsible democrat. I, FEI QUINTANA , or responsible democrat have received this information and my questions have been answered. I have discussed any challenges I see with this plan with the nurse or physician. Patient Signature or Responsible Green Party/Relationship Date Time Provider Signature Date Time IMPORTANT: We examined and treated you today on an emergency basis only. This was not a substitute for, or an effort to provide, complete medical care. In most cases, you must let your doctor check youagain. Tell your doctor about any new or lasting problems. We cannot recognize and treat all injuries or illnesses in one Emergency Department visit. If you had special tests, such as EKG's or X- rays, we will review them again within 24 hours. We will call you if there are any new suggestions. Please follow the instructions above carefully. If you are being transferred to another facility your followup plan of care will be determined by the receiving facility. If you are a patient that is being discharged from the Emergency Department after receiving narcotics or other medications that may impair your judgment you may be a risk to yourself or others if you operate a motor vehicle. We recommend that you arrange a ride home with a responsible democrat. I, SUE, FEI ASENCIO , or responsible democrat have received this information and my questions have been answered. I have discussed any challenges I see with this plan with the nurse or physician. Patient Signature or Responsible Green Party/Relationship Date Time Provider Signature Date Time This document has images extracted. Please consider using [employer] for all your patient education needs. Source: [facility] POWERCHART Document Id: [id number] documented in this encounter Medications at Time [...] documented as of this encounter Nursing Notes Barbara Johnson R.N. - 09/21/2015 2:36 PM CDT Pt status Pt states she feels better after the duoneb, able to take a deap breath easier Electronically Signed By: BARBARA JOHNSON RN On: 09/21/2015 02:38 PM Source: [employer] Document Id: [id number] documented in this encounter ED Notes Barbara Johnson R.N. - 09/21/2015 4:20 PM CDT ED Disposition Summary ED Disposition Summary Entered On: 09/21/2015 16:20 CDT Performed On: 09/21/2015 16:20 CDT by BARBARA JOHNSON RN ED Disposition Summary Present in Room During Exam/Procedure : Significant other Printed Discharge Instructions Given to Patient : Yes BARBARA JOHNSON RN - 09/21/2015 16:20 CDT Source: [employer] Document Id: [id number]!4 Barbara Johnson R.N. - 09/21/2015 4:19 PM CDT ED Treatments and Procedures ED Treatments and Procedures Entered On: 09/21/2015 16:19 CDT Performed On: 09/21/2015 16:19 CDT by BARBARA JOHNSON RN Peripheral IV Peripheral IV Assess/Intervention Grid Peripheral IV #1 IV Activity : Discontinue Date of Insertion : 09/21/2015 CDT Discontinued Date : 09/21/2015 CDT IV Site : Hand Laterality : Left Catheter Size : 20 BARBARA JOHNSON RN - 09/21/2015 16:19 CDT Source: [employer] Document Id: [id number] CDT!10 Barbara Johnson R.N. - 09/21/2015 2:18 PM CDT ED Treatments and Procedures ED Treatments and Procedures Entered On: 09/21/2015 14:18 CDT Performed On: 09/21/2015 14:18 CDT by BARBARA JOHNSON RN Peripheral IV Peripheral IV Assess/Intervention Grid Peripheral IV #1 IV Activity : Start Number of Attempts : 2 Date of Insertion : 09/21/2015 CDT IV Site : Hand Laterality : Left Catheter Size : 20 BARBARA JOHNSON RN - 09/21/2015 14:18 CDT Source: [facility] [employer] Document Id: [id number] CDT!10 Channing Pizano P.A.-C. - 09/21/2015 1:53 PM CDT Cough Patient: FEI QUINTANA Age: 65 years Sex: Female : 1950 Author: CHANNING ADAME Attachments: None Associated Diagnosis: Asthma NOS; Bronchitis NOS Basic Information History source: Patient, significant other. Arrival mode: Private vehicle, wheelchair. History limitation: None. Additional information: Chief Complaint from Nursing Triage Note : Chief Complaint Description 09/21/2015 13:50 CDT Chief Complaint Description see note 09/21/2015 13:48 CDT Chief Complaint Description 65 year old female admits with weakness . Pt statesshe is currrently being treated for pneumonia and is feeling non bwtter . History of Present Illness The patient presents with cough. The onset was 1 weeks ago. The course/duration of symptoms is worsening. Character productive: green. The degree at onset was minimal. The degree at present is minimal.The exacerbating factor is none. The relieving factor is none. Risk factors consist of none. Prior episodes: occasional. Associated symptoms: shortness of breath, fever, denies chest pain, denies sore throat, denies rhinorrhea, denies nasal congestion and denies hoarse voice. Additional history: Pt has had a green productive cough for one week. Was seen in [facility] on Saturday and prescribed a Zpakand Prednisone 20mg bid for pneumonia. No labs or xrays were done at the time. Pt has had a fever upto 101. None in the past 48 hours. Initially had a ST but that has resolved. H/o asthma and uses Dulera. C/o feeling SOB while at rest as though she can't get enough air. She admits this has improved since starting the prednisone. C/o feeling weak. Eating and drinking ok. Denies UTI sxs. Denies v/d. She tells me she has been fighting URI sxs on and off since June and tells me her grandkids have had similar sxs on and off as well so relates it to domingo it from them. They are currently ill as well again.. Review of Systems Constitutional symptoms: Fever and None since Saturday. Skin symptoms: Negative except as documented in HPI. Eye symptoms: Negative except as documented in HPI. ENMT symptoms: No ear pain, no sore throat, no nasal congestion or no sinus pain. Respiratory symptoms: Shortness of breath and cough. Cardiovascular symptoms: No chest pain. Gastrointestinal symptoms: No abdominal pain, no nausea, no vomiting or no diarrhea. Genitourinary symptoms: No dysuria. Musculoskeletal symptoms: Negative except as documented in HPI. Neurologic symptoms: Negative except as documented in HPI. Psychiatric symptoms: Negative except as documented in HPI. Endocrine symptoms: Negative except as documented in HPI. Hematologic/Lymphatic symptoms: Negative except as documented in HPI. Allergy/immunologic symptoms: Negative except as documented in HPI. Health Status Allergies: Allergic Reactions (Selected) Severity Not Documented Formoterol- No reactions were documented. Levaquin- No reactions were documented. Mometasone- No reactions were documented.. Medications: (Selected) Inpatient Medications Ordered sodium chloride 0.9% 1,000 mL: 1,000 mL/hr, IV Documented Medications Documented Dulera 200 mcg-5 mcg/inh inhalation aerosol: 2 puff(s), Inhalation, 2xDay, 13 gm ZyrTEC: PO, Daily albuterol 2.5 mg/3 mL neb: 2.5 mg, Inhalation, q6hr azithromycin 250 mg oral tablet: clonazePAM 0.5 mg oral tablet: 1-2 tab(s), PO, Daily cyclobenzaprine 10 mg oral tablet: 1/2 tab(s), PO, Daily gabapentin 300 mg oral capsule: 1-2 cap(s), PO, Daily montelukast 10 mg oral tablet: 10 mg, 1 tab(s), PO, Daily PM, 30 tab(s), 11 Refill(s). Past Medical/ Family/ Social History Medical history: Active Vertigo NOS (R42) Comments: 06/13/2015 CDT 16:22 CDT - RACHEAL GOMES Per External Record. Surgical history: Excision of lesion of thyroid ([id number]). Comments: 06/10/2015 16:03 - ISMAEL HORNER Per External Record. Family history: Diabetes mellitus type II Father CA - Lung cancer Mother Heart disease Father Osteoporosis Mother Drug abuse Mother Depression Mother . Social history: Alcohol use: Regularly, drinks 1 servings of alcohol daily, Tobacco use: Denies, Drug use: Denies, Family/social situation: . 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 Physical Examination Vital Signs: Vital Signs 09/21/2015 13:48 CDT Temperature Oral 37.1 DegC Apical Heart Rate 88 /min Respiratory Rate 20 /min SpO2 98 % Systolic Blood Pressure 154 mmHg HI Diastolic Blood Pressure 76 mmHg BP Location Left upper , SpO2 09/21/2015 13:48 CDT SpO2 98 % . General: Alert and Pt is pleasant, well groomed. Speaking without difficulty. . Skin: Warm and dry. Head: Normocephalic and atraumatic. Eye: Extraocular movements are intact and normal conjunctiva. Ears, nose, mouth and throat: Tympanic membranes clear, oral mucosa moist and no pharyngeal erythemaor exudate. Cardiovascular: Regular rate and rhythm and Normal peripheral perfusion. Respiratory: Respirations are non-labored, Symmetrical chest wall expansion and Expiratory wheeze RLL and LLL. Musculoskeletal: Normal ROM. normal strength. Neurological: Alert and oriented to person, place, time, and situation, normal sensory observed, normal motor observed, normal speech observed and normal coordination observed. Lymphatics: No lymphadenopathy. Psychiatric: Cooperative and appropriate mood & affect. Medical Decision Making Differential Diagnosis:: Bronchitis, upper respiratory infection, asthma, pneumonia, congestive heart failure. Documents reviewed:Emergency department nurses' notes, prior records. OrdersLaunch Orders Laboratory: Pro B Natriuretic Peptide (Order Processing): Stat, 09/21/2015 13:56 CDT, Once Comprehensive Metabolic Panel (Order Processing): Stat, 09/21/2015 13:54 CDT, Once CBC (includes Auto Differential) (Order Processing): Stat, 09/21/2015 13:54 CDT, Once Patient Care: ED Peripheral IV Careset (Order Processing) Peripheral IV (Order Processing): 09/21/2015 13:55 CDT, Initial Line Pharmacy: Sodium Chloride 0.9% 1000 mL (Order Processing): 1,000 mL/hr, IV Radiology: XR Chest 2 Views (Order Processing): 09/21/2015 13:54 CDT, cough, sob, Stat, Patient Bed, Once, 09/21/2015 13:54 CDT, [facility], Launch Orders Pharmacy: Rocephin (Order Processing): 1 gm, IVPB, Once. Results review:Lab results : Lab View 09/21/2015 14:15 CDT Hgb 14.3 g/dL Hct 40.1 % WBC 12.7 x10(9)/L HI RBC 4.53 x10(12)/L MCV 88.5 fL RDW 12.8 % Platelet 265 x10(9)/L Neutro Absolute 11.68 10(9)/L HI Lymph Absolute 0.51 x10(9)/L LOW [place] Absolute 0.49 x10(9)/L Eos Absolute 0.00 x10(9)/L LOW Baso Absolute 0.01 x10(9)/L Sodium Lvl 140.6 mM/L Potassium Lvl 4.1 mmol/L Chloride 105 mmol/L CO2 23.7 mmol/L AGAP 12 mmol/L Alkaline Phosphatase 67 U/L Pro B Carmen Pep 182.90 pg/mL Glucose Lvl 124 mg/dL Creatinine 0.74 mg/dL EGFR (MDRD) >60 mL/min/1.73m2 BUN 10 mg/dL Calcium Lvl 9.7 mg/dL Protein Total 6.9 g/dL Albumin Lvl 4.0 g/dL AST 27 unit/L ALT 53 unit/L HI Bili Total 0.3 mg/dL . Chest X-Ray:21-Sep-2015 14:13:00 Exam: Chest-- 2 Views Indications: cough, sob 21-Sep-2015 14:17 CA EXAM: Chest 2 views: IMPRESSION: Calcified granuloma left upper lung. Chest otherwise negative. Bruce Crespo MD [phone] 21-Sep-2015 14:17 . Notes:Pt currently taking oral prednisone.. Reexamination/ Reevaluation Vital signs results included from flowsheet : Vital Signs 09/21/2015 14:34 CDT Temperature Core 36.4 DegC LOW Peripheral Pulse Rate 78 /min Respiratory Rate 18 /min SpO2 97 % Systolic Blood Pressure 133 mmHg Diastolic Blood Pressure 73 mmHg BP Location Left upper Course: improving, Pt feeling much better. Looks brighter. Smiling. Grateful.. Impression and Plan Diagnosis Asthma NOS (Discharge, Emergency medicine, Medical) Bronchitis NOS (Discharge, Emergency medicine, Medical) Plan Condition: Improved, Stable. Disposition: Medically cleared, Discharged: to home. Patient was given the following educational materials: BRONCHITIS w/ Wheezing (Adult), BRONCHITIS w/Wheezing (Adult). Follow up with: FAIZAN CARBONE Within As Needed For recheck. If symptoms worsen.. Counseled: Patient, Family, Regarding diagnosis, Regarding diagnostic results, Regarding treatment plan, Patient indicated understanding of instructions. Electronically Signed By: CHANNING ADAME On: 09/21/2015 03:40 PM Modified by and Electronically Signed by: CHANNING ADAME On: 09/21/2015 02:52 PM Co-Signed By: BRENDA NIXON MD On: 09/21/2015 04:49 PM Source: [facility] POWERCHART Document Id: [id number]} Barbara Johnson, R.N. - 09/21/2015 1:50 PM CDT ED Primary Assessment Document Has Been Updated ED Primary Assessment Entered On: 09/21/2015 13:54 CDT Performed On: 09/21/2015 13:50 CDT by ALEX, BARBARA J RN Reason For Visit (As Of: 09/21/2015 13:54:10 CDT) Problems(Active) Asthma NOS (ICD-10-CM :J45.909 ) Name of Problem: Asthma NOS ; Recorder: KARLEE KIRKPATRICK LPN; Confirmation: Confirmed ; Classification: Nursing ; Code: J45.909 ; Contributor System: tabulateChart ; Last Updated: 05/12/2015 13:52 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 ; Life Cycle Date: 05/12/2015 ; Life Cycle Status: Active ; Responsible Provider: KARLEE KIRKPATRICK LPN; Vocabulary: ICD-10-CM ; Comments: 05/12/2015 13:52 - KARLEE KIRKPATRICK LPN Onset unknown copied from [facility] records scanned managed by [facility] Disease Gastroesophageal Reflux (GERD DERRELL) (ICD-10-CM :K21.9 ) Name of Problem: Disease Gastroesophageal Reflux (GERD DERRELL) ; Recorder: KARLEE KIRKPATRICK LPN; Confirmation: Confirmed ; Classification: Nursing ; Code: K21.9 ; Contributor System: PowerChart ; Last Updated: 05/12/2015 13:46 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 ; Life Cycle Date: 05/12/2015 ; Life Cycle Status: Active ; Responsible Provider: KARLEE KIRKPATRICK LPN; Vocabulary: ICD-10-CM ; Comments: 05/12/2015 13:46 - KARLEE KIRKPATRICK LPN onset unknown copied from medical record [facility] Disorder Temporomandibular Joint (TMJ) (ICD-10-CM :M26.60 ) Name of Problem: Disorder Temporomandibular Joint (TMJ) ; Recorder: KARLEE KIRKPATRICK LPN; Confirmation: Confirmed ; Classification: Nursing; Code: M26.60 ; Contributor System: PowerChart ; Last Updated: 05/12/2015 13:50 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 ; Life Cycle Date: 05/12/2015 ; Life Cycle Status: Active ; Responsible Provider: KARLEE KIRKPATRICK LPN; Vocabulary: ICD-10-CM ; Comments: 05/12/2015 13:50 - KARLEE KIRKPATRICK LPN Onset unknown Copied from [facility] record managed by [facility] Excision Cyst Thyroglossal Duct S/P (ICD-10-CM :Z98.89 ) Name of Problem: Excision Cyst ThyroglossalDuct S/P ; Recorder: KARLEE KIRKPATRICK LPN; Confirmation: Confirmed ; Classification: Nursing ; Code: Z98.89 ; Contributor System: PowerChart ; Last Updated: 05/12/2015 13:53 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 ; Life Cycle Date: 12/2015 ; Life Cycle Status: Active ; Responsible Provider: KARLEE KIRKPATRICK LPN; Vocabulary: ICD-10-CM ; Comments: 05/12/2015 13:53 - KARLEE KIRKPATRICK LPN copied from [facility] record date unknown Hemangioma Liver (ICD-10-CM :D18.03 ) Name of Problem: Hemangioma Liver ; Recorder: ZEESHAN STANFORD P.A.-C.; Confirmation: Confirmed ; Classification: Medical ; Code: D18.03 ; Contributor System:PowerChart ; Last Updated: 06/17/2015 8:38 CDT ; Life Cycle Date: 06/17/2015 ; Life Cycle Status: Active ; Responsible Provider: ZEESHAN STANFORD P.A.-C.; Vocabulary: ICD-10-CM ; Comments: 06/17/2015 8:38 - ZEESHAN STANFORD P.A.-C. 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: 05/12/2015 ; Life Cycle Status: Active; Responsible Provider: KARLEE KIRKPATRICK LPN; Vocabulary: ICD-10-CM ; Comments: 05/12/2015 13:45 -KARLEE KIRKPATRICK LPN onset unknown copied from medical record Lipoma NOS (ICD-10-CM :D17.9 ) Name of Problem: Lipoma NOS ; Recorder: KARLEE KIRKPATRICK LPN; Confirmation: Confirmed ; Classification: Nursing ; Code: D17.9 ; Contributor System: PowerChart ; Last Updated: 05/12/2015 13:52 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 ; Life Cycle Date: 05/12/2015 ; Life Cycle Status: Active ; Responsible Provider: KARLEE KIRKPATRICK LPN; Vocabulary: ICD-10-CM ; Comments: 05/12/2015 13:52 - KARLEE KIRKPATRICK LPN Back date unknown copied from [facility] record scanned Restless Leg Syndrome (RLS) (ICD-10-CM :G25.81 ) Name of Problem: Restless Leg Syndrome (RLS) ; Recorder: KARLEE KIRKPATRICK LPN; Confirmation: Confirmed ; Classification: Nursing ; Code: G25.81 ; Contributor System: tabulateChart ; Last Updated: 05/12/2015 13:51 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 ; Life Cycle Date: 05/12/2015 ; Life Cycle Status: Active ; Responsible Provider: KARLEE KIRKPATRICK LPN; Vocabulary: ICD-10-CM ; Comments: 05/12/2015 13:51 - KARLEE KIRKPATRICK LPN onset unknown [facility] [place] Varicose Vein (VV) Lower Extremity NOS (ICD-10-CM :I83.90 ) Name of Problem: Varicose Vein (VV) Lower Extremity NOS ; Recorder: KARLEE KIRKPATRICK LPN; Confirmation: Confirmed ; Classification: Nursing; Code: I83.90 ; Contributor System: PowerChart ; Last Updated: 05/12/2015 13:43 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 ; Life Cycle Date: 05/12/2015 ; Life Cycle Status: Active ; Responsible Provider: KARLEE KIRKPATRICK LPN; Vocabulary: ICD-10-CM ; Comments: 05/12/2015 13:43 - KARLEE KIRKPATRICK LPN copied from [facility] record scanned Vertigo NOS (ICD-10-CM :R42 ) Name of Problem: Vertigo NOS ; Recorder: RACHEAL GOMES; Confirmation: Confirmed ; Classification: Medical ; Code: R42 ; Contributor System: PowerChart ; Last Updated: 06/13/2015 16:22 CDT ; Life Cycle Date: 06/13/2015 ; Life Cycle Status: Active ; Responsible Provider: RACHEAL GOMES; Vocabulary: ICD-10-CM ; Comments: 06/13/2015 16:22 - RACHEAL GOMES Per External Record Triage Chief Complaint Description : see note Mode of Arrival ED : Private vehicle Track : Medical Languages : Ukrainian Treatments Prior to Arrival : None Is Patient Female and 13-50 no hysterectomy : BARBARA Egan RN - 09/21/2015 13:50 CDT Pain Assessment Pain Symptoms : No BARBARA JOHNSON RN - 09/21/2015 13:50 CDT Allergy (As Of: 09/21/2015 13:54:10 CDT) Allergies (Active) formoterol Estimated Onset Date: Unspecified ; Created By: KARLEE KIRKPATRICK LPN; Reaction Status: Active ; Category: Drug ; Substance: formoterol ; Type: Allergy ; Updated By: KARLEE KIRKPATRICK LPN;Reviewed Date: 06/17/2015 7:23 CDT Levaquin Estimated Onset Date: Unspecified ; Created By: KARLEE KIRKPATRICK LPN; Reaction Status: Active ; Category: Drug ; Substance: Levaquin ; Type: Allergy ; Updated By: KARLEE KIRKPATRICK LPN; Reviewed Date: 06/17/2015 7:23 CDT mometasone Estimated Onset Date: Unspecified ; Created By: KARLEE KIRKPATRICK LPN; Reaction Status: Active ; Category: Drug ; Substance: mometasone ; Type: Allergy ; Updated By: KARLEE KIRKPATRICK LPN;Reviewed Date: 06/17/2015 7:23 CDT Respiratory Airway : Patent Respirations : Unlabored Respiratory Pattern : Regular Respiratory Detailed Assessment : Yes BARBARA JOHNSON RN - 09/21/2015 13:50 CDT Resp Detailed Breath Sounds Assessment Grid RENEE : Coarse crackles RUL : Coarse crackles RML : Coarse crackles LLL : Coarse crackles RLL : Coarse crackles BARBARA JOHNSON RN - 09/21/2015 13:50 CDT Cardiovascular Heart Rhythm : Regular Skin Color : Normal for ethnicity Skin Description : Dry Skin Temperature : Warm Cardiovascular Detailed Assessment : Yes BARBARA JOHNSON RN - 09/21/2015 13:50 CDT CV Detailed CV Patient Stated Symptoms : None Cardiac Rhythm : Sinus rhythm BARBARA JOHNSON RN - 09/21/2015 13:50 CDT Neurological Last Well Time Known : Yes Last Known Well Time : 09/18/2015 8:00 CDT Level of Consciousness : Alert Orientation : Oriented x 3 Characteristics of Speech : Appropriate for age BARBARA JOHNSON RN - 09/21/2015 13:50 CDT ED Psychosocial Affect/Behavior : Calm Domestic Abuse Concerns : None Behavioral Health Screen/Safety Assmt : No BARBARA JOHNSON RN - 09/21/2015 13:50 CDT Gastrointestinal Nutrition ED : Adequate BARBARA JOHNSON RN - 09/21/2015 13:50 CDT Musculoskeletal Fall Prevention Education Provided : NA BARBARA JOHNSON RN - 09/21/2015 13:50 CDT Social Habits Exposure to Tobacco Smoke : Other: Never Smoking Status : Never smoker Tobacco 2A : No Tobacco Use/Currently Using : No Tobacco Use/Last 30 Days : No Tobacco Use/Last 12 months : No BARBARA JOHNSON RN - 09/21/2015 13:50 CDT Alcohol Use Grid Alcohol Use : Yes Type : Wine Frequency : Daily BARBARA JOHNSON RN - 09/21/2015 13:50 CDT Recreational Drug Use Grid Drug Use : None BARBARA JOHNSON RN - 09/21/2015 13:50 CDT Source: [facility] [employer] Document Id: [id number] CDT!60 Barbara Johnson R.N. 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 ; Life Cycle Date: 05/12/2015 ; Life Cycle Status: Active ; Responsible Provider: KARLEE KIRKPATRICK LPN; Vocabulary: ICD-10-CM ; Comments: 05/12/2015 13:52 - KARLEE KIRKPATRICK LPN Onset unknown copied from [facility] records scanned managed by [facility] Disease Gastroesophageal Reflux (GERD DERRELL) (ICD-10-CM :K21.9 ) Name of Problem: Disease Gastroesophageal Reflux (GERD DERRELL) ; Recorder: KARLEE KIRKPATRICK LPN; Confirmation: Confirmed ; Classification: Nursing ; Code: K21.9 ; Contributor System: PowerChart ; Last Updated: 05/12/2015 13:46 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 ; Life Cycle Date: 05/12/2015 ; Life Cycle Status: Active ; Responsible Provider: KARLEE KIRKPATRICK LPN; Vocabulary: ICD-10-CM ; Comments: 05/12/2015 13:46 - KARLEE KIRKPATRICK LPN onset unknown copied from medical record [facility] Disorder Temporomandibular Joint (TMJ) (ICD-10-CM :M26.60 ) Name of Problem: Disorder Temporomandibular Joint (TMJ) ; Recorder: KARLEE KIRKPATRICK LPN; Confirmation: Confirmed ; Classification: Nursing; Code: M26.60 ; Contributor System: PowerChart ; Last Updated: 05/12/2015 13:50 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 ; Life Cycle Date: 05/12/2015 ; Life Cycle Status: Active ; Responsible Provider: KARLEE KIRKPATRICK LPN; Vocabulary: ICD-10-CM ; Comments: 05/12/2015 13:50 - KARLEE KIRKPATRICK LPN Onset unknown Copied from [facility] record managed by [facility] [place] Excision Cyst Thyroglossal Duct S/P (ICD-10-CM :Z98.89 ) Name of Problem: Excision Cyst ThyroglossalDuct S/P ; Recorder: KARLEE KIRKPATRICK LPN; Confirmation: Confirmed ; Classification: Nursing ; Code: Z98.89 ; Contributor System: PowerChart ; Last Updated: 05/12/2015 13:53 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 ; Life Cycle Date: 12/2015 ; Life Cycle Status: Active ; Responsible Provider: KARLEE KIRKPATRICK LPN; Vocabulary: ICD-10-CM ; Comments: 05/12/2015 13:53 - KARLEE KIRKPATRICK LPN copied from [facility] record date unknown Hemangioma Liver (ICD-10-CM :D18.03 ) Name of Problem: Hemangioma Liver ; Recorder: ZEESHAN STANFORD P.A.-C.; Confirmation: Confirmed ; Classification: Medical ; Code: D18.03 ; Contributor System:PowerChart ; Last Updated: 06/17/2015 8:38 CDT ; Life Cycle Date: 06/17/2015 ; Life Cycle Status: Active ; Responsible Provider: ZEESHAN STANFORD P.A.-C.; Vocabulary: ICD-10-CM ; Comments: 06/17/2015 8:38 - ZEESHAN STANFORD P.A.-C. 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: 05/12/2015 ; Life Cycle Status: Active; Responsible Provider: KARLEE KIRKPATRICK LPN; Vocabulary: ICD-10-CM ; Comments: 05/12/2015 13:45 -KARLEE KIRKPATRICK LPN onset unknown copied from medical record Lipoma NOS (ICD-10-CM :D17.9 ) Name of Problem: Lipoma NOS ; Recorder: KARLEE KIRKPATRICK LPN; Confirmation: Confirmed ; Classification: Nursing ; Code: D17.9 ; Contributor System: PowerChart ; Last Updated: 05/12/2015 13:52 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 ; Life Cycle Date: 05/12/2015 ; Life Cycle Status: Active ; Responsible Provider: KARLEE KIRKPATRICK LPN; Vocabulary: ICD-10-CM ; Comments: 05/12/2015 13:52 - KARLEE KIRKPATRICK LPN Back date unknown copied from [facility] record scanned Restless Leg Syndrome (RLS) (ICD-10-CM :G25.81 ) Name of Problem: Restless Leg Syndrome (RLS) ; Recorder: KARLEE KIRKPATRICK LPN; Confirmation: Confirmed ; Classification: Nursing ; Code: G25.81 ; Contributor System: PowerChart ; Last Updated: 05/12/2015 13:51 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 ; Life Cycle Date: 05/12/2015 ; Life Cycle Status: Active ; Responsible Provider: KARLEE KIRKPATRICK LPN; Vocabulary: ICD-10-CM ; Comments: 05/12/2015 13:51 - KARLEE KIRKPATRICK LPN onset unknown [facility] Varicose Vein (VV) Lower Extremity NOS (ICD-10-CM :I83.90 ) Name of Problem: Varicose Vein (VV) Lower Extremity NOS ; Recorder: KARLEE KIRKPATRICK LPN; Confirmation: Confirmed ; Classification: Nursing; Code: I83.90 ; Contributor System: PowerChart ; Last Updated: 05/12/2015 13:43 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 ; Life Cycle Date: 05/12/2015 ; Life Cycle Status: Active ; Responsible Provider: KARLEE KIRKPATRICK LPN; Vocabulary: ICD-10-CM ; Comments: 05/12/2015 13:43 - KARLEE KIRKPATRICK LPN copied from [facility] medical record scanned Vertigo NOS (ICD-10-CM :R42 ) Name of Problem: Vertigo NOS ; Recorder: RACHEAL GOMES; Confirmation: Confirmed ; Classification: Medical ; Code: R42 ; Contributor System: PowerChart ; Last Updated: 06/13/2015 16:22 CDT ; Life Cycle Date: 06/13/2015 ; Life Cycle Status: Active ; Responsible Provider: RACHEAL GOMES; Vocabulary: ICD-10-CM ; Comments: 06/13/2015 16:22 - RACHEAL GOMES Per External Record Triage Chief Complaint Description : 65 year old female admits with weakness . Pt states she is currrently being treated for pneumonia and is feeling non bwtter Mode of Arrival ED : Private vehicle Track : Medical Languages : Ukrainian Treatments Prior to Arrival : None Is Patient Female and 13-50 no hysterectomy : No BARBARA JOHNSON RN - 09/21/2015 13:48 CDT Pain Assessment Pain Symptoms : No BARBARA JOHNSON RN - 09/21/2015 13:48 CDT ED Physician Notification Time ED Physician Notification Time : 09/21/2015 13:49 CDT BARBARA JOHNSON RN - 09/21/2015 13:48 CDT MILAGROS MILAGROS Level 1 : No MILAGROS Level 2 : No MILAGROS Level 3 : Many BARBARA JOHNSON RN - 09/21/2015 13:48 CDT DCP GENERIC CODE Tracking Acuity : 4 -Less Urgent Tracking Group : [facility] ED BARBARA JOHNSON RN - 09/21/2015 13:48 CDT Allergy (As Of: 09/21/2015 13:50:19 CDT) Allergies (Active) formoterol Estimated Onset Date: Unspecified ; Created By: KARLEE KIRKPATRICK LPN; Reaction Status: Active ; Category: Drug ; Substance: formoterol ; Type: Allergy ; Updated By: KARLEE KIRKPATRICK LPN;Reviewed Date: 06/17/2015 7:23 CDT Levaquin Estimated Onset Date: Unspecified ; Created By: KARLEE KIRKPATRICK LPN; Reaction Status: Active ; Category: Drug ; Substance: Levaquin ; Type: Allergy ; Updated By: KARLEE KIRKPATRICK LPN; Reviewed Date: 06/17/2015 7:23 CDT mometasone Estimated Onset Date: Unspecified ; Created By: KARLEE KIRKPATRICK LPN; Reaction Status: Active ; Category: Drug ; Substance: mometasone ; Type: Allergy ; Updated By: KARLEE KIRKPATRICK LPN;Reviewed Date: 06/17/2015 7:23 CDT Source: [employer] Document Id: [id number] CDT!19 documented in this encounter Miscellaneous Notes Miscellaneous - Conversion, Historical Provider Ser - 09/21/2015 4:33 PM CDT Coding Summary-Paper Based CODING DATE: 09/28/2015 FINAL [facility] STATUS: * Discharged to Home or Self Care PAYOR: Commercial Insurance ADMIT DX: R05 Cough REASON FOR VISIT DX: R05 Cough FINAL DX: PRINCIPAL: J45.909 Unspecified asthma, uncomplicated SECONDARY: J40 Bronchitis, not specified as acute or chronic E78.5 Hyperlipidemia, unspecified Z88.1 Allergy status to other antibiotic agents status Z88.8 Allergy status to other drugs, medicaments and biological substances status PROCEDURES DOCTOR NAME DATE NOTE: The code number assigned matches the documented diagnosis and / or procedure in the patient's chart. However, the narrative phrase printed from the coding software may appear abbreviated, or result in slightly different terminology. Coded By: SHYAM ZEPEDA Date Saved: 09/28/2015 08:14 am Source: [employer] Document Id: [id number] Miscellaneous - Barbara Johnson R.N. - 09/21/2015 4:20 PM CDT Valuables/Belongings Valuables/Belongings Entered On: 09/21/2015 16:20 CDT Performed On: 09/21/2015 16:20 CDT by BARBARA JOHNSON RN Valuables/Belongings Belongings Sent Home With : All sent with patient BARBARA JOHNSON RN - 09/21/2015 16:20 CDT Source: [facility] [employer] Document Id: [id number] CDT!3 Miscellaneous - Barbara Johnson R.N. - 09/21/2015 1:29 PM CDT Facility Charge Ticket 2.0 11.0 DX Facility Charge Ticket 2.0 11.0 DX Entered On: 09/21/2015 16:20 CDT Performed On: 09/21/2015 13:29 CDT by BARBARA JOHNSON RN Facility Charge Ticket 2.0 11.0 DX ED Other Charges : Standard ED Encounter TVL Level Translated RTF : Cough TVL:3 TVL Level for Facility Charge Ticket : Level 3 Arrival Mode Calc : 1 Mode of Arrival ED : Private vehicle [facility] Mode of Arrival Interpreted : Standard [facility] Process Management : None Order Management RTF : Laboratory CBC (includes Auto Differential),09/21/15 13:54,CHANNING ADAME Completed Comprehensive Metabolic Panel,09/21/15 13:54,CHANNING ADAME Completed Pro B Natriuretic Peptide,09/21/15 13:56,CHANNING ADAME Completed Automated Diff-5 Part,09/21/15 14:17,CHANNING ADAME Completed Xray XR Chest 2 Views,09/21/15 13:54,CHANNING ADAME Completed EKG / Respiratory / Ancillary New RT Medication Order,09/21/15 13:58,CHANNING ADAME Ordered [facility] Order Management : EKG, RT, Ancillary Services, Lab tests, Xray - plain films 30 Minutes Critical Care : No Nursing Notes RTF : Triage Forms ED Triage Assessment,09/21/15 13:48,BARBARA JOHNSON RN Nursing Notes ED Primary Assessment,09/21/15 13:50,BARBARA JOHNSON RN [facility] Nursing Assessment : Triage and 3-5 nursing assessments [facility] Disposition : Discharge Disposition RTF : discharge [facility] Total Points with Diagnosis Control : 9 [facility] Visit Level : 29242 Level 4 Treatments Prior to Arrival : None BARBARA JOHNSON RN - 09/21/2015 16:20 CDT Source: [facility] [employer] Document Id: [id number] CDT!19 documented in this encounter Plan of Treatment Upcoming Encounters Date Type Specialty Care Team Description 01/23/2022 Appointment Radiology Clair Simms , ALLEN, C.N.P., D.N.P. [id number] [place] [phone] (Wo rk) Scheduled Procedures Name Priority Associated Diagnoses Date/Time COLONOSCOPY Screening Colon Cancer Average R isk documented as of this encounter Procedures Procedure Name Priority Date/Time Associated Comments Diagnosis AUTOMATED Routine 09/21/2015 2:15 PM Results f or this DIFFERENTIAL, B CDT procedure ar e in the results section. NT-PRO B-TYPE Routine 09/21/2015 2:15 PM Results for this NATRIURETIC PEPTIDE CDT procedur e are in (BNP), S the results section. CBC WITH DIFFERENTIAL, Routine 09/21/2015 2:15 PM Results for this B CDT procedure are i n the results section. COMPREHENSIVE Routine 09/21/2015 2:15 PM Results for this METABOLIC PANEL, S/P CDT procedu re are in the results section. documented in this encounter Results (ABNORMAL) Automated Differential (09/21/2015 2:15 PM CDT) [facility] Method Time Signature Absolute 11.68 (H) 1.70 - POWERCHART Neutrophils 7.00 109L Lymphocytes 0.51 (L) 0.90 - POWERCHART 2.90 X109L Monocytes 0.49 0.30 - POWERCHART 0.90 X109L Eosinophils 0.00 (L) 0.05 - POWERCHART 0.50 X109L Absolute 0.01 0.00 - POWERCHART Basophil 0.30 X109L Specimen Anatomical Collection Method Collection Time Receive d Time (Source) Location / / Volume Laterality Blood 09/21/2015 2:15 PM 6 2:15 CDT PM CDT Channing Pizano P.A.-C. LAB BLOOD ADD-ON Performing Organization Address City/State/ZIP Code Phon e Number POWERCHART (ABNORMAL) CBC with Differential (09/21/2015 2:15 PM CDT) Analysis Performed At Patho logist Time Signature Leukocytes 12.7 (H) 3.4 - 10.5 POWERCHART X109L Erythrocytes 4.53 3.90 - POWERCHART 5.03 [id number] Hemoglobin 14.3 12.0 - POWERCHART 15.5 GDL Hematocrit 40.1 34.9 - POWERCHART 44.5 MCV 88.5 81.6 - POWERCHART 98.3 FL HX RDW 12.8 11.9 - POWERCHART 15.5 Platelet Count 265 150 - 450 POWERCHART X109L Specimen (Source) Anatomical Collection Method Collection Time Re ceived Time Location / / Volume Laterality Blood 09/21/2015 2:15 PM CDT Channing Pizano P.A.-C. LAB BLOOD ADD-ON Performing Organization Address City/State/[facility] Phon e Number POWERCHART NT-Pro B-Type Natriuretic Peptide (BNP) (09/21/2015 2:15 PM CDT) P athologist Signature B-Type 182.90 10.00 - POWERCHART Natriuretic 183.00 Peptide (BNP) PGML Comment: NT-proBNP values less than 300 pg/mL hav e a 99% negative predictive value for excluding acute congestive heart failure. A cutoff of 1200 pg/mL for patients with an eGFR<60 yields a diagnostic sensitivity and specificity of 89% and 72% for acute congestive heart failure. ? Adults <50 years: ??NT-proBNP values greater than 450 pg/mL are consistent with CHF. ? Adults 50-75 years: ??A diagnostic NT-proBNP cutoff of 900 pg/mL has been suggested in the absence of renal failure. ? Adults >75 years: ??A diagnostic NT-proBNP cutoff of 1800 pg/mL has been suggested in the absence of renal failure. Specimen (Source) Anatomical Collection Method Collection Time Re ceived Time Location / / Volume Laterality Blood 09/21/2015 2:15 PM CDT Channing Pizano P.A.-C. LAB BLOOD ADD-ON Performing Organization Address City/State/ZIP Code Phon e Number POWERCHART (ABNORMAL) CMP (Comprehensive Metabolic Panel) (09/21/2015 2:15 PM CDT) [facility] gist Method Time Signature Albumin, S 4.0 3.5 - 5.0 POWERCHART GDL Sodium, S 140.6 135.0 - POWERCHART 145.0 MML Potassium, S 4.1 3.6 - 4.8 POWERCHART MMOLL Chloride, S 105 98 - 107 POWERCHART MMOLL BUN (Blood Urea 10 7 - 18 POWERCHART Nitrogen), S MGDL Creatinine 0.74 0.60 - POWERCHART 1.30 MGDL Calcium, Total, S 9.7 8.8 - POWERCHART 10.2 MGDL Alanine 53 (H) 7 - 45 POWERCHART Amniotransferase, LD UNITL Alkaline 67 50 - 130 POWERCHART Phosphatase, S UL Aspartate 27 8 - 43 POWERCHART Aminotransferase UNITL (AST), S CO2 Total 23.7 23.0 - POWERCHART 29.0 MMOLL Anion Gap 12 10 - 20 POWERCHART MMOLL HXeGFR (MDRD) >60 >=60 POWERCHART [id number] 2 Bilirubin, Total, S 0.3 0.1 - 1.0 POWERCHART MGDL Total Protein, S 6.9 6.3 - 7.9 POWERCHART GDL Glucose 124 70 - 139 POWERCHART MGDL Specimen (Source) Anatomical Collection Method Collection Time Re ceived Time Location / / Volume Laterality Blood 09/21/2015 2:15 PM CDT Channing Pizano P.A.-C. LAB BLOOD ADD-ON Performing Organization Address City/State/ZIP Code Phon e Number POWERCHART documented in this encounter Visit Diagnoses Not on filedocumented in this encounter
--- OUTSIDE RECORDS SUMMARY | 2021-12-17 14:02 | XMS_ITS | Encounter Summary ---
:1950 Author Organization [facility] Address [address] [place] [address] Care Team Providers Name Role Phone Unavailable Primary Care Provider Unavailable Encounter Details Date Type Department Care Team Description 06/20/2016 Hospital Encounter HX [facility] Olu Aggarwal M.D., Ph.D. [address] [place] [phone] (Wo rk) Social History Tobacco Use [...] or relatives? How often do you attend adventism or More than 4 times per year 08/10/2021 restorationist services? Do you belong to any clubs or Yes 08/10/2021 organizations such as adventism groups, unions, fraternal or athletic groups, or [...] place to sleep or slept in a detention (including now)? Sex Assigned at Date Recorded Female 11/19/2020 2:34 PM CDT documented as of this encounter Last Filed Vital Signs Vital Sign Reading Time Taken Comments Blood Pressure 122/70 06/20/2016 3:35 PM CDT Pulse 86 06/20/2016 3:35 PM CDT Temperature - - Respiratory Rate 16 06/20/2016 3:35 PM CDT Oxygen Saturation - - Inhaled Oxygen Concentration - - Weight 65.7 kg (144 lb 13.5 oz) 06/20/2016 3:35 PM CDT Height 174 cm (5' 8.5) 06/20/2016 3:35 PM CDT Body Mass Index 21.7 06/20/2016 3:35 PM CDT documented in this encounter Medications at [...] documented as of this encounter Progress Notes Terence Clemens M.D. - 06/20/2016 11:02 AM CDT Clinic Full Note CHIEF COMPLAINT/REASON FOR VISIT Cyst on left neck would like removed Red ring around lips Bumps on neck would like frozen HISTORY OF PRESENT ILLNESS Here for multiple issues: She has a tender cyst on her left neck. It gets larger and smaller depending on if she is applying a warm compress to it. It has been present for years. It doesn't radiate, is not associated with fevers or chills. She has a recent rash around her lips at and the corner of her mouth. It is irritating and slightlypainful. No other rash. She has no discharge. No recent contacts with anyone with a known rash. She uses a retainer at night. She has multiple moles on her skin to evaluate. Her parents had similar moles. MEDICATIONS albuterol 2.5 mg/3 mL neb, 2.5 mg, PRN, Inhalation, q6hr Breo Ellipta, Inhalation, Daily clonazePAM 0.5 mg oral tablet, 1-2 tab(s), PO, Daily cyclobenzaprine 10 mg oral tablet, 1/2 tab(s), PO, Daily gabapentin 300 mg oral capsule, 1-2 cap(s), PO, Daily montelukast 10 mg oral tablet, 10 mg, 1 tab(s), PO, Daily PM ZyrTEC, Prn, PO, Daily ALLERGIES Levaquin PAST MEDICAL HISTORY Chronic Hemangioma Liver Vertigo NOS Historical No historical problems PROCEDURES/SURGICAL HISTORY Excision of lesion of thyroid. SOCIAL HISTORY Date Time: 06/20/2016 15:35 Tobacco: Smoking Status: Never smoker Exposure: Other: Never Alcohol: Use: No Results Found Recreational Drugs: Use: None Type: No Results Found FAMILY HISTORY Mother:Positive: CA - Lung cancer; Depression; Drug abuse; Osteoporosis Father:Positive: Diabetes mellitus type II; Heart disease SYSTEMS REVIEW CONSTITUTIONAL: No fevers, chills, sweats, weight loss or fatigue. EYES: No blurriness or diplopia. EARS, NOSE, MOUTH, THROAT: No ear pain, hearing loss, congestion, rhinorrhea, sore throat or dysphagia. CARDIOVASCULAR: No chest pain or palpitations. RESPIRATORY: No shortness of breath, cough,or wheeze. GASTROINTESTINAL: No nausea, vomiting, diarrhea, constipation, abdominal pain, or black, bloody or tarry stools. GENITOURINARY: No dysuria, frequency, hesitancy or incontinence. MUSCULOSKELETAL: No back or limb pain. INTEGUMENTARY: No breast pain or masses. NEUROLOGICAL: No numbness, tingling, incoordination, falls or weakness. PSYCHIATRIC: No depression, anxiety or insomnia. ENDOCRINE: No heat or cold intolerance or polydipsia. HEMATOLOGIC/LYMPHATIC: No easy bruising, bleeding or lymphadenopathy. ALLERGIC/IMMUNOLOGIC: No allergies or immune disorders. VITAL SIGNS T: 37.5 ??C (Core) HR: 86 RR: 16 BP: 122 / 70 HT: 174 cm WT: 65.7 kg BMI: 21.7 PHYSICAL EXAMINATION GENERAL: No acute distress. Alert and oriented x3. Normal affect. Appropriate dress and eye contact. EYE: Conjunctiva is clear. NECK: Supple. No lymphadenopathy, thyromegaly or other masses noted. SKIN: A 0.75 cm sebaceous cyst is on her left neck. She has many seborrheic keratosis on her neck, forehead, chest and back. A slightly pink irritated rash is present around her mouth and at the corners. IMPRESSION/REPORT/PLAN 1. Cyst Sebaceous NOS After informed consent and discussion regarding the pros/cons/side effects and alternatives to thisprocedure, pause for cause was done and the procedure was started using standard sterile technique and supplies. 2 ml of 1% lidocaine with epinephrine was used to anesthetize the lesion/skin. Once adequate anesthesia was determined, an 11 blade scalpel was used to excise the cyst. Bleeding was stoppedwith pressure. 3 5-0 interrupted nylon sutures were placed to approximate the wound edges. EBL was 2ml. Wound cares were discussed and handouts provided. I instructed return in 1 weeks for suture removal, earlier as needed. Ordered: Excision Lesion (scalp,neck,hands,feet,genitalia) 0.6 to 1.0 cm Charge OV Est Pt Level 3 - 07281 - 15 min 2. Cheilitis Angular Start clotrimazole and hydrocortisone. If not feeling better in 3 days or if worsening, recommend reevaluation. Side effects of treatments discussed. Ordered: OV Est Pt Level 3 - 02070 - 15 min 3. Keratosis Seborrheic (SEBKER SK) Informed verbal consent obtained after pros/cons/side effects/complications discussed. The lesions (14) were destroyed with liquid nitrogen cryotherapy. Ordered: Destruction Lesions/Warts/Moll Cont/Milia <=14 Charge [id number] OV Est Pt Level 3 - 03823 - 15 min Orders: clotrimazole topical, 1 dmitry, Topical, 2xDay, # 15 gm, 1 Refill(s), Acute, Pharmacy: [id number] hydrocortisone topical, 1 dmitry, Topical, 3xDay, # 15 gm, 1 Refill(s), Acute, Pharmacy: [id number] Electronically Signed By: TERENCE CLEMENS MD On: 06/21/2016 11:12 AM [facility] Document Id: [id number] documented in this encounter Miscellaneous Notes Miscellaneous - Terence Clemens M.D. - 06/21/2016 11:02 AM CDT Ambulatory Patient Summary [address] [id number] Visit Information Name: URVASHI QUINTANATABBY ELIF [facility] Number: [id number] Current Date: 06/21/2016 11:02:27 Physicians Attending Provider: TERENCE CLEMENS MD Primary Care Provider: ELISA CARBONE MD SUEFEI ELIF has been given the following list of follow-up instructions, medication list, and patient education materials: Follow-up Instructions Your Medications Here is a list of your medications. It is important to take your medications as directed. Use a pillbox or chart to help remind you to take your medications. Please let your doctor or nurse know if you have problems taking your medications. Medication/Strength How to Take Indications/Special Instructions/Comments/Notes for Patient Medication Changes/Routing albuterol (albuterol 2.5 mg/3 mL neb) 2.5 mg, Inhalation, every 6 hours PRN cetirizine (ZyrTEC) Oral, once a day Prn clonazePAM (clonazePAM 0.5 mg oral tablet) 1-2 tab(s), Oral, once a day clotrimazole topical (clotrimazole 1% topical cream) 1 dmitry, Topical, two times a day New Routed to [address] [address] cyclobenzaprine (cyclobenzaprine 10 mg oral tablet) 1/2 tab(s), Oral, once a day fluticasone-vilanterol (Breo Ellipta) Inhalation, once a day gabapentin (gabapentin 300 mg oral capsule) 1-2 cap(s), Oral, once a day hydrocortisone topical (hydrocortisone 1% topical cream) 1 dmitry, Topical, three times a day New Routed to [address] [id number] montelukast (montelukast 10 mg oral tablet) 1 Tablet(s), Oral, every evening Stop Taking the Following Medications: Medication list as of 06-21-16 11:02 Attention: If you have any medications at home that are not on this list, DO NOT take them until youcontact your provider for clarification. Give a copy of your medication list to your primary care provider. Update your medication list any time medications or doses are changed and carry your medication list at all times in case of emergency. Electronically Signed By: TERENCE CLEMENS MD Signed On:21-JUN-2016 11:02:22 Your Allergies & Intolerances Substance Reaction Symptoms Category Comments Levaquin Drug Your Problem List Problem Status Onset Comments Varicose Vein (VV) Lower Extremity NOS Active 05/12/15 copied from [facility] medical record scanned Hyperlipidemia NOS Active 05/12/15 onset unknown copied from medical record Disease Gastroesophageal Reflux (GERD DERRELL) Active 05/12/15 onset unknown copied from medical record [facility] Disorder Temporomandibular Joint (TMJ) Active 05/12/15 Onset unknown Copied from [facility] record managed [facility] [place] Restless Leg Syndrome (RLS) Active 05/12/15 onset unknown copied from [facility] record signed managed by [facility] Asthma NOS Active 05/12/15 Onset unknown copied from [facility] records scanned managed by [facility] Lipoma NOS Active 05/12/15 Back date unknown copied from [facility] record scanned Excision Cyst Thyroglossal Duct S/P Active 05/12/15 copied from [facility] record date unknown Vertigo NOS Active 06/13/15 Per External Record Hemangioma Liver Active 06/17/15 Noted in clinic notes from previous clinic Your Upcoming Appointments Date Time Location Provider 06/26/2016 10:15 [facility] Family Med [facility] Nurse 07/03/2016 09:05 [facility] Ortho Juan Antonio OLIVEIRA, Tasha Mcdermott 08/14/2016 10:45 [facility] Evan LUNA, Elisa Chapman Attention: Contact your local Clinic if further appointment detail needed. Consider Using Patient Online Services Patient Online [...] if you dont have one. Go to [email or web address] and click on Create Your Account. Then, follow the directions to complete the online form. Youll be asked for your [facility] number which you can find at the top of this document. Your Goals/Additional instructions: Source: [facility] POWERCHART Document Id: [id number] Miscellaneous - Terence Clemens M.D. - 06/21/2016 11:02 AM CDT Ambulatory Discharge Medication List [address] [id number] Visit Information Name: SUEFEI ELIF [facility] Number: [id number] Current Date: 06/21/2016 11:02:24 Attending Provider: TERENCE CLEMENS MD Primary Care Provider: ELISA CARBONE MD FEI QUINTANA has been given the following list of medications: Your Medications It is important to take your medications as directed. Use a pill box or chart to help remind you to take your medications. Please let your doctor or nurse know if you have problems taking your medications. Medication/Strength How to Take Indications/Special Instructions/Comments/Notes for Patient Medication Changes/Routing albuterol (albuterol 2.5 mg/3 mL neb) 2.5 mg, Inhalation, every 6 hours PRN cetirizine (ZyrTEC) Oral, once a day Prn clonazePAM (clonazePAM 0.5 mg oral tablet) 1-2 tab(s), Oral, once a day clotrimazole topical (clotrimazole 1% topical cream) 1 dmitry, Topical, two times a day New Routed to [address] [address] cyclobenzaprine (cyclobenzaprine 10 mg oral tablet) 1/2 tab(s), Oral, once a day fluticasone-vilanterol (Breo Ellipta) Inhalation, once a day gabapentin (gabapentin 300 mg oral capsule) 1-2 cap(s), Oral, once a day hydrocortisone topical (hydrocortisone 1% topical cream) 1 dmitry, Topical, three times a day New Routed to [address] [id number] montelukast (montelukast 10 mg oral tablet) 1 Tablet(s), Oral, every evening Stop Taking the Following Medications: Medication list as of 06-21-16 11:02 Attention: If you have any medications at home that are not on this list, DO NOT take them until youcontact your provider for clarification. Give a copy of your medication list to your primary care provider. Update your medication list any time medications or doses are changed and carry your medication list at all times in case of emergency. Electronically Signed By: TERENCE CLEMENS MD Signed On:21-JUN-2016 11:02:22 Additional Information: Source: [facility] POWERCHART Document Id: [id number] Miscellaneous - Channing Desai L.P.N. - 06/20/2016 3:35 PM CDT Adult Contact Center Team Lead Intake/History Adult Contact Center Team Lead Intake/History Entered On: 06/20/2016 15:38 CDT Performed On: 06/20/2016 15:35 CDT by CHANNING DESAI Intake Chief Complaint : Cyst on left neck would like removed Red ring around lips Bumps on neck would like frozen Temperature Core : 37.5 DegC(Converted to: 99.5 DegF) Peripheral Pulse Rate : 86 /min Respiratory Rate : 16 /min Heart Rhythm : Regular Systolic Blood Pressure : 122 mmHg Diastolic Blood Pressure : 70 mmHg NIBP Mean : 87 mmHg BP Location : Left upper extremity Blood Pressure Cuff Size : Regular Height : 174 cm(Converted to: 5 ft 9 inch(es), 69 inch(es)) Actual Weight : 65.7 kg(Converted to: 144 lb 14 oz) Weight Source : Standing scale Dosing Weight Clinic : 65.7 kg Clinic BSA : 1.78 Body Mass Index : 21.7 kg/m2 CHANNING DESAI - 06/20/2016 15:35 CDT General Info Information Given By : Patient Languages : Northern Irish Is Patient Female and 13-50 no hysterectomy : No CHANNING DESAI - 06/20/2016 15:35 CDT Subjective Pain Symptoms : No CHANNING DESAI 06/20/2016 15:35 CDT Dependent Habits Exposure to Tobacco Smoke : Other: Never Smoking Status : Never smoker Tobacco 2A : No Tobacco Use/Currently Using : No Tobacco Use/Last 30 Days : No Tobacco Use/Last 12 months : No CHANNING DESAI - 06/20/2016 15:35 CDT Caffeine Use Grid Caffeine Use : Current Type : Coffee Frequency : Daily CHANNING DESAI - 06/20/2016 15:35 CDT Recreational Drug Use Grid Drug Use : None CHANNING DESAI 06/20/2016 15:35 CDT [facility] Document Id: [id number] CDT!39 documented in this encounter Plan of Treatment Upcoming Encounters Date Type Specialty Care Team Description 01/23/2022 Appointment Radiology Clair Simms APRN, C.N.P., D.N.P. [id number] [phone] (Wo ) Scheduled Procedures Name Priority Associated Diagnoses Date/Time COLONOSCOPY Screening Colon Cancer Average R isk documented as of this encounter Visit Diagnoses Not on filedocumented in this encounter
--- OUTSIDE RECORDS SUMMARY | 2021-12-17 14:02 | XMS_ITS | Encounter Summary ---
:1950 Author Organization [facility] Address [address] [place] [address] Care Team Providers Name Role Phone Unavailable Primary Care Provider Unavailable Encounter Details Date Type Department Care Team Description 06/26/2016 Hospital Encounter HX [facility] Olu Aggarwal M.D., Ph.D. [address] [place] [phone] (Wo rk) Social History Tobacco Use Types Packs/Day Years Used Date Smoking Tobacco: Never Alcohol Habits Answer Date Recorded How often do you have a drink containing 4 or more times a w [place] 08/10/2021 alcohol? How many drinks containing alcohol [...] or relatives? How often do you attend methodist or More than 4 times per year 08/10/2021 sikhism services? Do you belong to any clubs or Yes 08/10/2021 organizations such as methodist groups, unions, fraternal or athletic groups, or [...] - - Height 174 cm (5' 8.5) 06/26/2016 9:56 AM CDT Body Mass Index - - [...] tablet daily. documented as of this encounter Plan of Treatment Upcoming Encounters Date Type Specialty Care Team Description 01/23/2022 Appointment Radiology Clair Simms APRN, C.N.P., D.N.P. [address] [phone] (Wo rk) Scheduled Procedures Name Priority Associated Diagnoses Date/Time COLONOSCOPY Screening Colon Cancer Average R isk documented as of this encounter Visit Diagnoses Not on filedocumented in this encounter
--- OUTSIDE RECORDS SUMMARY | 2021-12-17 14:02 | XMS_ITS | Encounter Summary ---
:1950 Author Organization [facility] Address [address] [place] [address] Care Team Providers Name Role Phone Unavailable Primary Care Provider Unavailable Encounter Details Date Type Department Care Team Description 07/03/2016 Hospital Encounter HX [facility] Yash Terrazas, ALLEN, C.N.P., D.N.P. [address] [place], [place] [phone] (Wo rk) Social History Tobacco Use Types Packs/Day Years Used Date Smoking Tobacco: Never Alcohol Habits Answer Date Recorded How often do you have a drink containing 4 or more times a w [place] 08/10/2021 alcohol? How many drinks containing alcohol [...] slept in a senior care (including now)? Sex Assigned at Date Recorded Female 11/19/2020 2:34 PM CDT documented as of this encounter Last Filed Vital Signs Vital Sign Reading Time Taken Comments Blood Pressure 120/80 07/03/2016 9:10 AM CDT Pulse 87 07/03/2016 9:10 AM CDT Temperature - - Respiratory Rate 18 07/03/2016 9:10 AM CDT Oxygen Saturation - - Inhaled Oxygen Concentration - - Weight - - Height 174 cm (5' 8.5) 07/03/2016 9:10 AM CDT Body Mass Index - - [...] documented as of this encounter Progress Notes Yash Terrazas, ALLEN, C.N.P. - 07/03/2016 8:43 AM CDT [id number] CHIEF COMPLAINT/REASON FOR VISIT Right elbow pain. HISTORY OF PRESENT ILLNESS Fei is a 65-year-old who comes in today for evaluation of her right elbow pain. The patient states that this dates back to occurring in the fall where she was cutting wood and doing a lot of repetitive motion with her right arm causing her to have some significant right elbow pain. She did presentto her primary care provider for that. Was diagnosed with medial epicondylitis and treated in a conservative fashion. Despite that, patient continues to have pain in her right elbow but also notes significant pain in her right shoulder with weakness which is more concerning to her. She was treated by Occupational Therapy for her elbow pain for 2 months. Despite that had absolutely no improvement. Sheis most concerned regarding her right shoulder as well as the continued pain in her right elbow. Theconservative treatments did include a brace which seemed to make more weakness within her lower arm and patient discontinued that. She did note some improvement with the occupational therapy. PHYSICAL EXAMINATION GENERAL: Patient appears nondistressed. EXTREMITIES: Her right elbow without any particular swelling. She really has minimal pain to deep palpation of both her medial and lateral epicondyle areas at this time. She has full range of motion. The shoulder also has full range of motion. However she does definitely have some weakness especially in her supraspinatus torn cuff test exam when compared to the contralateral side. She otherwise notesno particular weakness. She has a negative Florez sign. Has some slight discomfort with that however. IMPRESSION/REPORT/PLAN 1. Right elbow pain. I suspect tendinitis. However has failed on conservative therapy. Would like toget an MRI of her right elbow for further evaluation and treatment options. She wishes to forego anytype of injection until a definitive diagnosis and MRI is performed. I do agree with that at this time. 2. Right shoulder pain. She definitely has a weakness in that right shoulder when compared to her left shoulder. At this point I would like to obtain an MRI. I would prefer to know what is causing increased weakness for patient. She agrees with that plan. I will plan to see her back after those results are obtained. Will review them at that time. ADMINISTRATIVE Twenty-six minutes were spent with patient of which 18 minutes were treatment options regarding her right elbow and shoulder pain. David Pierce/kelvin Electronically Signed By: YASH TERRAZAS APRN, DNP, STOVE CLEANER On: 07/04/2016 02:40 PM Source: [facility] MHSDOLBEYNTORIBIORADSYS Document Id: [id number] documented in this encounter Miscellaneous Notes Miscellaneous - Gail Vasquez R.N. - 07/03/2016 9:10 AM CDT Adult Crtts Intake/History Document Has Been Updated Adult Crtts Intake/History Entered On: 07/03/2016 9:13 CDT Performed On: 07/03/2016 9:10 CDT by GAIL VASQUEZ RN Intake Chief Complaint : RIght shoulder and elbow pain. Onset of Symptoms : since fall Temperature Core : 36.6 DegC(Converted to: 97.9 DegF) Peripheral Pulse Rate : 87 /min Respiratory Rate : 18 /min Systolic Blood Pressure : 120 mmHg Diastolic Blood Pressure : 80 mmHg NIBP Mean : 93 mmHg SpO2 : 99 % Oxygen Therapy : Room air Height : 174 cm(Converted to: 5 ft 9 inch(es), 69 inch(es)) GAIL VASQUEZ RN - 07/03/2016 9:10 CDT General Info Information Given By : Patient Languages : German Is Patient Female and 13-50 no hysterectomy : No GAIL VASQUEZ RN - 07/03/2016 9:10 CDT Subjective Pain Symptoms : No GAIL VASQUEZ RN - 07/03/2016 9:10 CDT Dependent Habits Exposure to Tobacco Smoke : Other: Never Smoking Status : Never smoker Tobacco 2A : No Tobacco Use/Currently Using : No Tobacco Use/Last 30 Days : No Tobacco Use/Last 12 months : No GAIL VASQUEZ RN - 07/03/2016 9:10 CDT Caffeine Use Grid Caffeine Use : Current Type : Coffee Frequency : Daily GAIL VASQUEZ RN - 07/03/2016 9:10 CDT Recreational Drug Use Grid Drug Use : None GAIL VASQUEZ RN - 07/03/2016 9:10 CDT Allergy (As Of: 07/03/2016 09:13:16 CDT) Allergies (Active) Levaquin Estimated Onset Date: Unspecified ; Created By: KARLEE KIRKPATRICK LPN; Reaction Status: Active ; Category: Drug ; Substance: Levaquin ; Type: Allergy ; Updated By: KARLEE KIRKPATRICK LPN; Reviewed Date: 07/03/2016 9:13 CDT Source: [facility] [employer] Document Id: [id number] CDT!34 documented in this encounter Plan of Treatment Upcoming Encounters Date Type Specialty Care Team Description 01/23/2022 Appointment Radiology Clair Simms , ALLEN, C.N.P., D.N.P. [id number] [place] [phone] (Wo rk) Scheduled Procedures Name Priority Associated Diagnoses Date/Time COLONOSCOPY Screening Colon Cancer Average R isk documented as of this encounter Visit Diagnoses Not on filedocumented in this encounter
--- OUTSIDE RECORDS SUMMARY | 2021-12-17 14:02 | XMS_ITS | Encounter Summary ---
:1950 Author Organization [facility] Address [address] [place] [address] Care Team Providers Name Role Phone Unavailable Primary Care Provider Unavailable Encounter Details Date Type Department Care Team Description 07/27/2016 Hospital Encounter HX [facility] Yash Terrazas, ALLEN, C.N.P., D.N.P. [address] [place], [place] [phone] (Wo rk) Social History Tobacco Use Types Packs/Day Years Used Date Smoking Tobacco: Never Alcohol Habits Answer Date Recorded How often do you have a drink containing 4 or more times a w shish[place]f ira 08/10/2021 alcohol? How many drinks containing alcohol [...] or relatives? How often do you attend latter-day or More than 4 times per year 08/10/2021 oriental orthodox services? Do you belong to any clubs or Yes 08/10/2021 organizations such as latter-day groups, unions, fraternal or athletic groups, or [...] Reading Time Taken Comments Blood Pressure 120/80 07/27/2016 8:56 AM CDT Pulse - - Temperature - - Respiratory Rate 20 07/27/2016 8:56 AM CDT Oxygen Saturation - - Inhaled Oxygen Concentration - - Weight - - Height 174 cm (5' 8.5) 07/27/2016 8:56 AM CDT Body Mass Index - - [...] Progress Notes Yash Terrazas, ALLEN, C.N.P. - 07/27/2016 8:51 AM CDT [id number] CHIEF COMPLAINT/REASON FOR VISIT Followup of elbow and shoulder MRI. HISTORY OF PRESENT ILLNESS Patient is a pleasant 65-year-old who has been having pain in her right elbow and shoulder for quitesome time since the fall when she was cutting a lot of wood with repetitive motion. She had some treatment with occupational therapy for her elbow pain and despite that, has not had any significant improvement in her pain. We did discuss an injection in her shoulder, however patient wanted definitive diagnosis and an MRI was ordered of both her shoulder and her elbow. She is here today for those results. PHYSICAL EXAMINATION General: Patient appears nondistressed. Her elbow with no particular swelling. She still has a little bit of tenderness in the medial epicondyles but has full range of motion. Her shoulder also has full range of motion. DIAGNOSTICS MRI was reviewed with patient. Her MRI of her shoulder shows mild rotator cuff tendinosis with low-grade articular bursal sided fraying. No high-grade rotator cuff tendon tear. 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 Her elbow x-ray was also reviewed which did show some mild to moderate tendinosis and moderate grade partial thickness tear at the origin of the common flexor tendon, mild tendinosis and low grade intrasubstance tear of thecommon extensor tendon origin and trace tendinosis and enthesopathy at the distal triceps insertion and mild overlying olecranon bursopathy. IMPRESSION/REPORT/PLAN Right shoulder and elbow pain. I shared with patient that these are both tendinitis type injuries. Physical therapy is her best bet. We did discuss possibly injecting her shoulder which she would like to proceed with. We also did discuss injecting her elbow down the road if she has no particular improv ement. She was told that the expectation for her elbow could take up to a full year before that doescalm down without any surgical intervention. We will use that as a last resort and patient is agreeable to that. She would like to proceed with a right shoulder steroid injection to decrease the inflammation given her significant pain. We did go ahead and talk about the benefits as well as the risks of that and a consent form was obtained. Her right shoulder was injected with 1% lidocaine and 10 mg of Decadron without any difficulty and patient tolerated the procedure well. Will plan to see her backonly if she has no improvement. She will continue with occupational therapy for her elbow. She will proceed with physical therapy for her shoulder. However, she would like to wait on that as of right now. If she does decide to go ahead and proceed with physical therapy of her shoulder I will go ahead and order that. Questions were answered. Eighteen minutes was spent with patient of which 16 minutes was treatment options regarding her elbow and shoulder pain. David Pierce/kelvin Electronically Signed By: YASH TERRAZAS APRN, TATIANA, OPHTHALMOLOGY SURGICAL TECHNICIAN On: 07/31/2016 12:54 PM Source: [facility] [email or web address] Document Id: [id number] documented in this encounter Miscellaneous Notes Miscellaneous - Gail Vasquez, R.N. - 07/27/2016 8:56 AM CDT Adult Disc Pad Plate Filler Intake/History Adult Disc Pad Plate Filler Intake/History Entered On: 07/27/2016 8:58 CDT Performed On: 07/27/2016 8:56 CDT by GAIL VASQUEZ RN Intake Chief Complaint : follow up on elbow and shouldermri Apical Heart Rate : 92 /min Respiratory Rate : 20 /min Heart Rhythm : Regular Systolic Blood Pressure : 120 mmHg Diastolic Blood Pressure : 80 mmHg NIBP Mean : 93 mmHg SpO2 : 95 % Oxygen Therapy : Room air Height : 174 cm(Converted to: 5 ft 9 inch(es), 69 inch(es)) GAIL VASQUEZ RN - 07/27/2016 8:56 CDT General Info Information Given By : Patient Languages : Bahraini Is Patient Female and 13-50 no hysterectomy : No GAIL VASQUEZ RN - 07/27/2016 8:56 CDT Subjective Pain Symptoms : No GAIL VASQUEZ RN - 07/27/2016 8:56 CDT Dependent Habits Exposure to Tobacco Smoke : Other: Never Smoking Status : Never smoker Tobacco 2A : No Tobacco Use/Currently Using : No Tobacco Use/Last 30 Days : No Tobacco Use/Last 12 months : No GAIL VASQUEZ RN - 07/27/2016 8:56 CDT Caffeine Use Grid Caffeine Use : Current Type : Coffee Frequency : Daily GAIL VASQUEZ RN - 07/27/2016 8:56 CDT Recreational Drug Use Grid Drug Use : None GAIL VASQUEZ RN - 07/27/2016 8:56 CDT Source: [facility] Competitor Document Id: [id number] documented in this encounter Plan of Treatment Upcoming Encounters Date Type Specialty Care Team Description 01/23/2022 Appointment Radiology Clair Simms , ALLEN, C.N.P., D.N.P. [id number] [phone] (Wo rk) Scheduled Procedures Name Priority Associated Diagnoses Date/Time COLONOSCOPY Screening Colon Cancer Average R isk documented as of this encounter Visit Diagnoses Not on filedocumented in this encounter
--- OUTSIDE RECORDS SUMMARY | 2021-12-17 14:02 | XMS_ITS | Encounter Summary ---
:1950 Author Organization [facility] Address [address] [place] [address] Care Team Providers Name Role Phone Cierra Chandler P.A.-C. Primary Care Provider Reason for Visit Auth/Cert Specialty Diagnoses / Procedures Referred By Contact Refer red To Contact Diagnoses Screening Cancer Colon screening colonoscopy Procedures COLONOSCOPY Referral ID Status Reason Start Date Expiration Date Visits Requ ested Visits Authorized [id number] 1 1 Encounter Details Date Type Department Care Team Description 01/10/2017 Hospital Encounter [facility] Nieves Warren M.D. [address] [place] [id number] Social History Tobacco Use Types Packs/Day Years Used Date Smoking Tobacco: Never Smokeless Tobacco: Never Alcohol Use Standard Drinks/Week Comments Yes 7 (1 standard drink = 0.6 oz pure alcoho l) Alcohol Habits Answer Date Recorded How often do you have a drink containing 4 or more times a w morongo 08/10/2021 alcohol? How many drinks containing alcohol [...] or relatives? How often do you attend yazidi or More than 4 times per year 08/10/2021 synagogue services? Do you belong to any clubs or Yes 08/10/2021 organizations such as yazidi groups, unions, fraternal or athletic groups, or [...] Sign Reading Time Taken Comments Blood Pressure 140/77 01/10/2017 10:21 AM VICE PRESIDENT PAYMENT Pulse 61 01/10/2017 10:25 AM VICE PRESIDENT PAYMENT Temperature 36.7 ??C (98.1 ??F) 01/10/2017 10:21 AM VICE PRESIDENT PAYMENT Respiratory Rate 18 01/10/2017 7:39 AM VICE PRESIDENT PAYMENT Oxygen Saturation 99% 01/10/2017 10:25 AM VICE PRESIDENT PAYMENT Inhaled Oxygen Concentration - - Weight 65 kg (143 lb 4.8 oz) 01/10/2017 7:39 AM VICE PRESIDENT PAYMENT Height 174 cm (5' 8.5) 01/10/2017 7:39 AM VICE PRESIDENT PAYMENT Body Mass Index 21.47 01/10/2017 7:39 AM VICE PRESIDENT PAYMENT documented in this encounter Discharge Instructions AttachmentsThe following attachments cannot be sent through Care Everywhere. Polyps of the Colon and Rectum (Kosovan)Care Following Colonoscopy (Kosovan) documented in this encounter Medications at Time [...] - 01/10/2017 7:47 AM CSTAssociated Order(s): COLONOSCOPY [facility] Patient Name: Fei Quintana Procedure Date: 01/10/2017 [...] bowel preparation was evaluated using the BBPS ([place] Bowel Preparation Scale) with scores of: Right [...] 0 Note Initiated On: 01/10/2017 7:47 AM PRESIDENT PAYMENT documented in this encounter Plan of Treatment Upcoming Encounters Date Type Specialty Care Team Description 01/23/2022 Appointment Radiology Clair Simms APRN, C.N.P., D.N.P. [id number] [phone] (Wo rk) Scheduled Procedures Name Priority Associated Diagnoses Date/Time COLONOSCOPY Screening Colon Cancer Average R isk documented as of this encounter Procedures Procedure Name Priority Date/Time Associated Comments Diagnosis ADULT OXYGEN THERAPY Routine 01/10/2017 9:27 AM VICE PRESIDENT PAYMENT PATHOLOGY SERVICES Routine 01/10/2017 8:58 AM Res ults for this VICE PRESIDENT PAYMENT procedure are i n the results section. COLONOSCOPY 01/10/2017 8:26 AM Screening Cancer VICE PRESIDENT PAYMENT Colon COLONOSCOPY 01/10/2017 7:47 AM Results f or this VICE PRESIDENT PAYMENT procedure are i n the results section. documented in this encounter Results Pathology Services (01/10/2017 8:58 AM VICE PRESIDENT PAYMENT) Component Value Ref Test Analysis Performed At [facility] Range Method Time Signature PATHOLOGY Patient Name: FEI QUINTANA [facility] MR#: [id number] ALEK Submitting Physician: NIEVES ??ANGELINE LUNA [id number] Specimen #[id number] Performing Lab: ??[facility] ? [address] [place] [id number] Source: Colon polyp Gross Description Received in [...] Volume Laterality Polyp (Colon) 01/10/2017 8:58 AM VICE PRESIDENT PAYMENT Nieves Obrien M.D. LAB SURG PATH ORDERABLES Performing Organization Address City/State/ZIP Code Phon e Number [address] [address] COLONOSCOPY (01/10/2017 7:47 AM VICE PRESIDENT PAYMENT) Specimen (Source) Anatomical Location Collection Method / Collectio n Time Received Time / Laterality Volume Narrative This result has an attachment that is no t available. Procedure Note Nieves Obrien M.D. - 01/10/2017 7:47 AM CST [facility] Patient Name: Fei Quintana Procedure Date: [...] the patient. Return to normal activities to [place]. Written discharge instructions were provided to the [...] preparation wa s evaluated using the BBPS ([place] Bowel Preparatio n Scale) with scores of: Right Colon = 3, Transverse Colon = 3 and Left Colon = 3 (entire mucosa seen well with no residual staining, small fragments of s tool or opaque liquid). The total BBPS score eq uals 9. The ileocecal valve, appendiceal orifice, a nd rectum were photographed. Sedation: Anesthesia was administered by an anest fayeia professional. The following parameters were monitored: oxygen satur ation, heart rate, blood pressure, respiratory rate, EKG, adequa cy of pulmonary ventilation, and response to care. Nieves Obrien MD 01/10/2017 9:28:59 AM This report has been signed electronical ly. Number of Addenda: 0 Note Initiated On: 01/10/2017 7:47 AM Nieves Obrien M.D. GI PROCEDURE ORDERABLES documented in this encounter Visit Diagnoses Not on filedocumented in this encounter Administered Medications Inactive Administered Medications - up to 3 most recent administrations Medication Order MAR Action Action Date Dose Rate Site lactated ringers New Bag 01/10/2017 7:52 AM VICE PRESIDENT PAYMENT 20 mL/hr 20 mL/hr 20 mL/hr, intravenous, Continuous, Starting on Esme 01/10/17 at 0715, Pre-Op New Bag 01/10/2017 7:34 AM VICE PRESIDENT PAYMENT lactated ringers 100 mL/hr, intravenous, Continuous, Starting on Esme at 0930 documented in this encounter Active and Recently Administered Medications Times are shown in VICE PRESIDENT PAYMENT. Continuous Medication Order 01/08/2017 01/09/2017 01/10/2017 lactated [...] 930 documented in this encounter Care Teams Data Typist Relationship Specialty Start Date End Date Cierra Chandler P.A.-C. PCP - General 12/14/16 06/02/19 documented as of this encounter
--- OUTSIDE RECORDS SUMMARY | 2021-12-17 14:02 | XMS_ITS | Encounter Summary ---
:[address] [facility] Address [address] [place] [address] Care Team Providers Name Role Phone Unavailable Primary Care Provider Unavailable Encounter Details Date Type Department Care Team Description 06/17/2015 Hospital Encounter HX [facility] Taylor Conner M.D. [address] [place], [place] [phone] (Wo rk) Social History Tobacco Use Types Packs/Day Years Used Date Smoking Tobacco: Never Assessed Alcohol Habits Answer Date Recorded How often do you have a drink containing 4 or more times a w [place] 08/10/2021 alcohol? How many drinks containing alcohol [...] place to sleep or slept in a skilled nursing (including now)? Sex Assigned at Date Recorded Female 11/19/2020 2:34 PM CDT documented as of this encounter Last Filed Vital Signs Vital Sign Reading Time Taken Comments Blood Pressure 120/78 06/17/2015 7:14 AM CDT Pulse 88 06/17/2015 7:14 AM CDT Temperature - - Respiratory Rate 16 06/17/2015 7:14 AM CDT Oxygen Saturation - - Inhaled Oxygen Concentration - - Weight 61.3 kg (135 lb 2.3 oz) 06/17/2015 7:14 AM CDT Height 174 cm (5' 8.5) 06/17/2015 7:14 AM CDT Body Mass Index 20.25 06/17/2015 7:14 AM CDT documented in this encounter Medications [...] documented as of this encounter Progress Notes Zeeshan Stanford P.A.-C. - 06/17/2015 8:23 AM CDT Clinic Full Note CHIEF COMPLAINT/REASON FOR VISIT Follow up and labs, review gallbladder hx. questions dairy allergy. Sleep disturbances HISTORY OF PRESENT ILLNESS Patient is a 64 year old female here today to discuss further evaluation of the gallbladder as wellas questions regarding a dairy allergy, fasting lipids/labs as well as colonoscopy vs. ColoGuard andrestless leg medications. The patient continues to have right upper quadrant pain, constant 2-3/10, but worse with fatty foods. She has had this pain evaluated before with endoscopy and ultrasound, both normal. She would like more testing for the gallbladder. She is wondering if she has a dairy allergy as she feels worse whenshe eats dairy. The patient notes she has been off dairy for 2 weeks and found significant improvement of her abdominal discomfort and bloating. In regards to her sleep disturbances and restless leg medications, patient recently was seen by Dr.Patrick Arriola. Who agreed to renew medications the patient has been on for many years clonazepam, cyclobenzaprine and gabapentin). Previously the patient was being followed by the [facility] [place] but they recently told the patient they were going to change all her medications for sleep and restless leg thus the patient retuned to Dr. Arriola who she had previously seen. Health Maintenance The patient is due for fasting lipids, last obtained approximately 4 years ago. She is also due forher pap smear (unsure when last one was). Colonoscopy was 12 years ago. She is due for this as well and is willing to move forward with colonoscopy. MEDICATIONS clonazePAM 0.5 mg oral tablet, 1-2 tab(s), PO, Daily cyclobenzaprine 10 mg oral tablet, 1/2 tab(s), PO, Daily Dulera 200 mcg-5 mcg/inh inhalation aerosol, 2 puff(s), Inhalation, 2xDay gabapentin 300 mg oral capsule, 1-2 cap(s), PO, Daily montelukast 10 mg oral tablet, 10 mg, 1 tab(s), PO, Daily PM ZyrTEC, PO, Daily ALLERGIES formoterol Levaquin mometasone PAST MEDICAL HISTORY Chronic Vertigo NOS Historical No historical problems PROCEDURES/SURGICAL HISTORY Excision of lesion of thyroid. SOCIAL HISTORY Date Time: 06/17/2015 07:14 Tobacco: Smoking Status: Never smoker Exposure: Other: Never Alcohol: Use: Yes Recreational Drugs: Use: None Type: No Results Found FAMILY HISTORY Mother:Positive: CA - Lung cancer; Depression; Drug abuse; Osteoporosis Father:Positive: Diabetes mellitus type II; Heart disease SYSTEMS REVIEW GENERAL: No fevers, no chills CARDIAC: No chest pain PULMONARY: No shortness of breath VITAL SIGNS T: 36.6 ??C (Core) HR: 88 RR: 16 BP: 120 / 78 SpO2: 99% HT: 174 cm WT: 61.3 kg BMI: 20.25 PHYSICAL EXAMINATION GENERAL: Patient is in no distress. HEENT: Normocephalic. PERRL NECK: Supple HEART: Regular rate and rhythm. No murmurs, gallops or rubs noted. LUNGS: Clear to auscultation bilaterally. No expiratory wheeze. No accessory muscles of respirationnoted. GI: Bowel sounds normal. Abdomen nontender to palpation. No hepatosplenomegaly. : Normal external genitalia. Vaginal mucosa normal. Cervix normal in appearance. No tenderness orfullness of the adnexa. No CMT. NEURO: Alert and nonfocal, moving all 4 extremities PSYCH: Appropriate affect LAB RESULTS Sodium Lvl 139.3 mM/L 06/17/2015 08:25 CDT Potassium Lvl 3.8 mmol/L 06/17/2015 08:25 CDT Chloride 104 mmol/L 06/17/2015 08:25 CDT CO2 27.5 mmol/L 06/17/2015 08:25 CDT AGAP 8 mmol/L 06/17/2015 08:25 CDT (Low) Glucose Fasting 104 mg/dL 06/17/2015 08:25 CDT (High) Creatinine 0.87 mg/dL 06/17/2015 08:25 CDT EGFR (MDRD) >60 mL/min/1.73m2 06/17/2015 08:25 CDT EGFR (MDRD) >60 mL/min/1.73m2 06/17/2015 08:25 CDT BUN 14 mg/dL 06/17/2015 08:25 CDT Calcium Lvl 9.5 mg/dL 06/17/2015 08:25 CDT Cholesterol 204 mg/dL 06/17/2015 08:25 CDT (High) Trig 112 mg/dL 06/17/2015 08:25 CDT HDL 68 mg/dL 06/17/2015 08:25 CDT LDL Calculated 113 mg/dL 06/17/2015 08:25 CDT IMPRESSION/REPORT/PLAN 1. Pain Abdominal Chronic The patient has had chronic right upper quadrant and epigastric pain for many years. She has had anendoscopy as well as an ultrasound showing no abnormalities. The patient would like further testing. We have some of the records but not all of the imaging records from her previous clinic and thus wewill wait for these before we move forward with further testing such as HIDA scan. Last colonoscopy was 12 years ago. The patient is due for her next one. 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 2. Hyperlipidemia NOS Lipids not obtained for about 4 years. Patient is fasting. We will get this today. Ordered: Lipid Panel* 3. Restless Leg Syndrome (RLS) Patient saw Dr. John Arriola and will send the records from his office. She has continued with her clonazepam, cyclobenzaprine and gabapentin and is doing well on these. We will continue to monitor and renew this for the patient as long as she obtains the records from 's office and sends them to us. 4. Screening Cervical Cancer Patient unsure when her last pap smear was. She was post menopausal at age 55. Ordered: ThinPrep Screen W/HPV>=30yr-Martha [id number] 5. Screening Exam Diabetes Mellitus Screening of diabetes obtained. Unsure when the patient was last tested. Ordered: Basic Metabolic Panel, Fasting* Electronically Signed By: ZEESHAN STANFORD P.A.-C. On: 06/20/2015 11:36 AM Source: [employer] Document Id: [id number] documented in this encounter Miscellaneous Notes Telephone Encounter - Fernanda Blackwood R - 06/15/2016 4:13 PM CDT Appointment Request Entered by FERNANDA BLACKWOOD on June 15, 2016 16:13:30 CDT July 03 appt scheduled with ortho. And called patient Fernanda From: FEI QUINTANA To: [facility] Biostatistics Professor Sent: 06/14/2016 3:55:41 PM ([facility]-06:00) Central Time ([place] & [place]) Subject: Appointment Request Thank you for your message. It has been successfully sent to the appropriate care team. Dr. Taylor Conner, I have been seeing Natalie Stahl for 12 Sessions on my Elbow with some success. She wants me to perhaps come one or two more times depending on how I feel today. There is a possibility that I need to see an Orthopedics Dr. to see if I have a tear. We are going to give it one more month to see where I'm at. More importantly I have been feeling such a weakness in my arm so today she tested my shoulder and feels I have a torn rotator cuff. Could you refer me to a Orthopedics at your [place] location? Thank you. Fei Quintana [phone] 1950 Source: [employer] 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 [id number] Dear FEI QUINTANA, I am pleased to report that your pap smear results are normal. You will no longer need to have screening pap smears. Please follow up with us as we discussed during your visit or sooner if you have anyconcerns. If you have questions or concerns, please do not hesitate to call our office. Result Name Current Result Accession [facility]-Martha [id number] 06/17/2015 Final Diagnosis-Martha See Comment 06/17/2015 Signing Path-Martha See Comment 06/17/2015 [employer]-Martha See Comment 06/17/2015 Spec Desc-Martha See Comment 06/17/2015 Sincerely, ZEESHAN STANFORD [address] [id number] Electronic Signature Electronically Signed By: ZEESHAN STANFORDAIshmael-Jose On: June 23, 2015 This document has images extracted. Source: [facility] Document Id: [id number] Miscellaneous - Zeeshan Stanford P.A.-C. - 06/19/2015 11:02 PM CDT RE: Lab results From: ZEESHAN STANFORD P.A.-C. To: FEI QUINTANA Sent: 06/19/2015 23:02:50 CDT Subject: RE: Lab results AGAP is the anion gap. Not really important if low. It is something we look at if high. Bascially itis a way of looking at the different electrolytes in the body and the balance of them. From: FEI QUINTANA To: ZEESHAN STANFORD P.A.-C. Sent: 06/18/2015 2:44:00 PM ([facility]-06:00) Central Time ([place] & [place]) Subject: RE: Lab results Zeeshan, what does the low AGAP mean? From: ZEESHAN STANFORD P.A.-C. To: FEI QUINTANA Sent: 06/17/2015 11:55:16 CDT Subject: RE: Lab results It was very nice meeting you as well. We will see you this summer/fall for your pre-op for the colonoscopy. Thank you, Zeeshan From: FEI QUINTANA To: ZEESHAN STANFORD P.A.-C. Sent: 06/17/2015 11:27:44 AM ([facility]-06:00) Central Time ([place] & [place]) Subject: RE: Lab results Thank you very much. It was nice to meet you today. Fei From: ZEESHAN STANFORD P.A.-C. To: FEI QUINTANA Sent: 06/17/2015 09:43:37 CDT Subject: Lab results Vianney Enamorado, Labs today look good. Cholesterol is under control. Fasting glucose is just minimally elevated. It would be something to watch and be aware of. At a fasting glucose of 126 is when the diagnosis of diabetes is made. You are far from it at this time. Keep eating a healthy diet and exercising to keep that fasting glucose down. Thank you, Zeeshan Results: Date Result Name Ind Value Ref Range 06/17/2015 08:25 Sodium Lvl 139.3 mM/L (135.0 - 145.0) 06/17/2015 08:25 Potassium Lvl 3.8 mmol/L (3.6 - 4.8) 06/17/2015 08:25 Chloride 104 mmol/L (98 - 107) 06/17/2015 08:25 CO2 27.5 mmol/L (23.0 - 29.0) 06/17/2015 08:25 AGAP (L) 8 mmol/L (10 - 20) 06/17/2015 08:25 Glucose Fasting (H) 104 mg/dL (70 - 99) 06/17/2015 08:25 Creatinine 0.87 mg/dL (0.60 - 1.30) 06/17/2015 08:25 EGFR (MDRD) >60 mL/min/1.73m2 (>=60 - ) 06/17/2015 08:25 EGFR (MDRD) >60 mL/min/1.73m2 (>=60 - ) 06/17/2015 08:25 BUN 14 mg/dL (7 - 18) 06/17/2015 08:25 Calcium Lvl 9.5 mg/dL (8.8 - 10.2) 06/17/2015 08:25 Cholesterol (H) 204 mg/dL ( - <=199) 06/17/2015 08:25 Trig 112 mg/dL ( - <=149) 06/17/2015 08:25 HDL 68 mg/dL (>=50 - ) 06/17/2015 08:25 LDL Calculated 113 mg/dL ( - <=129) 06/17/2015 08:25 Chol/HDL Ratio 3 Source: [facility] POWERCHART Document Id: [id number] Miscellaneous - Zeeshan Stanford P.A.-C. - 06/17/2015 11:55 AM CDT RE: Lab results From: ZEESHAN STANFORD P.A.-C. To: FEI QUINTANA Sent: 06/17/2015 11:55:16 CDT Subject: RE: Lab results It was very nice meeting you as well. We will see you this summer/fall for your pre-op for the colonoscopy. Thank you, Zeeshan From: FEI QUINTANA To: ZEESHAN STANFORD P.A.-C. Sent: 06/17/2015 11:27:44 AM ([facility]-06:00) Central Time ([place] & [place]) Subject: RE: Lab results Thank you very much. It was nice to meet you today. Fei From: ZEESHAN STANFORD P.A.-C. To: FEI QUINTANA Sent: 06/17/2015 09:43:37 CDT Subject: Lab results Vianney Enamorado, Labs today look good. Cholesterol is under control. Fasting glucose is just minimally elevated. It would be something to watch and be aware of. At a fasting glucose of 126 is when the diagnosis of diabetes is made. You are far from it at this time. Keep eating a healthy diet and exercising to keep that fasting glucose down. Thank you, Zeeshan Results: Date Result Name Ind Value Ref Range 06/17/2015 08:25 Sodium Lvl 139.3 mM/L (135.0 - 145.0) 06/17/2015 08:25 Potassium Lvl 3.8 mmol/L (3.6 - 4.8) 06/17/2015 08:25 Chloride 104 mmol/L (98 - 107) 06/17/2015 08:25 CO2 27.5 mmol/L (23.0 - 29.0) 06/17/2015 08:25 AGAP (L) 8 mmol/L (10 - 20) 06/17/2015 08:25 Glucose Fasting (H) 104 mg/dL (70 - 99) 06/17/2015 08:25 Creatinine 0.87 mg/dL (0.60 - 1.30) 06/17/2015 08:25 EGFR (MDRD) >60 mL/min/1.73m2 (>=60 - ) 06/17/2015 08:25 EGFR (MDRD) >60 mL/min/1.73m2 (>=60 - ) 06/17/2015 08:25 BUN 14 mg/dL (7 - 18) 06/17/2015 08:25 Calcium Lvl 9.5 mg/dL (8.8 - 10.2) 06/17/2015 08:25 Cholesterol (H) 204 mg/dL ( - <=199) 06/17/2015 08:25 Trig 112 mg/dL ( - <=149) 06/17/2015 08:25 HDL 68 mg/dL (>=50 - ) 06/17/2015 08:25 LDL Calculated 113 mg/dL ( - <=129) 06/17/2015 08:25 Chol/HDL Ratio 3 Source: [facility] POWERCHART Document Id: [id number] Miscellaneous - Zeeshan Stanford P.A.-C. - 06/17/2015 9:43 AM CDT Lab results From: ZEESHAN STANFORD P.A.-C. To: FEI QUINTANA Sent: 06/17/2015 09:43:37 CDT Subject: Lab results Vianney Enamorado, Labs today look good. Cholesterol is under control. Fasting glucose is just minimally elevated. It would be something to watch and be aware of. At a fasting glucose of 126 is when the diagnosis of diabetes is made. You are far from it at this time. Keep eating a healthy diet and exercising to keep that fasting glucose down. Thank you, Zeeshan Results: Date Result Name Ind Value Ref Range 06/17/2015 08:25 Sodium Lvl 139.3 mM/L (135.0 - 145.0) 06/17/2015 08:25 Potassium Lvl 3.8 mmol/L (3.6 - 4.8) 06/17/2015 08:25 Chloride 104 mmol/L (98 - 107) 06/17/2015 08:25 CO2 27.5 mmol/L (23.0 - 29.0) 06/17/2015 08:25 AGAP (L) 8 mmol/L (10 - 20) 06/17/2015 08:25 Glucose Fasting (H) 104 mg/dL (70 - 99) 06/17/2015 08:25 Creatinine 0.87 mg/dL (0.60 - 1.30) 06/17/2015 08:25 EGFR (MDRD) >60 mL/min/1.73m2 (>=60 - ) 06/17/2015 08:25 EGFR (MDRD) >60 mL/min/1.73m2 (>=60 - ) 06/17/2015 08:25 BUN 14 mg/dL (7 - 18) 06/17/2015 08:25 Calcium Lvl 9.5 mg/dL (8.8 - 10.2) 06/17/2015 08:25 Cholesterol (H) 204 mg/dL ( - <=199) 06/17/2015 08:25 Trig 112 mg/dL ( - <=149) 06/17/2015 08:25 HDL 68 mg/dL (>=50 - ) 06/17/2015 08:25 LDL Calculated 113 mg/dL ( - <=129) 06/17/2015 08:25 Chol/HDL Ratio 3 Source: [facility] POWERCHART Document Id: [id number] Electronically signed by Cristina [facility] Cent[facility]io Lead Teacher [id number] at 07/28/2016 8:35 PM CDT Miscellaneous - Karlee Sanches LIshmaelP.N. - 06/17/2015 7:14 AM CDT Adult Virtualization Consultant Intake/History Document Has Been Updated Adult Virtualization Consultant Intake/History Entered On: 06/17/2015 7:22 CDT Performed On: 06/17/2015 7:14 CDT by KARLEE SANCHES LPN Intake Chief Complaint : Follow up and labs, review gallbladder hx. questions dairy allergy. Sleep disturbances KARLEE SANCHES LPN 06/17/2015 7:25 CDT Temperature Core : 36.6 DegC(Converted to: 97.9 DegF) Peripheral Pulse Rate : 88 /min Respiratory Rate : 16 /min Heart Rhythm : Regular Systolic Blood Pressure : 120 mmHg Diastolic Blood Pressure : 78 mmHg NIBP Mean : 92 mmHg BP Location : Left upper extremity Blood Pressure Cuff Size : Regular SpO2 : 99 % Oxygen Therapy : Room air Height : 174 cm(Converted to: 5 ft 9 inch(es), 69 inch(es)) Actual Weight : 61.3 kg(Converted to: 135 lb 2 oz) Weight Source : Standing scale Dosing Weight Clinic : 61.3 kg Clinic BSA : 1.72 Body Mass Index : 20.25 kg/m2 KARLEE SANCHES LPN 06/17/2015 7:14 CDT General Info Information Given By : Patient Languages : Chilean Is Patient Female and 13-50 no hysterectomy : No KARLEE SANCHES LPN 06/17/2015 7:14 CDT Subjective Pain Symptoms : Yes KARLEE SANCHES LPN 06/17/2015 7:14 CDT Pain Scale Pain Scale Verbal 0-10 : Open KARLEE SANCHES LPN 06/17/2015 7:14 CDT Pain Pain Assessment Grid Pain 1 Location : Abdomen Laterality : Right Intensity : 3 KARLEE SANCHES LPN 06/17/2015 7:14 CDT Dependent Habits Exposure to Tobacco Smoke : Other: Never Smoking Status : Never smoker Tobacco 2A : No Tobacco Use/Currently Using : No Tobacco Use/Last 30 Days : No Tobacco Use/Last 12 months : No Alcohol Use : Yes KARLEE SANCHES LPN 06/17/2015 7:14 CDT Caffeine Use Grid Caffeine Use : Current Type : Coffee Frequency : Daily KARLEE SANCHES LPN 06/17/2015 7:14 CDT Recreational Drug Use Grid Drug Use : None KARLEE SANCHES LPN 06/17/2015 7:14 CDT Source: [facility] [employer] Document Id: [id number] CDT!3 documented in this encounter Plan of Treatment Upcoming Encounters Date Type Specialty Care Team Description 01/23/2022 Appointment Radiology Clair Simms Ari , ALLEN, C.N.P., D.N.P. [address] [phone] (Wo rk) Scheduled Procedures Name Priority Associated Diagnoses Date/Time COLONOSCOPY Screening Colon Cancer Average R isk documented as of this encounter Procedures Procedure Name Priority Date/Time Associated Diagnosis Comme nts HXPHYS INTERP OF Routine 06/17/2015 8:57 AM Resul ts for this THIN PREP, PAP CDT procedure are in the results section. THINPREP SCREEN HPV Routine 06/17/2015 8:57 AM Re sults for this REFLEX CDT procedure are i n the results section. LIPID PANEL, S Routine 06/17/2015 8:25 AM Results for this CDT procedure are i n the results section. BASIC METABOLIC Routine 06/17/2015 8:25 AM Result s for this PANEL, S/P CDT procedure are i n the results section. documented in this encounter Results HXPHYS INTERP OF THIN PREP, PAP (06/17/2015 8:57 AM CDT) zuuka! Method Time Signature Interpretation Performed POWERCHART Comment: Test Performed by: [place] [address] Device Processing Engineer: Dez Newby II, M.D., Ph.D. Specimen Anatomical Collection Method Collection Time Receive d Time (Source) Location / / Volume Laterality Cervix/Endocervi 06/17/2015 8:57 AM 06/17 7:26 x CDT AM CDT Historical Provider LAB HISTORICAL ORDERS Performing Organization Address City/State/ZIP Code Phon e Number POWERCHART Pathology ThinPrep Screen HPV Reflex (06/17/2015 8:57 AM CDT) zuuka! Method Time Signature HXAccession [id number] POWERCHART Nbr-Martha HXFinal See Comment POWERCHART Diagnosis-Martha Comment: A. ??ThinPrep Pap Test Screen (Cervical/ Endocervical HPV >= 30 years old): Satisfactory for evaluation. Negative for intraepithelial lesion or m alignancy. Reactive/Reparative squamous cells prese nt. High Risk HPV testing results are NEGATI VE. See specific genotype results below. HPV with Genotyping, PCR, ThinPrep: HPV High Risk Type 16, PCR: ??NEGATIVE HPV High Risk Type 18, PCR: ??NEGATIVE HPV other High Risk types, PCR: ??NEGATI VE Other High Risk HPV types include: ??31, 33, 35, 39, 45, 51, 52, 56, 58, 59, 66, and 68. [facility] See Comment POWERCHART Comment: RESULT: Hoa Acevedo, CT(A [facility]) HXSIGNING PATH See Comment POWERCHART Comment: RESULT: 06/23/2015 13:39 Interpreted by: Jarad Tony M.D. Report electronically signed by Jarad Tony M.D. Transcribed by: [email or web address] ??06/23/2015 10:54:33 Specimen (Source) Anatomical Collection Method Collection Time Re ceived Time Location / / Volume Laterality Cervix/Endocervix 06/17/2015 8:57 AM CDT Zeeshan Chandler P.A.-C. LAB PAP PATHDX ORDERABLES Performing Organization Address City/State/ZIP Code Phon e Number POWERCHART (ABNORMAL) BMP (Basic Metabolic Panel) (06/17/2015 8:25 AM CDT) P athologist Signature Sodium, S 139.3 135.0 - POWERCHART 145.0 MML Potassium, S 3.8 3.6 - 4.8 POWERCHART MMOLL Chloride, S 104 98 - 107 POWERCHART MMOLL CO2 Total 27.5 23.0 - POWERCHART 29.0 MMOLL Glucose, 104 (H) 70 - 99 POWERCHART Fasting, S MGDL BUN (Blood Urea 14 7 - 18 POWERCHART Nitrogen), S MGDL Creatinine 0.87 0.60 - POWERCHART 1.30 MGDL Calcium, Total, 9.5 8.8 - 10.2 POWERCHART S MGDL Anion Gap 8 (L) 10 - 20 POWERCHART MMOLL HXeGFR (MDRD) >60 >=60 POWERCHART [id number] eGFR >60 >=60 POWERCHART Black/ [id number] Citizen Of [place] Specimen (Source) Anatomical Collection Method Collection Time Re ceived Time Location / / Volume Laterality Blood 06/17/2015 8:25 AM CDT Zeeshan Chandler P.A.-C. LAB BLOOD ADD-ON Performing Organization Address City/State/ZIP Code Phon e Number POWERCHART (ABNORMAL) Lipid Panel (06/17/2015 8:25 AM CDT) P athologist Signature Cholesterol, 204 (H) <=199 MGDL POWERCHART Total Comment: 2013 National Lipid Association recommen dations for Total Cholesterol in adults ages 18 and up: Desirable <200 mg/dL Borderline high 200-239 mg/dL High 240 mg/dL 2014 National Lipid Association recommen dations for Total Cholesterol in children ages 2 to 17. Acceptable <170 mg/dL Borderline High 170-199 mg/dL High 200 mg/dL HX HDL 68 >=50 MGDL POWERCHART Comment: 2014 National Lipid Association recommen dations for HDL-C in adults ages 18 and up: Low <40 mg/dL (Men) Low <50 mg/dL (Women) 2014 National Lipid Association recommen dations for HDL-C in children ages 2 to 17. Low <40 mg/dL Borderline Low 40-45 mg/dL Acceptable >45 mg/dL Triglycerides 112 <=149 MGDL POWERCHART Comment: 2014 National Lipid Association recommen dations for Triglycerides in adults ages 18 and up: Normal <150 mg/dL Borderline High 150-199 mg/dL High 200-499 mg/dL Very High 500 mg/dL 2014 National Lipid Association recommen dations for Triglycerides in children ages 2 to 9. Acceptable <75 mg/dL Borderline High 75-99 mg/dL High 100 mg/dL 2014 National Lipid Association recommen dations for Triglycerides in children ages 10 to 17. Acceptable <90 mg/dL Borderline High 90-129 mg/dL High 130 mg/dL Trigs >400mg/dL: Triglycerides >400 mg/ dL. Calculated LDL cholesterol is not valid. Non-HDL cholesterol may be used for risk assessment when triglycerides are >400mg/dL. Calculated LDL 113 <=129 MGDL POWERCHART Comment: 2013 National Lipid Association recommen dations for LDL-C in adults ages 18 and up: Desirable <100 mg/dL Above desirable 100-129 mg/dL Borderline high 130-159 mg/dL High 160-189 mg/dL Very High 190 mg/dL 2014 National Lipid Association recommen dations for LDL-C in children ages 2 to 17. Acceptable <110 mg/dL Borderline High 110-129mg/dL High 130 mg/dL LDL-C >190mg/dL: The markedly elevated LDL level is suggestive of a genetic condition such as familial hypercholesterolemia(FH) or familial defective apolipoprotein B-100 (FDB). Molecular genetic t esting for FH and FDB is available rosanna raphael [facility]: FH/ADH Genetic Reflex Nava el (test ADHP). Acquired (non-genetic) causes of markedly increased LDL cholesterol include cholestatic liver disease due to the presence of LpX. If a genetic form of hypercholesterolemia is suspected, family studies including biochemical testing fo r lipids (total cholesterol,triglycerides, LDL cholesterol and HDL cholesterol) are recommended. ??Please contact the laboratory at or the on-line test catalog at [email or web address] for information about how to order these jada ts or to speak with a genetic counselor. Further interpretation would require clinical information. Total Cholesterol/HDL Ratio 3 PO WERCHART Specimen (Source) Anatomical Collection Method Collection Time Re ceived Time Location / / Volume Laterality Blood 06/17/2015 8:25 AM CDT Zeeshan Chandler P.A.-C. LAB BLOOD ADD-ON Performing Organization Address City/State/ZIP Code Phon e Number POWERCHART documented in this encounter Visit Diagnoses Not on filedocumented in this encounter
--- OUTSIDE RECORDS SUMMARY | 2021-12-17 14:02 | XMS_ITS | Encounter Summary ---
:1950 Author Organization [facility] Address [address] [place] [address] Care Team Providers Name Role Phone Unavailable Primary Care Provider Unavailable Encounter Details Date Type Department Care Team Description 03/22/2016 Hospital Encounter HX [facility] Taylor Carbone M.D. [address] [place], [place] [phone] (Wo rk) Social History Tobacco Use Types Packs/Day Years Used Date Smoking Tobacco: Never Alcohol Habits Answer Date Recorded How often do you have a drink containing 4 or more times a w mechoopda 08/10/2021 alcohol? How many drinks containing alcohol [...] or relatives? How often do you attend alevism or More than 4 times per year 08/10/2021 sikh services? Do you belong to any clubs or Yes 08/10/2021 organizations such as alevism groups, unions, fraternal or athletic groups, or [...] place to sleep or slept in a longterm (including now)? Sex Assigned at Date Recorded Female 11/19/2020 2:34 PM CDT documented as of this encounter Last Filed Vital Signs Vital Sign Reading Time Taken Comments Blood Pressure 135/71 03/22/2016 11:02 AM INTEGRATED CAMPAIGN MANAGER Pulse 80 03/22/2016 10:52 AM INTEGRATED CAMPAIGN MANAGER Temperature - - Respiratory Rate 16 03/22/2016 10:52 AM INTEGRATED CAMPAIGN MANAGER Oxygen Saturation - - Inhaled Oxygen Concentration - - Weight - - Height 174 cm (5' 8.5) 03/22/2016 11:02 AM INTEGRATED CAMPAIGN MANAGER Body Mass Index - - documented in [...] documented as of this encounter Progress Notes Elisa Carbone M.D. - 03/22/2016 11:42 AM CST Clinic Full Note CHIEF COMPLAINT/REASON FOR VISIT Right elbow pain. HISTORY OF PRESENT ILLNESS Patient is a 65 year old female who presents with increasing RIGHT elbow pain. She states it is so painful she has a hard time lifting anything secondary to pain. She denies any injury or trauma. She does note a history of overuse- as she enjoys painting her home, cleaning and playing the cello. She has had multiple moves in recent years and has painted multiple rooms recently. Pain is localized over the medial epicondyle. MEDICATIONS acetaminophen 325 mg oral tablet, 650 mg, 2 tab(s), PO, q4hr, PRN albuterol 2.5 mg/3 mL neb, 2.5 mg, PRN, Inhalation, q6hr clonazePAM 0.5 mg oral tablet, 1-2 tab(s), PO, Daily cyclobenzaprine 10 mg oral tablet, 1/2 tab(s), PO, Daily Dulera 200 mcg-5 mcg/inh inhalation aerosol, 2 puff(s), Inhalation, 2xDay gabapentin 300 mg oral capsule, 1-2 cap(s), PO, Daily montelukast 10 mg oral tablet, 10 mg, 1 tab(s), PO, Daily PM Voltaren 1% topical gel, 2 gm, Topical, PRN ZyrTEC, Prn, PO, Daily ALLERGIES Levaquin PAST MEDICAL HISTORY Chronic Hemangioma Liver Vertigo NOS Historical No historical problems PROCEDURES/SURGICAL HISTORY Excision of lesion of thyroid. SOCIAL HISTORY Date Time: 03/22/2016 10:52 Tobacco: Smoking Status: Never smoker Exposure: Other: Never Alcohol: Use: No Results Found Recreational Drugs: Use: None Type: No Results Found FAMILY HISTORY Mother:Positive: CA - Lung cancer; Depression; Drug abuse; Osteoporosis Father:Positive: Diabetes mellitus type II; Heart disease SYSTEMS REVIEW General: No acute distress. No fever, chills. HEENT: Denies headaches, no eye pain, no ear pain. No runny nose. No sore throat. No cervical LAD. Neck: Denies neck pain, no thyromegaly Lungs: Denies cough, SOB CV: Denies chest pain Abdomen: Denies abdominal pain, no change in bowel habits : Denies dysuria Ext: Denies edema Psych: Denies change in mood VITAL SIGNS T: 36.8 ??C (Core) HR: 80 RR: 16 BP: 135 / 71 SpO2: 99% HT: 174 cm PHYSICAL EXAMINATION General: Patient is alert, in no acute distress. Well-groomed. HEENT: NC/AT, PERRL, EOMI, TMs clear, external canals patent, oropharynx moist, no exudate, no erythema. NECK: supple, no LAD, no thyromegaly. LUNGS: CTA bilaterally, no rhonchi, wheezes or rales. CV: RRR, no murmurs, rubs or gallops. ABDOMEN: NT/ND, +BS, no masses. EXTREMITIES: No clubbing, no cyanosis, no edema. Pain on palpation over RIGHT medial epicondyle. Pain with patient twisting RIGHT hand inward against me twisting hand outward eliciting pain. PSYCH: Normal mood and affect. IMPRESSION/REPORT/PLAN Epicondylitis Medial R Recommend tennis elbow brace, rest, ice and NSAIDs over the next 2-4 weeks. FU if no change or worsening pain prn. Ordered: OV Est Pt Level 3 - 54934 - 15 min Electronically Signed By: ELISA CARBONE MD On: 03/25/2016 07:48 AM Source: [facility] POWERCHART Document Id: [id number] GRATED CAMPAIGN MANAGER documented in this encounter Miscellaneous Notes Miscellaneous - Elisa Carbone M.D. - 03/25/2016 7:48 AM CST Ambulatory Discharge Medication List [address] [id number] Visit Information Name: SUEFEI ELIF [facility] Number: [id number] Current Date: 03/25/2016 07:48:50 Attending Provider: ELISA CARBONE MD Primary Care Provider: ELISA CARBONE MD ALYSSACHRISTOPHERFEI ELIF has been given the following list of medications: Your Medications It is important to take your medications as directed. Use a pill box or chart to help remind you to take your medications. Please let your doctor or nurse know if you have problems taking your medications. Medication/Strength How to Take Indications/Special Instructions/Comments/Notes for Patient Medication Changes/Routing acetaminophen (acetaminophen 325 mg oral tablet) 2 Tablet(s), Oral, every 4 hours as needed for pain albuterol (albuterol 2.5 mg/3 mL neb) 2.5 mg, Inhalation, every 6 hours PRN cetirizine (ZyrTEC) Oral, once a day Prn clonazePAM (clonazePAM 0.5 mg oral tablet) 1-2 tab(s), Oral, once a day cyclobenzaprine (cyclobenzaprine 10 mg oral tablet) 1/2 tab(s), Oral, once a day diclofenac topical (Voltaren 1% topical gel) 2 gm, Topical, as needed gabapentin (gabapentin 300 mg oral capsule) 1-2 cap(s), Oral, once a day mometasone-formoterol (Dulera 200 mcg-5 mcg/inh inhalation aerosol) 2 puff(s), Inhalation, two timesa day montelukast (montelukast 10 mg oral tablet) 1 Tablet(s), Oral, every evening Stop Taking the Following Medications: Medication list as of 03-25-16 07:48 Attention: If you have any medications at home that are not on this list, DO NOT take them until youcontact your provider for clarification. Give a copy of your medication list to your primary care provider. Update your medication list any time medications or doses are changed and carry your medication list at all times in case of emergency. Electronically Signed By: ELISA CARBONE MD Signed On:25-MAR-2016 07:48:48 Additional Information: Source: [facility] POWERCHART Document Id: [id number] GRATED CAMPAIGN MANAGER Miscellaneous - Elisa Carbone M.D. - 03/25/2016 7:48 AM CST Ambulatory Patient Summary [address] [place], [place] [id number] Visit Information Name: FEI QUINTANA [facility] Number: [id number] Current Date: 03/25/2016 07:48:51 Physicians Attending Provider: ELISA CARBONE MD Primary Care Provider: ELISA CARBONE MD [...] Take Indications/Special Instructions/Comments/Notes for Patient Medication Changes/Routing acetaminophen (acetaminophen 325 mg oral tablet) 2 Tablet(s), Oral, every 4 hours as needed for pain albuterol (albuterol 2.5 mg/3 mL neb) 2.5 mg, Inhalation, every 6 hours PRN cetirizine (ZyrTEC) Oral, once a day Prn clonazePAM (clonazePAM 0.5 mg oral tablet) 1-2 tab(s), Oral, once a day cyclobenzaprine (cyclobenzaprine 10 mg oral tablet) 1/2 tab(s), Oral, once a day diclofenac topical (Voltaren 1% topical gel) 2 gm, Topical, as needed gabapentin (gabapentin 300 mg oral capsule) 1-2 cap(s), Oral, once a day mometasone-formoterol (Dulera 200 mcg-5 mcg/inh inhalation aerosol) 2 puff(s), Inhalation, two timesa day montelukast (montelukast 10 mg oral tablet) 1 Tablet(s), Oral, every evening Stop Taking the Following Medications: Medication list as of 03-25-16 07:48 Attention: If you have any medications at home that are not on this list, DO NOT take them until youcontact your provider for clarification. Give a copy of your medication list to your primary care provider. Update your medication list any time medications or doses are changed and carry your medication list at all times in case of emergency. 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 Go to [email or web address] and click on Create Your Account. Then, follow the directions to complete the online form. Youll be asked for your [facility] number which you can find at the top of this document. Your Goals/Additional instructions: Source: [facility] POWERCHART Document Id: [id number] GRATED CAMPAIGN MANAGER Miscellaneous - Karlee Sanches L.P.N. - 03/22/2016 11:02 AM CST Ambulatory Vitals Height Weight Ambulatory Vitals Height Weight Entered On: 03/22/2016 11:02 INTEGRATED CAMPAIGN MANAGER Performed On: 03/22/2016 11:02 INTEGRATED CAMPAIGN MANAGER by KARLEE SANCHES LPN Vitals/Ht/Wt Systolic Blood Pressure : 135 mmHg Diastolic Blood Pressure : 71 mmHg NIBP Mean : 92 mmHg BP Location : Left upper extremity Blood Pressure Cuff Size : Regular Height : 174 cm(Converted to: 5 ft 9 inch(es), 69 inch(es)) KARLEE SANCHES LPN - 03/22/2016 11:02 INTEGRATED CAMPAIGN MANAGER Source: [facility] [employer] Document Id: [id number] INTEGRATED CAMPAIGN MANAGER!8 GRATED CAMPAIGN MANAGER Miscellaneous - Karlee Sanches L.PIshmaelNIshmael - 03/22/2016 10:52 AM CST Adult Retail Wireless Associate Intake/History Adult Retail Wireless Associate Intake/History Entered On: 03/22/2016 10:58 INTEGRATED CAMPAIGN MANAGER Performed On: 03/22/2016 10:52 INTEGRATED CAMPAIGN MANAGER by KARLEE SANCHES LPN Intake Chief Complaint : Right elbow pain. Onset of Symptoms : Before Thatnksgiving Temperature Core : 36.8 DegC(Converted to: 98.2 DegF) Peripheral Pulse Rate : 80 /min Respiratory Rate : 16 /min Heart Rhythm : Regular Systolic Blood Pressure : 140 mmHg Diastolic Blood Pressure : 72 mmHg NIBP Mean : 95 mmHg BP Location : Left upper extremity Blood Pressure Cuff Size : Regular SpO2 : 99 % Oxygen Therapy : Room air Height : 174 cm(Converted to: 5 ft 9 inch(es), 69 inch(es)) KARLEE SANCHES LPN - 03/22/2016 10:52 INTEGRATED CAMPAIGN MANAGER General Info Information Given By : Patient Languages : Djiboutian Is Patient Female and 13-50 no hysterectomy : No KARLEE SANCHES LPN - 03/22/2016 10:52 INTEGRATED CAMPAIGN MANAGER Subjective Pain Symptoms : Yes KARLEE SANCHES LPN - 03/22/2016 10:52 INTEGRATED CAMPAIGN MANAGER Pain Scale Pain Scale Verbal 0-10 : Open KARLEE SANCHES LPN - 03/22/2016 10:52 INTEGRATED CAMPAIGN MANAGER Pain Pain Assessment Grid Pain 1 Location : Elbow Laterality : Right Intensity : 8 KARLEE SANCHES LPN 03/22/2016 10:52 INTEGRATED CAMPAIGN MANAGER Dependent Habits Exposure to Tobacco Smoke : Other: Never Smoking Status : Never smoker Tobacco 2A : No Tobacco Use/Currently Using : No Tobacco Use/Last 30 Days : No Tobacco Use/Last 12 months : No KARLEE SANCHES LPN - 03/22/2016 10:52 INTEGRATED CAMPAIGN MANAGER Caffeine Use Grid Caffeine Use : Current Type : Coffee Frequency : Daily KARLEE SANCHES LPN - 03/22/2016 10:52 INTEGRATED CAMPAIGN MANAGER Recreational Drug Use Grid Drug Use : None KAYA KARLEE Middleton LPN - 03/22/2016 10:52 INTEGRATED CAMPAIGN MANAGER Source: [facility] [employer] Document Id: [id number] INTEGRATED CAMPAIGN MANAGER!45 GRATED CAMPAIGN MANAGER documented in this encounter Plan of Treatment Upcoming Encounters Date Type Specialty Care Team Description 01/23/2022 Appointment Radiology Clair Simms , ALLEN, C.N.P., D.N.P. [id number] [place] [phone] (Wo rk) Scheduled Procedures Name Priority Associated Diagnoses Date/Time COLONOSCOPY Screening Colon Cancer Average R isk documented as of this encounter Visit Diagnoses Not on filedocumented in this encounter
--- OUTSIDE RECORDS SUMMARY | 2021-12-17 14:02 | XMS_ITS | Encounter Summary ---
:1950 Author Organization [facility] Address [address] [place] [address] Care Team Providers Name Role Phone Unavailable Primary Care Provider Unavailable Encounter Details Date Type Department Care Team Description 04/30/2016 Hospital Encounter HX [facility] Taylor Carbone M.D. [address] [place], [place] [address] (Wo rk) Social History Tobacco Use Types Packs/Day Years Used Date Smoking Tobacco: Never Alcohol Habits Answer Date Recorded How often do you have a drink containing 4 or more times a w [place] 08/10/2021 alcohol? How many drinks containing alcohol [...] or relatives? How often do you attend gnosticist or More than 4 times per year 08/10/2021 confucianism services? Do you belong to any clubs or Yes 08/10/2021 organizations such as gnosticist groups, unions, fraternal or athletic groups, or [...] or slept in a snf (including now)? Sex Assigned at Date Recorded Female 11/19/2020 2:34 PM CDT documented as of this encounter Last Filed Vital Signs Vital Sign Reading Time Taken Comments Blood Pressure 125/80 04/30/2016 8:08 AM VIRTUAL RECRUITER Pulse 80 04/30/2016 8:08 AM VIRTUAL RECRUITER Temperature - - Respiratory Rate 16 04/30/2016 8:08 AM VIRTUAL RECRUITER Oxygen Saturation - - Inhaled Oxygen Concentration - - Weight - - Height 174 cm (5' 8.5) 04/30/2016 8:08 AM VIRTUAL RECRUITER Body Mass Index - - documented in [...] encounter Progress Notes Elisa Carbone M.D. - 04/30/2016 9:05 AM CST Clinic Full Note CHIEF COMPLAINT/REASON FOR VISIT bladder prolapse HISTORY OF PRESENT ILLNESS Patient is a 65 year old female who presents with concerns of increasing pelvic pressure Saturday and Thursday in her introitus. She denies any urinary frequency or urgency. She has been using Vaseline to the area with improvement of symptoms. She also has a skin lesion on her LATERAL left neck she would like to be excised. She states is is a sebaceous cyst which intermittently enlarges. It is inactive today-- but would like it removed to prevent recurrence. She requests referral for excision today. 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 5 grand kids. 2 adult kids. to [place]. Nonsmoker Health Maintenance Colonoscopy age 62. PAP at age 62. Mammogram overdue. MEDICATIONS acetaminophen 325 mg oral tablet, 650 [...] lesion of thyroid. SOCIAL HISTORY Date Time: 04/30/2016 08:08 Tobacco: Smoking Status: Never smoker Exposure: Other: [...] Denies change in mood VITAL SIGNS T: 36.7 ??C (Core) HR: 80 RR: 16 BP: 125 / 80 SpO2: 100% HT: 174 cm PHYSICAL EXAMINATION General: Patient is alert, in no acute distress. Well-groomed. HEENT: NC/AT, PERRL, EOMI, TMs clear, external canals patent, oropharynx moist, no exudate, no erythema. NECK: supple, no LAD, no thyromegaly. Small 4mm raised papule on LEFT lateral neck, firm to palpation, no erythema or drainage. LUNGS: CTA bilaterally, no rhonchi, wheezes or rales. CV: RRR, no murmurs, rubs or gallops. ABDOMEN: NT/ND, +BS, no masses. EXTREMITIES: No clubbing, no cyanosis, no edema. : In supine position, mild prolapse of bladder with patient bearing down. Minimal uterine prolapse. PSYCH: Normal mood and affect. IMPRESSION/REPORT/PLAN 1. Cystocele Referred to COVERSTITCH MACHINE OPERATOR to discuss pessary. She wants to avoid any surgical procedures at this time. Ordered: OV Est Pt Level 3 - 64863 - 15 min 2. Lesion Skin Neck Referred to [facility] for excision prn. Ordered: OV Est Pt Level 3 - [id number] - 15 min Orders: Consult to COVERSTITCH MACHINE OPERATOR Return Visit [facility] Extended FOOTNOTES [1]Clinic Full Note; ELISA CARBONE MD 05/13/2015 20:40 VIRTUAL RECRUITER Electronically Signed By: ELISA CARBONE MD On: 04/30/2016 09:39 AM Source: [facility] POWERCHART Document Id: [id number] UAL RECRUITER documented in this encounter Miscellaneous Notes Miscellaneous - Elisa Carbone M.D. - 04/30/2016 9:39 AM CST Ambulatory Patient Summary [address] [place] [id number] Visit Information Name: FEI QUINTANA [facility] Number: [id number] Current Date: 04/30/2016 09:39:53 Physicians Attending Provider: ELISA CARBONE MD Primary [...] the Following Medications: Medication list as of 04-30-16 09:39 Attention: If you have any medications at [...] Electronically Signed By: ELISA CARBONE MD Signed On:30-APR-2016 09:39:50 Your Allergies & Intolerances Substance Reaction Symptoms [...] unknown Copied from [facility] record [facility] [employer] Restless Leg Syndrome (RLS) Active 05/12/15 onset unknown copied from [facility] record signed managed by [facility] Asthma NOS Active 05/12/15 Onset unknown copied from [facility] records scanned managed by [facility] Lipoma NOS Active 05/12/15 Back date unknown copied from [facility] record scanned Excision Cyst 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 Go to [email or web address] and click on Create Your Account. Then, follow the directions to complete the online form. Youll be asked for your [facility] number which you can find at the top of this document. Your Goals/Additional instructions: Source: [facility] POWERCHART Document Id: [id number] UAL RECRUITER Miscellaneous - Elisa Carbone M.D. - 04/30/2016 9:39 AM CST Ambulatory Discharge Medication List [address] [id number] Visit Information Name: FEI QUINTANA [facility] Number: [id number] Current Date: 04/30/2016 09:39:52 Attending Provider: ELISA CARBONE MD Primary Care Provider: ELISA CARBOEN MD FEI QUINTANA has been given the [...] the Following Medications: Medication list as of 04-30-16 09:39 Attention: If you have any medications at [...] Electronically Signed By: ELISA CARBONE MD Signed On:30-APR-2016 09:39:50 Additional Information: Source: [facility] POWERCHART Document Id: [id number] UAL RECRUITER Miscellaneous - Karlee Sanches L.P.N. - 04/30/2016 8:08 AM CST Adult Pool Hall Inspector Intake/History Adult Pool Hall Inspector Intake/History Entered On: 04/30/2016 8:14 VIRTUAL RECRUITER Performed On: 04/30/2016 8:08 VIRTUAL RECRUITER by KARLEE SANCHES LPN Intake Chief Complaint : Pelvic pressure Saturday and concerns with prolapsed bladder. Noted After 4 weeks of taking tylenol noted heart flutter. stopped and has returned to normal. Temperature Core : 36.7 DegC(Converted to: 98.1 DegF) Peripheral Pulse Rate : 80 /min Respiratory Rate : 16 /min Heart Rhythm : Regular Systolic Blood Pressure : 125 mmHg Diastolic Blood Pressure : 80 mmHg NIBP Mean : 95 mmHg BP Location : Left upper extremity Blood Pressure Cuff Size : Regular SpO2 : 100 % Oxygen Therapy : Room air Height : 174 cm(Converted to: 5 ft 9 inch(es), 69 inch(es)) KARLEE SANCHES LPN - 04/30/2016 8:08 VIRTUAL RECRUITER General Info Information Given By : Patient Languages : Ukrainian Is Patient Female and 13-50 no hysterectomy : No KARLEE SANCHES LPN - 04/30/2016 8:08 VIRTUAL RECRUITER Subjective Pain Symptoms : Yes KARLEE SANCHES LPN - 04/30/2016 8:08 VIRTUAL RECRUITER Pain Scale Pain Scale Verbal 0-10 : Open KARLEE SANCHES LPN - 04/30/2016 8:08 VIRTUAL RECRUITER Pain Pain Assessment Grid Pain 1 Location : Vagina Laterality : Bilateral Intensity : 2 KARLEE SANCHES LPN - 04/30/2016 8:08 VIRTUAL RECRUITER Dependent Habits Exposure to Tobacco Smoke : Other: Never Smoking Status : Never smoker Tobacco 2A : No Tobacco Use/Currently Using : No Tobacco Use/Last 30 Days : No Tobacco Use/Last 12 months : No KARLEE SANCHES LPN - 04/30/2016 8:08 VIRTUAL RECRUITER Caffeine Use Grid Caffeine Use : Current Type : Coffee Frequency : Daily KARLEE SANCHES LPN - 04/30/2016 8:08 VIRTUAL RECRUITER Recreational Drug Use Grid Drug Use : None KARLEE SANCHES LPN - 04/30/2016 8:08 VIRTUAL RECRUITER [facility] Document Id: [id number] VIRTUAL RECRUITER!44 UAL RECRUITER documented in this encounter Plan of Treatment Upcoming Encounters Date Type Specialty Care Team Description 01/23/2022 Appointment Radiology Clair Simms , ALLEN, C.N.P., D.N.P. [id number] [place] [phone] (Wo rk) Scheduled Procedures Name Priority Associated Diagnoses Date/Time COLONOSCOPY Screening Colon Cancer Average R isk documented as of this encounter Visit Diagnoses Not on filedocumented in this encounter
--- OUTSIDE RECORDS SUMMARY | 2021-12-17 14:02 | XMS_ITS | Encounter Summary ---
:1950 Author Organization [facility] Address [address] [place] [address] Care Team Providers Name Role Phone Cierra Chandler P.A.-C. Primary Care Provider [phone] Encounter Details Date Type Department Care Team Description 12/20/2016 Hospital Encounter HX [facility] Mundo Beltran M.D. [address] [place] [address] [phone] (Wo rk) Social History Tobacco Use Types Packs/Day Years Used Date Smoking Tobacco: Never Alcohol Habits Answer Date Recorded How often do you have a drink containing 4 or more times a w [place] 08/10/2021 alcohol? How many drinks containing alcohol [...] More than 4 times per year 08/10/2021 mormon services? Do you belong to any clubs or Yes 08/10/2021 organizations such as buddhism groups, unions, fraternal or athletic groups, or school groups? How often do you attend meetings of the More than 4 times r year 08/10/2021 clubs or organizations you [...] Radiology Clair Simms , ALLEN, C.N.P., D.N.P. [address] [phone] (Wo rk) Scheduled Procedures Name Priority Associated Diagnoses Date/Time COLONOSCOPY Screening Colon Cancer Average R isk documented as of this encounter Visit Diagnoses Not on filedocumented in this encounter Care Teams Box Toe Cutter Relationship Specialty Start Date End Date Cierra Chandler P.A.-C. PCP - General 12/14/16 06/02/19 documented as of this encounter
--- OUTSIDE RECORDS SUMMARY | 2021-12-17 14:02 | XMS_ITS | Encounter Summary ---
:1950 Author Organization [facility] Address [address] [place] [address] Care Team Providers Name Role Phone Zeeshan ChandlerAIshmael-C. Primary Care Provider [phone] Encounter Details Date Type Department Care Team Description 12/26/2016 Hospital Encounter HX [facility] Ruben Chandler, P.A.-C. [address] [place] [address] (Wo rk) Social History Tobacco Use Types Packs/Day Years Used Date Smoking Tobacco: Never Alcohol Habits Answer Date Recorded How often do you have a drink containing 4 or more times a w quileute 08/10/2021 alcohol? How many drinks containing alcohol [...] or relatives? How often do you attend anglican or More than 4 times per year 08/10/2021 bahai services? Do you belong to any clubs or Yes 08/10/2021 organizations such as anglican groups, unions, fraternal or athletic groups, or [...] Sign Reading Time Taken Comments Blood Pressure 132/67 12/26/2016 7:55 AM CDT Pulse 77 12/26/2016 7:55 AM CDT Temperature - - Respiratory Rate 18 12/26/2016 7:55 AM CDT Oxygen Saturation - - Inhaled Oxygen Concentration - - Weight 65 kg (143 lb 4.8 oz) 12/26/2016 7:55 AM CDT Height 174 cm (5' 8.5) 12/26/2016 7:55 AM CDT Body Mass Index 21.47 12/26/2016 7:55 AM CDT documented in this encounter Medications at Time of Discharge Medication Sig Dispensed Refills Start Date End Date albuterol (for_ACCUNEB) Inhale 2.5 mg every 6 0 0 09/21/2015 2.5 mg /3 mL nebulizer (six) hours. As needed solution cetirizine 10 mg Take by mouth daily. 0 6 capsule clonazePAM Take 0.5 mg by mouth 0 05/13/2015 (for_KlonoPIN) 0.5 mg daily. tablet fluticasone-vilanterol Inhale daily. 0 06/20/2016 (for_BREO ELLIPTA DISKUS) 200-25 mcg/act inhaler gabapentin Take by mouth daily. 0 05/13/2015 (for_NEURONTIN) 300 mg capsule montelukast Take 1 tablet by mouth 0 05/13/2015 (for_SINGULAIR) 10 mg every evening. tablet bisacodyl 5 mg tablet Take 4 tablets by 0 017 01/10/2017 mouth once. cyclobenzaprine Take by mouth daily. 0 05/13/2015 08/15/2021 (for_FLEXERIL) 10 mg tablet POLYETHYLENE GLYCOL MiraLax oral powder 0 017 01/10/2017 3350 ORAL for reconstitution See Instructions, Per colonoscopy prep instructions, 255 gm, 0 Refill(s) documented as of this encounter H&P Notes Zeeshan Stanford P.A.-C. - 12/26/2016 8:53 AM CDT Clinic Full Note CHIEF COMPLAINT/REASON FOR VISIT Preop. colonscopy. HISTORY OF PRESENT ILLNESS Patient is a 66 year old female who presents today for preoperative evaluation for colonoscopy. The patient notes this summer she had some shortness of breath and chest discomfort related to stress (her Aunt had and there was some drama in the family). This has since dissipated and she feels like her asthma is better controlled as well. Past Medical History Asthma moderate intermittent- well controlled currently on Breo and albuterol as needed GERD Restless leg syndrome- taking clonazepam nightly for many years Hemangioma liver- stable Vertigo- stable The patient denies any family history or personal history of bleeding or clotting, cardiac history,diabetes, stroke, trouble with anesthesia. MEDICATIONS albuterol 2.5 mg/3 mL neb, 2.5 mg, PRN, Inhalation, q6hr Breo Ellipta, 200, Inhalation, Daily clonazePAM 0.5 mg oral tablet, 1-2 tab(s), PO, Daily cyclobenzaprine 10 mg oral tablet, 1/2 tab(s), PO, Daily gabapentin 300 mg oral capsule, 1-2 cap(s), PO, Daily montelukast 10 mg oral tablet, 10 mg, 1 tab(s), PO, Daily PM ZyrTEC, Prn, PO, Daily ALLERGIES Levaquin PAST MEDICAL HISTORY Chronic Asthma NOS Disease Gastroesophageal Reflux (GERD DERRELL) Disorder Temporomandibular Joint (TMJ) Excision Cyst Thyroglossal Duct S/P Hemangioma Liver Hyperlipidemia NOS Lipoma NOS Restless Leg Syndrome (RLS) Vertigo NOS Historical No historical problems PROCEDURES/SURGICAL HISTORY Excision of lesion of thyroid. SOCIAL HISTORY Date Time: 12/26/2016 07:55 Tobacco: Smoking Status: Never smoker Exposure: Other: Never Alcohol: Use: No Results Found Recreational Drugs: Use: None Type: No Results Found FAMILY HISTORY Mother:Positive: CA - Lung cancer; Depression; Drug abuse; Osteoporosis Father:Positive: Diabetes mellitus type II; Heart disease SYSTEMS REVIEW GENERAL: No weight gain, no weight loss, no fever in past month, no chills, no sweats, no fatigue EENT: No blurred vision, no double vision, no eye pain, Recent rhinorrhea/nasal congestion, no hoarseness, no mouth sores, no ringing in ears, no enlarged glands PULMONARY: No shortness of breath, Dry slight cough, no wheezing, no sputum, no hemoptysis CARDIAC: No chest pain, no chest pressure, no rapid beating, no irregular beating, no dependent edema, pain in calves or with walking, no difficulty moving arms and legs GI: No heartburn, no nausea, no vomiting, no abdominal pain, History of constipation alternating with diarrhea : No burning/pain with urination, no difficulty starting stream, no difficulty emptying bladder, no excessive urination MUSCULOSKELETAL: No joint pain, no joint swelling, no joint stiffness, no muscle pain, no muscle stiffness, no back pain, no back stiffness SKIN: No skin rashes, no skin sores, no change in moles NEURO: No significant headaches, no slurred speech, no seizures, no dizziness, no loss of consciousness, no memory loss ENDOCRINE: No excessive thirst, no excessive bruising VITAL SIGNS T: 36.6 ??C (Core) HR: 77 RR: 18 BP: 132 / 67 SpO2: 99% HT: 174 cm WT: 65 kg BMI: 21.47 PHYSICAL EXAMINATION GENERAL: Patient is in no distress. Capable of full communication without difficulty. Patient is polite and cooperative. Appropriately dressed and normal hygiene. HEENT: Normocephalic. EOMI, PERRL, Canals patent, TMs normal. Oropharynx without lesion of mucosa. Pharyngeal rises symmetrically without exudate. NECK: No cervical or supraclavicular lymphadenopathy. HEART: Regular rate and rhythm. No murmurs, gallops or rubs noted. LUNGS: Clear to auscultation bilaterally. No expiratory wheeze. No accessory muscles of respirationnoted. ABDOMEN: Nontender to palpation. No hepato-splenomegaly. No mass. Normal bowel sounds in all 4 quadrants. EXTREMITIES: No neurovascular compromise. No cyanosis, clubbing or edema. No abnormal limb length NEURO: Alert and oriented x3, nonfocal, moving all 4 extremities PSYCH: Affect is appropriate LAB RESULTS -----CHEMISTRY----- Cholesterol: 238 mg/dL High (12/26/16) Tri mg/dL (12/26/16) HDL: 79 mg/dL (12/26/16) LDL Calculated: 134 mg/dL High (12/26/16) Chol/HDL Ratio: 3 (12/26/16) DIAGNOSTIC RESULTS EKG: Normal sinus rhythm. Left atrial enlargement. Otherwise normal ECG. No previous ECGs available[1] IMPRESSION/REPORT/PLAN 1. Preoperative Exam NOS Patient is deemed to be medically optimized for planned surgical procedure and low risk for a perioperative cardiac event. Patient is capable of climbing a flight of stairs without unusual dyspnea or chest pain. She takes no medications in the morning other than her Breo. She was instructed to use this in the morning of the procedure otherwise hold all other medications. CELSO score: 0 Ordered: Notify Nurse - EKG Ordered 2. Encounter for screening for malignant neoplasm of colon Colonoscopy ordered today and prep sent. Patient will stop on her way out to schedule colonoscopy. 3. Hyperlipidemia NOS Lipids obtained today and are as noted above. I reviewed these results with patient as well as her 10 year risk of cardiac complication, which is 5% in the next 10 years. We discussed the importance of lifestyle changes and low cholesterol in the diet. At this time her risk is not high enough to consider starting a statin. Orders: bisacodyl, 20 mg = 4 tab(s), PO, Once, # 4 tab(s), 0 Refill(s), Maintenance, Pharmacy: [id number] polyethylene glycol 3350, See Instructions, Per colonoscopy prep instructions, # 255 gm, 0 Refill(s), Acute, Pharmacy: [id number] Colonoscopy FOOTNOTES [1]12 Lead ECG; TO QUINTANILLA MD 12/26/2016 08:26 CDT Electronically Signed By: ZEESHAN STANFORD PA-C On: 12/26/2016 11:38 AM Source: [facility] POWERCHART Document Id: [id number] documented in this encounter Nursing Notes Renee Whipple R.N. - 01/03/2017 11:46 AM CDT Preprocedure Phone Call Endoscopy Pre-Procedure Phone Call Procedure: _ Colonoscopy Date: _ 01/10/2017 PCP: Nela Stanford Current Medications (including herbal and OTC's) Beta Vidhya (_) Yes (x) No _ Antiarrhythmic (_) Yes (x) No _ ASA (_) Yes (x) No Coumadin (_) Yes (x) No NSAIDS (_) Yes (x) No Steroids (_) Yes (x) No Diabetic oral/insulin (_) Yes (x) No If yes have you discussed use preprocedure with primary care provider (_) yes (_) no. Comment: _ Assessment Smoker (_) Yes (x) No If yes PPD _ Alcohol use _ nightly EKG _ Normal sinus rhythm Left atrial enlargement Labs _ Cholesterol: 238 mg/dL High (12/26/16) Tri mg/dL (12/26/16) HDL: 79 mg/dL (12/26/16) LDL Calculated: 134 mg/dL High (12/26/16) Chol/HDL Ratio: 3 (12/26/16) Dentures (_) Yes (x) No Hearing aids (_) Yes (x) No Allergies: _ Levaquin Previous Surgical Procedures Verification (x) Yes (_) No Comment: _ Medical History Verification (x) Yes (_) No Comment: _ Recent respiratory issues (_) Yes (x) No GERD/Reflux/Ulcers (_) Yes (x) No Polyps / Diverticulum (_) Yes (x) No Constipation Issues/Colonoscopy Prep Issues (x) Yes (_) No patient advised to try a full liquid dietthe day before the procedure prior to starting the prep Rectal bleeding (_) Yes (x) No Stool changes (_) Yes (x) No Kidney Issues (_) Yes (x) No Bleeding tendencies (_) Yes (x) No Anesthesia Assessment Do you use a CPAP or BiPAP machine? No (x) Yes (_) Have you been told that it is difficult to place a breathing tube in your airway (intubate)? (_) Yes(x) No. Comment: _ Do you or a family member have a history of high fever after anesthesia (malignant hyperthermia)? (_) Yes (x) No. Comment: _ Do you or a family member have a history of severe allergic or anaphylactic reactions to anesthetic agents? (_) Yes (_x No. Comment _ Do you have difficulties lying flat? (_) Yes (x) No. Comment: _ Do you have bahai or other objection to having a blood transfusion? (_) Yes (x) No Day before procedure: - Eat a light breakfast -Remember no foods with seeds, berries or nuts, No dairy products and avoid liquids with red or purple dyes. -Light lunch and light snack before starting prep after this start clear liquids. -Plan to start prep between 2pm and 6pm. This is mixed with 64 ounces of Gatorade and once mixed putin fridge when not being used. - Drink 8 ounces every 10-15 minutes until half gone - Take all 4 tablets with 8 ounces clear liquid - Recommended to continue to drink at least 8 ounces of clear liquid of your choice every hour untilbed Morning of Procedure: - 5 hours before you arrive at hospital start drinking the last of the prep . Drink this in 2 hours. - My have sips of water 2 hours before arrival time. Please do not chew gum, suck on hard candy. - Bowel movements should be clear yellow fluid Education: (x) Take your prescription medications as recommended by your provider including antiarrhythmics andbeta-vidhya medications. (x) Please bring any new medications with you if seen out of network (x) Endoscopy prep reviewed (x) Leave money and valuables at home (x) Do you have a hammer driver. Please have their telephone number (x) NPO 2 hours prior to arrival (x) Check in information (x) Be sure to have verified your scheduled procedure with your insurance company [employer] Do not drive for 24 hours after procedure. Please have a hammer driver with you to take you home. Arrange for a person to stay with you at least 5 hours after procedure. If you have any questions at any time please call . Patients will have a hammer driver. Liban Quintana Electronically Signed By: RENEE WHIPPLE RN On: 01/03/2017 11:53 AM [facility] Document Id: [id number] documented in this encounter Miscellaneous Notes Miscellaneous - Esme Atkins L.P.N., R.T.(R) - 12/26/2016 8:04 AM CDT Obstructive Sleep Apnea Obstructive Sleep Apnea Entered On: 12/26/2016 8:06 CDT Performed On: 12/26/2016 8:04 CDT by ESME ATKINS LPN, RT CELSO Screening Known Obstructive Sleep Apnea : No - NOT diagnosed with CELSO CELSO Score : No qualifying data available. CELSO Results : No qualifying data available. ESME ATKINS LPN, RT - 12/26/2016 8:04 CDT CELSO Assessment Do you have high blood pressure or have you been told to take medication for high blood pressure? : No Frequency of Snoring : Rarely (1-2 times per year) Frequency of Gasping, Choking, Snorting : Never Total Number of Historical Features : 0 Neck Circumference (cm) : 32/33 Total Sleep Apnea Clinical Score Calc : 0 ESME ATKINS LPN, RT - 12/26/2016 8:04 CDT [facility] Document Id: [id number] CDT!12 Miscellaneous - Esme Atkins L.P.N., R.T.(R) - 12/26/2016 7:55 AM CDT Adult Mail Service Coordinator Intake/History Adult Mail Service Coordinator Intake/History Entered On: 12/26/2016 8:01 CDT Performed On: 12/26/2016 7:55 CDT by ESME ATKINS LPN, RT Intake Chief Complaint : Preop. colonscopy. Temperature Core : 36.6 DegC(Converted to: 97.9 DegF) Peripheral Pulse Rate : 77 /min Respiratory Rate : 18 /min Systolic Blood Pressure : 132 mmHg Diastolic Blood Pressure : 67 mmHg NIBP Mean : 89 mmHg BP Location : Left upper extremity Blood Pressure Cuff Size : Regular SpO2 : 99 % Height : 174 cm(Converted to: 5 ft 9 inch(es), 69 inch(es)) Actual Weight : 65 kg(Converted to: 143 lb 5 oz) Weight Source : Standing scale Dosing Weight Clinic : 65 kg Clinic BSA : 1.77 Body Mass Index : 21.47 kg/m2 ESME ATKINS LPN, RT 12/26/2016 7:55 CDT General Info Information Given By : Patient Languages : Andorran Is Patient Female and 13-50 no hysterectomy : No ESME ATKINS LPN, RT - 12/26/2016 7:55 CDT Subjective Pain Symptoms : ESME Tanner LPN, 12/26/2016 7:55 CDT Dependent Habits Exposure to Tobacco Smoke : Other: Never Smoking Status : Never smoker Tobacco 2A : No Tobacco Use/Currently Using : No Tobacco Use/Last 30 Days : No Tobacco Use/Last 12 months : No ESME ATKINS LPN, 12/26/2016 7:55 CDT Caffeine Use Grid Caffeine Use : Current Type : Coffee Frequency : Daily ESME ATKINS LPN, - 12/26/2016 7:55 CDT Recreational Drug Use Grid Drug Use : None ESME ATKINS LPN, 12/26/2016 7:55 CDT Source: [employer] Document Id: [id number] CDT!39 documented in this encounter Plan of Treatment Upcoming Encounters Date Type Specialty Care Team Description 01/23/2022 Appointment Radiology Clair Simms , ALLEN, C.N.P., D.N.P. [address] [address] (Wo rk) Scheduled Procedures Name Priority Associated Diagnoses Date/Time COLONOSCOPY Screening Colon Cancer Average R isk documented as of this encounter Procedures Procedure Name Priority Date/Time Associated Diagnosis Comme nts ECG Routine 12/26/2016 8:26 AM Results f or this CDT procedure are i n the results section . LIPID PANEL, S Routine 12/26/2016 7:50 AM Results for this CDT procedure are i n the results section . documented in this encounter Results ECG 12 Lead (12/26/2016 8:26 AM CDT) Specimen (Source) Anatomical Collection Method Collection Time Re ceived Time Location / / Volume Laterality 12/26/2016 8:26 AM CDT Narrative [facility] - 12/26/2016 8:26 AM CDT Test Reason : PREOP Blood Pressure : / mmHG Vent. Rate : 073 BPM ? Atrial Rate : 073 BPM ?? P-R Int : 172 ms ?QRS D ur : 092 ms ?QT Int : 406 ms ? P-R-T Axe s : 074 -16 052 degrees ?? QTc Int : 447 ms Normal sinus rhythm Left atrial enlargement Otherwise normal ECG No previous ECGs available Referred By: ZEESHAN STANFORD ? Confirmed By:TO QUINTANILLA MD Procedure Note Provider, Daly Sandra - 01/01/2017F ormatting of this note might be different from the original. Test Reason : PREOP Blood Pressure : / mmHG Vent. Rate : 073 BPM Atrial Rate : 073 B PM P-R Int : 172 ms QRS Dur : 092 ms QT Int : 406 ms P-R-T Axes : 074 -16 05 2 degrees QTc Int : 447 ms Normal sinus rhythm Left atrial enlargement Otherwise normal ECG No previous ECGs available Referred By: ZEESHAN STANFORD Confirme d By:TO QUINTANILLA MD To Quintanilla M.D. ECG ORDERABLES Performing Organization Address City/State/ZIP Code Phon e Number [facility] [address] [place] [address] (ABNORMAL) Lipid Panel (12/26/2016 7:50 AM CDT) P athologist Signature Cholesterol, 238 (H) <=199 MGDL POWERCHART Total Comment: 2014 National Lipid Association recommen dations for Total Cholesterol in adults ages 18 and up: Desirable <200 mg/dL Borderline high 200-239 mg/dL High 240 mg/dL 2014 National Lipid Association recommen dations for Total Cholesterol in children ages 2 to 17. Acceptable <170 mg/dL Borderline High 170-199 mg/dL High 200 mg/dL HX HDL 79 >=50 MGDL POWERCHART Comment: 2014 National Lipid Association recommen dations for HDL-C in adults ages 18 and up: Low <40 mg/dL (Men) Low <50 mg/dL (Women) 2014 National Lipid Association recommen dations for HDL-C in children ages 2 to 17. Low <40 mg/dL Borderline Low 40-45 mg/dL Acceptable >45 mg/dL Triglycerides 123 <=149 MGDL POWERCHART Comment: 2014 National Lipid [...] assessment when triglycerides are >400mg/dL. Calculated LDL 134 (H) <=129 MGDL POWERCHART Comment: 2014 National Lipid Association [...] for FH and FDB is available ro[facility]: FH/ADH Genetic Reflex Nava el (test ADHP). Acquired (non-genetic) causes of markedly increased LDL cholesterol include cholestatic liver disease due to the presence of LpX. If a genetic form of hypercholesterolemia is suspected, family studies including biochemical testing fo r lipids (total cholesterol,triglycerides, LDL cholesterol and HDL cholesterol) are recommended. ??Please contact the laboratory at or the on-line test catalog at [employer] for information about how to order these jada ts or to speak with a genetic counselor. Further interpretation would require clinical information. Total Cholesterol/HDL Ratio 3 PO WERCHART Specimen (Source) Anatomical Collection Method Collection Time Re ceived Time Location / / Volume Laterality Blood 12/26/2016 7:50 AM CDT Elisa Conner M.D. LAB BLOOD ADD-ON Performing Organization Address City/State/ZIP Code Phon e Number POWERCHART POWERCHART NA documented in this encounter Visit Diagnoses Not on filedocumented in this encounter Care Teams Sign Language Instructor Relationship Specialty Start Date End Date Zeeshan Chandler P.A.-C. PCP - General 12/14/16 06/02/19 documented as of this encounter
--- OUTSIDE RECORDS SUMMARY | 2021-12-17 14:04 | XMS_ITS ---
:1950 Author Care Team Providers Name Role Phone Jin Dunne Primary Care Provider Unavail able Allergies Code Code System Name Reaction Severity Status Onset NKDA ? Notes: Levoquin Medications Name Status Start Date Stop Date ? ? Breo Ellipta 200 mcg-25 mcg/dose powder for inhalation Active ? Not available clonazepam 0.5 mg tablet Active ? Not donna ilable cyclobenzaprine 10 mg tablet Active ? Not available gabapentin 300 mg capsule Active ? Not av ailable montelukast 10 mg tablet Active ? Not donna ilable Shingrix (PF) 50 mcg/0.5 mL intramuscular suspension, kit Active ? Not available Ventolin HFA 90 mcg/actuation aerosol inhaler Active ? Not available Problems Name Status Onset Date Source ? 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 Results Lab Results None recorded. Past Encounters None recorded. Social History Tobacco Smoking Status Never Smoker Vaccine List Vaccine Type influenza, injectable, quadrivalent 12/02/2017 Notes: Prevnar 13 Plan of Care Reminders Provider Appointments None recorded. ? ? Lab None recorded. ? ? Referral None recorded. ? ? Procedures None recorded. ? ? Surgeries None recorded. ? ? Imaging None recorded. ? ? Vitals 03/19/2018 02:00PM FOLLOW UP 30 Height 5 ft 9 in 03/03/2018 09:30AM SPLINT INSERT Height Weight BMI Blood Pressure 5 ft 9 in 140 lbs 20.7 kg/m2 131/92 mm[Hg] 02/07/2018 11:00AM RE-EVALUATION Height Weight BMI Blood Pressure 5 ft 9 in 140 lbs 20.7 kg/m2 126/87 mm[Hg] 09/30/2012 Height Weight BMI Blood Pressure 5 ft 9 in 137 lbs 21.00 kg/m2 116/81 mm[Hg] 12/11/2011 Height Weight BMI Blood Pressure 5 ft 9 in 142 lbs 21.00 kg/m2 116/70 mm[Hg] 09/18/2011 Blood Pressure 123/69 mm[Hg] 08/23/2011 Height Weight BMI Blood Pressure 5 ft 9 in 140 lbs 21.00 kg/m2 106/68 mm[Hg] 08/07/2011 Blood Pressure 120/75 mm[Hg] 07/23/2011 Height Weight BMI Blood Pressure 5 ft 9 in 140 lbs 21.00 kg/m2 147/77 mm[Hg]
[2021-12-17 14:12] LABS: C Reactive Protein* < 0.5 mg/dL (0.5-1.0)
[2021-12-17] MEDS: 0.9 % SODIUM CHLORIDE 1000 ml 1,000 ML IV (14:21)
[2021-12-17 16:07] LABS: D Dimer Quantitative* 0.34 ug/ml (0.00-0.50)
== END 2021-12-17 16:10 | disposition home or self-care (01) ==
PROVIDERS: Emergency Provider Emergency Medicine
DX: R10.9 Unspecified abdominal pain (principal)
CPT/HCPCS: 36415; 74177; 80048; 80076; 81001; 82803; 83605; 83690; 85025; 85379; 86140; 94761; 96374; 96375; 96376; 99284; 99285; J1170; J2405; J7030; Q9967

== ENCOUNTER 2023-05-07 11:15 | Outpatient (RCR) | payer MEDICARE, SELFPAY | END 2023-07-19 09:44 | disposition home or self-care (01) | PROVIDERS: PCP Nurse Practitioner Family; Visit Provider Registered Nurse | DX: M79.641 Pain in right hand (principal); M79.642 Pain in left hand; M25.649 Stiffness of unspecified hand, not elsewhere classified; Z51.89 Encounter for other specified aftercare | CPT/HCPCS: 97035; 97110; 97165; 97535; X5282 ==

== ENCOUNTER 2024-12-23 10:03 | Outpatient (CLI) | payer MEDICARE, SELFPAY | END 2024-12-23 10:04 | disposition home or self-care (01) | LOC: INJ CL 10:04 | PROVIDERS: PCP Nurse Practitioner Family; Visit Provider Nurse Anesthetist, Certified Registered | DX: M54.16 Radiculopathy, lumbar region (principal) | CPT/HCPCS: 62323; J0665; J1100; Q9966 ==